=== PATIENT | female | born 1960 | race Caucasian/White ===

== ENCOUNTER 2022-10-12 11:45 | Outpatient (OUT) | payer MEDICARE, MEDICAID, SELFPAY ==
[2022-10-12 12:15] LABS: Basophils Absolute Auto 0.1 10^3/uL (0.0-0.1); Basophils Percent Auto 0.9 % (0.2-2.0); Eosinophils Absolute Auto 0.1 10^3/uL (0.0-0.7); Eosinophils Percent Auto 1.7 % (0.9-7.0); Hematocrit 40.9 % (36.0-48.0); Hemoglobin 13.6 g/dL (12.0-16.0); Immature Granulocytes Abs Auto 0.03 10^3/uL (0.00-0.03); Immature Granulocytes Pct Auto 0.4 % (0.0-0.5); Lymphocytes Absolute Auto 1.6 10^3/uL (1.2-3.8); Lymphocytes Percent Auto 20.6 % (20.5-60.0); Mean Corpuscular HGB Conc 33.3 g/dL (29.9-35.2); Mean Corpuscular Hemoglobin 30.4 pg (26.7-34.0); Mean Corpuscular Volume 91.3 fL (81.0-99.0); Mean Platelet Volume 8.7 fL (9.5-13.5); Monocytes Absolute Auto 0.6 10^3/uL (0.3-0.8); Monocytes Percent Auto 7.8 % (1.7-12.0); Neutrophils Absolute Auto 5.3 10^3/uL (1.4-6.5); Neutrophils Percent Auto 68.6 % (43.0-75.0); Platelet Count 338 10^3/uL (150-450); Red Blood Count 4.48 10^6/uL (4.20-5.40); Red Cell Distribution Width 13.6 % (11.0-15.0); White Blood Count 7.7 10^3/uL (4.0-11.0)
[2022-10-12 13:28] LABS: Alanine Aminotransferase 27 U/L (14-59); Albumin Globulin Ratio 1.1; Albumin Level 3.6 g/dL (3.4-5.0); Alkaline Phosphatase 91 U/L (46-116); Aspartate Amino Transferase 18 U/L (15-37); BUN Creatinine Ratio 10.8; Bilirubin Total 0.3 mg/dL (0.2-1.0); Calcium 9.1 mg/dL (8.5-10.1); Carbon Dioxide 28.9 mmol/L (21.0-32.0); Chloride 105 mmol/L (98-107); Estimated GFR (African America >60 (>=60); Estimated GFR (Non-African Ame >60 (>=60); Globulin 3.4 g/dL; Glucose 100 mg/dL (74-106); Potassium 3.9 mmol/L (3.5-5.1); Sodium 140 mmol/L (136-145)
[2022-10-15 12:08] LABS: IgG, Subclass 1 523 mg/dL (248-810); IgG, Subclass 2 134 mg/dL (130-555); IgG, Subclass 3 17 mg/dL (15-102); IgG, Subclass 4 14 mg/dL (2-96); Immunoglobulin G, Qn, Serum 737 mg/dL (586-1602)
== END 2022-10-12 11:46 | disposition home or self-care (01) ==
PROVIDERS: PCP Family Medicine
DX: G35 Multiple sclerosis (principal)
CPT/HCPCS: 36415; 80053; 82784; 82787; 85025

== ENCOUNTER 2022-10-31 10:38 | Outpatient (OUT) | payer MEDICARE, MEDICAID, SELFPAY ==
--- NOTE | 2022-10-31 10:45 | MR_ITS ---
The [address] [address] Patient Name: MEHRDAD LE MRN: [facility]:[id number] date: 1960 Sex: F Assigned Patient Location: MRI Current Patient Location: MRI Accession/Order Number: [id number] Exam Date: 10/31/2022 11:00 Report Date: 10/31/2022 13:19 At the request of: NON-STAFF PHYSICIAN Procedure: MR head/brain wo/w con EXAMINATION: MR head/brain wo/w con HISTORY: Multiple Sclerosis G35 COMPARISON: MRI brain 11/23/2021 TECHNIQUE: A variety of imaging planes and parameters were utilized for visualization of suspected pathology. Images were performed without and with Dotarem contrast. FINDINGS: CEREBRUM: Several areas within the periventricular and deep white matter which demonstrate increased T2 signal and are consistent with known demyelinating process and are unchanged. Stable size of a small focus posterior to the right lateral ventricle which demonstrates mild increased signal on the diffusion sequence and trace amount of enhancement suggesting focal area of active demyelination. CEREBELLUM: No edema, hemorrhage, mass, acute infarction, or inappropriate atrophy. BRAINSTEM: No edema, hemorrhage, mass, acute infarction, or inappropriate atrophy. CSF SPACES: Ventricles, cisterns, and sulci are appropriate for age. No hydrocephalus, subarachnoid hemorrhage, or mass. SKULL: No mass or other significant visible lesion. SINUSES: Limited views demonstrate no significant mucosal thickening or fluid. ORBITS: Limited views are unremarkable. OTHER: No abnormal meningeal or parenchymal enhancement. MR/MR head/brain wo/w con IMPRESSION: 1. Tiny focus of active demyelination suspected within the posteromedial right parietal lobe. Stable appearance of the remainder of the demyelinating lesions. Electronically authenticated by: DEUCE DIETRICH Date: 10/31/2022 13:19
== END 2022-10-31 10:39 | disposition home or self-care (01) ==
LOC: MRI 10:38
PROVIDERS: PCP Family Medicine
DX: G35 Multiple sclerosis (principal)
CPT/HCPCS: 70553; A9575

== ENCOUNTER 2022-12-06 11:05 | Outpatient (OUT) | payer MEDICARE, MEDICAID, SELFPAY ==
--- NOTE | 2022-12-06 | XR_ITS ---
The [address] [address] Patient Name: MEHRDAD LE MRN: [id number] date: 1960 Sex: F Assigned Patient Location: [facility] Current Patient Location: [facility] Accession/Order Number: [id number] Exam Date: 12/06/2022 10:00 Report Date: 12/06/2022 12:53 At the request of: PHILIPPE MARTINEZ Procedure: XR ankle LT min 3V PROCEDURE: XR ankle LT min 3V COMPARISON: None. HISTORY: LEFT ANKLE PAIN FINDINGS: BONES:Remote healed distal fibular fracture. No acute fracture or dislocation. SOFT TISSUES:Moderate lateral soft tissue swelling EFFUSION:None visible. OTHER: Negative. XR/XR ankle LT min 3V IMPRESSION: Lateral soft tissue swelling. No acute ankle fracture Electronically authenticated by: KARINA SOARES Date: 12/06/2022 12:53
== END 2022-12-06 11:06 | disposition home or self-care (01) ==
LOC: RAD 11:06
PROVIDERS: PCP Family Medicine; Visit Provider Podiatrist Foot & Ankle Surgery
DX: M25.372 Other instability, left ankle (principal)
CPT/HCPCS: 73610

== ENCOUNTER 2022-12-12 08:56 | Outpatient (RCR) | payer MEDICARE, MEDICAID, SELFPAY | END 2022-12-28 16:54 | disposition home or self-care (01) | LOC: PT 08:56 | PROVIDERS: PCP Family Medicine; Visit Provider Podiatrist Foot & Ankle Surgery | DX: M25.372 Other instability, left ankle (principal); R26.89 Other abnormalities of gait and mobility | CPT/HCPCS: 97110; 97161 ==

== ENCOUNTER 2023-02-09 14:56 | Emergency (ER) | payer MEDICARE, MEDICAID, SELFPAY ==
[2023-02-09 15:00] VITALS: BP 124/81; PULSE 99; RESP 18; TEMP 36.9; O2SAT 100; BMI 30.9
--- NOTE | 2023-02-09 15:12 | ED.GENADUL1 ---
HPI - General Adult General Chief complaint: Fever Stated complaint: FEVER Time Seen by Provider: 02/09/23 14:57 Source: patient Mode of arrival: walk-in Limitations: no limitations History of Present Illness HPI narrative: Patient is a 62-year-old female who presents to the emergency department with concern that she may be dehydrated. She states for the last 2 to 3 days she has had subjective fever, hot and cold chills. She has not been able to work her thermometer to tell if she has actually had a fever. She denies cough, congestion. She has had no vomiting. She states today she noticed a mild amount of diarrhea. She states she is able to eat and drink without difficulty and has been urinating normally. She states she had a similar episode in the past where she was diagnosed with a UTI and required IV fluids. She has a history of MS. She has no other focal medical complaints. Related Data Previous Rx's Medication Instructions Recorded ciprofloxacin HCl 500 mg tablet 500 mg PO BID #14 tabs 02/09/23 (Cipro) ondansetron 4 mg disintegrating 4 mg PO Q6H PRN nausea and 02/09/23 tablet vomiting #12 tabs Allergies Allergy/AdvReac Type Severity Reaction Status Date / Time cephalexin [From Keflex] Allergy Unknown Verified 02/09/23 15:00 Review of Systems ROS Constitutional Reports: chills Ears, nose, mouth, and throat Denies: throat pain or nasal congestion Cardiovascular Denies: chest pain Respiratory Denies: shortness of breath Gastrointestinal Reports: diarrhea; Denies: abdominal pain, nausea or vomiting Genitourinary Denies: painful urination Musculoskeletal Denies: back pain Integumentary/Breast Denies: rash Neurological Denies: headache Exam Narrative Exam Narrative: Gen.: Awake, alert, in no distress Head: Normocephalic, atraumatic ENT: Dry mucous membranes, bilateral TMs clear, no pharyngeal erythema Respiratory: No respiratory distress, lungs clear bilaterally Cardio: Regular rate and rhythm Gastrointestinal: Abdomen is soft, nondistended and nontender to palpation Extremities: Moves extremities equally Psych: Normal mood and affect Neuro: No focal neuro deficit Skin: Warm, dry, intact Constitutional Vital Signs, click to edit/add: Last Vital Signs Temp 98.5 F 02/09/23 15:00 Pulse 99 H 02/09/23 15:00 Resp 18 02/09/23 15:00 BP 124/81 02/09/23 15:00 Pulse Ox 100 02/09/23 15:00 O2 Del Method Room Air 02/09/23 15:00 Course Vital Signs Vital signs: Vital Signs Temperature 98.5 F 02/09/23 15:00 Pulse Rate 99 H 02/09/23 15:00 Respiratory Rate 18 02/09/23 15:00 Blood Pressure 124/81 02/09/23 15:00 Pulse Oximetry 100 02/09/23 15:00 Oxygen Delivery Method Room Air 02/09/23 15:00 Temperature 98.5 F 02/09/23 15:00 Pulse Rate 99 H 02/09/23 15:00 Respiratory Rate 18 02/09/23 15:00 Blood Pressure 124/81 02/09/23 15:00 Pulse Oximetry 100 02/09/23 15:00 Oxygen Delivery Method Room Air 02/09/23 15:00 Medical Decision Making MDM Narrative Medical decision making narrative: Patient with stable vital signs, no fevers or tachycardia in the ER. Labs were ordered and the patient was given IV fluids. She had no episodes of emesis in the ER. She has no other focal medical complaints, she was found to have a UTI, she is COVID-negative with normal labs. Follow-up with PCP. Cipro and Zofran given for home. Return to the ER if symptoms change or worsen. Medical Records Medical records reviewed: Yes I reviewed the patient's medical records Lab Data Lab results reviewed: Yes I reviewed the patient's lab results Labs: Lab Results 02/09/23 02/09/23 02/09/23 Range/Units 15:20 15:35 16:30 WBC 8.4 (4.0-11.0) 10^3/uL RBC 4.62 (4.20-5.40) 10^6/uL Hgb 13.9 (12.0-16.0) g/dL Hct 41.6 (36.0-48.0) % MCV 90.0 (81.0-99.0) fL MCH 30.1 (26.7-34.0) pg MCHC 33.4 (29.9-35.2) g/dL RDW 13.4 (11.0-15.0) % Plt Count 293 (150-450) 10^3/uL MPV 9.4 L (9.5-13.5) fL Seg Neuts % (Manual) 59.0 Lymphocytes % (Manual) 22.0 (20.5-60.0) % Atypical Lymphs % (Man) 11.0 % Monocytes % (Manual) 7.0 (1.7-12.0) % Eosinophils % (Manual) 1.0 (0.9-7.0) % Basophils % (Manual) 0.0 L (0.2-2.0) % Neutrophils # (Manual) 4.95 (1.4-6.5) 10^3/uL Lymphocytes # (Manual) 1.84 (1.20-3.80) 10^3/uL Abs Atypical Lymphs Man 0.9 Monocytes # (Manual) 0.58 (0.30-0.80) 10^3/uL Eosinophils # (Manual) 0.08 (0.00-0.70) 10^3/uL Basophils # (Manual) 0.00 (0.00-0.10) 10^3/uL Sodium 139 (136-145) mmol/L Potassium 3.6 (3.5-5.1) mmol/L Chloride 102 (98-107) mmol/L Carbon Dioxide 26.5 (21.0-32.0) mmol/L Anion Gap 14.1 BUN 12.0 (7.0-18.0) mg/dL Creatinine 0.98 (0.55-1.02) mg/dL Est GFR ( Amer) >60 (>=60) Est GFR (Non-Af Amer) 57 L (>=60) BUN/Creatinine Ratio 12.2 Glucose 108 H (74-106) mg/dL Calcium 8.6 (8.5-10.1) mg/dL Total Bilirubin 0.6 (0.2-1.0) mg/dL AST 39 H (15-37) U/L ALT 65 H (14-59) U/L Alkaline Phosphatase 93 (46-116) U/L Total Protein 7.0 (6.4-8.2) g/dL Albumin 3.4 (3.4-5.0) g/dL Globulin 3.6 g/dL Albumin/Globulin Ratio 0.9 Urine Color Lt. yellow (YELLOW) Urine Clarity Slightly cloudy A (CLEAR) Urine pH 6.0 (5.0-9.0) Ur Specific [place] 1.020 (1.005-1.025) Urine Protein Negative (NEG/TRACE) mg/dL Urine Glucose (UA) Negative (NEGATIVE) mg/dL Urine Ketones Negative (NEGATIVE) mg/dL Urine Occult Blood Small A (NEGATIVE) Urine Nitrite Positive A (NEGATIVE) Urine Bilirubin Negative (NEGATIVE) Urine Urobilinogen 0.2 (0.2-1.0) EU/dL Ur Leukocyte Esterase Moderate A (NEGATIVE) Urine RBC 0-2 (0-2) #/HPF Urine WBC 10-20 A (NONE SEEN) #/HPF Ur Squamous Epith Cells Rare (NONE/RARE) #/LPF Urine Crystals None seen (None Seen) #/HPF Urine Bacteria Small A (NONE SEEN) #/HPF Urine Casts None seen (NONE SEEN) #/LPF Urine Mucus None seen (NONE SEEN) Ur Culture Indicated? Yes SARS-CoV-2 (PCR) Negative (NEGATIVE) Discharge Plan Discharge Chief Complaint: Fever Clinical Impression: UTI (urinary tract infection) Patient Disposition: Home, Self-Care Time of Disposition Decision: 16:55 Condition: Good Prescriptions / Home Meds: New ciprofloxacin HCl [Cipro] 500 mg tablet 500 mg PO BID Qty: 14 0RF ondansetron 4 mg tablet,disintegrating 4 mg PO Q6H PRN (Reason: nausea and vomiting) Qty: 12 0RF Instructions: Urinary Tract Infection in Women (ED) Stand Alone Forms: Portal Instructions Referrals: NABEEL STANTON [Primary Care Provider] - 1 week
[2023-02-09] MEDS: 0.9 % SODIUM CHLORIDE 1,000 ML 999 ML IV (15:26)
[2023-02-09 15:53] LABS: Hematocrit 41.6 % (36.0-48.0); Hemoglobin 13.9 g/dL (12.0-16.0); Mean Corpuscular HGB Conc 33.4 g/dL (29.9-35.2); Mean Corpuscular Hemoglobin 30.1 pg (26.7-34.0); Mean Platelet Volume 9.4 fL (9.5-13.5); Platelet Count 293 10^3/uL (150-450); Red Blood Count 4.62 10^6/uL (4.20-5.40); Red Cell Distribution Width 13.4 % (11.0-15.0); White Blood Count 8.4 10^3/uL (4.0-11.0)
[2023-02-09 16:01] LABS: Alanine Aminotransferase 65 U/L (14-59); Albumin Globulin Ratio 0.9; Albumin Level 3.4 g/dL (3.4-5.0); Alkaline Phosphatase 93 U/L (46-116); Anion Gap 14.1; Aspartate Amino Transferase 39 U/L (15-37); BUN Creatinine Ratio 12.2; Bilirubin Total 0.6 mg/dL (0.2-1.0); Calcium 8.6 mg/dL (8.5-10.1); Carbon Dioxide 26.5 mmol/L (21.0-32.0); Chloride 102 mmol/L (98-107); Estimated GFR (African America >60 (>=60); Estimated GFR (Non-African Ame 57 (>=60); Globulin 3.6 g/dL; Glucose 108 mg/dL (74-106); Potassium 3.6 mmol/L (3.5-5.1); Sodium 139 mmol/L (136-145)
[2023-02-09 16:04] LABS: SARS-CoV-2 Ag NEGATIVE (NEGATIVE)
[2023-02-09 16:18] LABS: Atypical Lymphocytes Abs Man 0.9; Eosinophils Absolute Manual 0.08 10^3/uL (0.00-0.70); Lymphocytes Absolute Manual 1.84 10^3/uL (1.20-3.80); Monocytes Absolute Manual 0.58 10^3/uL (0.30-0.80); Segmented Neut Absolute Manual 4.95 10^3/uL (1.4-6.5)
[2023-02-09 16:40] LABS: Bilirubin Urine NEGATIVE (NEGATIVE); Blood Urine SMALL (NEGATIVE); Clarity Urine SLIGHTLY CLOUDY (CLEAR); Color Urine LT. YELLOW (YELLOW); Glucose Urine UA NEGATIVE (NEGATIVE); Ketones Urine NEGATIVE (NEGATIVE); Leukocyte Esterase Urine MODERATE (NEGATIVE); Nitrite Urine POSITIVE (NEGATIVE); Protein Urine NEGATIVE (NEG/TRACE); Urine Microscopic Indicated YES; Urobilinogen Urine 0.2 EU/dL (0.2-1.0)
[2023-02-09 16:46] LABS: Bacteria Urine SMALL #/HPF (NONE SEEN); Cast Seen? NONE SEEN #/LPF (NONE SEEN); Crystals Seen? None Seen #/HPF (None Seen); Mucus Urine NONE SEEN (NONE SEEN); RBC Urine 0-2 #/HPF (0-2); Squamous Epithelial Cell Urine RARE #/LPF (NONE/RARE); Urine Culture Indicated YES
[2023-02-09 17:29] VITALS: PULSE 78; RESP 14; TEMP 37.1; O2SAT 98
[2023-02-10 15:31] LABS: SARS-CoV-2 NAA NOT DETECTED (NOT DETECTE)
== END 2023-02-09 17:31 | disposition home or self-care (01) ==
PROVIDERS: Physician Assistant; Emergency Provider Emergency Medicine; PCP Family Medicine
DX: N39.0 Urinary tract infection, site not specified (principal); G35 Multiple sclerosis; R19.7 Diarrhea, unspecified; Z87.440 Personal history of urinary (tract) infections
CPT/HCPCS: 36415; 80053; 81001; 85027; 87086; 87150; 87186; 87635; 87811; 96360; 96361; 99284

== ENCOUNTER 2023-05-10 09:54 | Outpatient (OUT) | payer MEDICARE, MEDICAID, SELFPAY ==
[2023-05-10 10:25] LABS: Basophils Absolute Auto 0.1 10^3/uL (0.0-0.1); Basophils Percent Auto 0.7 % (0.2-2.0); Eosinophils Absolute Auto 0.2 10^3/uL (0.0-0.7); Eosinophils Percent Auto 2.1 % (0.9-7.0); Hematocrit 41.1 % (36.0-48.0); Hemoglobin 13.4 g/dL (12.0-16.0); Immature Granulocytes Abs Auto 0.01 10^3/uL (0.00-0.03); Immature Granulocytes Pct Auto 0.1 % (0.0-0.5); Lymphocytes Absolute Auto 3.5 10^3/uL (1.2-3.8); Lymphocytes Percent Auto 46.3 % (20.5-60.0); Mean Corpuscular HGB Conc 32.6 g/dL (29.9-35.2); Mean Corpuscular Hemoglobin 30.1 pg (26.7-34.0); Mean Corpuscular Volume 92.4 fL (81.0-99.0); Mean Platelet Volume 8.8 fL (9.5-13.5); Monocytes Absolute Auto 0.8 10^3/uL (0.3-0.8); Monocytes Percent Auto 10.7 % (1.7-12.0); Neutrophils Absolute Auto 3.1 10^3/uL (1.4-6.5); Neutrophils Percent Auto 40.1 % (43.0-75.0); Platelet Count 343 10^3/uL (150-450); Red Blood Count 4.45 10^6/uL (4.20-5.40); Red Cell Distribution Width 14.5 % (11.0-15.0); White Blood Count 7.6 10^3/uL (4.0-11.0)
[2023-05-10 11:23] LABS: Alanine Aminotransferase 42 U/L (14-59); Albumin Level 3.4 g/dL (3.4-5.0); Alkaline Phosphatase 118 U/L (46-116); Anion Gap 13.4; Aspartate Amino Transferase 29 U/L (15-37); BUN Creatinine Ratio 12.4; Bilirubin Direct 0.1 mg/dL (0.0-0.2); Bilirubin Total 0.5 mg/dL (0.2-1.0); Calcium 8.7 mg/dL (8.5-10.1); Chloride 105 mmol/L (98-107); Estimated GFR (African America >60 (>=60); Estimated GFR (Non-African Ame >60 (>=60); Globulin 3.4 g/dL; Glucose 94 mg/dL (74-106); Potassium 4.4 mmol/L (3.5-5.1); Sodium 143 mmol/L (136-145); Total Protein 6.8 g/dL (6.4-8.2)
[2023-05-11 05:11] LABS: Immunoglobulin G, Qn 723 mg/dL (586-1602)
== END 2023-05-10 09:55 | disposition home or self-care (01) ==
LOC: LAB 09:58
PROVIDERS: PCP Family Medicine; Visit Provider Psychiatry & Neurology Neurology
DX: G35 Multiple sclerosis (principal)
CPT/HCPCS: 36415; 80048; 80076; 82784; 85025

== ENCOUNTER 2023-10-03 08:32 | Outpatient (OUT) | payer MEDICARE, MEDICAID, SELFPAY ==
--- OUTSIDE RECORDS SUMMARY | 2023-10-03 08:38 | XMS_ITS | CCD ---
Author Organization [facility] CliniSyky Care Team Providers Care Nursery Laborer Name Role Phone Nabeel Stanton Unavailable Unavailable Primary Care Provider UnavailNabeel Mayfield DO Primary Care Provider DO Nabeel Stanton Primary Care Provider DO Nabeel Stanton Attending Provider LIONEL Patten Attending Provider LIONEL Patten Referring Provider NABEEL STANTON Primary Care Unavailable Karina Soares Unavailable SINDY, YISEL Admitting Unavailable SINDY, YISEL Attending Unavailable SINDY, YISEL Consulting Unavailable SINDY, YISEL Admitting Unavailable SINDY, YISEL Attending Unavailable SINDY, YISEL Consulting Unavailable [facility] NABEEL [facility] Unavailable MISC, DR BRADLEY Admitting Unavailable Karina Soares Consulting Unavailable MISMaximilian, DR BRADLEY Attending Unavailable NABEEL STANTON [facility] Unavailable [facility] DR BRADLEY Consulting Unavailable ATUL AKERS Consulting Unavailable BART HELMS Admitting Unavailable BART HELMS Attending Unavailable [facility] NABEEL [facility] Unavailable [facility], [place] BRADLEY Attending Unavailable MISC, DR BRADLEY Admitting Unavailable [facility] Care Unavailable NELA PALMA Attending Unavailable STANTON, NABEEL [facility] Care Unavailable KIKO PALMAID Consulting Unavailable BINA Oliveira, NELA Admitting Unavailable FREDA, CHRISTOPHER Admitting Unavailable BART HELMS Attending Unavailable [facility] Care Unavailable BART HELMS Attending Unavailable MERLIN HELMSOPHMARVIN Admitting Unavailable [facility] Care Unavailable BINA ., NELA Attending Unavailable BINA Oliveira, NELA Admitting Unavailable [facility] NABEEL [facility] Care Unavailable RESCUENABEEL HUMBOLDT Primary Care UnavailAC Pretty Attending Unavailable AC WARNER Referring Unavailable AC WARNER Referring Unavailable NABEEL STANTON Primary Care Unavailabl e Nabeel Stanton DO Primary Care Provider Nabeel Stanton MD Primary Care Provider [phone] DO Nabeel Stanton Primary Care Provider DO Nabeel Stanton Referring Provider [phone] Self, Referral Attending Provider Unavailable RAHUL STEWART Attending Unavailable RAHUL STEWART Attending Unavailable BART HELMS Attending Unavailable RAHUL STEWART Attending Unavailable ATUL AKERS Attending Unavailable Self, Referral Attending Unavailable Self, Referral Admitting Unavailable Nabeel Stanton Referring Unavailable Nabeel Stanton Primary Care Unavailable Nabeel Stanton Primary Care Unavailable Cece Patten Referring Unavailab Cece Bautista Attending Unavailab Cece Bautista Admitting Unavailab le Allergies Allergy Classification Reported Allergen(s) Allergy Type Date of Onset Reaction(s) Facility Cephalosporins (antibiotic) (2 sources) Cephalexin Drug Allergy 4 rash, Unknown Reaction [facility] (12 sources) Cephalexin; Translations: [Keflex] Drug Allergy rash [facility] (5 sources) Cephalexin; Translations: [CEPHALEXIN] Drug Allergy 6 Hives, Itching, Rash [facility] (2 sources) Cephalosporins (Antibiotic); Translations: [Cephalosporins] Allergy to substance 4 Unknown Reaction [facility] (1 source) Cephalexin Drug Allergy 4 [facility] Repository Medications Current Medications Medication Drug Class(es) Dates Sig (Normalized) Sig (Original) ascorbic acid 500 mg oral tablet (3 sources) Vitamin C Start: 11-23-2016 take 1 tablet by mouth once daily Ascorbic Acid (Vitamin C) (Vitamin C) 500 mg Tablet Active 500 MG PO Daily November 23, 2016 12:00am biotin 10 mg oral capsule (9 sources) Start: 02-03-2023 take 1 capsule by mouth once daily biotin 10 MG capsule TAKE 1 CAPSULE BY MOUTH EVERY DAY 30 DAYS 0 02/03/2023 Active Start: 11-20-2016 take 1 mg by mouth once daily Biotin Active 1 MG PO Daily November 20, 2016 12:00am Start: 12-15-2015 take 1 tablet by carolyn th once daily Biotin 10,000 mcg cap Take 1 tablet by mouth once daily. 0 12/15/2015 Active take 1 tablet by carolyn th once daily Biotin 41414 MCG 1 tablet Orally Once a day Active Comment on above: Take 1 tablet by carolyn th once daily. calcium carbonate 1250 mg / cholecalciferol 600 unt oral tablet (3 sources) Vitamin D Start: 11-21-19 17 take 1 tablet by mouth once daily Calcium Carbonate-Vitamin D3 (Os-Miquel 500 + D3) 500mg (1,250mg) -600 unit Tablet Active 1 TAB PO Daily November 20, 2016 12:00am Compr.Stocking,Knee,Long ,Large (1 source) Start: 09-04-19 24 Compr.Stocking,Kn ee,Long,Large Active 0 .Route 2 September 04, 2023 12:00am As directed - 20-30mmHg desonide 0.5 mg/ml topical cream (6 sources) Corticosteroid Start: 11-21-19 Desonide Active 1 APPLIC TOPICAL Twice daily November 20, 2016 12:00am Start: 04-25-2016 desonide (DESO EVERTON) 0.05 % lotion APPLY TO SKIN TWICE A DAY NEEDED 0 04/25/2016 Active Comment on above: APPLY TO SKIN TWICE A DAY NEEDED diclofenac sodium 50 mg delayed release oral tablet (1 source) Nonsteroidal Anti-inflammatory Drug Start: 3 take 1 tablet by mouth every twelve hours Diclofenac Sodium 50 MG 1 tablet as needed Orally Twice a day for 30 days Nov, Active docusate sodium 100 mg oral capsule (17 sources) Start: 7 take 1 capsule by mouth once daily Docusate Sodium (Colace) 100 mg Capsule Active 100 MG PO Daily November 20, 2016 12:00am docusate sodium (COLACE) 100 mg capsule Take by mouth q 24 HR. 0 Active Comment on above: Take by mouth q 24 H R. donepezil hydrochloride 10 mg oral tablet (19 sources) Start: 11-20-2016 take 1 tablet by mouth once daily at bedtime Donepezil (Aricept) 10 mg Tablet Active 10 MG PO Daily at bedtime November 20, 2016 12:00am Start: 12-16-2015 donepezil (CHATO CEPT) 10 mg tablet Take by mouth q 24 HR. 0 12/16/2015 Active Comment on above: Take by mouth q 24 H R. ergocalciferol 1.25 mg oral capsule (9 sources) Provitamin D2 Compound Start: 016 take 1 capsule by mouth every week Ergocalciferol (Vitamin D2) (Vitamin D2) 50,000 unit Capsule Active 19605 UNIT PO every week November 23, 2016 12:00am Comment on above: Take 1 capsule by [facility] one time a week. TAKE 1 CAPSULE BY [facility] ONCE PER WEEK fluticasone propionate 0.05 mg/actuat metered dose nasal spray (20 sources) Corticosteroid Start: 024 take 2 spray(s) nasal route once daily Fluticasone Propionate Active 0 .ROUTE .COMPLEX 48 August 06, 2023 3:07pm USE 2 SPRAYS IN EACH NOSTRIL DAILY FOR 30 DAYS Start: 05-07-2023 End: 08-06-2023 Fluticasone Propionate Discontinued 2 SPRAY INTRANASAL Daily 16 May 07, 2023 12:14pm August 06, 2023 3:07pm Start: 11-20-2016 End: 05-07-2023 take 100 ug by inhalation twice daily Fluticasone Propionate Discontinued 100 MCG INHALATION Twice daily November 20, 2016 12:00am May 07, 2023 12:14pm take 2 spray(s) nasa l route once daily fluticasone (Flonase) 50 MCG/ACT nasal spray SPRAY 2 SPRAYS INTO EACH NOSTRIL ONCE DAILY 0 Active take 2 spray(s) nasa l route once daily Fluticasone Propionate 50 MCG/ACT USE 2 SPRAYS IN EACH NOSTRIL ONCE DAILY for 90 Active gabapentin 400 mg oral capsule (19 sources) Anti-epileptic Agent Start: 11-20-2016 take 1 capsule by mouth twice daily Gabapentin (Neurontin) 400 mg Capsule Active 400 MG PO Twice daily November 20, 2016 12:00am Start: 12-11-2015 gabapentin (NE URONTIN) 400 mg capsule Take by mouth q 12 HR. 0 12/11/2015 Active take 2 capsules by m out twice daily in the evening Neurontin 400 MG 1 capsule am, ; 2 pm Orally BID Active Comment on above: Take by mouth q 12 H R. losartan potassium 25 mg oral tablet (19 sources) Angiotensin 2 Receptor Isabella Start: 04-17-19 19 take 25 mg by mouth once daily Losartan Active 25 MG PO Daily April 18, 2018 1:00am Comment on above: Take by mouth. 10 ml ocrelizumab 30 mg/ml injection (2 sources) Start: 05-11-19 24 Ocrelizumab (Ocrevus) 30 mg/mL solution Active MG IV May 11, 2023 1:00am Medication Name: Ocrevus; Note: Source Status: Not-Taking\PRN; Provider: MONTSE ondansetron 4 mg disintegrating oral tablet (2 sources) Serotonin-3 Receptor Antagonist Start: 02-10-20 ondansetron ODT (Zofran-ODT) 4 MG disintegrating tablet DISSOLVE 1 TABLET UNDER TONGUE EVERY 6 HOURS NEEDED FOR NAUSEA AND VOMITING 0 02/09/2023 Active 24 hr oxybutynin chloride 15 mg extended release oral tablet (19 sources) Cholinergic Muscarinic Antagonist Start: 03-12-19 24 take 1 tablet by mouth every twenty-four hours in the morning oxybutynin XL (Ditropan-XL) 15 MG 24 hr tablet Take 15 mg by mouth in the morning. 0 03/12/2023 Active Start: 08-01-2021 take 1 tablet by carolyn th once daily oxybutynin ER (DITROPAN XL) 15 mg 24 hr Extended Rel Tab Take 15 mg by mouth once daily. 0 08/01/2021 Active Start: 11-20-2016 take 1 tablet by carolyn th once daily Oxybutynin Chloride (Ditropan Xl) 10 mg Tablet Extended Release 24hr Active 10 MG PO Daily November 20, 2016 12:00am Comment on above: Take 15 mg by mouth once daily. Peg 055-Llkvdgvuvpkw-Ljupxgp n (2 sources) Start: 05-11-2023 Peg 986-Hvnrjlxonfyu-Oftgei in Active DROPS OPHTHALMIC As Directed May 11, 2023 1:00am FreeTextSig: as directed Ophthalmic; Note: Source Status: Not-Taking\PRN; Provider: Montana Smith ( ) triamcinolone acetonide 1 mg/ml topical cream (13 sources) Corticosteroid Start: 05-11-2023 Triamcinolone Acetonide Active APPLIC TOPICAL May 11, 2023 1:00am FreeTextSig: APPLY TO AFFECTED AREA TWICE A DAY NEEDED; Note: Source Status: Not-Taking\PRN; Refills: 1; Qty: 30 Gram; Provider: Montana Smith ( ) Start: 03-29-2020 Triamcinolone Acetonide 0.1 % 1 application Externally bid PRN Mar, Active Completed/Discontinued Medications Medication Drug Class(es) Dates Sig (Normalized) Sig (Original) acetaminophen 300 mg / HYDROcodone bitartrate 5 mg oral tablet (6 sources) Opioid Agonist Start: 11-23-2016 End: 11-28-2017 take 1 tablet by mouth every four to six hours Hydrocodone-Acetami nophen (Vicodin) 5-300 mg Tablet Discontinued 1 TAB PO EVERY 4-6 HOURS November 23, 2016 12:00am November 28, 2017 8:56am Start: 11-20-2016 End: 11-28-2017 take 2 tablets by mouth every four to six hours Hydrocodone-Acetaminophen Discontinued 2 TAB PO EVERY 4-6 HOURS November 20, 2016 12:00am November 28, 2017 8:56am ALPRAZolam 0.25 mg oral tablet (9 sources) Benzodiazepine Start: 11-20-2016 End: 11-28-2017 take 1 tablet by mouth twice daily Alprazolam (Xanax) 0.25 mg Tablet Discontinued 0.25 MG PO Twice daily November 20, 2016 12:00am November 28, 2017 8:56am Start: 12-15-2015 End: 11-28-2017 take 1 tablet by mouth once daily Alprazolam (Xanax) 0.25 mg Tablet Discontinued 0.25 MG PO Daily November 23, 2016 12:00am November 28, 2017 8:56am Comment on above: TAKE 1 TABLET BY CAROLYN TH ONCE A DAY NEEDED FOR ANXIETY glycerin 2 mg/ml / hypromellose 2 mg/ml / polyethylene glycol 400 10 mg/ml ophthalmic solution (11 sources) Non-Standardized Chemical Allergen Dry Eye Relief Drops 0.2-0.2-1 % as directed Ophthalmic Not-Taking latanoprost 0.05 mg/ml ophthalmic solution (3 sources) Prostaglandin Analog take 1 drop(s) into the eye(s) once daily at bedtime latanoprost (XALATAN) 0.005 % ophthalmic solution 1 Drop daily at bedtime. 0 Active Comment on above: 1 Drop daily at bedt jessica. lisinopril 20 mg oral tablet (7 sources) Angiotensin Converting Enzyme Inhibitor Start: 11-21-19 End: 04-18-19 19 take 20 mg by mouth once daily Lisinopril Discontinued 20 MG PO Daily November 20, 2016 12:00am April 18, 2018 1:05pm Comment on above: Take 20 mg by mouth once daily. montelukast 10 mg oral tablet (19 sources) Leukotriene Receptor Antagonist Start: 09-18-19 18 End: 05-11-19 24 take 1 tablet by mouth once daily in the evening Montelukast (Singulair) 10 mg Tablet Discontinued 10 MG PO Every evening September 17, 2017 12:00am May 11, 2023 12:59pm Start: 08-27-2017 montelukast (S INGULAIR) 10 mg tablet Take by mouth q 24 HR. 0 08/27/2017 Active Comment on above: Take by mouth q 24 H RTee Ocrmariannaus (11 sources) Ocrevus Not-Taki ng Ocrevus Active teriflunomide 14 mg oral tablet (3 sources) Pyrimidine Synthesis Inhibitor Start: 11-23-2016 End: 05-11-2023 take 1 tablet by mouth once daily Teriflunomide (Aubagio) 14 mg Tablet Discontinued 14 MG PO Daily November 23, 2016 12:00am May 11, 2023 1:00pm Vitamin B Complex (3 sources) Start: 11-23-2016 End: 05-11-2023 take 1 tablet by mouth once daily Vitamin B Complex Discontinued 1 TAB PO Daily November 23, 2016 12:00am May 11, 2023 1:00pm Start: 11-23-2016 take 1 tablet by carolyn once daily Vitamin B Complex Active 1 TAB PO Daily November 23, 2016 12:00am Vitamin D3 84608 UNIT (11 sources) take 1 capsule by mo ut every week Vitamin D3 39556 UNIT 1 capsules Orally once a week Not-Taking take 1 capsule by mouth every we ek Vitamin D3 59240 UNIT 1 capsules Orally once a week Active Walker - (11 sources) Start: 11-17-2019 Walker - as di rected Nov, Not-Taking Problems Active Problems Problem Classification Problem Date Documented Da te Episodic/Chronic Acquired foot deformities (1 source) Flat foot [pes planus] (acquired), left foot Episodic Cancer of ovary (2 sources) Malignant tumor of ovary; 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)] Chronic Disorders of lipid metabolism (13 sources) Mixed hyperlipidemia; Translations: [Mixed hyperlipidemia] 05-10-2023 Chronic Essential hypertension (18 sources) Benign essential hypertension; Translations: [Essential (primary) hypertension] Chronic Fracture of lower limb (11 sources) Closed fracture of distal fibula ; Translations: [Other fracture of upper and lower end of left fibula, subsequent encounter for closed fracture with routine healing] Episodic Multiple sclerosis (20 sources) Multiple sclerosis; Translations: [Multiple sclerosis] Onset: 01-10-2022 Chronic Mycoses (3 sources) Tinea unguium; Translations: [Onychomycosis] Episodic Other bone disease and musculoskeletal deformities (13 sources) Osteopenia; Translations: [Other specified disorders of bone density and structure, unspecified site] 05-10-2023 Episodic Other bone disease and musculoskeletal deformities (2 sources) Exostosis of left foot; Translations: [Other specified disorders of bone, ankle and foot] 04-05-2023 Episodic Other circulatory disease (1 source) H/O: hypertension; Translations: [Personal history of other diseases of the circulatory system] Episodic Other connective tissue disease (1 source) Other specified soft tissue disorders Episodic Other connective tissue disease (1 source) Pain in left leg Episodic Other connective tissue disease (2 sources) Pain of toes of bilateral feet; Translations: [Pain in right toe(s)] 04-05-2023 Episodic Other diseases of bladder and urethra (10 sources) Bladder muscle dysfunction - overactive; Translations: [Overactive bladder] Chronic Other diseases of bladder and urethra (1 source) Overactive bladder; Translations: [OAB (overactive bladder)] Chronic Other diseases of bladder and urethra (2 sources) Overactive bladder; Translations: [Overactive bladder] 05-10-2023 Chronic Other diseases of veins and lymphatics (1 source) Venous insufficiency of leg; Translations: [Venous insufficiency (chronic) (peripheral)] 09-04-2023 Episodic Other diseases of veins and lymphatics (1 source) Venous insufficiency (chronic) (peripheral); Translations: [Venous (peripheral) insufficiency, unspecified] 09-04-2023 Episodic Other inflammatory condition of skin (1 source) Seborrheic dermatitis, unspecified Episodic Other non-traumatic joint disorders (1 source) Other instability, left ankle Episodic Other screening for suspected conditions (not mental disorders or infectious disease) (1 source) Encounter for screening mammogram for malignant neoplasm of breast; Translations: [Encounter for screening mammogram for malignant neoplasm of breast] Onset: 08-08-2023 Episodic Spondylosis; intervertebral disc disorders; other back problems (4 sources) Radiculopathy, lumbar region; Translations: [RADICULOPATHY LUMBAR REGION] Onset: 03-05-2022 Episodic Unclassified (1 source) Malignant neoplasm of both ovaries (HCC); 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)] Onset: 10-17-2022 Past or Other Problems Problem Classification Problem Date Documented Da te Episodic/Chronic Malaise and fatigue (4 sources) Weakness; Translations: [WEAKNESS] Onset: 01-07-2022 Episodic Other aftercare (1 source) Other usp (current) drug therapy; Translations: [[facility] CURRENT DRUG THERAPY] Onset: 01-10-2022 Episodic Other connective tissue disease (1 source) Repeated falls; Translations: [REPEATED FALLS] Onset: 02-15-2022 Episodic Other connective tissue disease (1 source) Muscle weakness (generalized); Translations: [MUSCLE WEAKNESS GENERALIZED] Onset: 02-15-2022 Episodic Other connective tissue disease (1 source) Abnormal posture; Translations: [ABNORMAL POSTURE] Onset: 02-15-2022 Episodic Other gastrointestinal disorders (5 sources) Diarrhea, unspecified; Translations: [DIARRHEA UNSPECIFIED] Onset: 01-08-2022 Episodic Other injuries and conditions due to external causes (1 source) History of falling; Translations: [HISTORY OF FALLING] Onset: 02-15-2022 Episodic Other nervous system disorders (1 source) Other abnormalities of gait and mobility; Translations: [OTHER ABNORMALITIES GAIT AND MOBILITY] Onset: 02-15-2022 Episodic Other nervous system disorders (1 source) Unspecified abnormalities of gait and mobility; Translations: [UNS ABNORMALITIES GAIT AND MOBILITY] Onset: 02-15-2022 Episodic Other skin disorders (1 source) Disorder of the skin and subcutaneous tissue, unspecified Onset: 05-23-2021 Resolved: 05-23-2021 Episodic Results Test Name Value Interpretation Reference Range Facility MM screening mammo BI w/CADo n 08-08-2023 MM screening mammo BI w/CAD [facility] [place] [address] [place] [address] Mammography Report Signed Patient: Gabrielle Marcos MR#: [id number] : 1960 Acct:[id number] Age/Sex: 63 / F ADM Date: 08/08/23 Loc: [place] Room: Type: [facility] Attending Dr: Referral Self Copies to: SELF,REFERRAL Nabeel Stanton DO Ordering Provider: SELF,REFERRAL Date of Service: 08/08/23 MM/MM screening mammo BI w/CAD: SCREENING CLINICAL DATA: Screening for malignancy. BILATERAL SCREENING MAMMOGRAMS - FULL FIELD DIGITAL WITH TOMOSYNTHESIS AND CAD Tomosynthesis craniocaudal and mediolateral oblique views of both breasts were obtained using low- dose digital technique. Comparison is made to prior studies from December 26, 2018 through June 06, 2022. This examination was reviewed with the aid of CAD. The breast parenchyma has been largely replaced by fat. Benign-appearing calcifications are seen. There are no developing masses, typically malignant calcifications or architectural distortion. There has been no significant interval change. MM/MM screening mammo BI w/CAD IMPRESSION: NO MAMMOGRAPHIC EVIDENCE OF MALIGNANCY. ROUTINE FOLLOW-UP IS RECOMMENDED IN ONE YEAR. RESULT CODE: 2 Benign Findings(s) DENSITY CODE: 1 (<25% glandular) FOLLOW UP: 1YR The false-negative rate of mammography is approximately 10-percent. Management of a palpable abnormality must be based on clinical grounds. Patient was entered into a reminder system with a target due date for the next mammogram. Impression dictated by: Chary Gunderson M.D.08/08/2023 3:05 PM Dictation Location: [facility] Transcribed By: CHARISMA 08/08/23 1505 Dictated By: Chary Gunderson MD 08/08/23 1502 Signed By: 08/08/23 1505 Normal [facility] [place] 125 BLDon 10-18-2022 Cancer Ag 125 Qn 4 [arb'U]/mL <39 U/mL [facility] CBC W Auto Differential pane l (Bld)on 10-17-2022 Basophils (Bld) [#/Vol] 0.08 10*3/uL Normal <0.11 [facility] Comment on above: Order Comment: Speci men Type: BLOOD SPECIMEN Ordering Facility: [facility] Address: [address] [address] Performed By: #### 5 7021-8 #### [facility] CLIA [id number] [address] [place] [address] 17623 Basophils/100 WBC (Bld) 1.0 % Normal [facility] Comment on above: Order Comment: Speci men Type: BLOOD SPECIMEN Ordering Facility: [facility] Address: [address] [address] Performed By: #### 5 7021-8 #### [facility] CLIA [id number] [address] [place] [address] 48373 Differential cell count method Nom (Bld) Auto Normal [facility] Comment on above: Order Comment: Speci men Type: BLOOD SPECIMEN Ordering Facility: [facility] Address: [address] [address] Performed By: #### 5 7021-8 #### [facility] CLIA [id number] [address] [place] [address] 56078 Eosinophils (Bld) [#/Vol] 0.19 10*3/uL Normal <0.46 [facility] Comment on above: Order Comment: Speci men Type: BLOOD SPECIMEN Ordering Facility: [facility] Address: [address] [address] Performed By: #### 5 7021-8 #### [facility] CLIA [id number] [address] [place] [address] 40013 Eosinophils/100 WBC (Bld) 2.3 % Normal [facility] Comment on above: Order Comment: Speci men Type: BLOOD SPECIMEN Ordering Facility: [facility] Address: [address] [address] Performed By: #### 5 7021-8 #### [facility] CLIA [id number] [address] [place] [address] 52695 Erythrocyte distribution width (RBC) [Ratio] 13.7 % Normal 11.5-15.0 [facility] Comment on above: Order Comment: Speci men Type: BLOOD SPECIMEN Ordering Facility: [facility] Address: [address] [address] Performed By: #### 5 7021-8 #### [facility] CLIA [id number] [address] [place] [address] 40851 Hematocrit (Bld) [Volume fraction] 41.0 % Normal 36.0-46.0 [facility] Comment on above: Order Comment: Speci men Type: BLOOD SPECIMEN Ordering Facility: [facility] Address: [address] [place] [address] Performed By: #### 5 7021-8 #### [facility] CLIA [id number] [address] [place] [address] 58179 Hemoglobin (Bld) [Mass/Vol] 13.5 g/dL Normal 11.5-15.5 [facility] Comment on above: Order Comment: Speci men Type: BLOOD SPECIMEN Ordering Facility: [facility] Address: [address] [place] [address] Performed By: #### 5 7021-8 #### [facility] CLIA [id number] [address] [place] [address] 59197 Immature granulocytes (Bld) [#/Vol] 0.03 10*3/uL Normal <0.10 [facility] Comment on above: Order Comment: Speci men Type: BLOOD SPECIMEN Ordering Facility: [facility] Address: [address] [place] [address] Performed By: #### 5 7021-8 #### [facility] CLIA [id number] [address] [place] [address] 47744 Immature granulocytes/100 WBC (Bld) 0.4 % Normal [facility] Comment on above: Order Comment: Speci men Type: BLOOD SPECIMEN Ordering Facility: [facility] Address: [address] [address] Performed By: #### 5 7021-8 #### [facility] CLIA [id number] [address] [place] [address] 71059 Lymphocytes (Bld) [#/Vol] 1.83 10*3/uL Normal 1.00-4.00 [facility] Comment on above: Order Comment: Speci men Type: BLOOD SPECIMEN Ordering Facility: [facility] Address: [address] [address] Performed By: #### 5 7021-8 #### [facility] CLIA [id number] [address] [place] [address] 95169 Lymphocytes/100 WBC (Bld) 22.6 % Normal [facility] Comment on above: Order Comment: Speci men Type: BLOOD SPECIMEN Ordering Facility: [facility] Address: [address] [address] Performed By: #### 5 7021-8 #### [facility] CLIA [id number] [address] [place] [address] 45451 MCH (RBC) [Entitic mass] 30.5 pg Normal 26.0-34.0 [facility] Comment on above: Order Comment: Speci men Type: BLOOD SPECIMEN Ordering Facility: [facility] Address: [address] [address] Performed By: #### 5 7021-8 #### [facility] CLIA [id number] [address] [address] 67378 MCHC (RBC) [Mass/Vol] 32.9 g/dL Normal 30.5-36.0 [facility] Comment on above: Order Comment: Speci men Type: BLOOD SPECIMEN Ordering Facility: [facility] Address: [address] [address] Performed By: #### 5 7021-8 #### [facility] CLIA [id number] [address] [address] 92917 MCV (RBC) [Entitic vol] 92.8 fL Normal 80.0-100.0 [facility] Comment on above: Order Comment: Speci men Type: BLOOD SPECIMEN Ordering Facility: [facility] Address: [address] [address] Performed By: #### 5 7021-8 #### [facility] CLIA [id number] [address] [place] [address] 48040 Monocytes (Bld) [#/Vol] 0.64 10*3/uL Normal <0.87 [facility] Comment on above: Order Comment: Speci men Type: BLOOD SPECIMEN Ordering Facility: [facility] Address: [address] [address] Performed By: #### 5 7021-8 #### [facility] CLIA [id number] [address] [address] 86043 Monocytes/100 WBC (Bld) 7.9 % Normal [facility] Comment on above: Order Comment: Speci men Type: BLOOD SPECIMEN Ordering Facility: [facility] Address: [address] Performed By: #### 5 7021-8 #### [facility] CLIA [id number] [address] [place] [address] 28726 Neutrophils (Bld) [#/Vol] 5.34 10*3/uL Normal 1.45-7.50 [facility] Comment on above: Order Comment: Speci men Type: BLOOD SPECIMEN Ordering Facility: [facility] Address: [address] Performed By: #### 5 7021-8 #### [facility] CLIA [id number] [address] [place] [address] 69543 Neutrophils/100 WBC (Bld) 65.8 % Normal [facility] Comment on above: Order Comment: Speci men Type: BLOOD SPECIMEN Ordering Facility: [facility] Address: [address] [address] Performed By: #### 5 7021-8 #### [facility] CLIA [id number] [address] [place] [address] Nucleated RBC (Bld) [#/Vol] 10*3/uL Normal <0.01 [facility] Comment on above: Order Comment: Speci men Type: BLOOD SPECIMEN Ordering Facility: [facility] Address: [address] [place] [address] Performed By: #### 5 7021-8 #### [facility] CLIA [id number] [address] [place] [address] 12007 Nucleated RBC/100 WBC (Bld) [Ratio] 0.0 /100 WBC Normal [facility] Comment on above: Order Comment: Speci men Type: BLOOD SPECIMEN Ordering Facility: [facility] Address: [address] [place] [address] Performed By: #### 5 7021-8 #### [facility] CLIA [id number] [address] [place] [address] 50427 Platelet mean volume (Bld) [Entitic vol] 8.6 fL Low 9.0-12.7 [facility] Comment on above: Order Comment: Speci men Type: BLOOD SPECIMEN Ordering Facility: [facility] Address: [address] [place] [address] Performed By: #### 5 7021-8 #### [facility] CLIA [id number] [address] [place] [address] 90681 Platelets (Bld) [#/Vol] 361 10*3/uL Normal 150-400 [facility] Comment on above: Order Comment: Speci men Type: BLOOD SPECIMEN Ordering Facility: [facility] Address: [address] [place] [address] Performed By: #### 5 7021-8 #### [facility] CLIA [id number] [address] [place] [address] 0[address]23 RBC (Bld) [#/Vol] 4.42 10*6/uL Normal 3.90-5.20 [place] Comment on above: Order Comment: Speci men Type: BLOOD SPECIMEN Ordering Facility: [facility] Address: [address] [id number] Performed By: #### 5 7021-8 #### [facility] CLIA [id number] [address] [place] [address] 70116 WBC (Bld) [#/Vol] 8.11 10*3/uL Normal 3.70-11.00 [place] Comment on above: Order Comment: Speci men Type: BLOOD SPECIMEN Ordering Facility: [facility] Address: [address] [address] Performed By: #### 5 7021-8 #### [facility] CLIA [id number] [address] [place] [address] 56388 Basophils (Bld) [#/Vol] 0.08 10*3/uL <0.11 k/uL [facility] Basophils/100 WBC (Bld) 1.0 % [facility] Differential cell count method Nom (Bld) Auto [facility] Eosinophils (Bld) [#/Vol] 0.19 10*3/uL <0.46 k/uL [facility] Eosinophils/100 WBC (Bld) 2.3 % [facility] Erythrocyte distribution width (RBC) [Ratio] 13.7 % 11.5 - 15.0 % [facility] Hematocrit (Bld) [Volume fraction] 41.0 % 36.0 - 46.0 % [facility] Hemoglobin (Bld) [Mass/Vol] 13.5 g/dL 11.5 - 15.5 g/dL [facility] Immature granulocytes (Bld) [#/Vol] 0.03 10*3/uL <0.10 k/uL [facility] Immature granulocytes/100 WBC (Bld) 0.4 % [facility] Lymphocytes (Bld) [#/Vol] 1.83 10*3/uL 1.00 - 4.00 k/uL [facility] Lymphocytes/100 WBC (Bld) 22.6 % [facility] MCH (RBC) [Entitic mass] 30.5 pg 26.0 - 34.0 pg [facility] MCHC (RBC) [Mass/Vol] 32.9 g/dL 30.5 - 36.0 g/dL [facility] MCV (RBC) [Entitic vol] 92.8 fL 80.0 - 100.0 fL [facility] Monocytes (Bld) [#/Vol] 0.64 10*3/uL <0.87 k/uL [facility] Monocytes/100 WBC (Bld) 7.9 % [facility] Neutrophils (Bld) [#/Vol] 5.34 10*3/uL 1.45 - 7.50 k/uL [facility] Neutrophils/100 WBC (Bld) 65.8 % [facility] Nucleated RBC (Bld) [#/Vol] <0.01 k/uL [facility] Nucleated RBC/100 WBC (Bld) [Ratio] 0.0 /100 WBC [facility] Platelet mean volume (Bld) [Entitic vol] 8.6 fL Low 9.0 - 12.7 fL [facility] Platelets (Bld) [#/Vol] 361 10*3/uL 150 - 400 k/uL [facility] RBC (Bld) [#/Vol] 4.42 10*6/uL 3.90 - 5.2 0 m/uL [facility] WBC (Bld) [#/Vol] 8.11 10*3/uL 3.70 - 11.00 k/uL [facility] CNOVSPon 10-17-2022 CNOVSP Visit (SP) Office ([place]) ----- GABRIELLE MARCOS ([id number]) 1960 F Date Time Provider Department 10/17/22 3:00 PM AC WARNER During your visit today, we recorded the following information about you: Temperature Pulse Respiration Blood pressure 97.7 degrees 60/minute 18/minute 131/63 Weight Height 79.5 kg 1.6 m Ac Warner MD 10/18/2022 9:49 AM Signed PATIENT NAME: Gabrielle Marcos DATE: 10/17/2022 PRIMARY CARE PHYSICIAN: Dr. Blair Stanton OTHER PHYSICIANS: Dr. Marcelino Culver, Dr. Bart Helms Portions of this encounter note have been copied from my note from 09/12/2021 and has been updated where appropriate, and reflect my current medical decision making from today. CC This is a 62 year old female with a history of ovarian cancer, seen for scheduled follow-up. INTERIM HISTORY: Since the patient's initial visit here 1 year ago she has had no significant medical changes. Currently she feels well with no particular complaints. She denies any abdominal pain or other GI symptoms. MEDICATIONS: Current Outpatient Medications Medication Sig ALPRAZolam (XANAX) 0.25 mg tablet TAKE 1 TABLET BY MOUTH ONCE A DAY NEEDED FOR ANXIETY (Patient not taking: TAKE 1 TABLET BY MOUTH ONCE A DAY NEEDED FOR ANXIETY) Biotin 10,000 mcg cap Take 1 tablet by mouth once daily. (Patient not taking: Reported on 09/12/2021 ) desonide (DESOWEN) 0.05 % lotion APPLY TO SKIN TWICE A DAY NEEDED (Patient not taking: APPLY TO SKIN TWICE A DAY NEEDED) docusate sodium (COLACE) 100 mg capsule Take by mouth q 24 HR. (Patient not taking: Reported on 09/12/2021 ) donepezil (ARICEPT) 10 mg tablet Take by mouth q 24 HR. ergocalciferol 50,000 unit capsule (VITAMIN D2, DRISDOL) Take 1 capsule by mouth one time a week. ergocalciferol 50,000 unit capsule (VITAMIN D2, DRISDOL) TAKE 1 CAPSULE BY MOUTH ONCE PER WEEK gabapentin (NEURONTIN) 400 mg capsule Take by mouth q 12 HR. losartan (COZAAR) 25 mg tablet Take by mouth. montelukast (SINGULAIR) 10 mg tablet Take by mouth q 24 HR. oxybutynin ER (DITROPAN XL) 15 mg 24 hr Extended Rel Tab Take 15 mg by mouth once daily. latanoprost (XALATAN) 0.005 % ophthalmic solution 1 Drop daily at bedtime. lisinopril (ZESTRIL, PRINIVIL) 20 mg tablet Take 20 mg by mouth once daily. (Patient not taking: Reported on 09/12/2021 ) No current facility-administered medications for this visit. ALLERGIES: ALLERGIES Allergen Reactions Cephalexin Hives, Itching, Rash PAST MEDICAL HISTORY: PAST MEDICAL HISTORY Diagnosis Date Fracture closed, fibula, shaft History of multiple sclerosis (HCC) HTN (hypertension) Ovarian cancer (HCC) 2021 PAST SURGICAL HISTORY: PAST SURGICAL HISTORY Procedure Laterality Date APPENDECTOMY TONSILLECTOMY HX TOTAL ABDOM HYSTERECTOMY FAMILY HISTORY: No family history on file. SOCIAL HISTORY: Social History Tobacco Use Smoking status: Light Smoker Types: Cigars Smokeless tobacco: Never Substance Use Topics Alcohol use: Yes Comment: drinks beer Drug use: Never COMPLETE REVIEW OF SYSTEMS: CONSTITUTION: Negative for pain, fatigue, weight loss, or appetite loss. EENT: Negative for mouth soreness, antibiotics use, epistaxis, visual problems, neck or facial swelling, fever/chills, bleeding gums, or hearing loss. CV: Negative for edema, calf swelling, palpitations, or chest pain. RESPIRATORY: Negative for cough, SOB, hemoptysis, or wheezing. GI: Negative for nausea/vomiting, heartburn, vomiting blood, dysphasia, diarrhea, blood in stool, constipation, early satiety, PICA, vegetarian, poor nutrition, abdominal fullness, or abdominal pain. NEUROLOGICAL: Negative for numbness/tingling, dizziness, gait disturbance, headache, speech disturbance, tremor, hemiparesis/sensory loss, or change in mental status. MUSCULOSKELETAL: Negative for joint pain, joint swelling, or proximal muscle weakness. SKIN: Negative for hair loss, bruising, nail changes, rash, itching, pallor, or jaundice. ENDO/URO: Negative for hot flashes, cold or heat intolerance, urinary frequency, urinary hesitancy, menorrhagia, or hematuria. PSYCH: Negative for anxiety, depression, or other. PHYSICAL EXAM: BP 131/63 Pulse 60 Temp 36.5 ?C (97.7 ?F) (Temporal) Resp 18 Ht 160 cm (5' 2.99 ) Wt 79.5 kg (175 lb 3.2 oz) SpO2 95% BMI 31.04 kg/m? ECOG 0 GENERAL EXAM: Well developed/well nourished; in no acute distress. SKIN: Negative for lesions, rashes, or ulcers on the upper and lower extremities and face. Negative for palpations/nodules, purpura, and ecchymosis. EENT: Negative for conjunctiva, mucosal pallor, JVD, LAP, thyromegaly, and glossitis. Supple AND PERRL. EXTREMITIES: Negative for cyanosis, clubbing, and crepitus. LUNGS: Negative to auscultation, respiratory effort, and percussion. CARDIOVASCULAR: Regu (more content not included)... Normal [facility] Cancer Ag125 SerPl-aCncon Cancer Ag 125 Qn 4 [arb'U]/mL Normal <39 [facility] Comment on above: Order Comment: Speci men Type: BLOOD SPECIMEN Ordering Facility: [facility] Address: [address] [place] [address] Result Comment: CA 1 25 test methodology used is the Electrochemiluminescence Immunoassay by [employer]. Results obtained with different methods or kits cannot be used interchangeably. The reference interval is based on the 95th percentile of 240 apparently healthy premenopausal and postmenopausal women. At a cutoff value of 65 U/mL, the test sensitivity to distinguish ovarian carcinoma (FIGO stage I to IV) versus benign gynecological disease is 79%, with a specificity of 82%. Reference: Cancer Antigen 125 (CA 125 II) [package insert V 1.0 Welsh]. [employer] [facility], [place], [place] (December 2014) Performed By: #### 1 0334-1 #### [facility] CLIA [id number] [address] [place] [address] [place] Comprehensive metabolic 2000 panelon 10-17-2022 Albumin [Mass/Vol] 4.2 g/dL Normal 3.9-4.9 [facility] Comment on above: Order Comment: Speci apurva Type: BLOOD SPECIMEN Ordering Facility: [facility] Address: [address] Performed By: #### 2 4323-8 #### [facility] CLIA [id number] [address] [address]01 ALP [Catalytic activity/Vol] 120 U/L Normal 34-123 [facility] Comment on above: Order Comment: Speci men Type: BLOOD SPECIMEN Ordering Facility: [facility] Address: [address] [address] Performed By: #### 2 4323-8 #### [facility] CLIA [id number] [address] [address] 93107 ALT [Catalytic activity/Vol] 16 U/L Normal 7-38 [facility] Comment on above: Order Comment: Speci men Type: BLOOD SPECIMEN Ordering Facility: [facility] Address: [address] [address] Performed By: #### 2 4323-8 #### [facility] CLIA [id number] [address] [address] 16809 Anion gap [Moles/Vol] 7 mmol/L Low 9-18 [facility] Comment on above: Order Comment: Speci men Type: BLOOD SPECIMEN Ordering Facility: [facility] Address: [address] [address] Performed By: #### 2 4323-8 #### [facility] CLIA [id number] [address] [address] 73269 AST [Catalytic activity/Vol] 19 U/L Normal 13-35 [facility] Comment on above: Order Comment: Speci men Type: BLOOD SPECIMEN Ordering Facility: [facility] Address: [address] [address] Performed By: #### 2 4323-8 #### [facility] CLIA [id number] [address] [address] 78886 Bilirubin [Mass/Vol] 0.2 mg/dL Normal 0.2-1.3 [facility] Comment on above: Order Comment: Speci men Type: BLOOD SPECIMEN Ordering Facility: [facility] Address: [address] [address] Performed By: #### 2 4323-8 #### [facility] CLIA [id number] [address] [place] [address] 78520 Calcium [Mass/Vol] 9.3 mg/dL Normal 8.5-10.2 [facility] Comment on above: Order Comment: Speci men Type: BLOOD SPECIMEN Ordering Facility: [facility] Address: [address] [address] Performed By: #### 2 4323-8 #### [facility] CLIA [id number] [address] [place] [address] Chloride [Moles/Vol] 106 mmol/L High 97-105 [facility] Comment on above: Order Comment: Speci men Type: BLOOD SPECIMEN Ordering Facility: [facility] Address: [address] [place] [address] Performed By: #### 2 4323-8 #### [facility] CLIA [id number] [address] [address] 33549 CO2 [Moles/Vol] 30 mmol/L Normal 22-30 [facility] Comment on above: Order Comment: Speci men Type: BLOOD SPECIMEN Ordering Facility: [facility] Address: [address] [place] [address] Performed By: #### 2 4323-8 #### [facility] CLIA [id number] [address] [place] [address] 44653 Creatinine [Mass/Vol] 1.08 mg/dL High 0.58-0.96 [facility] Comment on above: Order Comment: Speci men Type: BLOOD SPECIMEN Ordering Facility: [facility] Address: [address] [place] [address] Performed By: #### 2 4323-8 #### [facility] CLIA [id number] [address] [address] 17268 ESTIMATED GLOMERULAR FILTRATION RATE 58 mL/min/1.73m??? Low >=60 [facility] Comment on above: Order Comment: Speci men Type: BLOOD SPECIMEN Ordering Facility: [facility] Address: [address] [place] [address] Result Comment: Kathleen mated Glomerular Filtration Rate (eGFR) is calculated using the 2020 CKD-EPI creatinine equation. This equation utilizes serum creatinine, sex, and age as parameters. The creatinine assay has traceable calibration to isotope dilution-mass spectrometry. Refer to KDIGO guidelines for clinical interpretation. In patients with unstable renal function, e.g. those with acute kidney injury, the eGFR may not accurately reflect actual GFR. Performed By: #### 2 4323-8 #### [facility] CLIA [id number] [address] [place] [address] 98804 Glucose [Mass/Vol] 107 mg/dL High 74-99 [facility] Comment on above: Order Comment: Speci apurva Type: BLOOD SPECIMEN Ordering Facility: [facility] Address: [address] [place] [address] Result Comment: The [place] [employer] Association (ADA) provides guidance for cutoff values for fasting glucose and random glucose. The ADA defines fasting as no caloric intake for at least 8 hours. Fasting plasma glucose results between 100 to 125 mg/dL indicate increased risk for diabetes (prediabetes). Fasting plasma glucose results greater than or equal to 126 mg/dL meet the criteria for diagnosis of diabetes. In the absence of unequivocal hyperglycemia, results should be confirmed by repeat testing. In a patient with classic symptoms of hyperglycemia or hyperglycemic crisis, random plasma glucose results greater than or equal to 200 mg/dL meet the criteria for diagnosis of diabetes. Reference: Standards of Medical Care in Diabetes 2016, [place] [employer] Association. Diabetes Care. 2016.39(Suppl 1). Performed By: #### 2 4323-8 #### [facility] CLIA [id number] [address] [address] 17647 Potassium [Moles/Vol] 4.4 mmol/L Normal 3.7-5.1 [facility] Comment on above: Order Comment: Sofiai apurva Type: BLOOD SPECIMEN Ordering Facility: [facility] Address: [address] [address] Performed By: #### 2 4323-8 #### [facility] CLIA [id number] [address] [place] [address] 89137 Protein [Mass/Vol] 6.5 g/dL Normal 6.3-8.0 [facility] Comment on above: Order Comment: Shannon mixon Type: BLOOD SPECIMEN Ordering Facility: [facility] Address: [address] [address] Performed By: #### 2 4323-8 #### [facility] CLIA [id number] [address] [place] [address] Sodium [Moles/Vol] 143 mmol/L Normal 136-144 [facility] Comment on above: Order Comment: Speci men Type: BLOOD SPECIMEN Ordering Facility: [facility] Address: [address] [id number] Performed By: #### 2 4323-8 #### [facility] CLIA [id number] [address] [place] [address] Urea nitrogen [Mass/Vol] 14 mg/dL Normal 7-21 [facility] Comment on above: Order Comment: Speci men Type: BLOOD SPECIMEN Ordering Facility: [facility] Address: [address] [address] Performed By: #### 2 4323-8 #### [facility] CLIA [id number] [address] [place], [place] [id number] Albumin [Mass/Vol] 4.2 g/dL 3.9 - 4.9 g/dL [facility] ALP [Catalytic activity/Vol] 120 U/L 34 - 123 U/L [facility] ALT [Catalytic activity/Vol] 16 U/L 7 - 38 U/L [facility] Anion gap [Moles/Vol] 7 mmol/L Low 9 - 18 mmol/L [facility] AST [Catalytic activity/Vol] 19 U/L 13 - 35 U/L [facility] Bilirubin [Mass/Vol] 0.2 mg/dL 0.2 - 1 .3 mg/dL [facility] Calcium [Mass/Vol] 9.3 mg/dL 8.5 - 10. 2 mg/dL [facility] Chloride [Moles/Vol] 106 mmol/L High 97 - 10 5 mmol/L [facility] CO2 [Moles/Vol] 30 mmol/L 22 - 30 mmol/L [facility] Creatinine [Mass/Vol] 1.08 mg/dL High 0.58 - 0.96 mg/dL [facility] Estimated Glomerular Filtration Rate 58 mL/min/1.73m Low >=60 mL/min/1.73 m [facility] Glucose [Mass/Vol] 107 mg/dL High 74 - 99 mg/dL [facility] Potassium [Moles/Vol] 4.4 mmol/L 3.7 - 5.1 mmol/L [facility] Protein [Mass/Vol] 6.5 g/dL 6.3 - 8.0 g/dL [facility] Sodium [Moles/Vol] 143 mmol/L 136 - 144 mmol/L [facility] Urea nitrogen [Mass/Vol] 14 mg/dL 7 - 21 mg/dL [facility] Alanine aminotransferase [En zymatic activity/volume] in Serum or PlasmaOrdered By: Nabeel Stanton on 05-23-2022 ALT [Catalytic activity/Vol] 20 U/L Normal 7-52 U/L [facility] Albumin [Mass/volume] in Ser um or Plasma by Bromocresol green (BCG) dye binding methoOrdered By: Nabeel Stanton on 05-23-2022 Albumin BCG dye [Mass/Vol] 4.6 g/dL 3.5-5.7 [facility] Alkaline phosphatase [Enzyma tic activity/volume] in Serum or PlasmaOrdered By: Nabeel Stanton on 05-23-2022 ALP [Catalytic activity/Vol] 95 U/L Normal 34-104 U/L [facility] Aspartate aminotransferase [ Enzymatic activity/volume] in Serum or PlasmaOrdered By: Nabeel Stanton on 05-23-2022 AST [Catalytic activity/Vol] 19 U/L Normal 13-39 U/L [facility] Bilirubin.total [Mass/volume ] in Serum or PlasmaOrdered By: Nabeel Stanton on 05-23-2022 Bilirubin [Mass/Vol] 0.4 mg/dL 0.3-1.0 [facility] Calcium [Mass/volume] in Ser um or PlasmaOrdered By: Nabeel Stanton on 05-23-2022 Calcium [Mass/Vol] 9.6 mg/dL 8.6-10.3 [facility] Carbon dioxide, total [Moles /volume] in Serum or PlasmaOrdered By: Nabeel Stanton on 05-23-2022 CO2 [Moles/Vol] 29.3 mmol/L 21.0-31.0 [facility] Chloride [Moles/volume] in S jenn or PlasmaOrdered By: Nabeel Stanton on 05-23-2022 Chloride [Moles/Vol] 108 mmol/L High 98-107 mmol/L [facility] Comprehensive Metabolic Pane faviola 05-23-2022 Albumin [Mass/Vol] 4.786764 g/dL Normal 3.5-5.7 g/dL [facility] Bilirubin [Mass/Vol] 0.1024418 mg/dL Normal 0.3- 1.0 mg/dL [facility] Calcium [Mass/Vol] 9.4303317 mg/dL Normal 8.6-10 .3 mg/dL [facility] CO2 [Moles/Vol] 29.94887036 mmol/L Normal 21.0-3 1.0 mmol/L [facility] Creatinine [Mass/Vol] 0.63225499 mg/dL Normal 0. 60-1.20 mg/dL [facility] Potassium [Moles/Vol] 4.47542578 mmol/L Normal 3 .5-5.1 mmol/L [facility] Protein [Mass/Vol] 7.913308 g/dL Normal 6.4-8.9 g/dL [facility] Comprehensive Metabolic Panel 2.4 g/dL [facility] Comprehensive Metabolic Pane lOrdered By: Nabeel Stanton on 05-23-2022 GFR/1.73 sq M.predicted MDRD (S/P/Bld) [Vol rate/Area] mL/min/{1.73_m2} [facility] Creatinine [Mass/volume] in Serum or PlasmaOrdered By: Nabeel Stanton on 05-23-2022 Creatinine [Mass/Vol] 0.82 mg/dL 0.60-1.20 [facility] Erythrocyte distribution wid th Auto (RBC) [Ratio]Ordered By: Nabeel Stanton on 05-23-2022 Erythrocyte distribution width (RBC) [Ratio] 14.1 % 11.9-15.3 [facility] Erythrocytes [#/volume] in B lood by Automated countOrdered By: Nabeel Stanton on 05-23-2022 RBC (Bld) [#/Vol] 4.85 10*6/uL Normal 3.60-5.00 [facility] Globulin Calc (S) [Mass/Vol] Ordered By: Nabeel Stanton on 05-23-2022 Globulin (S) [Mass/Vol] 2.4 g/dL [facility] Glucose [Mass/volume] in Ser um or PlasmaOrdered By: Nabeel Stanton on 05-23-2022 Glucose [Mass/Vol] 103 mg/dL Normal 74-109 mg/dL [facility] Comment on above: ADA recommended refe rence rangeRandom Glucose Reference Range is dependent on time and content of last meal. Glucose of more than 200 mg/dL in a nonstressed, ambulatory subject supports the diagnosis of Diabetes Mellitus. Hematocrit Auto (Bld) [Volum e fraction]Ordered By: Nabeel Stanton on 05-23-2022 Hematocrit (Bld) [Volume fraction] 43.6 % 34.0-46.4 [facility] Hemoglobin [Mass/volume] in BloodOrdered By: Nabeel Stanton on 05-23-2022 Hemoglobin (Bld) [Mass/Vol] 14.6 g/dL 11.8-15.4 [facility] Hemogram CBC Without Diffon 05-23-2022 Erythrocyte distribution width (RBC) [Ratio] 14.100 % Normal 11.9-15.3 % [employer] Other Hematocrit (Bld) [Volume fraction] 43.600 % Normal 34.0-46.4 % [employer] Other Hemoglobin (Bld) [Mass/Vol] 14.665942 g/dL Normal 11.8-15.4 g/dL [employer] Other MCH (RBC) [Entitic mass] 30.0000 pg Normal 24.7-34.3 pg [employer] Other MCV (RBC) [Entitic vol] 89.9000 fL Normal 80-100 fL [employer] Other Platelet mean volume (Bld) [Entitic vol] 7.4000 fL Normal 6.3-10.7 fL [employer] Other WBC (Bld) [#/Vol] 8.071950012 10*3/uL Normal 3.8 -11.6 10*3/uL [employer] Other Hemogram CBC Without Diff 33.4 g/dL Normal 32.0-35.0 g/dL [employer] Other Leukocytes [#/volume] correc luis for nucleated erythrocytes in Blood by Automated counOrdered By: Nabeel Stanton on 05-23-2022 WBC corrected for nucl RBC Auto (Bld) [#/Vol] 8.2 10*3/uL 3.8-11.6 [facility] MCH Auto (RBC) [Entitic mass ]Ordered By: Nabeel Stanton on 05-23-2022 MCH (RBC) [Entitic mass] 30.0 pg 24.7-34.3 [facility] MCHC Auto (RBC) [Mass/Vol]Or dered By: Nabeel Stanton on 05-23-2022 MCHC (RBC) [Mass/Vol] 33.4 g/dL 32.0-35.0 [facility] MCV Auto (RBC) [Entitic vol] Ordered By: Nabeel Stanton on 05-23-2022 MCV (RBC) [Entitic vol] 89.9 fL 80-100 [facility] No Panel InformationOrdered By: Nabeel Stanton on 05-23-2022 Pharmacy Creatinine Clearance (Chem N/A [facility] Platelet mean volume Auto (B ld) [Entitic vol]Ordered By: Nabeel Stanton on 05-23-2022 Platelet mean volume (Bld) [Entitic vol] 7.4 fL 6.3-10.7 [facility] Platelets [#/volume] in Bloo d by Automated countOrdered By: Nabeel Stanton on 05-23-2022 Platelets (Bld) [#/Vol] 383 10*3/uL Normal 150-450 10*3/uL [facility] Potassium [Moles/volume] in Serum or PlasmaOrdered By: Nabeel Stanton on 05-23-2022 Potassium [Moles/Vol] 4.4 mmol/L 3.5-5.1 [facility] Protein [Mass/volume] in Ser um or PlasmaOrdered By: Nabeel Stanton on 05-23-2022 Protein [Mass/Vol] 7.0 g/dL 6.4-8.9 [facility] Serum or plasma albumin/glob ulin mass ratioOrdered By: Nabeel Stanton on 05-23-2022 Albumin/Globulin [Mass ratio] 1.9 {ratio} [facility] Serum or plasma anion gap de terminationOrdered By: Nabeel Stanton on 05-23-2022 Anion gap [Moles/Vol] 9.1 mmol/L 6.0-15.0 [facility] Sodium [Moles/volume] in Ser um or PlasmaOrdered By: Nabeel Stanton on 05-23-2022 Sodium [Moles/Vol] 142 mmol/L Normal 136-145 mmol/L [facility] Urea nitrogen [Mass/volume] in Serum or PlasmaOrdered By: Nabeel Stanton on 05-23-2022 Urea nitrogen [Mass/Vol] 12 mg/dL Normal 7-25 mg/dL [facility] CBC AUTO DIFFon 04-06-2022 BASO # 0.1 103/ul Normal 0.0-0.1 [facility] Comment on above: Performed By: #### C BC #### [facility] [address] [place] [address] Dr. Tita Kumar Basophils/100 WBC (Bld) 1.5 % Normal 0.2-2.0 [facility] Comment on above: Performed By: #### C BC #### [facility] [address] [place] [address] Dr. Tita Kumar EO # 0.2 103/ul Normal 0.0-0.7 [facility] Comment on above: Performed By: #### C BC #### [facility] [address] [place] [address] Dr. Tita Kumar Eosinophils/100 WBC (Bld) 3.1 % Normal 0.9-7.0 [facility] Comment on above: Performed By: #### C BC #### [facility] [address] [place] [address] Dr. Tita Kumar Erythrocyte distribution width (RBC) [Ratio] 14.7 % Normal 11.0-15.0 [facility] Comment on above: Performed By: #### C BC #### [facility] [address] [place] [address] Dr. Tita Kumar Hematocrit (Bld) [Volume fraction] 43.9 % Normal 36.0-48.0 [facility] Comment on above: Performed By: #### C BC #### [facility] [address] [place] [address] Dr. Tita Kumar Hemoglobin (Bld) [Mass/Vol] 13.7 g/dL Normal 12.0-16.0 [facility] Comment on above: Performed By: #### C BC #### [facility] [address] [place] [address] Dr. Tita Kumar IG # 0.02 10e3/ul Normal 0.00-0.03 [facility] Comment on above: Performed By: #### C BC #### [facility] [address] [place] [address] Dr. Tita Kumar IG % 0.3 % Normal 0.0-0.5 [facility] Comment on above: Performed By: #### C BC #### [facility] [address] [place] [address] Dr. Tita Kumar LYMPH # 1.8 103/ul Normal 1.2-3.8 [facility] Comment on above: Performed By: #### C BC #### [facility] [address] [place] [address] Dr. Tita Kumar Lymphocytes/100 WBC (Bld) 28.5 % Normal 20.5-60.0 [facility] Comment on above: Performed By: #### C BC #### [facility] [address] [place] [address] Dr. Tita Kumar MANUAL DIFF REQ NO Normal [facility] Comment on above: Performed By: #### C BC #### [facility] [address] [place] [address] Dr. Tita Kumar MCH (RBC) [Entitic mass] 29.8 pg Normal 26.7-34.0 [facility] Comment on above: Performed By: #### C BC #### [facility] [address] [place] [address] Dr. Tita Kumar MCHC (RBC) [Mass/Vol] 31.2 g/dL Normal 29.9-35.2 [facility] Comment on above: Performed By: #### C BC #### [facility] [address] [place] [address] Dr. Tita Kumar MCV (RBC) [Entitic vol] 95.4 fL Normal 81.0-99.0 [facility] Comment on above: Performed By: #### C BC #### [facility] [address] [place] [address] Dr. Tita Kumar MONO # 0.7 103/ul Normal 0.3-0.8 [facility] Comment on above: Performed By: #### C BC #### [facility] [address] [place] [address] Dr. Tita Kumar Monocytes/100 WBC (Bld) 11.3 % Normal 1.7-12.0 [facility] Comment on above: Performed By: #### C BC #### [facility] [address] [place] [address] Dr. Tita Kumar NEUT # 3.4 103/ul Normal 1.4-6.5 [facility] Comment on above: Performed By: #### C BC #### [facility] [address] [place] [address] Dr. Tita Kumar Neutrophils/100 WBC (Bld) 55.3 % Normal 43.0-75.0 [facility] Comment on above: Performed By: #### C BC #### [facility] [address] [place] [address] Dr. Tita Kumar Platelet mean volume (Bld) [Entitic vol] 8.7 fL Critically low 9.5-13.5 [facility] Comment on above: Performed By: #### C BC #### [facility] [address] [place] [address] Dr. Tita Kumar PLT 346 103/ul Normal 150-450 [facility] Comment on above: Performed By: #### C BC #### [facility] [address] [place], [place] [address] Dr. Tita Kumar RBC 4.60 106/ul Normal 4.20-5.40 [facility] Comment on above: Performed By: #### C BC #### [facility] [address] [place], [place] [address] Dr. Tita Kumar WBC 6.2 103/ul Normal 4.0-11.0 [facility] Comment on above: Performed By: #### C BC #### [facility] [address] [place], [place] [address] Dr. Tita Kumar MRI TSPINE WO W CONon 2022 MRI TSPINE WO W CON EXAMINATION: MRI TSP INE WO W CON, MRI CSPINE WO W CON HISTORY: Multiple sclerosis COMPARISON: 12/23/2021, 08/04/2019 TECHNIQUE: Axial T1 and T2; Sagittal T1, T2, and STIR sequences. Images were performed without and with 15 ml Dotarem contrast. CERVICAL: CRANIOCERVICAL AREA: Normal foramen magnum with no Chiari malformation. PARASPINAL AREA: Normal with no visible mass. BONES: 2 mm anterolisthesis of C2 on C3. Partial loss of lordosis. Moderate diffuse degenerative spondylosis and facet osteoarthropathy CORD: No pulmonary C5-C6. Increased signal extending from the C3 to the C6 level most significant at C5-C6 best seen on sagittal image 6. No postcontrast enhancement CERVICAL DISC LEVELS: C2-C3: No significant disc/facet abnormality, spinal stenosis, or foraminal stenosis. C3-C4: Moderate degenerative disc disease is present without visible neural impingement. C4-C5: Moderate degenerative disc disease is present without visible neural impingement. C5-C6: Disc collapse with endplate sclerosis. Moderate diffuse disc/osteophyte complex and facet osteoarthropathy. No significant central canal stenosis. Mild to moderate foraminal stenosis C6-C7: Disc collapse with endplate sclerosis. Moderate diffuse disc/osteophyte complex and facet osteoarthropathy. No central canal stenosis. Moderate to severe bilateral foraminal stenosis C7-T1:. Moderate degenerative disc disease is present without visible neural impingement. THORACIC: FINDINGS: CORD: Normal caliber, contour, and signal intensity. No postcontrast enhancement BONES: Normal alignment with no acute fracture or spondylolisthesis. Mixed signal abnormality in the T2-T3 level DISCS: Disc collapse T2-T3 with posterior disc herniation of the protrusion type. No central canal stenosis. Mild bilateral foraminal stenosis PARASPINAL AREA: No visible mass. OTHER: Negative. No abnormal contrast enhancement. IMPRESSION: Signal abnormality in the cervical spinal cord with no postcontrast enhancement. Consider chronic demyelination. No postcontrast enhancement of the cervical or thoracic cord to suggest acute demyelination Extensive cervical degenerative changes as detailed above Signal abnormality T2 and T3 likely representing Modic 1 edema/inflammation Electronically authenticated by: KARINA SOARES Date: 2022-04-06 17:33 Normal [facility] PROF 14(COMP METB)on 023 Albumin [Mass/Vol] 3.7 g/dL Normal 3.4-5.0 [facility] Comment on above: Performed By: #### C MP ####[facility] [address] [place], [place] [address]Dr. Tita Kumar Albumin/Globulin [Mass ratio] 1.0 {ratio} Normal [facility] Comment on above: Performed By: #### C MP ####[facility] [address] [place] [address]Dr. Tita Kumar ALP [Catalytic activity/Vol] 106 U/L Normal 46-116 [facility] Comment on above: Performed By: #### C MP ####[facility] [address] [place] [address]Dr. Tita Kumar ALT [Catalytic activity/Vol] 31 U/L Normal 14-59 [facility] Comment on above: Performed By: #### C MP ####[facility] [address] [place] [address]Dr. Tita Kumar Anion gap [Moles/Vol] 10.7 mmol/L Normal [facility] Comment on above: Performed By: #### C MP ####[facility] [address] [place] [address]Dr. Tita Kumar AST [Catalytic activity/Vol] 20 U/L Normal 15-37 [facility] Comment on above: Performed By: #### C MP ####[facility] [address] [place] [address]Dr. Tita Kumar Bilirubin [Mass/Vol] 0.2 mg/dL Normal 0.2-1.0 [facility] Comment on above: Performed By: #### C MP ####[facility] [address] [place] [address]Dr. Tita Kumar Calcium [Mass/Vol] 9.4 mg/dL Normal 8.5-10.1 [facility] Comment on above: Performed By: #### C MP ####[facility] [address] [place], [place] [address]Dr. Tita Kumar Chloride [Moles/Vol] 106 mmol/L Normal 98-107 [facility] Comment on above: Performed By: #### C MP ####[facility] [address] [place], [place] [address]Dr. Tita Kumar CO2 [Moles/Vol] 29.5 mmol/L Normal 21.0-32.0 [facility] Comment on above: Performed By: #### C MP ####[facility] [address] [place], [place] [address]Dr. Tita Kumar Creatinine [Mass/Vol] 0.81 mg/dL Normal 0.55-1.02 [facility] Comment on above: Performed By: #### C MP ####[facility] [address] [place], [place] [address]Dr. Tita Kumar EGFR-AF JAMAICAN >60 Normal >=60 [facility] Comment on above: Performed By: #### C MP ####[facility] [address] [place], [place] [address]Dr. Tita Kumar EGFR-NON AF JAMAICAN >60 Normal >=60 [facility] Comment on above: Performed By: #### C MP ####[facility] [address] [place], [place] [address]Dr. Tita Kumar Globulin (S) [Mass/Vol] 3.6 g/dL Normal [facility] Comment on above: Performed By: #### C MP ####[facility] [address] [place] [id number]. Tita Kumar Glucose [Mass/Vol] 104 mg/dL Normal 74-106 [facility] Comment on above: Performed By: #### C MP ####[facility] [address] [place] [id number]. Tita Kumar Potassium [Moles/Vol] 4.2 mmol/L Normal 3.5-5.1 [facility] Comment on above: Performed By: #### C MP ####[facility] [address] [place] [address]Dr. Tita Kumar Protein [Mass/Vol] 7.3 g/dL Normal 6.4-8.2 [facility] Comment on above: Performed By: #### C MP ####[facility] [address] [place] [address]Dr. Tita Kumar Sodium [Moles/Vol] 142 mmol/L Normal 136-145 [facility] Comment on above: Performed By: #### C MP ####[facility] [address] [place] [address]Dr. Tita Kumar Urea nitrogen [Mass/Vol] 12.0 mg/dL Normal 7.0-18.0 [facility] Comment on above: Performed By: #### C MP ####[facility] [address] [place] [address]Dr. Tita Kumar Urea nitrogen/Creatinine [Mass ratio] 14.8 mg/mg Normal [facility] Comment on above: Performed By: #### C MP ####[facility] [address] [place] [address]Dr. Tita Kumar US venous duplex LE LTon US venous duplex LE [facility] [employer] Other US venous duplex LE LT [facility] [employer] Other US venous duplex LE LT [address] [place] [address] [employer] Other US venous duplex LE LT [address] [employer] Other US venous duplex LE LT Ultrasound Report [employer] Other US venous duplex LE LT Signed [employer] Other US venous duplex LE LT Patient: Gabrielle Marcos MR#: [id number] [employer] [id number] [employer] Other US venous duplex LE LT : 1960 Acct:[id number] [employer] Other US venous duplex LE LT Age/Sex: 61 / F ADM Date: 03/02/22 [employer] Other US venous duplex LE LT Loc: Room: Type: [facility] [employer] Other US venous duplex LE LT Attending Dr: Nabeel Stanton DO [employer] Other US venous duplex LE LT Ordering Provider: Nabeel Stanton DO [employer] Other US venous duplex LE LT Date of Service: 03/02/22 [employer] Other US venous duplex LE LT US/US venous duplex LE LT: Swelling of left lower extremity;Pain of left [employer] Other US venous duplex LE LT lower extremit [employer] Other US venous duplex LE LT Copies to: Nabeel Stanton, [employer] Other US venous duplex LE LT LEFT LOWER EXTREMITY VENOUS DUPLEX [employer] Other US venous duplex LE LT INDICATION: Painful swollen left leg [employer] Other US venous duplex LE LT Unilateral left lower extremity venous duplex Doppler study was obtained utilizing B-mode, color- [employer] Other US venous duplex LE LT flow and spectral Doppler. [employer] Other US venous duplex LE LT FINDINGS: The left common femoral, femoral, and popliteal veins showed adequate compressibility, [employer] Other US venous duplex LE LT color-flow and augmentation. The left posterior tibial and peroneal veins were compressible, as [employer] Other venous duplex LE LT well as proximal greater saphenous vein. The contralateral right common femoral vein was [employer] Other venous duplex LE LT compressible with color-flow and augmentation. [employer] Other venous duplex LE LT / venous duplex LE LT [employer] Other venous duplex LE LT IMPRESSION: [employer] Other venous duplex LE LT NO EVIDENCE OF DEEP VENOUS THROMBOSIS IN THE LEFT LOWER EXTREMITY. NO SUPERFICIAL THROMBOPHLEBITIS [employer] Other venous duplex LE LT WAS NOTED. [employer] Other venous duplex LE LT Impression dictated by: Gilson Stoner M.D.03/08/2022 9:20 AM [employer] Other venous duplex LE LT Dictation Location: [place] [address] [employer] Other venous duplex LE LT Tech: Kenia Newsome [facility] [employer] Other US venous duplex LE LT Transcribed By: PWS 03/08/22 09 [employer] Other US venous duplex LE LT Dictated By: Gilson Stoner MD 03/08/22 09 [employer] Other venous duplex LE LT Signed By: [employer] Other US venous duplex LE LT 03/08/22 09 [employer] Other CULTURE URINEon 01-09-2022 CULTURE URINE Isolate 1 Escherichia coli >100,000 cfu/mL of ORGANISM 1 Escherichia coli ANTIBIOTIC M.I.C RX STATUS Ampicillin >=32 R F Ampicillin/Sulbactam >=32 R F Piperacillin/Tazobactam <=4 S F Cefazolin <=4 S F Ceftazidime <=1 S F Ceftriaxone <=1 S F Ertapenem <=0.5 S F Imipenem <=0.25 S F Amikacin <=2 S F Gentamicin <=1 S F Tobramycin <=1 S F Ciprofloxacin <=0.25 S F Levofloxacin <=0.12 S F Nitrofurantoin <=16 S F Trimethoprim/Sulfamethoxa zole <=20 S F Normal [facility] Comment on above: Performed By: #### U RCX ####[facility] [address] [place], [place] [address]Dr. Tita Kumar GI PANEL (PCR)on 01-08-2022 Adenovirus F 40/41 Not detected Normal NOT DETECTED [facility] Comment on above: Performed By: #### G IPANEL #### [facility] [address] [place] [address] Dr. Tita Kumar Astrovirus Not detected Normal NOT DETECTED [facility] Comment on above: Performed By: #### G IPANEL #### [facility] [address] [place] [address] Dr. Tita Duran Diff toxin A/B Not detected Normal NOT DETECTED [facility] Comment on above: Performed By: #### G IPANEL #### [facility] [address] [place] [address] Dr. Tita Kumar Campylobacter Not detected Normal NOT DETECTED [facility] Comment on above: Performed By: #### G IPANEL #### [facility] [address] [place] [address] Dr. Tita Kumar Cryptosporidium Not detected Normal NOT DETECTED [facility] Comment on above: Performed By: #### G IPANEL #### [facility] [address] [place] [address] Dr. Tita Kumar Cyclos. Cayetanensis Not detected Normal NOT DETECTED [facility] Comment on above: Performed By: #### G IPANEL #### [facility] [address] [place] [address] Dr. Tita Kumar E. Coli O157 Not Applicable Normal Not Applicable [facility] Comment on above: Performed By: #### G IPANEL #### [facility] [address] [place] [address] Dr. Tita Kumar E. histolytica Not detected Normal NOT DETECTED [facility] Comment on above: Performed By: #### G IPANEL #### [facility] [address] [place] [address] [address] Tita Kumar EAEC Not detected Normal NOT DETECTED [facility] Comment on above: Performed By: #### G IPANEL #### [facility] [address] [place] [address] Dr. Tita Kumar EIEC Not detected Normal NOT DETECTED [facility] Comment on above: Performed By: #### G IPANEL #### [facility] [address] [place] [address] Dr. Tita Kumar EPEC Not detected Normal NOT DETECTED [facility] Comment on above: Performed By: #### G IPANEL #### [facility] [address] [place] [address] Dr. Tita Kumar ETEC Not detected Normal NOT DETECTED [facility] Comment on above: Performed By: #### G IPANEL #### [facility] [address] [place] [address] Dr. Tita Thompson Lamblia Not detected Normal NOT DETECTED [facility] Comment on above: Performed By: #### G IPANEL #### [facility] [address] [place] [address] Dr. Tita BORJASANEL CONTROLS PASSED Normal [facility] Comment on above: Performed By: #### G IPANEL #### [facility] [address] [place] [address] Dr. Tita BAHENA JORDAN HEADER GI PANEL BACTERIA Normal T [facility] Comment on above: Performed By: #### G IPANEL #### [facility] [address] [place] [address] Dr. Tita BAHENAHD ECOLI GI PANEL DIARRHEAGEN IC E.COLI / SHIGELLA Normal [facility] Comment on above: Performed By: #### G IPANEL #### [facility] [address] [place] [address] Dr. Tita GALLEGO INFO SEE BELOW Normal [facility] Comment on above: Result Comment: EAEC - Enteroaggregative E. Coli EPEC- Enteropathogenic E. Coli ETEC- Enterotoxigenic E. Coli lt/st STEC- Shigella-like toxin-producing E. Coli stx1/stx2 EIEC- Shigella/Enteroinvasive E. Coli Performed By: #### G IPANEL #### [facility] [address] [place] [address] Dr. Tita GALLEGO PARASITES GI PANEL PARASITES Normal [facility] Comment on above: Performed By: #### G IPANEL #### [facility] [address] [place] [address] Dr. Tita GALLEGO VIRUS GI PANEL VIRUSES Normal [facility] Comment on above: Performed By: #### G IPANEL #### [facility] [address] [place] [address] Dr. Tita Kumar Norovirus GI/GII Not detected Normal NOT DETECTED [facility] Comment on above: Performed By: #### G IPANEL #### [facility] [address] [place] [address] Dr. Tita Kumar P. Shigelloides Not detected Normal NOT DETECTED [facility] Comment on above: Performed By: #### G IPANEL #### [facility] [address] [place] [address] [address] Tita Kumar Rotavirus A Not detected Normal NOT DETECTED [facility] Comment on above: Performed By: #### G IPANEL #### [facility] [address] [place] [address] Dr. Tita Kumar Salmonella Not detected Normal NOT DETECTED [facility] Comment on above: Performed By: #### G IPANEL #### [facility] [address] [place] [address] Dr. Tita Kumar Sapovirus Not detected Normal NOT DETECTED [facility] Comment on above: Performed By: #### G IPANEL #### [facility] [address] [place] [address] Dr. Tita Kumar STEC Not detected Normal NOT DETECTED [facility] Comment on above: Performed By: #### G IPANEL #### [facility] [address] [place] [address] Dr. Tita Kumar Vibrio Not detected Normal NOT DETECTED [facility] Comment on above: Performed By: #### G IPANEL #### [facility] [address] [place] [address] Dr. Tita Kumar Vibrio Cholera Not detected Normal NOT DETECTED [facility] Comment on above: Performed By: #### G IPANEL #### [facility] [address] [place] [address] Dr. Tita Kumar Y. Enterocolitica Not detected Normal NOT DETECTED [facility] Comment on above: Performed By: #### G IPANEL #### [facility] [address] [place] [address] Dr. Tita Kumar CBC AUTO DIFFon 01-07-2022 BASO # 0.0 103/ul Normal 0.0-0.1 [facility] Comment on above: Performed By: #### C BC #### [facility] [address] [place] [address] Dr. Tita Kumar Basophils/100 WBC (Bld) 0.3 % Normal 0.2-2.0 [facility] Comment on above: Performed By: #### C BC #### [facility] [address] [place] [address] Dr. Tita Kumar EO # 0.0 103/ul Normal 0.0-0.7 [facility] Comment on above: Performed By: #### C BC #### [facility] [address] [place] [address] Dr. Tita Kumar Eosinophils/100 WBC (Bld) 0.3 % Critically low 0.9-7.0 [facility] Comment on above: Performed By: #### C BC #### [facility] [address] [place] [address] Dr. Tita Kumar Erythrocyte distribution width (RBC) [Ratio] 13.6 % Normal 11.0-15.0 [facility] Comment on above: Performed By: #### C BC #### [facility] [address] [place] [address] Dr. Tita Kumar Hematocrit (Bld) [Volume fraction] 43.0 % Normal 36.0-48.0 [facility] Comment on above: Performed By: #### C BC #### [facility] [address] [place] [address] Dr. Tita Kumar Hemoglobin (Bld) [Mass/Vol] 14.4 g/dL Normal 12.0-16.0 [facility] Comment on above: Performed By: #### C BC #### [facility] [address] [place] [address] Dr. Tita Kumar IG # 0.02 10e3/ul Normal 0.00-0.03 [facility] Comment on above: Performed By: #### C BC #### [facility] [address] [place] [address] Dr. Tita Kumar IG % 0.3 % Normal 0.0-0.5 [facility] Comment on above: Performed By: #### C BC #### [facility] [address] [place] [address] Dr. Tita Kumar LYMPH # 1.3 103/ul Normal 1.2-3.8 [facility] Comment on above: Performed By: #### C BC #### [facility] [address] [place] [address] Dr. Tita Kumar Lymphocytes/100 WBC (Bld) 18.8 % Critically low 20.5-60.0 [facility] Comment on above: Performed By: #### C BC #### [facility] [address] [place] [address] Dr. Tita Kumar MANUAL DIFF REQ NO Normal [facility] Comment on above: Performed By: #### C BC #### [facility] [address] [place] [address] Dr. Tita Kumar MCH (RBC) [Entitic mass] 29.9 pg Normal 26.7-34.0 [facility] Comment on above: Performed By: #### C BC #### [facility] [address] [address] [address] Tita Kumar MCHC (RBC) [Mass/Vol] 33.5 g/dL Normal 29.9-35.2 [facility] Comment on above: Performed By: #### C BC #### [facility] [address] [address] [address] Tita Kumar MCV (RBC) [Entitic vol] 89.4 fL Normal 81.0-99.0 [facility] Comment on above: Performed By: #### C BC #### [facility] [address] [place] [address] Dr. Tita Kumar MONO # 0.8 103/ul Normal 0.3-0.8 [facility] Comment on above: Performed By: #### C BC #### [facility] [address] [place] [address] Dr. Tita Kumar Monocytes/100 WBC (Bld) 11.5 % Normal 1.7-12.0 [facility] Comment on above: Performed By: #### C BC #### [facility] [address] [place] [address] Dr. Tita Kumar NEUT # 4.7 103/ul Normal 1.4-6.5 [facility] Comment on above: Performed By: #### C BC #### [facility] [address] [place] [address] Dr. Tita Kumar Neutrophils/100 WBC (Bld) 68.8 % Normal 43.0-75.0 [facility] Comment on above: Performed By: #### C BC #### [facility] [address] [place] [address] Dr. Tita Kumar Platelet mean volume (Bld) [Entitic vol] 9.5 fL Normal 9.5-13.5 [facility] Comment on above: Performed By: #### C BC #### [facility] [address] [place] [address] Dr. Tita Kumar PLT 289 103/ul Normal 150-450 [facility] Comment on above: Performed By: #### C BC #### [facility] [address] [place] [address] Dr. Tita Kumar RBC 4.81 106/ul Normal 4.20-5.40 [facility] Comment on above: Performed By: #### C BC #### [facility] [address] [place] [address] Dr. Tita Kumar WBC 6.9 103/ul Normal 4.0-11.0 [facility] Comment on above: Performed By: #### C BC #### [facility] [address] [place] [address] Dr. Tita Kumar ER URINE PROFILEon 2 Bilirubin Ql (U) Negative Normal NEGATIVE [facility] Comment on above: Performed By: #### U MICRO, ERUR #### [facility] [address] [place] [address] Dr. Tita Kumar Clarity (U) CLEAR Normal CLEAR [facility] Comment on above: Performed By: #### U MICRO, ERUR #### [facility] [address] [place] [address] Dr. Tita Kumar Color (U) LT. YELLOW Normal YELLOW [facility] Comment on above: Performed By: #### U MICRO, ERUR #### [facility] [address] [place] [address] Dr. Tita Kumar ERUAHD A micrscopic examina tion will be performed if indicated. Normal [facility] Comment on above: Performed By: #### U MICRO, ERUR #### [facility] [address] [place] [address] Dr. Tita Kumar Glucose Ql (U) Negative Normal NEGATIVE [facility] Comment on above: Performed By: #### U MICRO, ERUR #### [facility] [address] [place] [address] Dr. Tita Kumar Hemoglobin Ql (U) SMALL Abnormal NEGATIVE [facility] Comment on above: Performed By: #### U MICRO, ERUR #### [facility] [address] [place] [address] Dr. Tita Kumar Ketones Ql (U) Negative Normal NEGATIVE [facility] Comment on above: Performed By: #### U MICRO, ERUR #### [facility] [address] [address] [address] Tita Kumar LEUKOCYTES SMALL Abnormal NEGATIVE [facility] Comment on above: Performed By: #### U MICRO, ERUR #### [facility] [address] [address] [address] Tita Kumar Nitrite Ql (U) Negative Normal NEGATIVE [facility] Comment on above: Performed By: #### U MICRO, ERUR #### [facility] [address] [address] [address] Tita Kumar pH (U) 6.0 [pH] Normal 5-9 [facility] Comment on above: Performed By: #### U MICRO, ERUR #### [facility] [address] [place] [address] Dr. Tita Kumar Protein (U) [Mass/Vol] 30 mg/dL Abnormal NEGATIVE/ TRACE [facility] Comment on above: Performed By: #### U MICRO, ERUR #### [facility] [address] [address] [address] Tita Kumar SPEC GRAVITY 1.020 Normal 1.005-<=1.0 25 [facility] Comment on above: Performed By: #### U MICRO, ERUR #### [facility] [address] [place] [address] Dr. Tita Kumar UR MICRO IND INDICATED Normal [facility] Comment on above: Performed By: #### U MICRO, ERUR #### [facility] [address] [address] [address] Tita Kumar Urobilinogen Qn (U) 0.2 {Joy'U}/dL Normal 0.2 - 1. 0 [facility] Comment on above: Performed By: #### U MICRO, ERUR #### [facility] [address] [place] [address] Dr. Tita Kumar PROF 14(COMP METB)on 022 Albumin [Mass/Vol] 3.2 g/dL Critically low 3.4-5.0 [facility] Comment on above: Performed By: #### C MP #### [facility] [address] [address] [address] Tita Kumar Albumin/Globulin [Mass ratio] 0.7 {ratio} Normal [facility] Comment on above: Performed By: #### C MP #### [facility] [address] [address] [address] Tita Kumar ALP [Catalytic activity/Vol] 85 U/L Normal 46-116 [facility] Comment on above: Performed By: #### C MP #### [facility] [address] [address] [address] Tita Kumar ALT [Catalytic activity/Vol] 54 U/L Normal 14-59 [facility] Comment on above: Performed By: #### C MP #### [facility] [address] [place] [address] Dr. Tita Kumar Anion gap [Moles/Vol] 13.3 mmol/L Normal [facility] Comment on above: Performed By: #### C MP #### [facility] [address] [place] [address] Dr. Tita Kumar AST [Catalytic activity/Vol] 33 U/L Normal 15-37 [facility] Comment on above: Performed By: #### C MP #### [facility] [address] [place] [address] Dr. Tita Kumar Bilirubin [Mass/Vol] 0.3 mg/dL Normal 0.2-1.0 [facility] Comment on above: Performed By: #### C MP #### [facility] [address] [place] [address] Dr. Tita Kumar Calcium [Mass/Vol] 9.0 mg/dL Normal 8.5-10.1 [facility] Comment on above: Performed By: #### C MP #### [facility] [address] [place] [address] Dr. Tita Kumar Chloride [Moles/Vol] 103 mmol/L Normal 98-107 [facility] Comment on above: Performed By: #### C MP #### [facility] [address] [address] [address] Tita Kumar CO2 [Moles/Vol] 25.3 mmol/L Normal 21.0-32.0 [facility] Comment on above: Performed By: #### C MP #### [facility] [address] [address] [address] Tita Kumar Creatinine [Mass/Vol] 0.84 mg/dL Normal 0.55-1.02 [facility] Comment on above: Performed By: #### C MP #### [facility] [address] [address] [address] Tita Kumar EGFR-AF JAMAICAN >60 Normal >=60 [facility] Comment on above: Performed By: #### C MP #### [facility] [address] [place] [address] Dr. Tita Kumar EGFR-NON AF JAMA[place] >60 Normal >=60 [facility] Comment on above: Performed By: #### C MP #### [facility] [address] [place] [address] Dr. Tita Kumar Globulin (S) [Mass/Vol] 4.3 g/dL Normal [facility] Comment on above: Performed By: #### C MP #### [facility] [address] [place] [address] Dr. Tita Kumar Glucose [Mass/Vol] 116 mg/dL Critically high 74-106 [facility] Comment on above: Performed By: #### C MP #### [facility] [address] [address] [address] Tita Kumar Potassium [Moles/Vol] 3.6 mmol/L Normal 3.5-5.1 [facility] Comment on above: Performed By: #### C MP #### [facility] [address] [place] [address] Dr. Tita Kumar Protein [Mass/Vol] 7.5 g/dL Normal 6.4-8.2 [facility] Comment on above: Performed By: #### C MP #### [facility] [address] [place] [address] Dr. Tita Kumar Sodium [Moles/Vol] 138 mmol/L Normal 136-145 [facility] Comment on above: Performed By: #### C MP #### [facility] [address] [place] [address] Dr. Tita Kumar Urea nitrogen [Mass/Vol] 16.0 mg/dL Normal 7.0-18.0 [facility] Comment on above: Performed By: #### C MP #### [facility] [address] [address] [address] Tita Kumar Urea nitrogen/Creatinine [Mass ratio] 19.0 mg/mg Normal [facility] Comment on above: Performed By: #### C MP #### [facility] [address] [place] [address] Dr. Tita Kumar URINE MICROSCOPIC ONLYon BACTERIA NONE SEEN Normal NONE SEEN [facility] Comment on above: Performed By: #### U MICRO, ERUR #### [facility] [address] [place] [address] Dr. Tita Kumar Bacteria identified Cx Nom (U) INDICATED Normal [facility] Comment on above: Performed By: #### U MICRO, ERUR #### [facility] [address] [place] [address] Dr. Tita Kumar CAST NONE SEEN Normal NONE SEEN [facility] Comment on above: Performed By: #### U MICRO, ERUR #### [facility] [address] [place] [address] Dr. Tita Kumar Crystals LM Nom (Urine sed) NONE SEEN Normal NONE SEEN [facility] Comment on above: Performed By: #### U MICRO, ERUR #### [facility] [address] [place] [address] Dr. Tita Kumar Epithelial cells LM Ql (Urine sed) FEW Abnormal NONE SEEN /RARE [facility] Comment on above: Performed By: #### U MICRO, ERUR #### [facility] [address] [place] [address] Dr. Tita Kumar MUCOUS NONE SEEN Normal NONE SEEN [facility] Comment on above: Performed By: #### U MICRO, ERUR #### [facility] [address] [address] [address] Tita Kumar RBC 5-10 Abnormal 0-2 [facility] Comment on above: Performed By: #### U MICRO, ERUR #### [facility] [address] [address] [address] Tita Kumar WBC 5-10 Abnormal NONE SEEN [facility] Comment on above: Performed By: #### U MICRO, ERUR #### [facility] [address] [address] [address] Tita Kumar BUNon 11-23-2021 Urea nitrogen [Mass/Vol] 15.0 mg/dL Normal 7.0-18.0 [facility] Comment on above: Performed By: #### B UN, CREA ####[facility] [address] [address]DrTee Kumar CREATININEon 11-23-2021 Creatinine [Mass/Vol] 0.80 mg/dL Normal 0.55-1.02 [facility] Comment on above: Performed By: #### B UN, CREA ####[facility] [address] [id number]. Tita Kumar EGFR-AF JAMA[place] >60 Normal >=60 [facility] Comment on above: Performed By: #### B UN, CREA ####[facility] [address] [id number]. Tita Kumar EGFR-NON AF [place]AMA[place] >60 Normal >=60 [facility] Comment on above: Performed By: #### B UN, CREA ####[facility] [address] [address]Dr. Tita Kumar MRI BRAIN WO W CONon 022 MRI BRAIN WO W CON EXAMINATION: MRI BRA IN WO W CON HISTORY: Multiple sclerosis COMPARISON: No relevant comparison available. TECHNIQUE: A variety of imaging planes and parameters were utilized for visualization of suspected pathology. Images were performed with 20 ml Dotarem contrast. FINDINGS: CEREBRUM: No edema, hemorrhage, mass, acute infarction, or inappropriate atrophy. Moderate scattered hyperintense foci are present, with a periventricular distribution. 3 small foci of restricted diffusion measuring up to 4 mm diffusion axial image 41, right corpus callosum, right occipital white matter and left occipital white matter. No postcontrast enhancement. CEREBELLUM: No edema, hemorrhage, mass, acute infarction, or inappropriate atrophy. BRAINSTEM: No edema, hemorrhage, mass, acute infarction, or inappropriate atrophy. CSF SPACES: Ventricles, cisterns, and sulci are appropriate for age. No hydrocephalus, subarachnoid hemorrhage, or mass. SKULL: No mass or other significant visible lesion. SINUSES: Limited views demonstrate no significant mucosal thickening or fluid. ORBITS: Limited views are unremarkable. OTHER: No abnormal meningeal or parenchymal enhancement. IMPRESSION: 3 foci of white matter signal abnormality on restricted diffusion suggesting punctate areas of acute demyelination. No postcontrast enhancement Moderate signal abnormality with a periventricular predominance, consistent with known multiple sclerosis Electronically authenticated by: KARINA SOARES Date: 2021-11-23 20:52 Normal [facility] CBC AUTO DIFFon 09-19-2021 BASO # 0.1 103/ul Normal 0.0-0.1 [facility] Comment on above: Performed By: #### C BC ####[facility] [address] [address]Dr. Tita Kumar Basophils/100 WBC (Bld) 0.9 % Normal 0.2-2.0 [facility] Comment on above: Performed By: #### C BC ####[facility] [address] [address]Dr. Tita Kumar EO # 0.2 103/ul Normal 0.0-0.7 [facility] Comment on above: Performed By: #### C BC ####[facility] [address] [address]Dr. Tita Kumar Eosinophils/100 WBC (Bld) 2.2 % Normal 0.9-7.0 [facility] Comment on above: Performed By: #### C BC ####[facility] [address] [address]Dr. Tita Kumar Erythrocyte distribution width (RBC) [Ratio] 13.7 % Normal 11.0-15.0 [facility] Comment on above: Performed By: #### C BC ####[facility] [address] [address]Dr. Tita Kumar Hematocrit (Bld) [Volume fraction] 44.1 % Normal 36.0-48.0 [facility] Comment on above: Performed By: #### C BC ####[facility] [address] [address]Dr. Tita Kumar Hemoglobin (Bld) [Mass/Vol] 14.3 g/dL Normal 12.0-16.0 [facility] Comment on above: Performed By: #### C BC ####[facility] [address] [address]Dr. Tita Kumar IG # 0.03 10e3/ul Normal 0.00-0.03 [facility] Comment on above: Performed By: #### C BC ####[facility] [address] [place], [place] [address]Dr. Tita Kumar IG % 0.3 % Normal 0.0-0.5 [facility] Comment on above: Performed By: #### C BC ####[facility] [address] [address]Dr. Anneanel Kumar LYMPH # 1.4 103/ul Normal 1.2-3.8 [facility] Comment on above: Performed By: #### C BC ####[facility] [address] [address]Dr. Anneanel Kumar Lymphocytes/100 WBC (Bld) 15.2 % Critically low 20.5-60.0 [facility] Comment on above: Performed By: #### C BC ####[facility] [address] [address]Dr. Anneanel Kumar MANUAL DIFF REQ NO Normal [facility] Comment on above: Performed By: #### C BC ####[facility] [address] [address]Dr. Anneanel Kumar MCH (RBC) [Entitic mass] 30.0 pg Normal 26.7-34.0 [facility] Comment on above: Performed By: #### C BC ####[facility] [address] [place], [place] [address]Dr. Tita Kumar MCHC (RBC) [Mass/Vol] 32.4 g/dL Normal 29.9-35.2 [facility] Comment on above: Performed By: #### C BC ####[facility] [address] [id number]. Tita Kumar MCV (RBC) [Entitic vol] 92.5 fL Normal 81.0-99.0 [facility] Comment on above: Performed By: #### C BC ####[facility] [address] [id number]. Tita Kumar MONO # 0.7 103/ul Normal 0.3-0.8 [facility] Comment on above: Performed By: #### C BC ####[facility] [address] [address]Dr. Tita José Monocytes/100 WBC (Bld) 7.7 % Normal 1.7-12.0 [facility] Comment on above: Performed By: #### C BC ####[facility] [address] [id number]. Tita Kumar NEUT # 6.8 103/ul Critically high 1.4-6.5 [facility] Comment on above: Performed By: #### C BC ####[facility] [address] [address]Dr. Tita Kumar Neutrophils/100 WBC (Bld) 73.7 % Normal 43.0-75.0 [facility] Comment on above: Performed By: #### C BC ####[facility] [address] [id number]. Tita Kumar Platelet mean volume (Bld) [Entitic vol] 8.7 fL Critically low 9.5-13.5 [facility] Comment on above: Performed By: #### C BC ####[facility] [address] [id number]. Tita José PLT 370 103/ul Normal 150-450 [facility] Comment on above: Performed By: #### C BC ####[facility] [address] [address]DrTee Kumar RBC 4.77 106/ul Normal 4.20-5.40 [facility] Comment on above: Performed By: #### C BC ####[facility] [address] [id number]. Tita Kumar WBC 9.3 103/ul Normal 4.0-11.0 [facility] Comment on above: Performed By: #### C BC ####[facility] [address] [address]Dr. Tita Kumar PROF 14(COMP METB)on 022 Albumin [Mass/Vol] 3.7 g/dL Normal 3.4-5.0 [facility] Comment on above: Performed By: #### T JACOB, CMP #### [facility] [address] [place] [address] Dr. Tita Kumar Albumin/Globulin [Mass ratio] 1.0 {ratio} Normal [facility] Comment on above: Performed By: #### T JACOB, CMP #### [facility] [address] [place] [address] Dr. Tita Kumar ALP [Catalytic activity/Vol] 105 U/L Normal 46-116 [facility] Comment on above: Performed By: #### T JACOB, CMP #### [facility] [address] [place] [address] Dr. Tita Kumar ALT [Catalytic activity/Vol] 35 U/L Normal 14-59 [facility] Comment on above: Performed By: #### T JACOB, CMP #### [facility] [address] [place] [address] Dr. Tita Kumar Anion gap [Moles/Vol] 10.8 mmol/L Normal [facility] Comment on above: Performed By: #### T SH, CMP #### [facility] [address] [place] [address] Dr. Tita Kumar AST [Catalytic activity/Vol] 20 U/L Normal 15-37 [facility] Comment on above: Performed By: #### T JACOB, CMP #### [facility] [address] [place], [place] [id number] Dr. Tita Kumar Bilirubin [Mass/Vol] 0.3 mg/dL Normal 0.2-1.0 [facility] Comment on above: Performed By: #### T SH, CMP #### [facility] [address] [place] [address] Dr. Tita Kumar Calcium [Mass/Vol] 9.3 mg/dL Normal 8.5-10.1 [facility] Comment on above: Performed By: #### T SH, CMP #### [facility] [address] [place] [address] Dr. Tita Kumar Chloride [Moles/Vol] 106 mmol/L Normal 98-107 [facility] Comment on above: Performed By: #### T SH, CMP #### [facility] [address] [place] [address] Dr. Tita Kumar CO2 [Moles/Vol] 29.9 mmol/L Normal 21.0-32.0 [facility] Comment on above: Performed By: #### T SH, CMP #### [facility] [address] [place] [address] Dr. Tita Kumar Creatinine [Mass/Vol] 0.80 mg/dL Normal 0.55-1.02 [facility] Comment on above: Performed By: #### T SH, CMP #### [facility] [address] [place] [address] Dr. Tita Kumar EGFR-AF JAMA[place] >60 Normal >=60 [facility] Comment on above: Performed By: #### T SH, CMP #### [facility] [address] [place] [address] Dr. Tita Kumar EGFR-NON AF JAMAICAN >60 Normal >=60 [facility] Comment on above: Performed By: #### T SH, CMP #### [facility] [address] [place] [address] Dr. Tita Kumar Globulin (S) [Mass/Vol] 3.6 g/dL Normal [facility] Comment on above: Performed By: #### T SH, CMP #### [facility] [address] [place] [address] Dr. Tita Kumar Glucose [Mass/Vol] 105 mg/dL Normal 74-106 [facility] [place] Comment on above: Performed By: #### T SH, CMP #### [facility] [address] [place] [address] Dr. Tita Kumar Potassium [Moles/Vol] 4.7 mmol/L Normal 3.5-5.1 [facility] Comment on above: Performed By: #### T SH, CMP #### [facility] [address] [place] [address] Dr. Tita Kumar Protein [Mass/Vol] 7.3 g/dL Normal 6.4-8.2 [facility] [place] Comment on above: Performed By: #### T SH, CMP #### [facility] [address] [place] [address] Dr. Tita Kumar Sodium [Moles/Vol] 142 mmol/L Normal 136-145 [facility] Comment on above: Performed By: #### T SH, CMP #### [facility] [address] [place] [address] Dr. Tita Kumar Urea nitrogen [Mass/Vol] 11.0 mg/dL Normal 7.0-18.0 [facility] Comment on above: Performed By: #### T SH, CMP #### [facility] [address] [place] [address] Dr. Tita Kumar Urea nitrogen/Creatinine [Mass ratio] 13.8 mg/mg Normal [facility] Comment on above: Performed By: #### T SH, CMP #### [facility] [address] [place] [address] Dr. Tita Kumar TSHon 09-19-2021 TSH 2.059 uIU/mL Normal 0.358-3.740 [facility] Comment on above: Performed By: #### T SH, CMP #### [facility] [address] [place] [address] Dr. Tita Kumar VITAMIN D 25 OHon 09-19-2021 VIT D 25-OH 43.8 ng/mL Normal [facility] Comment on above: Performed By: #### V ITAD ####[facility] [address] [place], [place] [address]Jj. Tita Kumar VIT D RANGES SEE BELOW Normal [facility] Comment on above: Result Comment: <20 ng/mL Vit D deficient 20 - <30 ng/mL Vit D insufficient 30 - 100 ng/mL Vit D sufficient >100 ng/mL Potential Toxicity Performed By: #### V ITAD ####[facility] [id number] [place] [id number]. Tita Kumar CBC W Auto Differential pane l (Bld)on 09-12-2021 Abs Immature Gran 0.03 k/uL <0.10 k/uL [place] Basophils (Bld) [#/Vol] 0.06 10*3/uL <0.11 k/uL [facility] Basophils/100 WBC (Bld) 0.7 % [facility] Differential cell count method Nom (Bld) Auto [facility] Eosinophils (Bld) [#/Vol] 0.19 10*3/uL <0.46 k/uL [facility] Eosinophils/100 WBC (Bld) 2.3 % [facility] Erythrocyte distribution width (RBC) [Ratio] 13.4 % 11.5 - 15.0 % [facility] Hematocrit (Bld) [Volume fraction] 44.5 % 36.0 - 46.0 % [facility] Hemoglobin (Bld) [Mass/Vol] 14.8 g/dL 11.5 - 15.5 g/dL [facility] Immature Gran % 0.4 % [facility] Lymphocytes (Bld) [#/Vol] 1.80 10*3/uL 1.00 - 4.00 k/uL [facility] Lymphocytes/100 WBC (Bld) 22.0 % [facility] MCH (RBC) [Entitic mass] 30.1 pg 26.0 - 34.0 pg [facility] MCHC (RBC) [Mass/Vol] 33.3 g/dL 30.5 - 36.0 g/dL [facility] MCV (RBC) [Entitic vol] 90.6 fL 80.0 - 100.0 fL [facility] Monocytes (Bld) [#/Vol] 0.70 10*3/uL <0.87 k/uL [facility] Monocytes/100 WBC (Bld) 8.5 % [facility] Neutrophils (Bld) [#/Vol] 5.41 10*3/uL 1.45 - 7.50 k/uL [facility] Neutrophils/100 WBC (Bld) 66.1 % [facility] Nucleated RBC (Bld) [#/Vol] 10*3/uL <0.01 k/uL [facility] Nucleated RBC/100 WBC (Bld) [Ratio] 0.0 /100 WBC [facility] Platelet mean volume (Bld) [Entitic vol] 8.7 fL Low 9.0 - 12.7 fL [facility] Platelets (Bld) [#/Vol] 366 10*3/uL 150 - 400 k/uL [facility] RBC (Bld) [#/Vol] 4.91 10*6/uL 3.90 - 5.2 0 m/uL [facility] WBC (Bld) [#/Vol] 8.19 10*3/uL 3.70 - 11.00 k/uL [facility] Comprehensive metabolic 2000 panelon 09-12-2021 Albumin [Mass/Vol] 4.4 g/dL 3.9 - 4.9 g/dL [facility] ALP [Catalytic activity/Vol] 100 U/L 34 - 123 U/L [facility] ALT [Catalytic activity/Vol] 19 U/L 7 - 38 U/L [facility] Anion gap [Moles/Vol] 11 mmol/L 9 - 18 mmol/L [facility] AST [Catalytic activity/Vol] 19 U/L 13 - 35 U/L [facility] Bilirubin [Mass/Vol] 0.3 mg/dL 0.2 - 1 .3 mg/dL [facility] Calcium [Mass/Vol] 9.4 mg/dL 8.5 - 10. 2 mg/dL [facility] Chloride [Moles/Vol] 103 mmol/L 97 - 10 5 mmol/L [facility] CO2 [Moles/Vol] 24 mmol/L 22 - 30 mmol/L [facility] Creatinine [Mass/Vol] 0.71 mg/dL 0.58 - 0.96 mg/dL [facility] Estimated Glomerular Filtration Rate 96 mL/min/1.73m >=60 mL/min/1.73 m [facility] Glucose [Mass/Vol] 113 mg/dL High 74 - 99 mg/dL [facility] Potassium [Moles/Vol] 4.1 mmol/L 3.7 - 5.1 mmol/L [facility] Protein [Mass/Vol] 7.0 g/dL 6.3 - 8.0 g/dL [facility] Sodium [Moles/Vol] 138 mmol/L 136 - 144 mmol/L [facility] Urea nitrogen [Mass/Vol] 14 mg/dL 7 - 21 mg/dL [facility] Albumin [Mass/volume] in Ser um or Plasmaon 08-23-2020 Albumin [Mass/Vol] 3.9 g/dL 3.2-5.5 [facility] Alkaline phosphatase [Enzyma tic activity/volume] in Serum or Plasmaon 08-23-2020 ALP [Catalytic activity/Vol] 85 U/L 32-92 [facility] Aspartate aminotransferase [ Enzymatic activity/volume] in Serum or Plasmaon 08-23-2020 AST [Catalytic activity/Vol] 22 U/L 10-42 [facility] Automated erythrocytes count in urine sediment (number/area)on 08-23-2020 RBC Auto (Urine sed) [#/Area] 1-2 [HPF] 0-4 [facility] Automated leukocytes count i n urine sediment (number/area)on 08-23-2020 WBC Auto (Urine sed) [#/Area] 10-19 [HPF] 0-4 [facility] Basophils Auto (Bld) [#/Vol] on 08-23-2020 Basophils (Bld) [#/Vol] 0.1 10*3/uL 0.0-0.2 [facility] Basophils/100 WBC Auto (Bld) on 08-23-2020 Basophils/100 WBC (Bld) 0.9 % . [facility] Bilirubin Test strip Ql (U)o n 08-23-2020 Bilirubin Ql (U) Negative Negative [facility] Bilirubin.total [Mass/volume ] in Serum or Plasmaon 08-23-2020 Bilirubin [Mass/Vol] 0.6 mg/dL 0.3-1.2 [facility] Calcium [Mass/volume] in Ser um or Plasmaon 08-23-2020 Calcium [Mass/Vol] 9.3 mg/dL 8.2-10.2 [facility] Carbon dioxide, total [Moles /volume] in Serum or Plasmaon 08-23-2020 CO2 [Moles/Vol] 26.0 mmol/L 22.0-30.0 [facility] Chloride [Moles/volume] in S jenn or Plasmaon 08-23-2020 Chloride [Moles/Vol] 106 mmol/L 95-114 [facility] Color Auto (U)on 08-23-2020 Color (U) Yellow Yellow [facility] Creatinine and Glomerular fi ltration rate.predicted panel (S/P/Bld)on 08-23-2020 Creatinine [Mass/Vol] 0.75 mg/dL 0.44-1.03 [facility] Eosinophils Auto (Bld) [#/Vo l]on 08-23-2020 Eosinophils (Bld) [#/Vol] 0.1 10*3/uL 0.0-0.45 [facility] Eosinophils/100 WBC Auto (Bl d)on 08-23-2020 Eosinophils/100 WBC (Bld) 2.4 % . [facility] Erythrocyte distribution wid th Auto (RBC) [Ratio]on 08-23-2020 Erythrocyte distribution width (RBC) [Ratio] 14.2 % 11.9-15.3 [facility] Erythrocyte sedimentation ra te by Photometric methodon 08-23-2020 ESR Photometric method (Bld) [Velocity] 37 mm/hr 0-29 [facility] Estimated glomerular filtrat ion rate (GFR) non- Americanon 08-23-2020 GFR/1.73 sq M.predicted among non-blacks MDRD (S/P/Bld) [Vol rate/Area] > 60 mL/Min [facility] Globulin Calc (S) [Mass/Vol] on 08-23-2020 Globulin (S) [Mass/Vol] 3.9 g/dL [facility] Glucose [Mass/volume] in Ser um or Plasmaon 08-23-2020 Glucose [Mass/Vol] 104 mg/dL 70-100 [facility] Comment on above: ADA recommended refe rence rangeRandom Glucose Reference Range is dependent on time and content of last meal. Glucose of more than 200 mg/dL in a nonstressed, ambulatory subject supports the diagnosis of Diabetes Mellitus. Hematocrit Auto (Bld) [Volum e fraction]on 08-23-2020 Hematocrit (Bld) [Volume fraction] 47.0 % 34.0-46.4 [facility] Hemoglobin [Mass/volume] in Bloodon 08-23-2020 Hemoglobin (Bld) [Mass/Vol] 15.9 g/dL 11.8-15.4 [facility] Ketones Auto test strip (U) [Mass/Vol]on 08-23-2020 Ketones (U) [Mass/Vol] Negative Negative [facility] - Hematology and Cell countson 08-23-2020 Nucleated RBC/100 WBC (Bld) [Ratio] 0.1 % 0-0.5 [facility] - Urinalysison Hyaline casts LM Ql (Urine sed) 0-8 [LPF] 0-8 [facility] Leukocytes [#/volume] in Blo od by Automated counton 08-23-2020 WBC (Bld) [#/Vol] 5.9 10*3/uL 4.5-11.0 [facility] Lymphocytes Auto (Bld) [#/Vo l]on 08-23-2020 Lymphocytes (Bld) [#/Vol] 1.0 10*3/uL 1.00-4.8 [facility] Lymphocytes/100 WBC Auto (Bl d)on 08-23-2020 Lymphocytes/100 WBC (Bld) 16.9 % . [facility] MCH Auto (RBC) [Entitic mass ]on 08-23-2020 MCH (RBC) [Entitic mass] 31.0 pg 24.7-34.3 [facility] MCHC Auto (RBC) [Mass/Vol]on 08-23-2020 MCHC (RBC) [Mass/Vol] 33.9 g/dL 32.0-35.0 [facility] MCV Auto (RBC) [Entitic vol] on 08-23-2020 MCV (RBC) [Entitic vol] 91.5 fL 80-100 [facility] Monocytes Auto (Bld) [#/Vol] on 08-23-2020 Monocytes (Bld) [#/Vol] 0.5 10*3/uL 0.0-0.8 [facility] Monocytes/100 WBC Auto (Bld) on 08-23-2020 Monocytes/100 WBC (Bld) 8.5 % . [facility] Neutrophils Auto (Bld) [#/Vo l]on 08-23-2020 Neutrophils (Bld) [#/Vol] 4.2 10*3/uL 1.8-7.7 [facility] Neutrophils/100 WBC Auto (Bl d)on 08-23-2020 Neutrophils/100 WBC (Bld) 71.3 % . [facility] Nitrite Test strip Ql (U)on 08-23-2020 Nitrite Ql (U) Negative Negative [facility] No Panel Informationon 08-23 Estimated GFR () > 60 mL/Min [facility] Comment on above: GFR estimated refere nce range: According to KDOQI guidelines, <60 ml/min/1.73m2 is sufficient to diagnose a patient with chronic kidney disease. Pharmacy Creatinine Clearance (Chem 77.68 [facility] Platelet mean volume Auto (B ld) [Entitic vol]on 08-23-2020 Platelet mean volume (Bld) [Entitic vol] 7.3 fL 6.3-10.7 [facility] Platelets Auto (Bld) [#/Vol] on 08-23-2020 Platelets (Bld) [#/Vol] 376 10*3/uL 150-450 [facility] Potassium [Moles/volume] in Serum or Plasmaon 08-23-2020 Potassium [Moles/Vol] 3.8 mmol/L 3.5-5.1 [facility] Protein Auto test strip (U) [Mass/Vol]on 08-23-2020 Protein (U) [Mass/Vol] Negative Negative [facility] Protein [Mass/volume] in Ser um or Plasmaon 08-23-2020 Protein [Mass/Vol] 7.8 g/dL 6.1-7.9 [facility] RBC Auto (Bld) [#/Vol]on RBC (Bld) [#/Vol] 5.14 10*6/uL 3.60-5.00 [facility] Serum or plasma alanine landaevrde otransferase measurement without P-5'-P (enzymatic activion 08-23-2020 ALT No additional P-5'-P [Catalytic activity/Vol] 20 U/L 10-60 [facility] Serum or plasma albumin/glob ulin mass ratioon 08-23-2020 Albumin/Globulin [Mass ratio] 1.0 {ratio} [facility] Sodium [Moles/volume] in Ser um or Plasmaon 08-23-2020 Sodium [Moles/Vol] 140 mmol/L 136-146 [facility] Specific gravity Auto test s trip (U) [Rel density]on 08-23-2020 Specific gravity (U) [Rel density] 1.011 1.001-1.030 [facility] Squamous epithelial cells de tection in urine sediment by light microscopyon 08-23-2020 Epithelial cells.squamous LM Ql (Urine sed) 1-2 [HPF] 0-2 [facility] Urea nitrogen [Mass/volume] in Serum or Plasmaon 08-23-2020 Urea nitrogen [Mass/Vol] 10 mg/dL 9-23 [facility] Urine bacteria detection by automated methodon 08-23-2020 Bacteria Auto Ql (U) 1+ None Seen [facility] Urine clarity by refractomet ry automatedon 08-23-2020 Clarity Refractometry automated (U) Clear Clear [facility] Urine culture routineon 08-04 Bacteria identified Cx Nom (U) Escherichia coli [facility] Urine glucose measurement by automated test strip (mass/volume)on 08-23-2020 Glucose Auto test strip (U) [Mass/Vol] Normal mg/dL Normal [facility] Urine hemoglobin detection b y automated test stripon 08-23-2020 Hemoglobin Auto test strip Ql (U) Negative Negative [facility] Urine leukocyte esterase det ection by automated test stripon 08-23-2020 Leukocyte esterase Auto test strip Ql (U) 2+ Negative [facility] Urobilinogen Auto test strip (U) [Mass/Vol]on 08-23-2020 Urobilinogen (U) [Mass/Vol] Normal mg/dL Normal [facility] pH Auto test strip (U)on pH (U) 6.0 [pH] 5.0-9.0 [facility] Cholesterol [Mass/volume] in Serum or Plasmaon 05-13-2020 Cholesterol [Mass/Vol] 221 mg/dL 140-200 [facility] Comment on above: Chol less than 200 m g/dl low riskChol 201-239 mg/dl borderline riskChol 240 mg/dl and greater high risk Cholesterol in LDL Calc [Mas s/Vol]on 05-13-2020 Cholesterol in LDL [Mass/Vol] 149 mg/dL 0-100 [facility] Comment on above: LDL ATP III CLASSIFI CATIONLDL less than 100 mg/dL OptimalLDL 100-129 mg/dL Near or above optimalLDL 130-159 mg/dL Borderline highLDL 160-189 mg/dL HighLDL greater than 189 mg/dL Very high Cholesterol in VLDL Calc [Ma ss/Vol]on 05-13-2020 Cholesterol in VLDL [Mass/Vol] 25 mg/dL [facility] Serum or plasma high density lipoprotein (HDL) cholesterol measurementon 05-13-2020 Cholesterol in HDL [Mass/Vol] 47 mg/dL 35-85 [facility] Comment on above: HDL CHOL ATP-III CLA SSIFICATION Cardiovascular RiskHDL > or equal to 60 mg/dL LOWHDL < 40 mg/dL HIGH Serum or plasma total choles terol/high density lipoprotein (HDL) cholesterol mass shante 05-13-2020 Cholesterol.total/Cho lesterol in HDL [Mass ratio] 4.7 {ratio} <5.0 [facility] Triglyceride [Mass/volume] i n Serum or Plasmaon 05-13-2020 Triglyceride [Mass/Vol] 127 mg/dL 35-149 [facility] Comment on above: TRIG ATP III CLASSIF ICATIONTRIG less than 150 mg/dL NormalTRIG 150-199 mg/dL Borderline highTRIG 200-500 mg/dL High TRIG greater than 500 mg/dL Very highStandard traceable to the Center for Disease Conrtrol and Prevention (CDC) test method. Laboratory - Hematology and Cell countson 03-01-2020 WBC (Bld) [#/Vol] 5.5 10*3/uL 4.5-11.0 [facility] C reactive protein [Mass/vol ume] in Serum or Plasmaon 01-19-2020 CRP [Mass/Vol] 1.0 mg/dL 0.0-1.0 [facility] Hepatitis B virus surface Ag [Presence] in Serum or Plasma by Immunoassayon 01-19-2020 HBV surface Ag IA Ql Negative Negative [facility] Comment on above: Performed at: [facility] [address] [id number] Director: Luis Teresa PhD, Phone: [phone] No Panel Informationon 01-18 Hepatitis B Core Total Antibody Negative Negative [facility] Comment on above: Performed at: [facility] [address] [id number] Director: Luis Teresa PhD, Phone: [phone] Serum or plasma free cefurox jessica measurement (mass/volume)on 01-19-2020 Cefuroxime free [Mass/Vol] Negative Negative [facility] Comment on above: Performed at: [facility] [address] [id number] Director: Luis Teresa PhD, Phone: [phone] Bilirubin.direct [Mass/volum e] in Serum or Plasmaon 07-29-2019 Bilirubin.direct [Mass/Vol] mg/dL 0.0-0.4 [facility] Serum or plasma non-glucuron idated bilirubin measurement (mass/volume)on 07-29-2019 Bilirubin.indirect [Mass/Vol] TNP [facility] Comment on above: Test not performed Serum or plasma calcidiol me asurement (mass/volume)on 11-26-2017 25-hydroxyvitamin D3 [Mass/Vol] 59.0 ng/mL 30-100 [facility] Comment on above: VITAMIN D STATUS 25( [place])VITAMIN D RANGE (ng/mL) Deficient <20 Insufficient 20 to <30Sufficient 30 to 100Reference: Ivet MF,Mikaela NC, Paula VELASQUEZ, et al. Evaluation,treatment, and prevention of vitamin D deficiency; an Endocrine Society clinical practice guideline. JCEM. 2010; 96(7):1911-30. Vital Signs Date Time Vital Sign Value Performing Clinician Facility 09-04-2023 10:33-0400 Body height 157.48 cm DO [employer] Work Phone: [facility] 09-04-2023 10:33-0400 Body mass index (BMI) [Ratio] 34 kg/m2 DO Nabeel Stanton Work Phone: [facility] 09-04-2023 10:33-0400 Body weight 84.36 kg DO Nabeel Stanton Work Phone: [facility] 05-11-2023 11:56-0500 Body height 157.48 cm DO Nabeel Stanton Work Phone: [facility] 05-11-2023 11:56-0500 Body mass index (BMI) [Ratio] 31.8 kg/m2 DO Nabeel Stanton Work Phone: [facility] 05-11-2023 11:56-0500 Body weight 78.92 kg DO Nabeel Stanton Work Phone: [facility] 05-11-2023 11:56-0500 Diastolic blood pressure 78 mm[Hg] DO Nabeel Stanton Work Phone: [facility] 05-11-2023 11:56-0500 Heart rate 62 /min DO Nabeel Stanton Work Phone: [facility] 05-11-2023 11:56-0500 Respiratory rate 18 /min DO Nabeel Stanton Work Phone: [facility] 05-11-2023 11:56-0500 SaO2% (BldA) [Mass fraction] 97 % DO Nabeel Stanton Work Phone: [facility] 05-11-2023 11:56-0500 Systolic blood pressure 140 mm[Hg] DO Nabeel Stanton Work Phone: [facility] 04-05-2023 13:24-0500 Body height 157.5 cm Rahul Stewart DP Work Phone: [facility] 04-05-2023 13:24-0500 Body mass index (BMI) [Ratio] 31.64 kg/m2 Rahul Stewart DPM Work Phone: [facility] [employer] 04-05-2023 13:24-0500 Body weight 78.47 kg Rahul Stewart DPM Work Phone: [facility] 04-05-2023 13:24-0500 Diastolic blood pressure 80 mm[Hg] Rahul Stewart DPM Work Phone: [facility] 04-05-2023 13:24-0500 Heart rate 82 /min Rahul Stewart DPM Work Phone: [facility] 04-05-2023 13:24-0500 Systolic blood pressure 130 mm[Hg] Rahul Stewart DPM Work Phone: [facility] [employer] 11-10-2022 12:00-0400 Body height 157.48 cm Nabeel Stanton Other [employer] Other 11-10-2022 12:00-0400 Body mass index (BMI) [Ratio] 31.36 kg/m2 Nabeel Stanton Other [employer] Other 11-10-2022 12:00-0400 Body weight 77.79 kg Nabeel Stanton Other [employer] Other 11-10-2022 12:00-0400 Diastolic blood pressure 88 mm[Hg] Nabeel Stanton Other [employer] Other 11-10-2022 12:00-0400 Respiratory rate 18 /min Nabeel Stanton Other [employer] Other 11-10-2022 12:00-0400 SaO2% (BldA) [Mass fraction] 98 % Nabeel Stanton Other [employer] Other 11-10-2022 12:00-0400 Systolic blood pressure 138 mm[Hg] Nabeel Stanton Other [employer] Other 10-17-2022 15:03-0400 Body height 160 cm Ac Warner MD Work Phone: [facility] 10-17-2022 15:03-0400 Body temperature 97.7 [degF] Ac Warner MD Work Phone: [facility] 10-17-2022 15:03-0400 Body weight 79.47 kg Ac Warner MD Work Phone: [facility] 10-17-2022 15:03-0400 Diastolic blood pressure 63 mm[Hg] Ac Warner MD Work Phone: [facility] 10-17-2022 15:03-0400 Heart rate 60 /min Ac Warner MD Work Phone: [facility] 10-17-2022 15:03-0400 Respiratory rate 18 /min Ac Warner MD Work Phone: [facility] 10-17-2022 15:03-0400 SaO2% (BldA) [Mass fraction] 95 % Ac Warner MD Work Phone: [facility] 10-17-2022 15:03-0400 Systolic blood pressure 131 mm[Hg] Ac Warner MD Work Phone: [facility] 05-23-2022 11:30-0400 Body height 157.48 cm Nabeel Stanton Other [employer] Other 05-23-2022 11:30-0400 Body mass index (BMI) [Ratio] 33.83 kg/m2 Nabeel Stanton Other [employer] Other 05-23-2022 11:30-0400 Body weight 83.92 kg Nabeel Stanton Other [employer] Other 05-23-2022 11:30-0400 Diastolic blood pressure 76 mm[Hg] Nabeel Stanton Other [employer] Other 05-23-2022 11:30-0400 Respiratory rate 18 /min Nabeel Stanton Other [employer] Other 05-23-2022 11:30-0400 SaO2% (BldA) [Mass fraction] 98 % Nabeel Stanton Other [employer] Other 05-23-2022 11:30-0400 Systolic blood pressure 130 mm[Hg] Nabeel Stanton Other [employer] Other 04-24-2022 13:21-0500 Diastolic blood pressure 84 mm[Hg] DO Nabeel Stanton Work Phone: [facility] 04-24-2022 13:21-0500 Heart rate 69 /min DO Nabeel Stanton Work Phone: [facility] 04-24-2022 13:21-0500 Respiratory rate 18 /min DO Nabeel Stanton Work Phone: [facility] 04-24-2022 13:21-0500 Systolic blood pressure 143 mm[Hg] DO Nabeel Stanton Work Phone: [facility] 04-24-2022 09:02-0500 Body height 154.94 cm DO Nabeel Stanton Work Phone: [facility] 04-24-2022 09:02-0500 Body temperature 97.5 [degF] DO Nbaeel Stanton Work Phone: [facility] 04-24-2022 09:02-0500 Body weight 78.3 kg DO Nabeel Stanton Work Phone: [facility] 04-24-2022 09:02-0500 SaO2% (BldA) [Mass fraction] 96 % DO Nabeel Stanton Work Phone: [facility] 03-02-2022 15:00-0500 Body height 157.48 cm Nabeel Stanton Other [employer] Other 03-02-2022 15:00-0500 Diastolic blood pressure 72 mm[Hg] Nabeel Stanton Other [employer] Other 03-02-2022 15:00-0500 Respiratory rate 18 /min Nabeel Stanton Other [employer] Other 03-02-2022 15:00-0500 SaO2% (BldA) [Mass fraction] 98 % Nabeel Stanton Other [employer] Other 03-02-2022 15:00-0500 Systolic blood pressure 128 mm[Hg] Nabeel Stanton Other [employer] Other 11-24-2021 10:30-0400 Body height 157.48 cm Nabeel Stanton Other [employer] Other 11-24-2021 10:30-0400 Body mass index (BMI) [Ratio] 34.38 kg/m2 Nabeel Stanton Other [employer] Other 11-24-2021 10:30-0400 Body weight 85.28 kg Nabeel Stanton Other [employer] Other 11-24-2021 10:30-0400 Diastolic blood pressure 72 mm[Hg] Nabeel Stanton Other [employer] Other 11-24-2021 10:30-0400 Respiratory rate 18 /min Nabeel Stanton Other [employer] Other 11-24-2021 10:30-0400 SaO2% (BldA) [Mass fraction] 96 % Nabeel Stanton Other [facility] [employer] Other 11-24-2021 10:30-0400 Systolic blood pressure 128 mm[Hg] Nabeel Stanton Other [facility] [employer] Other 09-12-2021 10:49-0400 Body height 160 cm Ac Warner MD Work Phone: [facility] 09-12-2021 10:49-0400 Body temperature 97.59 [degF] Ac Warner MD Work Phone: [facility] 09-12-2021 10:49-0400 Body weight 79.38 kg Ac Warner MD Work Phone: [facility] 09-12-2021 10:49-0400 Diastolic blood pressure 85 mm[Hg] Ac Warner MD Work Phone: [facility] 09-12-2021 10:49-0400 Heart rate 56 /min Ac Warner MD Work Phone: [facility] 09-12-2021 10:49-0400 Respiratory rate 18 /min Ac Warner MD Work Phone: [facility] 09-12-2021 10:49-0400 SaO2% (BldA) [Mass fraction] 96 % Ac Warner MD Work Phone: [facility] 09-12-2021 10:49-0400 Systolic blood pressure 165 mm[Hg] Ac Warner MD Work Phone: [facility] 05-23-2021 11:15-0400 Body height 157.48 cm Nabeel Stanton Other [employer] Other 05-23-2021 11:15-0400 Body mass index (BMI) [Ratio] 32.92 kg/m2 Nabeel Stanton Other [employer] Other 05-23-2021 11:15-0400 Body weight 81.65 kg Nabeel Stanton Other [employer] Other 05-23-2021 11:15-0400 Diastolic blood pressure 82 mm[Hg] Nabeel Stanton Other [employer] Other 05-23-2021 11:15-0400 Respiratory rate 16 /min Nabeel Stanton Other [employer] Other 05-23-2021 11:15-0400 SaO2% (BldA) [Mass fraction] 98 % Nabeel Stanton Other [employer] Other 05-23-2021 11:15-0400 Systolic blood pressure 130 mm[Hg] Nabeel Stanton Other [employer] Other 10-25-2020 08:49-0400 Body mass index (BMI) [Ratio] 30.6 kg/m2 DO Nabeel Stanton Work Phone: [facility] Encounters Encounter Date Encounter Type Care Provider Facility Start: 09-25-2023 End: 09-25-2023 ambulatory ATUL AKERS Not Available Start: 09-04-2023 End: 09-04-2023 ambulatory DO Nabeel Stanton Work Phone: [facility] Work Phone: Start: 09-04-2023 End: 09-04-2023 Patient encounter procedure DO Nabeel Stanton Work Phone: [facility] [place] Work Phone: Start: 08-23-2023 End: 08-23-2023 ambulatory RAHUL STEWART Not Available Start: 08-08-2023 End: 08-08-2023 Patient encounter procedure DO Nabeel Stanton Work Phone: [facility] Work Phone: Start: 08-08-2023 End: 08-08-2023 ambulatory DO Nabeel Stanton Work Phone: [facility] Work Phone: Start: 07-03-2023 End: 07-03-2023 ambulatory BART HELMS Not Available Start: 06-14-2023 End: 06-14-2023 ambulatory RAHUL STEWART Not Available Start: 05-11-2023 End: 05-11-2023 Patient encounter procedure DO Nabeel Stanton Work Phone: [facility] Work Phone: Start: 04-23-2023 ambulatory Nabeel Stanton Facilit y:[facility] Start: 04-05-2023 End: 04-05-2023 ambulatory RAHUL STEWART Not Available Start: 04-05-2023 End: 04-05-2023 Office outpatient new 30 minutes Rahul Stewart DPM Work Phone: [facility] Comment on above: Exostosis of left fo ot (Primary Dx); Onychomycosis; Toe pain, bilateral Start: 11-10-2022 End: 11-10-2022 ambulatory Nabeel Stanton Other [employer] Other Start: 11-10-2022 Office outpatient vi sit 15 minutes Nabeel Stanton [facility] Start: 10-17-2022 End: 10-17-2022 ambulatory NABEEL STANTON Facility:[facility] Comment on above: Malignant neoplasm o f both ovaries (HCC) (Primary Dx) Start: 10-17-2022 End: 10-17-2022 Patient encounter procedure Ac Warner MD Work Phone: [facility] Start: 09-14-2022 End: 09-14-2022 ambulatory Nabeel Stanton Other [employer] Other Start: 09-14-2022 Telephone encounter Nabeel [facility] [place] Start: 05-23-2022 Office outpatient vi sit 15 minutes Nabeel GUTIERREZ [facility] [place] Start: 05-23-2022 Telephone encounter Nabeel [facility] [place] Start: 05-23-2022 End: 05-23-2022 ambulatory DO Nabeel Stanton Work Phone: [facility] Work Phone: Start: 05-23-2022 End: 05-23-2022 Patient encounter procedure DO Nabeel Stanton Work Phone: [facility]-Lab [facility] Start: 04-24-2022 Registered Recurring DO Nabeel Stanton Work Phone: [facility]-Infusion Therapy - O/P Work Phone: Start: 04-06-2022 End: 04-07-[address] DOCTOR NOWAK Facility:[facility] Start: 03-08-2022 End: 03-08-2022 ambulatory Nabeel Stanton Other [employer] Other Start: 03-08-2022 Telephone encounter Nabeel [facility] [place] Start: 03-05-2022 End: 04-15-2022 ambulatory BART HELMS Facility:[facility] Start: 03-02-2022 End: 03-02-2022 Patient encounter procedure DO Nabeel Stanton Work Phone: [facility]-Ultrasound [facility] [place] Work Phone: Start: 03-02-2022 End: 03-02-2022 ambulatory Nabeel Stanton Other [employer] Other Start: 03-02-2022 Office outpatient vi sit 15 minutes Nabeel GUTIERREZ [facility] [place] Start: 03-02-2022 Telephone encounter Nabeel [facility] [place] Start: 02-22-2022 End: 03-04-2022 ambulatory CHRISTCRYSTAL HELMS Facility:[facility] Start: 02-13-2022 End: 03-04-[address] DOCTOR NOWAK Facility:[facility] Start: 01-08-2022 End: 01-08-2022 ambulatory NELA CURRAN . Facility:[facility] Start: 01-07-2022 End: 01-07-2022 ambulatory NELA CURRAN . Facility:[facility] Start: 11-24-2021 End: 11-24-2021 ambulatory Nabeel Stanton Other [employer] Other Start: 11-24-2021 Office outpatient vi sit 15 minutes Nabeel Stanton [facility] [place] Start: 11-23-2021 End: 11-24-2021 ambulatory NABEEL STANTON Facility:[facility] Start: 09-19-2021 End: 09-20-2021 ambulatory YISEL CALLAHAN Facility:[facility] Start: 09-13-2021 Telephone encounter Leonela Person RN Hematology/Oncology Comment on above: Results Start: 09-12-2021 End: 09-12-2021 ambulatory Ac Warner MD Work Phone: Hematology/Oncology Comment on above: Malignant neoplasm o f both ovaries (HCC) (Primary Dx); History of multiple sclerosis (HCC); History of hypertension Start: 09-12-2021 End: 09-12-2021 Patient encounter procedure cA Warner MD Work Phone: [facility] Start: 09-07-2021 Chart abstracting Ac eason MD Work Phone: Hematology/Oncology Start: 08-23-2021 End: 08-23-2021 ambulatory Nabeel Stanton Other [employer] Other Start: 08-23-2021 Telephone encounter Nabeel MYERS [facility] [place] Start: 05-23-2021 End: 05-23-2021 ambulatory Nabeel Stanton Other [employer] Other Start: 05-23-2021 Patient encounter procedure Nabeel Stanton [facility] [place] Procedures Date Procedure Procedure Detail Performing Clinician Start: 08-08-2023 Screening mammograph y of bilateral breasts DO Nabeel Stanton Work Phone: Start: 03-02-2022 Duplex scan of lower limb veins DO Nabeel Stanton Work Phone: Start: 08-23-2020 Urine culture DO Nabeel Vegaley Work Phone: Plan of Treatment Date Care Activity Detail Author Start: 10-17-2025 DIABETES SCREEN DIABETES SCREEN [facility] Start: 09-12-2024 DIABETES SCREEN DIABETES SCREEN [facility] Start: 06-14-2023 End: 06-14-2023 Patient encounter procedure 06/14/2023 1:20 PM EDT Procedure Visit [facility] [address] [facility] [address] [place] [id number] Rahul Stewart, DPM [address] [address] [facility] Start: 04-12-2023 End: 04-12-2023 Patient encounter procedure 04/12/2023 9:00 AM EST Office Visit [facility] [address] [facility] [address] [place] [address] Rahul Stewart, DPM [address] [address] [facility] Start: 11-03-2022 Influenza vaccination INFLUENZA (#1) [facility] Start: 03-05-2022 DEPRESSION ASSESSMENT DEPRESSION ASS ESSMENT [facility] Start: 11-03-2021 Influenza vaccination INFLUENZA (#1) [facility] Start: 09-12-2021 End: 11-12-2021 Cancer Ag 125 [Units/volume] in Serum or Plasma [facility] Work Phone: Comment on above: Expected: 09/12/2021 , Expires: 11/12/2021 Start: 09-12-2021 End: 11-12-2021 Human epididymis protein 4 [Moles/volume] in Serum or Plasma [facility] Work Phone: Comment on above: Expected: 09/12/2021 , Expires: 11/12/2021 Start: 2009 SHINGRIX VACCINE (1 of 2) SHINGRIX VACCINE (1 of 2) [facility] Start: 2004 COLOGUARD (FIT-DNA) COLOGUARD (FIT-D NA) [facility] Start: 2004 Colonoscopy COLONOSCOPY [facility] Start: 2004 COLORECTAL CANCER SCREENING COLORECTAL CANCER SCREENING [facility] Start: [address] COLONOGRAPHY [facility] Start: 2004 DIABETES SCREEN DIABETES SCREEN [facility] Start: 2004 FECAL OCCULT BLOOD FECAL OCCULT BLOO D [facility] Start: 2004 LIPID SCREEN LIPID SCREEN [facility] Start: 2004 SIGMOIDOSCOPY SIGMOIDOSCOPY [facility] Start: 1999 Mammography MAMMOGRAM [facility] Start: 1989 HPV TESTING HPV TESTING [facility] Start: 1980 PAP TESTING PAP TESTING [facility] Start: 1978 Urine microalbumin profile DTAP,TDAP,TD (1 - Tdap) [facility] Start: 1977 HEPATITIS C SCREENING HEPATITIS C SC REENING [facility] Start: 1977 HIV SCREENING HIV SCREENING [facility] Start: 1971 Adult depression screening assessment DEPRESSION SCREENING [facility] Start: 1965 PNEUMOCOCCAL (1 - PCV) PNEUMOCOCCAL (1 - PCV) [facility] Start: 1959 COVID-19 VACCINE (#1) COVID-19 VACCI NE (#1) [facility] Immunizations Immunization Date Immunization Notes Care Provider Fa cility 11-23-2021 Influenza, injectabl e, [place] Canine Kidney, preservative free, quadrivalent Ac Warner MD Work Phone: [facility] 11-07-2019 influenza, injectabl e, quadrivalent, preservative free Nabeel Stanton Other [facility] 12-20-2018 influenza, seasonal, injectable Nabeel Stanton Other [facility] 12-20-2018 influenza, injectabl e, quadrivalent, preservative free Ac Warner MD Work Phone: [facility] 11-21-2017 influenza, injectabl e, quadrivalent, preservative free Ac Warner MD Work Phone: [facility] 11-21-2017 influenza, seasonal, injectable Nabeel Stanton Other [facility] 12-08-2014 influenza, injectabl e, quadrivalent, preservative free Ac Warner MD Work Phone: [facility] 12-08-2014 influenza, injectabl e, quadrivalent, contains preservative Nabeel Montana Other [employer] Other Payers Date Payer Category Payer Medicare [id number] 2023 Medicaid [id number] 2023 Self-pay [id number] 2021 Medicaid MEDICAID [facility] MEDICAID [id number] 2021-Present [phone] [address] [place] [address] Medicaid [id number] 2021 Medicaid [id number] 2021 Unknown ANTHEM BLUE CROS S AND BLUE SHIELD ANTHEM MEDIBLUE HMO [id number] 2021-Present [phone] [address] [place] [address] O [id number] 2021 Unknown ANTHEM BLUE CROS S AND BLUE SHIELD ANTHEM MEDIBLUE HMO [id number] 2021-Present [phone] [address] [place] [address] O [id number] 1959 Unknown [id number] [id number] 1959 Unknown [id number] [id number] 1959 Unknown [id number] [id number] 1959 Unknown [id number] 2.16.840.1.364386.3.579.2.593 1959 Unknown [id number] 2.16.840.1.450302.3.579.2.593 1959 Unknown [id number] 2.16.840.1.510308.3.579.2.593 1959 Unknown [id number] 2.16.840.1.938512.3.579.2.593 1959 Unknown [id number] 2.16.840.1.320924.3.579.2.593 1959 Unknown [id number] 2.16.840.1.179821.3.579.2.593 1959 Unknown [id number] 2.16.840.1.198447.3.579.2.1259 1959 Unknown [id number] 2.16.840.1.203233.3.579.2.1259 1959 Unknown [id number] 2.16.840.1.261731.3.579.2.1259 1959 Unknown [id number] 2.16.840.1.540496.3.579.2.1259 1959 Unknown [id number] [id number] 1960 Medicaid [id number] [id number] 1960 Medicare [id number] Medicare Medicare [id number] Unknown [id number] Unknown [id number] Social History Date Type Detail Facility Start: 10-17-2022 [facility]igned At [facility] Start: 09-07-[address] [facility] Light tobacco smoker [facility] History of tobacco use Cigar Smoker [facility] Start: 09-07-2021 Tobacco use and exposure Smokeless tobacco non-user [facility] Start: 09-07-2021 End: 10-17-2022 Alcohol intake Current drinker of alcohol (finding) [facility] Start: 1960 Sex Assigned At Not on file [facility] Start: 09-12-2021 History SDOH Alcohol Comment drinks beer [facility] Start: 09-02-2021 End: 09-12-2021 Exposure to SARS-CoV-2 (event) Not sure [facility] Start: 1960 Sex Assigned At Female F [facility] Start: 10-17-2022 History of Social function [facility] Adult Depression Screening Assessment 0 [facility] Start: 04-05-2023 [facility] consumption [facility] Start: 04-05-2023 Alcohol intake Defer [facility] Start: 04-17-[address] [facility] Never smoked tobacco (finding) [facility] Clinical Notes 05-23-2021 to 04-05-2023 Rahul Stewart, RACHEL - 04/05/2023 1:10 PM EST Note Date & Type Note Facility 04-05-2023 History of Presen t illness Narrative Patient: Gabrielle Nguyentrong : 1960 PCP: Nabeel Stanton MD SUBJECTIVE This is a 63 y.o. female that presents today with a CC of elongated, thick nails. Pt states nails have been elongated and thick for many years and cause pain with ambulation in shoegear. Pt has tried previous treatment with minimal relief. Pt presents today for nail care and treatment. Patient has secondary complaints of painful lesion to the left foot states it has a bony prominence at sometimes rubs on shoes and causes irritation numbness and burning and tingling would like to discuss possible treatment option has tried different shoes with some improvement Allergies: No Known Allergies Past Medical History: Past Medical History: Diagnosis Date MS (multiple sclerosis) ([facility]) Medications: Current Outpatient Medications: biotin 10 MG capsule, TAKE 1 CAPSULE BY MOUTH EVERY DAY 30 DAYS, Disp: , Rfl: donepezil (Aricept) 10 MG tablet, 1 (one) time each day at the same time, Disp: , Rfl: fluticasone (Flonase) 50 MCG/ACT nasal spray, SPRAY 2 SPRAYS INTO EACH NOSTRIL ONCE DAILY, Disp: , Rfl: gabapentin (Neurontin) 400 MG capsule, TAKE 1 CAPSULE BY MOUTH IN THE MORNING AND 2 AT BEDTIME, Disp: , Rfl: losartan (Cozaar) 25 MG tablet, TAKE 1 TABLET BY MOUTH EVERY DAY FOR 90 DAYS, Disp: , Rfl: montelukast (Singulair) 10 MG tablet, Take 10 mg by mouth in the morning., Disp: , Rfl: ondansetron ODT (Zofran-ODT) 4 MG disintegrating tablet, DISSOLVE 1 TABLET UNDER TONGUE EVERY 6 HOURS NEEDED FOR NAUSEA AND VOMITING, Disp: , Rfl: oxybutynin XL (Ditropan-XL) 15 MG 24 hr tablet, Take 15 mg by mouth in the morning., Disp: , Rfl: Social History: Social History Socioeconomic History Marital status: Spouse name: Not on file Number of children: Not on file Years of education: Not on file Highest education level: Not on file Occupational History Not on file Tobacco Use Smoking status: Unknown Smokeless tobacco: Not on file Vaping Use Vaping Use: Unknown Substance and Sexual Activity Alcohol use: Defer Drug use: Defer Sexual activity: Defer Other Topics Concern Not on file Social History Narrative Not on file Social Determinants of Health Financial Resource Strain: Not on file Food Insecurity: Not on file Transportation Needs: Not on file Physical Activity: Not on file Stress: Not on file Social Connections: Not on file Intimate Partner Violence: Not on file Housing Stability: Not on file ROS: General: denies fever, chills, fatigue, malaise Gastrointestinal: denies abdominal pain, ulcers, or changes in appetite or bowel habits Musculoskeletal: denies loss of strength, pain to hip, knees, back. Positive MS and positive history arthritis Cardiovascular: denies CP, palpitations, irregular rhythms OBJECTIVE LE EXAM: DERM: Elongated thick yellow crumbly nails digits 1 through 10. Positive hair growth b/l feet. Large bony prominence of the 1st metatarsal cuneiform joint of the left foot VASC: Positive palpable pedal pulses bilaterally NEURO: Gross sensation intact to bilateral feet ORTHO: Positive pain on palpation to nails 1 through 10 Positive palpation left foot bony prominence ASSESSMENT 1. Exostosis of left foot 2. Onychomycosis 3. Toe pain, bilateral PLAN Discussed proper foot care with patient today. Debride nails in length and thickness digits 1 through 10 Discussed conservative and surgical treatment options for patient today including postoperative time frame and surgical procedure in detail. Patient may continue with conservative treatments including [id number] anti-inflammatories and other treatments suggested today. Patient may want to be scheduled for surgical intervention in the near future. 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 I advised her that imaging will be done at the podiatry office. In the meantime, she can take diclofenac for pain, always take with food and plenty of fluids. I made her very aware that she cannot take [id number] er NSAIDs. I also advised her to wear supportive footwear at all times, at least leading up to her podiatry appointment Nov, Pes planus of left foot (ICD-10 - M21.42) [employer] Other 08-15-2023 NoteHNO ID: [id number] Author: Ac Warner MD Service: ? Author Type: Physician Type: Progress Notes Filed: 10/18/2022 9:49 AM Note Text: PATIENT NAME: Gabrielle Marcos DATE: 10/17/2022 PRIMARY CARE PHYSICIAN: Dr. Blair Stanton OTHER PHYSICIANS: Dr. Marcelino Culver, Dr. Bart Helms Portions of this encounter note have been copied from my note from 09/12/2021 and has been updated where appropriate, and reflect my current medical decision making from today. CC This is a 62 year old female with a history of ovarian cancer, seen for scheduled follow-up. INTERIM HISTORY: Since the patient's initial visit here 1 year ago she has had no significant medical changes. Currently she feels well with no particular complaints. She denies any abdominal pain or other GI symptoms. MEDICATIONS: Current Outpatient Medications Medication Sig ALPRAZolam (XANAX) 0.25 mg tablet TAKE 1 TABLET BY MOUTH ONCE A DAY NEEDED FOR ANXIETY (Patient not taking: TAKE 1 TABLET BY MOUTH ONCE A DAY NEEDED FOR ANXIETY) Biotin 10,000 mcg cap Take 1 tablet by mouth once daily. (Patient not taking: Reported on 09/12/2021 ) desonide (DESOWEN) 0.05 % lotion APPLY TO SKIN TWICE A DAY NEEDED (Patient not taking: APPLY TO SKIN TWICE A DAY NEEDED) docusate sodium (COLACE) 100 mg capsule Take by mouth q 24 HR. (Patient not taking: Reported on 09/12/2021 ) donepezil (ARICEPT) 10 mg tablet Take by mouth q 24 HR. ergocalciferol 50,000 unit capsule (VITAMIN D2, DRISDOL) Take 1 capsule by mouth one time a week. ergocalciferol 50,000 unit capsule (VITAMIN D2, DRISDOL) TAKE 1 CAPSULE BY MOUTH ONCE PER WEEK gabapentin (NEURONTIN) 400 mg capsule Take by mouth q 12 HR. losartan (COZAAR) 25 mg tablet Take by mouth. montelukast (SINGULAIR) 10 mg tablet Take by mouth q 24 HR. oxybutynin ER (DITROPAN XL) 15 mg 24 hr Extended Rel Tab Take 15 mg by mouth once daily. latanoprost (XALATAN) 0.005 % ophthalmic solution 1 Drop daily at bedtime. lisinopril (ZESTRIL, PRINIVIL) 20 mg tablet Take 20 mg by mouth once daily. (Patient not taking: Reported on 09/12/2021 ) No current facility-administered medications for this visit. ALLERGIES: ALLERGIES Allergen Reactions Cephalexin Hives, Itching, Rash PAST MEDICAL HISTORY: PAST MEDICAL HISTORY Diagnosis Date Fracture closed, fibula, shaft History of multiple sclerosis (HCC) HTN (hypertension) Ovarian cancer (HCC) 2021 PAST SURGICAL HISTORY: PAST SURGICAL HISTORY Procedure Laterality Date APPENDECTOMY TONSILLECTOMY HX TOTAL ABDOM HYSTERECTOMY FAMILY HISTORY: No family history on file. SOCIAL HISTORY: Social History Tobacco Use Smoking status: Light Smoker Types: Cigars Smokeless tobacco: Never Substance Use Topics Alcohol use: Yes Comment: drinks beer Drug use: Never COMPLETE REVIEW OF SYSTEMS: CONSTITUTION: Negative for pain, fatigue, weight loss, or appetite loss. EENT: Negative for mouth soreness, antibiotics use, epistaxis, visual problems, neck or facial swelling, fever/chills, bleeding gums, or hearing loss. CV: Negative for edema, calf swelling, palpitations, or chest pain. RESPIRATORY: Negative for cough, SOB, hemoptysis, or wheezing. GI: Negative for nausea/vomiting, heartburn, vomiting blood, dysphasia, diarrhea, blood in stool, constipation, early satiety, PICA, vegetarian, poor nutrition, abdominal fullness, or abdominal pain. NEUROLOGICAL: Negative for numbness/tingling, dizziness, gait disturbance, headache, speech disturbance, tremor, hemiparesis/sensory loss, or change in mental status. MUSCULOSKELETAL: Negative for joint pain, joint swelling, or proximal muscle weakness. SKIN: Negative for hair loss, bruising, nail changes, rash, itching, pallor, or jaundice. ENDO/URO: Negative for hot flashes, cold or heat intolerance, urinary frequency, urinary hesitancy, menorrhagia, or hematuria. PSYCH: Negative for anxiety, depression, or other. PHYSICAL EXAM: BP 131/63 Pulse 60 Temp 36.5 ?C (97.7 ?F) (Temporal) Resp 18 Ht 160 cm (5' 2.99 ) Wt 79.5 kg (175 lb 3.2 oz) SpO2 95% BMI 31.04 kg/m? ECOG 0 GENERAL EXAM: Well developed/well nourished; in no acute distress. SKIN: Negative for lesions, rashes, or ulcers on the upper and lower extremities and face. Negative for palpations/nodules, purpura, and ecchymosis. EENT: Negative for conjunctiva, mucosal pallor, JVD, LAP, thyromegaly, and glossitis. Supple AND PERRL. EXTREMITIES: Negative for cyanosis, clubbing, and crepitus. LUNGS: Negative to auscultation, respiratory effort, and percussion. CARDIOVASCULAR: Regular rate. Negative for murmurs/S3S4/abnormal sounds, edema, and carotid bruits. ABDOMEN: Negative for masses, hernia, and spleen/liver abnormalities. RECTAL: Not done PSYCHIATRIC: Negative for mood/affect changes, recent AND remote memory changes, and judgement and insight. NEUROLOGICAL: Alert, oriente (more content not included)...[facility]08-15-2023 History of Present illness Narrative* Ac Warner MD - 10/17/2022 8:12 AM EDT PATIENT NAME: Gabrielle Marcos DATE: 10/17/2022 PRIMARY CARE PHYSICIAN: Dr. Blair Stanton OTHER PHYSICIANS: Dr. Marcelino Culver, Dr. Bart Helms Portions of this encounter note have been copied from my note from 09/12/2021 and has been updated where appropriate, and reflect my current medical decision making from today. CC This is a 62 year old female with a history of ovarian cancer, seen for scheduled follow-up. INTERIM HISTORY: Since the patient's initial visit here 1 year ago she has had no significant medical changes. Currently she feels well with no particular complaints. She denies any abdominal pain orother GI symptoms. MEDICATIONS: Current Outpatient Medications Medication Sig ALPRAZolam (XANAX) 0.25 mg tablet TAKE 1 TABLET BY MOUTH ONCE A DAY NEEDED FOR ANXIETY (Patient not taking: TAKE 1 TABLET BY MOUTH ONCE A DAY NEEDED FOR ANXIETY) Biotin 10,000 mcg cap Take 1 tablet by mouth once daily. (Patient not taking: Reported on 09/12/2021 ) desonide (DESOWEN) 0.05 % lotion APPLY TO SKIN TWICE A DAY NEEDED (Patient not taking: APPLY TO SKIN TWICE A DAY NEEDED) docusate sodium (COLACE) 100 mg capsule Take by mouth q 24 HR. (Patient not taking: Reported on 09/12/2021 ) donepezil (ARICEPT) 10 mg tablet Take by mouth q 24 HR. ergocalciferol 50,000 unit capsule (VITAMIN D2, DRISDOL) Take 1 capsule by mouth one time a week. ergocalciferol 50,000 unit capsule (VITAMIN D2, DRISDOL) TAKE 1 CAPSULE BY MOUTH ONCE PER WEEK gabapentin (NEURONTIN) 400 mg capsule Take by mouth q 12 HR. losartan (COZAAR) 25 mg tablet Take by mouth. montelukast (SINGULAIR) 10 mg tablet Take by mouth q 24 HR. oxybutynin ER (DITROPAN XL) 15 mg 24 hr Extended Rel Tab Take 15 mg by mouth once daily. latanoprost (XALATAN) 0.005 % ophthalmic solution 1 Drop daily at bedtime. lisinopril (ZESTRIL, PRINIVIL) 20 mg tablet Take 20 mg by mouth once daily. (Patient not taking: Reported on 09/12/2021 ) No current facility-administered medications for this visit. ALLERGIES: ALLERGIES Allergen Reactions Cephalexin Hives, Itching, Rash PAST MEDICAL HISTORY: PAST MEDICAL HISTORY Diagnosis Date Fracture closed, fibula, shaft History of multiple sclerosis (HCC) HTN (hypertension) Ovarian cancer (HCC) 2021 PAST SURGICAL HISTORY: PAST SURGICAL HISTORY Procedure Laterality Date APPENDECTOMY TONSILLECTOMY HX TOTAL ABDOM HYSTERECTOMY FAMILY HISTORY: No family history on file. SOCIAL HISTORY: Social History Tobacco Use Smoking status: Light Smoker Types: Cigars Smokeless tobacco: Never Substance Use Topics Alcohol use: Yes Comment: drinks beer Drug use: Never COMPLETE REVIEW OF SYSTEMS: CONSTITUTION: Negative for pain, fatigue, weight loss, or appetite loss. EENT: Negative for mouth soreness, antibiotics use, epistaxis, visual problems, neck or facial swelling, fever/chills, bleeding gums, or hearing loss. CV: Negative for edema, calf swelling, palpitations, or chest pain. RESPIRATORY: Negative for cough, SOB, hemoptysis, or wheezing. GI: Negative for nausea/vomiting, heartburn, vomiting blood, dysphasia, diarrhea, blood in stool, constipation, early satiety, PICA, vegetarian, poor nutrition, abdominal fullness, or abdominal pain. NEUROLOGICAL: Negative for numbness/tingling, dizziness, gait disturbance, headache, speech disturbance, tremor, hemiparesis/sensory loss, or change in mental status. MUSCULOSKELETAL: Negative for joint pain, joint swelling, or proximal muscle weakness. SKIN: Negative for hair loss, bruising, nail changes, rash, itching, pallor, or jaundice. ENDO/URO: Negative for hot flashes, cold or heat intolerance, urinary frequency, urinary hesitancy,menorrhagia, or hematuria. PSYCH: Negative for anxiety, depression, or other. PHYSICAL EXAM: BP 131/63 Pulse 60 Temp 36.5 C (97.7 F) (Temporal) Resp 18 Ht 160 cm (5' 2.99 ) Wt 79.5 kg (175 lb 3.2 oz) SpO2 95% BMI 31.04 kg/m ECOG 0 GENERAL EXAM: Well developed/well nourished; in no acute distress. SKIN: Negative for lesions, rashes, or ulcers on the upper and lower extremities and face. Negativefor palpations/nodules, purpura, and ecchymosis. EENT: Negative for conjunctiva, mucosal pallor, JVD, LAP, thyromegaly, and glossitis. Supple & PERRL. EXTREMITIES: Negative for cyanosis, clubbing, and crepitus. LUNGS: Negative to auscultation, respiratory effort, and percussion. CARDIOVASCULAR: Regular rate. Negative for murmurs/S3S4/abnormal sounds, edema, and carotid bruits. ABDOMEN: Negative for masses, hernia, and spleen/liver abnormalities. RECTAL: Not done PSYCHIATRIC: Negative for mood/affect changes, recent & remote memory changes, and judgement and insight. NEUROLOGICAL: Alert, oriented x person, place, time. Cranial nerves 2-12 intact. Sensory for pain, light touch, vibration intact on all 4 extremities. Reflexes symmetric for biceps/brachioradial/patella/achilles. MUSCULOSKELETAL: Negative examination of joints, bones, muscles/tendons of all four extremities forinspection, percussion, and palpation. Negative for misallignment, asymmetry, crepitation, tenderness, mass, effusions. Range of motion normal. Negative for joint instability, laxity, dislocation. Gait steady. Negative for swelling, erythema, tenderness, soft tissue swelling, and atrophy. PATHOLOGY: 07/07/2014 Radical hysterectomy, BSO, tumor debulking ([facility]) Right ovarian resection: Serous borderline tumor, 21 cm. Neoplasm is confined to the ovary, the capsule is intact. Left ovarian resection: Serous borderline tumor, 11 cm. Neoplasm is confined to the ovary, the capsule is intact. LABS: Hemoglobin (g/dL) Date Value 10/17/2022 13.5 Hematocrit (%) Date Value 10/17/2022 41.0 WBC (k/uL) Date Value 10/17/2022 8.11 Platelet Count (k/uL) Date Value 10/17/2022 361 ASSESSMENT/PLAN: 1. 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 Status post LISETTE/BSO and tumor debulking 07/07/2014. The patient was found to have a 21 cm tumor involving the right ovary, and an 11 cm tumor involving the left ovary. No other evidence of disease. The patient did not receive adjuvant chemotherapy, and postop observation was recommended. She has had no evidence of recurrence and currently is stable and asymptomatic. At this time I would recommend continued observation. Per patient request I will see her back in 1 year for follow-up and labs. We will stage as indicated if suspicious signs or symptoms develop. 2. History of multiple sclerosis Diagnosed 2000. The patient has received extensive previous therapy. Continue management per neurology (Dr. Helms). 3. History of hypertension Stable on current medications, continue per PCP. Ac Warner MD CC: Dr. Bart Helms, BEVERLEY [facility]* Encounter Date Diagnosis Assessment Notes Treatment Notes Treatment Clinical Notes Sep, Essential (primary) hypertension (ICD-10 - I10) [facility] Other 03-21-2023 Evaluation note* Encounter Date Diagnosis Assessment Notes Treatment Notes Treatment Clinical Notes May, Essential (primary) hypertension (ICD-10 - I10) Continue current medication. She is not fasting today but does not want to return here when she is fasting. She prefers to complete nonfasting lab work today, we can call with the results May, Onychomycosis (ICD-10 - B35.1) Discussed treatment and she prefers to not start Lamisil at this time. She does have an appointment with podiatry tomorrow [facility] Other 12-29-2022 Evaluation note* Encounter Date Diagnosis Assessment Notes Treatment Notes Treatment Clinical Notes Feb, Swelling of left lower extremity (ICD-10 - M79.89) At this point we must rule out DVT, order sent stat to the hospital, we will call with results Feb, Pain of left lower extremity (ICD-10 - M79.605) [facility] Other 09-22-2022 Evaluation note* Encounter Date Diagnosis Assessment Notes Treatment Notes Treatment Clinical Notes Nov, Essential (primary) hypertension (ICD-10 - I10) No changes, she will complete the lipid panel in 6 months or so along with blood work from her neurologist Nov, Seborrheic dermatitis of scalp (ICD-10 - L21.9) I advised her to use head and shoulders shampoo 2 or 3 times per week. She is to apply the shampoo and leave it on for 1 to 2 minutes before rinsing off. Call if not seeing benefit after 2 or 3 weeks [facility] Other 07-12-2022 Miscellaneous Notes* Telephone Encounter - Leonela Person RN - 09/13/2021 4:33 PM EDT Informed pt of Dr Warner's message. Pt verbalized understanding and denies further needs at this time. Leonela Person RN * Telephone Encounter - Leonela Person RN - 09/13/2021 4:31 PM EDT ----- Message from Ac Warner MD sent at 09/13/2021 11:01 AM EDT ----- Please inform the patient that her labs are normal, including CA125. We will continue as planned. Thanks, HEVER documented [facility] History of Present illness Narrative* Ac Warner MD - 09/12/2021 6:45 AM EDT PATIENT NAME: Gabrielle Marcos DATE: 09/12/2021 PRIMARY CARE PHYSICIAN: Dr. Blair Stanton OTHER PHYSICIANS: Dr. Marcelino Culver, Dr. Bart Helms HPI: This is a 61 year old female with a history of ovarian cancer, self- referred for further management. In July 2014 the patient was diagnosed with early-stage ovarian cancer. She presented with an abdominal mass, and was found to have ovarian cancer involving both ovaries. On 07/07/2014 she underwent LISETTE/BSO, omentectomy, and lymphadenectomy. She was found to have a fairly large tumor involving the right ovary, a smaller tumor involving the left ovary, and no other disease. Pathology revealed a serous borderline carcinoma. Adjuvant chemotherapy was not recommended, and since surgery the patient hasfollowed closely with Dr. Culver. She has had no evidence of recurrence. She was last seen by Dr. Culver 1 year ago. He has since retired, the patient is now self-referred for further follow-up. At this time the patient feels well. She has a long history of multiple sclerosis which is requiredextensive treatment, and the majority of her symptoms are related to that. She has had no abdominalpain or other GI symptoms. No change in bowel habits. Her review of systems is essentially negative. She does not smoke, but does drink beer occasionally. The patient's family history is unremarkable. MEDICATIONS: Current Outpatient Medications Medication Sig lisinopril (ZESTRIL, PRINIVIL) 20 mg tablet Take 20 mg by mouth once daily. No current facility-administered medications for this visit. ALLERGIES: ALLERGIES Not on File PAST MEDICAL HISTORY: PAST MEDICAL HISTORY Diagnosis Date Fracture closed, fibula, shaft History of multiple sclerosis (HCC) HTN (hypertension) Ovarian cancer (HCC) 2021 PAST SURGICAL HISTORY: PAST SURGICAL HISTORY Procedure Laterality Date APPENDECTOMY TONSILLECTOMY HX TOTAL ABDOM HYSTERECTOMY FAMILY HISTORY: No family history on file. SOCIAL HISTORY: Social History Tobacco Use Smoking status: Light Tobacco Smoker Types: Cigars Smokeless tobacco: Never Used Substance Use Topics Alcohol use: Yes Drug use: Never COMPLETE REVIEW OF SYSTEMS: CONSTITUTION: Negative for pain, fatigue, weight loss, or appetite loss. EENT: Negative for mouth soreness, antibiotics use, epistaxis, visual problems, neck or facial swelling, fever/chills, bleeding gums, or hearing loss. CV: Negative for edema, calf swelling, palpitations, or chest pain. RESPIRATORY: Negative for cough, SOB, hemoptysis, or wheezing. GI: Negative for nausea/vomiting, heartburn, vomiting blood, dysphasia, diarrhea, blood in stool, constipation, early satiety, PICA, vegetarian, poor nutrition, abdominal fullness, or abdominal pain. NEUROLOGICAL: Negative for numbness/tingling, dizziness, gait disturbance, headache, speech disturbance, tremor, hemiparesis/sensory loss, or change in mental status. MUSCULOSKELETAL: Negative for joint pain, joint swelling, or proximal muscle weakness. SKIN: Negative for hair loss, bruising, nail changes, rash, itching, pallor, or jaundice. ENDO/URO: Negative for hot flashes, cold or heat intolerance, urinary frequency, urinary hesitancy,menorrhagia, or hematuria. PSYCH: Negative for anxiety, depression, or other. PHYSICAL EXAM: BP 165/85 Pulse (!) 56 Temp 36.4 C (97.6 F) (Temporal) Resp 18 Ht 160 cm (5'3 ) Wt 79.4 kg (175 lb) SpO2 96% BMI 31.00 kg/m ECOG 0 GENERAL EXAM: Well developed/well nourished; in no acute distress. SKIN: Negative for lesions, rashes, or ulcers on the upper and lower extremities and face. Negativefor palpations/nodules, purpura, and ecchymosis. EENT: Negative for conjunctiva, mucosal pallor, JVD, LAP, thyromegaly, and glossitis. Supple & PERRL. EXTREMITIES: Negative for cyanosis, clubbing, and crepitus. LUNGS: Negative to auscultation, respiratory effort, and percussion. CARDIOVASCULAR: Regular rate. Negative for murmurs/S3S4/abnormal sounds, edema, and carotid bruits. ABDOMEN: Negative for masses, hernia, and spleen/liver abnormalities. RECTAL: Not done PSYCHIATRIC: Negative for mood/affect changes, recent & remote memory changes, and judgement and insight. NEUROLOGICAL: Alert, oriented x person, place, time. Cranial nerves 2-12 intact. Sensory for pain, light touch, vibration intact on all 4 extremities. Reflexes symmetric for biceps/brachioradial/patella/achilles. MUSCULOSKELETAL: Negative examination of joints, bones, muscles/tendons of all four extremities forinspection, percussion, and palpation. Negative for misallignment, asymmetry, crepitation, tenderness, mass, effusions. Range of motion normal. Negative for joint instability, laxity, dislocation. Gait steady. Negative for swelling, erythema, tenderness, soft tissue swelling, and atrophy. PATHOLOGY: 07/07/2014 Radical hysterectomy, BSO, tumor debulking ([facility]) Right ovarian resection: Serous borderline tumor, 21 cm. Neoplasm is confined to the ovary, the capsule is intact. Left ovarian resection: Serous borderline tumor, 11 cm. Neoplasm is confined to the ovary, the capsule is intact. LABS: Hemoglobin (g/dL) Date Value 09/12/2021 14.8 Hematocrit (%) Date Value 09/12/2021 44.5 WBC (k/uL) Date Value 09/12/2021 8.19 Platelet Count (k/uL) Date Value 09/12/2021 366 ASSESSMENT/PLAN: 1. 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 Status post LISETTE/BSO and tumor debulking 07/07/2014. The patient was found to have a 21 cm tumor involving the right ovary, and an 11 cm tumor involving the left ovary. No other evidence of disease. The patient did not receive adjuvant chemotherapy, and postop observation was recommended. She has had no evidence of recurrence and currently is stable and asymptomatic. Options for further events were discussed at length with the patient. At this time I recommended continued routine follow-up on a yearly basis to include labs. I would recommend restaging scans if suspicious signs or symptoms develop. 2. History of multiple sclerosis Diagnosed 2000. The patient has received extensive previous therapy. Continue management per neurology (Dr. Helms). 3. History of hypertension Stable on current medications, continue per PCP. Ac Warner MD CC: BEVERLEY Herrera documented [facility] Evaluation note* Encounter Date Diagnosis Assessment Notes Treatment Notes Treatment Clinical Notes May, Medicare annual wellness visit, initial (ICD-10 - Z00.00) Personalized health advice was given to the beneficiary including a written plan for screenings discussed and provided. Advanced care planning reviewed and/or information given as requested. Additional counseling was provided here today in regards to,Advanced Directives, Colonoscopy and Alcohol Consumption. The above visit was performed by Marzena Taylor LPN IV-CC under direct supervision of Dr. Rip Stanton. Document reviewed and amended by provider signed below. May, Facial skin lesion (ICD-10 - L98.9) She wants this removed, referral sent [place] [facility] Other Evaluation noteNo InformationNortFox [facility] Center [employer] Other Evaluation note* Diagnosis Malignant neoplasm of both ovaries (HCC)- Primary Malignant neoplasm of ovary History of multiple sclerosis (HCC) Personal history of other disorders of nervous system and sense organs History of hypertension Personal history of other diseases of circulatory system documented [facility] this encounter [facility] noteNo assessment information availableDayton Children[facility] Work Phone: Evaluation note* Diagnosis Malignant neoplasm of both ovaries (HCC)- Primary Malignant neoplasm of ovary documented in this encounter [facility] note* Diagnosis Exostosis of left foot- Primary Onychomycosis Dermatophytosis of nail Toe pain, bilateral [facility] Diagnosis Onset Date Resolution Status Essential (primary) hypertension [facility] Work Phone: Evaluation note* Diagnosis Onset Date Resolution Status Venous insufficiency of left lower extremity [facility] Work Phone: History general Narrative - Reported* Type Description Date Medical History Multiple Sclerosis - Dr. Helms Medical History hay fever Medical History Hypertension Medical History osteopenia - spine Surgical History laparoscopy Surgical History Tonsillectomy Surgical History appendectomy Surgical History epidural injections Surgical History fx'd right ankle - D clarence Chowdary - 6 screws/metal plate 06/23/2014 Surgical History Ovarian cancer - Dr. Culver - per surgeon no further treatment needed 07/07/2014 Surgical History Infusions - Immuno Glogulin Hospitalization History for MS Hospitalization History see surgical hx [facility] Other Reason for Referral Reason left ankle instabili ty, pes planus, has MS Diagnosis 1 Left ankle instabili ty (M25.372) Referral Organization [facility] Family Medicin jean Grullon Referring Provider First Name Nabeel Referring Provider Last Name [place] Referring Provider Specialty Family Prac tj Referred Provider Librado Rosen Referred Provider Specialty Podiatry - S urgical Chiropody Referral Priority Routine Reason * FU 05/30 facial skin lesion Diagnosis 1 Facial skin lesion ( L98.9) Referral Organization [facility] Family Medicin jean Grullon Referring Provider First Name Nabeel Referring Provider Last Name [place] Referring Provider Specialty Family Prac tj Referred Organization [facility] Referred Provider Ernestina Hwang Referred Address ,[place], [place],[address] Referred Provider Specialty Dermatology Referral Priority Routine General Notes Concepción Hunter 12:33:18 PM > referral received and faxed Chief Complaint and Reason for Visit Chief Complaint M79.89 M79.605 MS.. I10 Chief Complaint 6 MONTHFOLLOW UP Screening Reason for Visit Essential (primary) hypertension Chief Complaint Screening lower l leg swelling Reason for Visit Venous insufficiency of left lower extremity Advance Directives No Advanced Directives Records Found Advance Directive Response Recorded Date/ Time Advance Directives No October 29, 2016 8:45am Summary Purpose Family History No Family History Records Found Relationship Condition Age at Onset Recorded Date/T jessica Not Specified Heart disease Unknown Unknown Relationship Condition Age at Onset Recorded Date/T jessica mother Heart disease Unknown Unknown Additional Source Comments REASON FOR VISIT (unrecogniz ed section and content) Reason Comments Ovarian Cancer new patient consulta tion Reason Comments Results Reason Comments Ovarian Cancer Follow up Reason Comments Toenail Care Non DM nails Source Comments (unrecognize d section and content) In the event this informatio n is protected by the Federal Confidentiality of Alcohol and Drug Abuse Patient Records regulations: The Federal rules restrict any use of the information to criminally investigate or prosecute any alcohol or drug abuse patient.[facility] the event this information is protected by the Federal Confidentiality of Alcohol and Drug Abuse Patient Records regulations: The Federal rules restrict any use of the information to criminally investigate or prosecute any alcohol or drug abuse patient.[facility]In the event this information is protected by the Federal Confidentiality of Alcohol and Drug Abuse Patient Records regulations: The Federal rules restrict any use of the information to criminally investigate or prosecute any alcohol or drug abuse patient.[facility]In the event this information is protected by the Federal Confidentiality of Alcohol and Drug Abuse Patient Records regulations: The Federal rules restrict any use of the information to criminally investigate or prosecute any alcohol or drug abuse patient.[facility] Care Teams (unrecognized sec tion and content) Nursery Laborer Relationship Specialty Start Date End Date Nabeel Stanton, DO [address] [address] PCP - General Family Practice 09/12/21 Nursery Laborer Relationship Specialty Start Date End Date Nabeel Stanton DO [address] [place] [address] PCP - General Family Practice 09/12/21 Team Status: Active Member Role Status Dates Nabeel Stanton DO Primary Care Provider Active Team Status: Inactive Member Role Status Dates Nabeel Stanton DO Primary Care Provider, Attending Provider Active Team Status: Active Member Role Status Dates Nabeel Stanton DO Primary Care Provider Active Cece Patten APRN [employer] Attending Provider, Referring Provider Active Nursery Laborer Relationship Specialty Start Date End Date Nabeel Stanton DO [address] [place] [place] [address] PCP - General Family Medicine 09/12/21 Nursery Laborer Relationship Specialty Start Date End Date Nabeel Stanton MD [address] [facility] [place] [address] PCP - General Family Medicine 04/05/23 Team Status: Inactive Member Role Status Dates Nabeel Stanton DO Primary Care Provid er, Attending Provider Active Start: May 11, 2023 End: May 11, 2023 Team Status: Inactive Member Role Status Dates Nabeel Stanton DO Primary Care Provid er, Referring Provider Active Start: August 08, 2023 End: August 08, 2023 Referral Self Attending Provider Active Start: 2023 End: August 08, 2023 Team Status: Inactive Member Role Status Dates Nabeel Stanton DO Primary Care Provid er, Attending Provider Active Start: September 04, 2023 End: September 04, 2023 Goals (unrecognized section and content) Goals may be documented in a n alternate section INFORMATION SOURCE (unrecogn ized section and content) DATE CREATED AUTHOR 05/24/2022 [facility] [facility] DATE CREATED AUTHOR AUTHOR'S ORGANIZ ATION 10/18/2022 [facility] DATE CREATED AUTHOR AUTHOR'S ORGANIZ ATION 09/27/2023 [facility] dical [facility] DATE CREATED AUTHOR AUTHOR'S ORGANIZ ATION 10/02/2023 [facility] y[facility] FOR RECORDS PERTAINING TO PATIENTS WHO ARE OR HAVE BEEN ENROLLED IN A CHEMICAL DEPENDENCY/SUBSTANCEABUSE PROGRAM, SOME INFORMATION MAY BE OMITTED. This clinical summary was aggregated from multiple sources. Caution should be exercised in using it in the provision of clinical care. This summary normalizes information from multiple sources, and as a consequence, information in this document may materially change the coding, format and clinical context of patient data. In addition, data may be omitted in some cases. CLINICAL DECISIONS SHOULD BE BASED ON THE PRIMARY CLINICAL RECORDS. [employer] provides no warranty or guarantee of the accuracy or completeness of information in this document.
--- NOTE | 2023-10-03 08:52 | MR_ITS ---
The [address] [address] Patient Name: MEHRDAD LE MRN: [id number] date: 1960 Sex: F Assigned Patient Location: LAB Current Patient Location: LAB Accession/Order Number: [id number] Exam Date: 10/03/2023 09:05 Report Date: 10/03/2023 12:26 At the request of: ATUL AKERS Procedure: MR head/brain wo/w con MR head/brain wo/w con, 10/03/2023 9:05 AM EDT INDICATION: Multiple Sclerosis G35 COMPARISON: Prior MRI dated 10/31/2022 TECHNIQUE: Multiplanar, multisequential MRI images of brain were obtained without contrast. FINDINGS: The sensitivity of the study has been decreased due to motion artifact. The cerebral sulci as well as ventricular system are appropriate for age. There is no restricted diffusion. FLAIR and T2 hyperintensities infratentorial and supratentorially in the ashley radiata and callososeptal interface most likely consistent with known MS plaques. Given the technical differences, these lesions are stable in size and number. No new lesion is noted. There is no intracranial mass, mass effect, midline shift, intra or extra-axial fluid collection. No abnormal enhancing lesion is noted. Normal flow-void in the intracranial vessels is noted. The visualized portions of orbits, mastoid air cells as well as paranasal sinuses are unremarkable. MR/MR head/brain wo/w con IMPRESSION: Stable MS plaques. No new or active lesion is noted. Electronically authenticated by: WARREN BARONE Date: 10/03/2023 12:26
[2023-10-03 08:59] LABS: Estimated GFR (African America >60 (>=60); Estimated GFR (Non-African Ame >60 (>=60)
== END 2023-10-03 08:33 | disposition home or self-care (01) ==
LOC: LAB 08:33
PROVIDERS: PCP Family Medicine; Visit Provider Nurse Practitioner Family
DX: G35 Multiple sclerosis (principal); Z51.81 Encounter for therapeutic drug level monitoring
CPT/HCPCS: 36415; 70553; 82565; A9575

== ENCOUNTER 2024-02-04 11:52 | Outpatient (OUT) | payer MEDICARE, MEDICAID, SELFPAY ==
--- OUTSIDE RECORDS SUMMARY | 2024-02-04 12:02 | XMS_ITS | CCD ---
Author Organization [facility] Care Team Providers Care Pan Pusher Name Role Phone Nabeel Stanton Unavailable Unavailable Primary Care Provider UnavailNabeel Mayfield DO Primary Care Provider DO Nabeel Stanton Primary Care Provider DO Nabele Stanton Attending Provider [phone] LIONEL Patten Attending Provider LIONEL Patten Referring Provider NABEEL STANTON Primary Care Unavailable Karina Soares Unavailable SINDY, YISEL Admitting Unavailable SINDY, YISEL Attending Unavailable SINDY, YISEL Consulting Unavailable SINDY, YISEL Admitting Unavailable SINDY, YISEL Attending Unavailable SINDY, YISEL Consulting Unavailable NABEEL STANTON Primary Care Unavailable ELIU, DR BRADLEY Admitting Unavailable Karina Soares Unavailable ELIU, DR BRADLEY Attending Unavailable NABEEL STANTON Primary Care Unavailable MISC, DR BRADLEY Consulting Unavailable ATUL AKERS Consulting Unavailable BART HELMS Admitting Unavailable BART HELMS Attending Unavailable NABEEL STANTON Primary Care Unavailable MISC, DR BRADLEY Attending Unavailable MISC, DR BRADLEY Admitting Unavailable NABEEL STANTON Primary Care Unavailable NELA PALMA Attending Unavailable NABEEL STANTON Primary Care Unavailable KIKO PALMAID Consulting Unavailable BINA Oliveira, NELA Admitting Unavailable MERLIN HEMLSOPHER Admitting Unavailable BART HELMS Attending Unavailable NABEEL STANTON [facility] Care Unavailable BART HELMS Attending Unavailable MERLIN HELMSOPHMARVIN Admitting Unavailable NABEEL STANTON Primary Care Unavailable BINA Oliveira, NELA Attending Unavailable KIKO PALMAID Admitting Unavailable NABEEL STANTON [facility] Care Unavailable NABEEL STANTON Primary Care UnavailAC Pretty Attending Unavailable AC WARNER Referring Unavailable AC WARNER Referring Unavailable NABEEL STANTON Primary Care UnavailNabeel Mayfield DO Primary Care Provider Nabeel Stanton MD Primary Care Provider DO Nabeel Stanton Primary Care Provider DO Nabeel Stanton Referring Provider [phone] Self, Referral Attending Provider Unavailable Self, Referral Admitting Unavailable Self, Referral Attending Unavailable Nabeel Stanton Primary Care Unavailable Nabeel Stanton Referring Unavailable Cece Patten Referring Unavailab Nabeel Stapleton Primary Care Unavailable Cece Patten Admitting Unavailab Cece Bautista Attending Unavailab DO Nabeel Stapleton Primary Care Provider LIONEL Patten Attending Provider LIONEL Patten Referring Provider RAHUL STEWART Attending Unavailable RAHUL STEWART Attending Unavailable BART HELMS Attending Unavailable RAHUL STEWART Attending Unavailable ATUL AKERS Attending Unavailable BART HELMS Attending Unavailable BART HELMS Referring Unavailable RAHUL STEWART Attending Unavailable RAHUL STEWART Attending Unavailable Allergies Allergy Classification Reported Allergen(s) Allergy Type Date of Onset Reaction(s) Facility Cephalosporins (antibiotic) (2 sources) Cephalexin Drug Allergy 05-11-19 24 rash, Unknown Reaction [facility] (12 sources) Cephalexin; Translations: [Keflex] Drug Allergy rash [facility] (9 sources) Cephalexin; Translations: [CEPHALEXIN] Drug Allergy 01-12-20 16 Hives, Itching, Rash [facility] (3 sources) Cephalosporins (Antibiotic); Translations: [Cephalosporins] Allergy to substance 09-04-19 24 Unknown Reaction [facility] (1 source) Cephalexin Drug Allergy 09-04-19 [facility] (3 sources) Pollen Propensity to adverse reactions 12-31-19 [facility] (3 sources) Octacosanol Propensity to adverse reactions 10-28-20 19 [facility] Medications Current Medications Medication Drug Class(es) Dates Sig (Normalized) Sig (Original) ascorbic acid 500 mg oral tablet (4 sources) Vitamin C Start: 11-23-2016 take 1 tablet by mouth once daily Ascorbic Acid (Vitamin C) (Vitamin C) 500 mg Tablet Active 500 MG PO Daily November 23, 2016 12:00am biotin 10 mg oral capsule (13 sources) Start: 02-03-2023 take 1 capsule by mouth once daily biotin 10 MG capsule TAKE 1 CAPSULE BY MOUTH EVERY DAY 30 DAYS 02/03/2023 Active Start: 11-20-2016 take 1 mg by mouth once daily Biotin Active 1 MG PO Daily November 20, 2016 12:00am Start: 12-15-2015 take 1 tablet by carolyn th once daily Biotin 10,000 mcg cap Take 1 tablet by mouth once daily. 0 12/15/2015 Active take 1 tablet by carolyn th once daily Biotin 50642 MCG 1 tablet Orally Once a day Active Comment on above: Take 1 tablet by carolyn th once daily. calcium carbonate 1250 mg / cholecalciferol 600 unt oral tablet (4 sources) Vitamin D Start: 11-21-19 17 take 1 tablet by mouth once daily Calcium Carbonate-Vitamin D3 (Os-Miquel 500 + D3) 500mg (1,250mg) -600 unit Tablet Active 1 TAB PO Daily November 20, 2016 12:00am Compr.Stocking,Knee,Long ,Large (2 sources) Start: 09-04-19 24 Compr.Stocking,Kn ee,Long,Large Active 0 .Route 2 September 04, 2023 12:00am As directed - 20-30mmHg desonide 0.5 mg/ml topical cream (7 sources) Corticosteroid Start: 11-21-19 17 Desonide Active 1 APPLIC TOPICAL Twice daily [...] Active docusate sodium 100 mg oral capsule (18 sources) Start: 7 take 1 capsule by mouth once daily Docusate Sodium (Colace) 100 mg Capsule Active 100 MG PO Daily November 20, 2016 12:00am docusate sodium (COLACE) 100 mg capsule Take by mouth q 24 HR. 0 Active Comment on above: Take by mouth q 24 H R. donepezil hydrochloride 10 mg oral tablet (20 sources) Start: 11-20-2016 take 1 tablet by mouth once daily at bedtime Donepezil (Aricept) 10 mg Tablet Active 10 MG PO Daily at bedtime November 20, 2016 12:00am Start: 12-16-2015 donepezil (CHATO CEPT) 10 mg tablet Take by mouth q 24 HR. 0 12/16/2015 Active Comment on above: Take by mouth q 24 H R. ergocalciferol 1.25 mg oral capsule (13 sources) Provitamin D2 Compound Start: 016 take 1 capsule by mouth every week ergocalciferol (Vitamin D2) 1.25 MG (43526 UT) capsule Indications: Vitamin D deficiency TAKE 1 CAPSULE BY MOUTH ONCE PER WEEK 12 capsule 10/09/2023 Active Comment on above: Take 1 capsule by ks ut one time a week. TAKE 1 CAPSULE BY MO UT ONCE PER WEEK fluticasone propionate 0.05 mg/actuat metered dose nasal spray (20 sources) Corticosteroid Start: 024 take 2 spray(s) nasal route once daily Fluticasone Propionate Active 0 .ROUTE .COMPLEX 48 August 06, 2023 3:07pm USE 2 SPRAYS IN EACH NOSTRIL DAILY FOR 30 DAYS Start: 05-07-2023 End: 08-06-2023 Fluticasone Propionate Discontinued 2 SPRAY INTRANASAL Daily May 07, 2023 12:14pm August 06, 2023 3:07pm Start: 11-20-2016 End: 05-07-2023 take 100 ug by inhalation twice daily Fluticasone Propionate Discontinued 100 MCG INHALATION Twice daily November 20, 2016 12:00am May 07, 2023 12:14pm take 2 spray(s) nasa l route once daily fluticasone (Flonase) 50 MCG/ACT nasal spray SPRAY 2 SPRAYS INTO EACH NOSTRIL ONCE DAILY Active take 2 spray(s) nasa l route once daily Fluticasone Propionate 50 MCG/ACT USE 2 SPRAYS IN EACH NOSTRIL ONCE DAILY for 90 Active gabapentin 400 mg oral capsule (20 sources) Anti-epileptic Agent Start: 12-11-2023 take 1 capsule by mouth in the morning, then take 2 capsules by mouth at bedtime gabapentin (Neurontin) 400 MG capsule Indications: Lumbar radiculopathy TAKE 1 CAPSULE BY MOUTH IN THE MORNING AND 2 CAPSULES AT BEDTIME 90 capsule 1 12/11/2023 Active Start: 11-20-2016 take 1 capsule by mo uth twice daily Gabapentin (Neurontin) 400 mg Capsule Active 400 MG PO Twice daily November 20, 2016 12:00am Start: 12-11-2015 gabapentin (NE URONTIN) 400 mg capsule Take by mouth q 12 HR. 0 12/11/2015 Active take 2 capsules by m outh twice daily in the evening Neurontin 400 MG 1 capsule am, ; 2 pm Orally BID Active Comment on above: Take by mouth q 12 H R. Losartan (20 sources) Angiotensin 2 Receptor Isabella Start: 10-11-2023 take 1 tablet by mouth once daily Losartan Active 0 .ROUTE .COMPLEX 90 October 11, 2023 3:29pm TAKE 1 TABLET BY MOUTH EVERY DAY FOR 90 DAYS Start: 04-17-2018 End: 10-11-2023 take 25 mg by mouth once daily Losartan Discontinued 2 5 MG PO Daily April 18, 2018 1:00am October 11, 2023 3:29pm Comment on above: Take by mouth. 10 ml ocrelizumab 30 mg/ml injection (6 sources) Start: 05-11-2023 ocrelizumab (Ocrevus) 300 MG/10ML solution 05/11/2023 Active Start: 05-11-2023 Ocrelizumab (O crevus) 30 mg/mL solution Active MG IV May 11, 2023 1:00am Medication Name: Ocrevus; Note: Source Status: Not-Taking\PRN; Provider: MONTSE ondansetron 4 mg disintegrating oral tablet (5 sources) Serotonin-3 Receptor Antagonist Start: 02-09-2023 ondansetron ODT (Zofran-ODT) 4 MG disintegrating tablet DISSOLVE 1 TABLET UNDER TONGUE EVERY 6 HOURS NEEDED FOR NAUSEA AND VOMITING 02/09/2023 Active oxybutynin (20 sources) Cholinergic Muscarinic Antagonist Start: 09-04-2023 take 1 tablet by mouth once daily Oxybutynin Chloride Active 0 .ROUTE .COMPLEX 90 September 04, 2023 12:58pm TAKE 1 TABLET BY MOUTH EVERY DAY Start: 09-04-2023 End: 09-04-2023 take 15 mg by mouth once daily Oxybutynin Chloride Dis continued 15 MG PO Daily September 04, 2023 12:00am September 04, 2023 12:59pm Start: 03-12-2023 take 1 tablet by carolyn th every twenty-four hours in the morning oxybutynin XL (Ditropan-XL) 15 MG 24 hr tablet Take 15 mg by mouth in the morning. 03/12/2023 Active Start: 08-01-2021 take 1 tablet by carolyn th once daily oxybutynin ER (DITROPAN XL) 15 mg 24 hr Extended Rel Tab Take 15 mg by mouth once daily. 0 08/01/2021 Active Start: 11-20-2016 End: 11-09-2023 take 1 tablet by mouth once daily Oxybutynin Chloride (Ditropan Xl) 10 mg tablet extended release 24hr Discontinued 10 MG PO Daily September 04, 2023 12:57pm November 09, 2023 12:25pm Comment on above: Take 15 mg by mouth once daily. Peg 083-Tjugxrcyzvjz-Wcbk nola (3 sources) Start: 05-11-19 Peg 073-Qifuhtsplgry-Aga cerin Active DROPS OPHTHALMIC As Directed May 11, 2023 1:00am FreeTextSig: as directed Ophthalmic; Note: Source Status: Not-Taking\PRN; Provider: Montana Smith ( ) 12 hr timolol 5 mg/ml ophthalmic solution (3 sources) beta-Adrenergic Isabella Start: 08-06-19 take 1 drop(s) into the eye(s) once daily in the morning timolol (Timoptic) 0.5 % ophthalmic solution INSTILL 1 DROP INTO EACH EYE EVERY MORNING 08/06/2023 Active triamcinolone acetonide 1 mg/ml topical cream (15 sources) Corticosteroid Start: 05-11-19 End: 10-26-19 Triamcinolone Acetonide Active 1 APPLIC TOPICAL Twice daily 80 October 26, 2023 12:34pm Start: 03-29-2020 Triamcinolone Acetonide 0.1 % 1 application Externally bid PRN Mar, Active Completed/Discontinued Medications Medication Drug Class(es) Dates Sig (Normalized) Sig (Original) acetaminophen 300 mg / HYDROcodone bitartrate 5 mg oral tablet (8 sources) Opioid Agonist Start: 11-23-2016 End: 11-28-2017 [...] 2017 8:56am ALPRAZolam 0.25 mg oral tablet (11 sources) Benzodiazepine Start: 11-20-2016 End: 11-28-2017 take [...] bedt jessica. lisinopril 20 mg oral tablet (8 sources) Angiotensin Converting Enzyme Inhibitor Start: 11-21-19 17 End: 04-18-19 19 take 20 mg by mouth once daily Lisinopril Discontinued 20 MG PO Daily November 20, 2016 12:00am April 18, 2018 1:05pm Comment on above: Take 20 mg by mouth once daily. montelukast 10 mg oral tablet (20 sources) Leukotriene Receptor Antagonist Start: 09-18-19 End: 05-11-19 take 1 tablet by mouth once daily in the evening Montelukast (Singulair) 10 mg Tablet Discontinued 10 MG PO Every evening September 17, 2017 12:00am May 11, 2023 12:59pm Start: 08-27-2017 montelukast (S INGULAIR) 10 mg tablet Take by mouth q 24 HR. 0 08/27/2017 Active Comment on above: Take by mouth q 24 H R. Ocrevus (11 sources) Ocrevus Not-Taki ng Ocrevus Active teriflunomide 14 mg oral tablet (4 sources) Pyrimidine Synthesis Inhibitor Start: 11-23-2016 End: 05-11-2023 take 1 tablet by mouth once daily Teriflunomide (Aubagio) 14 mg Tablet Discontinued 14 MG PO Daily November 23, 2016 12:00am May 11, 2023 1:00pm Vitamin B Complex (4 sources) Start: 11-23-2016 End: 05-11-2023 take 1 tablet by mouth once daily Vitamin B Complex Discontinued 1 TAB PO Daily November 23, 2016 12:00am May 11, 2023 1:00pm Start: 11-23-2016 take 1 tablet by carolyn th once daily Vitamin B Complex Active 1 TAB PO Daily November 23, 2016 12:00am Vitamin D3 52291 UNIT (11 sources) [facility] Vitamin D3 46625 UNIT 1 capsules Orally once a week Not-Taking take 1 capsule by mouth every we ek Vitamin D3 07732 UNIT 1 capsules Orally once a week Active Walker - (11 sources) Start: 11-17-2019 Walker - as di rected Nov, Not-Taking Problems Active Problems Problem Classification Problem Date Documented Da te Episodic/Chronic Cancer of ovary (2 sources) Malignant tumor of ovary; 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)] Chronic Disorders of lipid metabolism (14 sources) Mixed hyperlipidemia; Translations: [Mixed hyperlipidemia] 05-10-2023 Chronic Essential hypertension (20 sources) Benign essential hypertension; Translations: [Essential (primary) hypertension] Chronic Fracture of lower limb (11 sources) Closed fracture of distal fibula ; Translations: [Other fracture of upper and lower end of left fibula, subsequent encounter for closed fracture with routine healing] Episodic Multiple sclerosis (20 sources) Multiple sclerosis; Translations: [Multiple sclerosis] Onset: 01-10-2022 Chronic Mycoses (4 sources) Tinea unguium; Translations: [Onychomycosis] Episodic Other bone disease and musculoskeletal deformities (14 sources) Osteopenia; Translations: [Other specified disorders of bone density and structure, unspecified site] 05-10-2023 Episodic Other bone disease and musculoskeletal deformities (3 sources) Exostosis of left foot; Translations: [Other [...] Chronic Other diseases of bladder and urethra (3 sources) Overactive bladder; Translations: [Overactive bladder] 05-10-2023 Chronic Other diseases of veins and lymphatics (2 sources) Venous insufficiency of leg; Translations: [Venous insufficiency (chronic) (peripheral)] 09-04-2023 Episodic Other diseases of veins and lymphatics (2 sources) Venous insufficiency (chronic) (peripheral); Translations: [Venous (peripheral) insufficiency, unspecified] 09-04-2023 Episodic Other diseases of veins and lymphatics (1 source) Vascular insufficiency; Translations: [Venous insufficiency (chronic) (peripheral)] 01-22-2024 Episodic Other inflammatory condition of skin (1 [...] Spondylosis; intervertebral disc disorders; other back problems (6 sources) Degeneration of lumbar intervertebral disc; Translations: [Degenerative lumbar disc] Onset: 07-02-2023 07-02-2023 Chronic Substance-related disorders (3 sources) Cannabis abuse; Translations: [Cannabis abuse, uncomplicated] Onset: 07-02-2023 07-02-2023 Chronic Unclassified (1 source) Malignant neoplasm of both ovaries (HCC); 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)] Onset: 10-17-2022 Past or Other Problems Problem Classification Problem Date Documented Da te Episodic/Chronic Acquired foot deformities (4 sources) Flat foot [pes planus] (acquired), left foot; Translations: [Left foot drop] Onset: 07-02-2023 Episodic Malaise and fatigue (7 sources) Weakness; Translations: [Asthenia] Onset: 01-07-2022 Episodic Other aftercare (1 source) Other residential (current) drug therapy; Translations: [OTH DETENTION CURRENT DRUG THERAPY] Onset: 01-10-2022 Episodic Other aftercare (3 sources) Patient encounter status; Translations: [Encounter for therapeutic drug level monitoring] Onset: 07-02-2023 07-02-2023 Episodic Other connective tissue disease (1 source) Repeated falls; Translations: [REPEATED FALLS] Onset: 02-15-2022 Episodic Other connective tissue disease (1 source) Muscle weakness (generalized); Translations: [MUSCLE WEAKNESS GENERALIZED] Onset: 02-15-2022 Episodic Other connective tissue disease (1 source) Abnormal posture; Translations: [ABNORMAL POSTURE] Onset: 02-15-2022 Episodic Other connective tissue disease (6 sources) Other symptoms and signs involving the musculoskeletal system; Translations: [Other musculoskeletal symptoms referable to limbs] Onset: 07-02-2023 07-02-2023 Episodic Other gastrointestinal disorders (5 sources) Diarrhea, [...] Onset: 02-15-2022 Episodic Other nervous system disorders (3 sources) Paresthesia of foot ; Translations: [Anesthesia of skin] Onset: 07-02-2023 07-02-2023 Episodic Other nervous system disorders (3 sources) Sensory disorder of smell and/or taste; Translations: [Unspecified disturbances of smell and taste] Onset: 07-02-2023 07-02-2023 Episodic Other nervous system disorders (3 sources) Impairment of balance; Translations: [Other abnormalities of gait and mobility] Onset: 07-02-2023 07-02-2023 Episodic Other skin disorders (1 source) Disorder of the skin and subcutaneous tissue, unspecified Onset: 05-23-2021 Resolved: 05-23-2021 Episodic Spondylosis; intervertebral disc disorders; other back problems (16 sources) Radiculopathy, lumbar region; Translations: [Backache] Onset: 03-05-2022 Episodic Results Test Name Value Interpretation Reference Range Facility MM screening mammo BI w/CADo n 08-08-2023 MM screening mammo BI w/CAD [facility] [place] [address] Mammography Report Signed Patient: Gabrielle Marcos MR#: [id number] : 1960 Acct:[id number] Age/Sex: 63 / F ADM Date: 08/08/23 Loc: [place] Room: Type: [facility] Attending Dr: Referral Self Copies to: SELF,REFERRAL [...] Chary Gunderson M.D.08/08/2023 3:05 PM Dictation Location: [facility] Transcribed By: [facility] 08/08/23 1505 Dictated By: Chary Gunderson MD 08/08/23 1502 Signed By: 08/08/23 1505 Normal [facility] [place] 125 BLDon 10-18-2022 Cancer Ag 125 Qn 4 [arb'U]/mL <39 U/mL [facility] CBC W Auto Differential pane l (Bld)on 10-17-2022 Basophils (Bld) [#/Vol] 0.08 10*3/uL Normal <0.11 [facility] Comment on above: Order Comment: Speci men Type: BLOOD SPECIMEN Ordering Facility: [facility] Address: [address] [address] Performed By: #### 5 7021-8 #### [facility] CLIA [id number] [address] [place] [address] 18111 Basophils/100 WBC (Bld) 1.0 % Normal [facility] Comment on above: Order Comment: Speci men Type: BLOOD SPECIMEN Ordering Facility: [facility] Address: [address] [address] Performed By: #### 5 7021-8 #### [facility] CLIA [id number] [address] [place] [address] 56316 Differential cell count method Nom (Bld) Auto Normal [facility] Comment on above: Order Comment: Speci men Type: BLOOD SPECIMEN Ordering Facility: [facility] Address: [address] [address] Performed By: #### 5 7021-8 #### [facility] CLIA [id number] [address] [place] [address] 10810 Eosinophils (Bld) [#/Vol] 0.19 10*3/uL Normal <0.46 [facility] Comment on above: Order Comment: Speci men Type: BLOOD SPECIMEN Ordering Facility: [facility] Address: [address] [address] Performed By: #### 5 7021-8 #### [facility] CLIA [id number] [address] [place] [address] 11064 Eosinophils/100 WBC (Bld) 2.3 % Normal [facility] Comment on above: Order Comment: Speci men Type: BLOOD SPECIMEN Ordering Facility: [facility] Address: [address] [address] Performed By: #### 5 7021-8 #### [facility] CLIA [id number] [address] [place] [address] 02770 Erythrocyte distribution width (RBC) [Ratio] 13.7 % Normal 11.5-15.0 [facility] Comment on above: Order Comment: Speci men Type: BLOOD SPECIMEN Ordering Facility: [facility] Address: [address] [address] Performed By: #### 5 7021-8 #### [facility] CLIA [id number] [address] [place] [address] 53475 Hematocrit (Bld) [Volume fraction] 41.0 % Normal 36.0-46.0 [facility] Comment on above: Order Comment: Speci men Type: BLOOD SPECIMEN Ordering Facility: [facility] Address: [address] [address] Performed By: #### 5 7021-8 #### [facility] CLIA [id number] [address] [place] [address] 91713 Hemoglobin (Bld) [Mass/Vol] 13.5 g/dL Normal 11.5-15.5 [facility] Comment on above: Order Comment: Speci men Type: BLOOD SPECIMEN Ordering Facility: [facility] Address: [address] [address] Performed By: #### 5 7021-8 #### [facility] CLIA [id number] [address] [place] [address] 85536 Immature granulocytes (Bld) [#/Vol] 0.03 10*3/uL Normal <0.10 [facility] Comment on above: Order Comment: Speci men Type: BLOOD SPECIMEN Ordering Facility: [facility] Address: [address] [address] Performed By: #### 5 7021-8 #### [facility] CLIA [id number] [address] [place] [address] 70155 Immature granulocytes/100 WBC (Bld) 0.4 % Normal [facility] Comment on above: Order Comment: Speci men Type: BLOOD SPECIMEN Ordering Facility: [facility] Address: [address] [address] Performed By: #### 5 7021-8 #### [facility] CLIA [id number] [address] [place] [address] 50274 Lymphocytes (Bld) [#/Vol] 1.83 10*3/uL Normal 1.00-4.00 [facility] Comment on above: Order Comment: Speci men Type: BLOOD SPECIMEN Ordering Facility: [facility] Address: [address] [address] Performed By: #### 5 7021-8 #### [facility] CLIA [id number] [address] [place] [address] 48624 Lymphocytes/100 WBC (Bld) 22.6 % Normal [facility] Comment on above: Order Comment: Speci men Type: BLOOD SPECIMEN Ordering Facility: [facility] Address: [address] [address] Performed By: #### 5 7021-8 #### [facility] CLIA [id number] [address] [place] [address] 81190 MCH (RBC) [Entitic mass] 30.5 pg Normal 26.0-34.0 [facility] Comment on above: Order Comment: Speci men Type: BLOOD SPECIMEN Ordering Facility: [facility] Address: [address] [place] [address] Performed By: #### 5 7021-8 #### [facility] CLIA [id number] [address] [place] [address] 50509 MCHC (RBC) [Mass/Vol] 32.9 g/dL Normal 30.5-36.0 [facility] Comment on above: Order Comment: Speci men Type: BLOOD SPECIMEN Ordering Facility: [facility] Address: [address] [place] [address] Performed By: #### 5 7021-8 #### [facility] CLIA [id number] [address] [place] [address] 69894 MCV (RBC) [Entitic vol] 92.8 fL Normal 80.0-100.0 [facility] Comment on above: Order Comment: Speci men Type: BLOOD SPECIMEN Ordering Facility: [facility] Address: [address] [place] [address] Performed By: #### 5 7021-8 #### [facility] CLIA [id number] [address] [place] [address] 88476 Monocytes (Bld) [#/Vol] 0.64 10*3/uL Normal <0.87 [facility] Comment on above: Order Comment: Speci men Type: BLOOD SPECIMEN Ordering Facility: [facility] Address: [address] [place] [address] Performed By: #### 5 7021-8 #### [facility] CLIA [id number] [address] [place] [address] 95061 Monocytes/100 WBC (Bld) 7.9 % Normal [facility] Comment on above: Order Comment: Speci men Type: BLOOD SPECIMEN Ordering Facility: [facility] Address: [address] [address] Performed By: #### 5 7021-8 #### [facility] CLIA [id number] [address] [place] [address] 19132 Neutrophils (Bld) [#/Vol] 5.34 10*3/uL Normal 1.45-7.50 [place] [facility] Comment on above: Order Comment: Speci men Type: BLOOD SPECIMEN Ordering Facility: [facility] Address: [address] [address] Performed By: #### 5 7021-8 #### [facility] CLIA [id number] [address] [place] [address] 66016 Neutrophils/100 WBC (Bld) 65.8 % Normal [facility] Comment on above: Order Comment: Speci men Type: BLOOD SPECIMEN Ordering Facility: [facility] Address: [address] [address] Performed By: #### 5 7021-8 #### [facility] CLIA [id number] [address] [place] [address] 42975 Nucleated RBC (Bld) [#/Vol] 10*3/uL Normal <0.01 [facility] Comment on above: Order Comment: Speci men Type: BLOOD SPECIMEN Ordering Facility: [facility] Address: [address] [address] Performed By: #### 5 7021-8 #### [facility] CLIA [id number] [address] [place] [address] 68052 Nucleated RBC/100 WBC (Bld) [Ratio] 0.0 /100 WBC Normal [facility] Comment on above: Order Comment: Speci men Type: BLOOD SPECIMEN Ordering Facility: [facility] Address: [address] [place] [address] Performed By: #### 5 7021-8 #### [facility] CLIA [id number] [address] [place] [address] 17993 Platelet mean volume (Bld) [Entitic vol] 8.6 fL Low 9.0-12.7 [facility] Comment on above: Order Comment: Speci men Type: BLOOD SPECIMEN Ordering Facility: [facility] Address: [address] [place] [address] Performed By: #### 5 7021-8 #### [facility] CLIA [id number] [address] [place] [address] 01638 Platelets (Bld) [#/Vol] 361 10*3/uL Normal 150-400 [facility] Comment on above: Order Comment: Speci men Type: BLOOD SPECIMEN Ordering Facility: [facility] Address: [address] [place] [address] Performed By: #### 5 7021-8 #### [facility] CLIA [id number] [address] [place] [address] 23459 RBC (Bld) [#/Vol] 4.42 10*6/uL Normal 3.90-5.20 [facility] Comment on above: Order Comment: Speci men Type: BLOOD SPECIMEN Ordering Facility: [facility] Address: [address] [place] [address] Performed By: #### 5 7021-8 #### [facility] CLIA [id number] [address] [place] [address] 26407 WBC (Bld) [#/Vol] 8.11 10*3/uL Normal 3.70-11.00 [facility] Comment on above: Order Comment: Speci men Type: BLOOD SPECIMEN Ordering Facility: [facility] Address: [address] [place] [address] Performed By: #### 5 7021-8 #### [facility] CLIA [id number] [address] [place] [address] 68155 Basophils (Bld) [#/Vol] 0.08 10*3/uL <0.11 k/uL [facility] Basophils/100 WBC (Bld) 1.0 % [facility] Differential cell count method Nom (Bld) Auto [facility] Eosinophils (Bld) [#/Vol] 0.19 10*3/uL <0.46 k/uL [facility] Eosinophils/100 WBC (Bld) 2.3 % [facility] Erythrocyte distribution width (RBC) [Ratio] 13.7 % 11.5 - 15.0 % [facility] Hematocrit (Bld) [Volume fraction] 41.0 % 36.0 - 46.0 % [facility] Hemoglobin (Bld) [Mass/Vol] 13.5 g/dL 11.5 - 15.5 g/dL [facility] Immature granulocytes (Bld) [#/Vol] 0.03 10*3/uL <0.10 k/uL [facility] Immature granulocytes/100 WBC (Bld) 0.4 % [facility] Lymphocytes (Bld) [#/Vol] 1.83 10*3/uL 1.00 - 4.00 k/uL [facility] Lymphocytes/100 WBC (Bld) 22.6 % [facility] MCH (RBC) [Entitic mass] 30.5 pg 26.0 - 34.0 pg [facility] MCHC (RBC) [Mass/Vol] 32.9 g/dL 30.5 - 36.0 g/dL [facility] MCV (RBC) [Entitic vol] 92.8 fL 80.0 - 100.0 fL [facility] Monocytes (Bld) [#/Vol] 0.64 10*3/uL <0.87 k/uL [facility] Monocytes/100 WBC (Bld) 7.9 % [facility] Neutrophils (Bld) [#/Vol] 5.34 10*3/uL 1.45 - 7.50 k/uL [facility] Neutrophils/100 WBC (Bld) 65.8 % [facility] Nucleated RBC (Bld) [#/Vol] <0.01 k/uL [facility] Nucleated RBC/100 WBC (Bld) [Ratio] 0.0 /100 WBC [facility] Platelet mean volume (Bld) [Entitic vol] 8.6 fL Low 9.0 - 12.7 fL [facility] Platelets (Bld) [#/Vol] 361 10*3/uL 150 - 400 k/uL [facility] RBC (Bld) [#/Vol] 4.42 10*6/uL 3.90 - 5.2 0 m/uL [facility] WBC (Bld) [#/Vol] 8.11 10*3/uL 3.70 - 11.00 k/uL [facility] CNOVSPon 10-17-2022 CNOVSP Visit (SP) Office ([place]) ----- GABRIELLE MARCOS ([id number]) 1960 F Date Time Provider Department 10/17/22 [...] CARDIOVASCULAR: Regu (more content not included)... Normal [facility] Cancer Ag125 SerPl-aCncon Cancer Ag 125 Qn 4 [arb'U]/mL Normal <39 [facility] Comment on above: Order Comment: Speci men Type: BLOOD SPECIMEN Ordering Facility: [facility] Address: [address] [place] [address] Result Comment: CA 1 25 test methodology [...] (CA 125 II) [package insert V 1.0 Bulgarian]. [facility], [place], [place] (December 2014) Performed By: #### 1 0334-1 #### [facility] CLIA [id number] [address] [facility] [place] [address] [place] Comprehensive metabolic 2000 panelon 10-17-2022 Albumin [Mass/Vol] 4.2 g/dL Normal 3.9-4.9 [facility] Comment on above: Order Comment: Speci men Type: BLOOD SPECIMEN Ordering Facility: [facility] Address: [address] [address] Performed By: #### 2 4323-8 #### [facility] CLIA [id number] [address] [place] [address] 36331 ALP [Catalytic activity/Vol] 120 U/L Normal 34-123 [facility] Comment on above: Order Comment: Speci men Type: BLOOD SPECIMEN Ordering Facility: [facility] Address: [address] [address] Performed By: #### 2 4323-8 #### [facility] CLIA [id number] [address] [place] [address] 35325 ALT [Catalytic activity/Vol] 16 U/L Normal 7-38 [facility] Comment on above: Order Comment: Speci men Type: BLOOD SPECIMEN Ordering Facility: [facility] Address: [address] [address] Performed By: #### 2 4323-8 #### [facility] CLIA [id number] [address] [place] [address] 51557 Anion gap [Moles/Vol] 7 mmol/L Low 9-18 [facility] Comment on above: Order Comment: Speci men Type: BLOOD SPECIMEN Ordering Facility: [facility] Address: [address] [address] Performed By: #### 2 4323-8 #### [facility] CLIA [id number] [address] [place] [address] 81541 AST [Catalytic activity/Vol] 19 U/L Normal 13-35 [facility] Comment on above: Order Comment: Speci men Type: BLOOD SPECIMEN Ordering Facility: [facility] Address: [address] [address] Performed By: #### 2 4323-8 #### [facility] CLIA [id number] [address] [place] [address] 55793 Bilirubin [Mass/Vol] 0.2 mg/dL Normal 0.2-1.3 [facility] Comment on above: Order Comment: Speci men Type: BLOOD SPECIMEN Ordering Facility: [facility] Address: [address] [address] Performed By: #### 2 4323-8 #### [facility] CLIA [id number] [address] [place] [address] 77994 Calcium [Mass/Vol] 9.3 mg/dL Normal 8.5-10.2 [facility] Comment on above: Order Comment: Speci men Type: BLOOD SPECIMEN Ordering Facility: [facility] Address: [address] [address] Performed By: #### 2 4323-8 #### [facility] CLIA [id number] [address] [place] [address] 65243 Chloride [Moles/Vol] 106 mmol/L High 97-105 [facility] Comment on above: Order Comment: Speci men Type: BLOOD SPECIMEN Ordering Facility: [facility] Address: [address] [address] Performed By: #### 2 4323-8 #### [facility] CLIA [id number] [address] [place] [address] 83261 CO2 [Moles/Vol] 30 mmol/L Normal 22-30 [facility] Comment on above: Order Comment: Speci men Type: BLOOD SPECIMEN Ordering Facility: [facility] Address: [address] [address] Performed By: #### 2 4323-8 #### [facility] CLIA [id number] [address] [place] [address] Creatinine [Mass/Vol] 1.08 mg/dL High 0.58-0.96 [facility] Comment on above: Order Comment: Shannon mixon Type: BLOOD SPECIMEN Ordering Facility: [facility] Address: [address] [id number] Performed By: #### 2 4323-8 #### [facility] CLIA [id number] [address] [place] [address] 06141 ESTIMATED GLOMERULAR FILTRATION RATE 58 mL/min/1.73m??? Low >=60 [facility] Comment on above: Order Comment: Shannon mixon Type: BLOOD SPECIMEN Ordering Facility: [facility] Address: [address] [place], [place] [id number] Result Comment: Kathleen mated Glomerular Filtration Rate [...] GFR. Performed By: #### 2 4323-8 #### [facility] CLIA [id number] [address] [place] [address] 75787 Glucose [Mass/Vol] 107 mg/dL High 74-99 [facility] Comment on above: Order Comment: Shannon mixon Type: BLOOD SPECIMEN Ordering Facility: [facility] Address: [address] [place], [place] [id number] Result Comment: The [place] [employer] (ADA) provides guidance for cutoff [...] Standards of Medical Care in Diabetes 2016, [place] [employer]. Diabetes Care. 2016.39(Suppl 1). Performed By: #### 2 4323-8 #### [facility] CLIA [id number] [address] [place] [address] Potassium [Moles/Vol] 4.4 mmol/L Normal 3.7-5.1 [facility] Comment on above: Order Comment: Speci men Type: BLOOD SPECIMEN Ordering Facility: [facility] Address: [address] [address] Performed By: #### 2 4323-8 #### [facility] CLIA [id number] [address] [place] [address] 86720 Protein [Mass/Vol] 6.5 g/dL Normal 6.3-8.0 [facility] Comment on above: Order Comment: Speci men Type: BLOOD SPECIMEN Ordering Facility: [facility] Address: [address] [address] Performed By: #### 2 432-8 #### [facility] CLIA [id number] [address] [place] [address] 54584 Sodium [Moles/Vol] 143 mmol/L Normal 136-144 [facility] Comment on above: Order Comment: Speci men Type: BLOOD SPECIMEN Ordering Facility: [facility] Address: [address] [address] Performed By: #### 2 4323-8 #### [facility] CLIA [id number] [address] [place] [address] 78687 Urea nitrogen [Mass/Vol] 14 mg/dL Normal 7-21 [facility] Comment on above: Order Comment: Speci men Type: BLOOD SPECIMEN Ordering Facility: [facility] Address: [address] [address] Performed By: #### 2 4323-8 #### [facility] CLIA [id number] [address] [place] [address] 97338 Albumin [Mass/Vol] 4.2 g/dL 3.9 - 4.9 g/dL [facility] ALP [Catalytic activity/Vol] 120 U/L 34 - 123 U/L [facility] ALT [Catalytic activity/Vol] 16 U/L 7 - 38 U/L [facility] Anion gap [Moles/Vol] 7 mmol/L Low 9 - 18 mmol/L [facility] AST [Catalytic activity/Vol] 19 U/L 13 - 35 U/L [facility] Bilirubin [Mass/Vol] 0.2 mg/dL 0.2 - 1 .3 mg/dL [facility] Calcium [Mass/Vol] 9.3 mg/dL 8.5 - 10. 2 mg/dL [facility] Chloride [Moles/Vol] 106 mmol/L High 97 - 10 5 mmol/L [facility] CO2 [Moles/Vol] 30 mmol/L 22 - 30 mmol/L [facility] Creatinine [Mass/Vol] 1.08 mg/dL High 0.58 - 0.96 mg/dL [facility] Estimated Glomerular Filtration Rate 58 mL/min/1.73m Low >=60 mL/min/1.73 m [facility] Glucose [Mass/Vol] 107 mg/dL High 74 - 99 mg/dL [facility] Potassium [Moles/Vol] 4.4 mmol/L 3.7 - 5.1 mmol/L [facility] Protein [Mass/Vol] 6.5 g/dL 6.3 - 8.0 g/dL [facility] Sodium [Moles/Vol] 143 mmol/L 136 - 144 mmol/L [facility] Urea nitrogen [Mass/Vol] 14 mg/dL 7 - 21 mg/dL [facility] Alanine aminotransferase [En zymatic activity/volume] in Serum or PlasmaOrdered By: Nabeel Stanton on 05-23-2022 ALT [Catalytic activity/Vol] 20 U/L Normal 7-52 U/L [facility] Albumin [Mass/volume] in Ser um or Plasma by Bromocresol green (BCG) dye binding methoOrdered By: Nabeel Stanton on 05-23-2022 Albumin BCG dye [Mass/Vol] 4.6 g/dL 3.5-5.7 [facility] Alkaline phosphatase [Enzyma tic activity/volume] in Serum or PlasmaOrdered By: Nabeel Stanton on 05-23-2022 ALP [Catalytic activity/Vol] 95 U/L Normal 34-104 U/L [facility] Aspartate aminotransferase [ Enzymatic activity/volume] in Serum or PlasmaOrdered By: Nabeel Stanton on 05-23-2022 AST [Catalytic activity/Vol] 19 U/L Normal 13-39 U/L [facility] Bilirubin.total [Mass/volume ] in Serum or PlasmaOrdered By: Nabeel Stanton on 05-23-2022 Bilirubin [Mass/Vol] 0.4 mg/dL 0.3-1.0 [facility] Calcium [Mass/volume] in Ser um or PlasmaOrdered By: Nabeel Stanton on 05-23-2022 Calcium [Mass/Vol] 9.6 mg/dL 8.6-10.3 [facility] Carbon dioxide, total [Moles /volume] in Serum or PlasmaOrdered By: Nabeel Stanton on 05-23-2022 CO2 [Moles/Vol] 29.3 mmol/L 21.0-31.0 [facility] Chloride [Moles/volume] in S jenn or PlasmaOrdered By: Nabeel Stanton on 05-23-2022 Chloride [Moles/Vol] 108 mmol/L High 98-107 mmol/L [facility] Comprehensive Metabolic Pane faviola 05-23-2022 Albumin [Mass/Vol] 4.279883 g/dL Normal 3.5-5.7 g/dL [facility] Other Bilirubin [Mass/Vol] 0.9005872 mg/dL Normal 0.3- 1.0 mg/dL [facility] Other Calcium [Mass/Vol] 9.2591324 mg/dL Normal 8.6-10 .3 mg/dL [facility] Other CO2 [Moles/Vol] 29.51198821 mmol/L Normal 21.0-3 1.0 mmol/L [facility] Other Creatinine [Mass/Vol] 0.80210594 mg/dL Normal 0. 60-1.20 mg/dL [facility] Other Potassium [Moles/Vol] 4.69423370 mmol/L Normal 3 .5-5.1 mmol/L [facility] [employer] Other Protein [Mass/Vol] 7.042694 g/dL Normal 6.4-8.9 g/dL [facility] Other Comprehensive Metabolic Panel 2.4 g/dL [facility] Other Comprehensive Metabolic Pane lOrdered By: Nabeel Stanton on 05-23-2022 GFR/1.73 sq M.predicted MDRD (S/P/Bld) [Vol rate/Area] mL/min/{1.73_m2} [facility] Creatinine [Mass/volume] in Serum or PlasmaOrdered By: Nabeel Stanton on 05-23-2022 Creatinine [Mass/Vol] 0.82 mg/dL 0.60-1.20 [facility] Erythrocyte distribution wid th Auto (RBC) [Ratio]Ordered By: Nabeel Stanton on 05-23-2022 Erythrocyte distribution width (RBC) [Ratio] 14.1 % 11.9-15.3 [facility] Erythrocytes [#/volume] in B lood by Automated countOrdered By: Nabeel Stanton on 05-23-2022 RBC (Bld) [#/Vol] 4.85 10*6/uL Normal 3.60-5.00 [facility] Globulin Calc (S) [Mass/Vol] Ordered By: Nabeel Stanton on 05-23-2022 Globulin (S) [Mass/Vol] 2.4 g/dL [facility] Glucose [Mass/volume] in Ser um or PlasmaOrdered By: Nabeel Stanton on 05-23-2022 Glucose [Mass/Vol] 103 mg/dL Normal 74-109 mg/dL [facility] Comment on above: ADA recommended refe rence rangeRandom Glucose Reference Range is dependent on time and content of last meal. Glucose of more than 200 mg/dL in a nonstressed, ambulatory subject supports the diagnosis of Diabetes Mellitus. Hematocrit Auto (Bld) [Volum e fraction]Ordered By: Nabeel Stanton on 05-23-2022 Hematocrit (Bld) [Volume fraction] 43.6 % 34.0-46.4 [facility] Hemoglobin [Mass/volume] in BloodOrdered By: Nabeel Stanton on 05-23-2022 Hemoglobin (Bld) [Mass/Vol] 14.6 g/dL 11.8-15.4 [facility] Hemogram CBC Without Diffon 05-23-2022 Erythrocyte distribution width (RBC) [Ratio] 14.100 % Normal 11.9-15.3 % [facility] Other Hematocrit (Bld) [Volume fraction] 43.600 % Normal 34.0-46.4 % [facility] Other Hemoglobin (Bld) [Mass/Vol] 14.940716 g/dL Normal 11.8-15.4 g/dL [facility] Other MCH (RBC) [Entitic mass] 30.0000 pg Normal 24.7-34.3 pg [facility] Other MCV (RBC) [Entitic vol] 89.9000 fL Normal 80-100 fL [facility] Other Platelet mean volume (Bld) [Entitic vol] 7.4000 fL Normal 6.3-10.7 fL [facility] Other WBC (Bld) [#/Vol] 8.554536254 10*3/uL Normal 3.8 -11.6 10*3/uL [facility] Other Hemogram CBC Without Diff 33.4 g/dL Normal 32.0-35.0 g/dL [facility] Other Leukocytes [#/volume] correc luis for nucleated erythrocytes in Blood by Automated counOrdered By: Nabeel Stanton on 05-23-2022 WBC corrected for nucl RBC Auto (Bld) [#/Vol] 8.2 10*3/uL 3.8-11.6 [facility] MCH Auto (RBC) [Entitic mass ]Ordered By: Nabeel Stanton on 05-23-2022 MCH (RBC) [Entitic mass] 30.0 pg 24.7-34.3 [facility] MCHC Auto (RBC) [Mass/Vol]Or dered By: Nabeel Stanton on 05-23-2022 MCHC (RBC) [Mass/Vol] 33.4 g/dL 32.0-35.0 [facility] MCV Auto (RBC) [Entitic vol] Ordered By: Nabeel Stanton on 05-23-2022 MCV (RBC) [Entitic vol] 89.9 fL 80-100 [facility] No Panel InformationOrdered By: Nabeel Stanton on 05-23-2022 Pharmacy Creatinine Clearance (Chem N/A [facility] Platelet mean volume Auto (B ld) [Entitic vol]Ordered By: Nabeel Stanton on 05-23-2022 Platelet mean volume (Bld) [Entitic vol] 7.4 fL 6.3-10.7 [facility] Platelets [#/volume] in Bloo d by Automated countOrdered By: Nabeel Stanton on 05-23-2022 Platelets (Bld) [#/Vol] 383 10*3/uL Normal 150-450 10*3/uL [facility] Potassium [Moles/volume] in Serum or PlasmaOrdered By: Nabeel Stanton on 05-23-2022 Potassium [Moles/Vol] 4.4 mmol/L 3.5-5.1 [facility] Protein [Mass/volume] in Ser um or PlasmaOrdered By: Nabeel Stanton on 05-23-2022 Protein [Mass/Vol] 7.0 g/dL 6.4-8.9 [facility] Serum or plasma albumin/glob ulin mass ratioOrdered By: Nabeel Stanton on 05-23-2022 Albumin/Globulin [Mass ratio] 1.9 {ratio} [facility] Serum or plasma anion gap de terminationOrdered By: Nabeel Stanton on 05-23-2022 Anion gap [Moles/Vol] 9.1 mmol/L 6.0-15.0 [facility] Sodium [Moles/volume] in Ser um or PlasmaOrdered By: Nabeel Stanton on 05-23-2022 Sodium [Moles/Vol] 142 mmol/L Normal 136-145 mmol/L [facility] Urea nitrogen [Mass/volume] in Serum or PlasmaOrdered By: Nabeel Stanton on 05-23-2022 Urea nitrogen [Mass/Vol] 12 mg/dL Normal 7-25 mg/dL [facility] CBC AUTO DIFFon 04-06-2022 BASO # 0.1 103/ul Normal 0.0-0.1 [facility] Comment on above: Performed By: #### C BC #### [facility] [address] [place] [address] Dr. Tita Kumar Basophils/100 WBC (Bld) 1.5 % Normal 0.2-2.0 [facility] Comment on above: Performed By: #### C BC #### [facility] [address] [place] [address] Dr. Tita Kumar EO # 0.2 103/ul Normal 0.0-0.7 [facility] Comment on above: Performed By: #### C BC #### [facility] [address] [place] [address] Dr. Tita Kumar Eosinophils/100 WBC (Bld) 3.1 % Normal 0.9-7.0 [facility] Comment on above: Performed By: #### C BC #### [facility] [address] [place] [address] Dr. Tita Kumar Erythrocyte distribution width (RBC) [Ratio] 14.7 % Normal 11.0-15.0 [facility] Comment on above: Performed By: #### C BC #### [facility] [address] [place] [address] Dr. Tita Kumar Hematocrit (Bld) [Volume fraction] 43.9 % Normal 36.0-48.0 [facility] Comment on above: Performed By: #### C BC #### [facility] [address] [place] [address] Dr. Tita Kuamr Hemoglobin (Bld) [Mass/Vol] 13.7 g/dL Normal 12.0-16.0 [facility] Comment on above: Performed By: #### C BC #### [facility] [address] [place] [address] Dr. Tita Kumar IG # 0.02 10e3/ul Normal 0.00-0.03 [facility] Comment on above: Performed By: #### C BC #### [facility] [address] [place] [address] Dr. Tita Kumar IG % 0.3 % Normal 0.0-0.5 [facility] Comment on above: Performed By: #### C BC #### [facility] [address] [place] [address] Dr. Tita Kumar LYMPH # 1.8 103/ul Normal 1.2-3.8 [facility] Comment on above: Performed By: #### C BC #### [facility] [address] [place] [address] Dr. Tita Kumar Lymphocytes/100 WBC (Bld) 28.5 % Normal 20.5-60.0 [facility] Comment on above: Performed By: #### C BC #### [facility] [address] [place] [address] Dr. Tita Kumar MANUAL DIFF REQ NO Normal [facility] Comment on above: Performed By: #### C BC #### [facility] [address] [place] [address] Dr. Tita Kumar MCH (RBC) [Entitic mass] 29.8 pg Normal 26.7-34.0 [facility] Comment on above: Performed By: #### C BC #### [facility] [address] [place] [address] Dr. Tita Kumar MCHC (RBC) [Mass/Vol] 31.2 g/dL Normal 29.9-35.2 [facility] Comment on above: Performed By: #### C BC #### [facility] [address] [place] [address] Dr. Tita Kumar MCV (RBC) [Entitic vol] 95.4 fL Normal 81.0-99.0 [facility] Comment on above: Performed By: #### C BC #### [facility] [address] [place] [address] Dr. Tita Kumar MONO # 0.7 103/ul Normal 0.3-0.8 [facility] Comment on above: Performed By: #### C BC #### [facility] [address] [place] [address] Dr. Tita Kumar Monocytes/100 WBC (Bld) 11.3 % Normal 1.7-12.0 [facility] Comment on above: Performed By: #### C BC #### [facility] [address] [place] [address] Dr. Tita Kumar NEUT # 3.4 103/ul Normal 1.4-6.5 [facility] Comment on above: Performed By: #### C BC #### [facility] [address] [place] [address] Dr. Tita Kumar Neutrophils/100 WBC (Bld) 55.3 % Normal 43.0-75.0 [facility] Comment on above: Performed By: #### C BC #### [facility] [address] [place] [address] Dr. Tita Kumar Platelet mean volume (Bld) [Entitic vol] 8.7 fL Critically low 9.5-13.5 [facility] Comment on above: Performed By: #### C BC #### [facility] [address] [place] [address] Dr. Tita Kumar PLT 346 103/ul Normal 150-450 [facility] Comment on above: Performed By: #### C BC #### [facility] [address] [place] [address] Dr. Tita Kumar RBC 4.60 106/ul Normal 4.20-5.40 [facility] Comment on above: Performed By: #### C BC #### [facility] [address] [place] [address] Dr. Tita Kumar WBC 6.2 103/ul Normal 4.0-11.0 [facility] Comment on above: Performed By: #### C BC #### [facility] [address] [place] [address] Dr. Tita Kumar MRI TSPINE WO W [...] KARINA SOARES Date: 2022-04-06 17:33 Normal [facility] PROF 14(COMP METB)on 023 Albumin [Mass/Vol] 3.7 g/dL Normal 3.4-5.0 The [facility] Comment on above: Performed By: #### C MP ####[facility] [address] [place], [place] [address]Dr. Tita Kumar Albumin/Globulin [Mass ratio] 1.0 {ratio} Normal [facility] Comment on above: Performed By: #### C MP ####[facility] [address] [place] [address]Dr. Tita Kumar ALP [Catalytic activity/Vol] 106 U/L Normal 46-116 [facility] Comment on above: Performed By: #### C MP ####[facility] [address] [place] [address]Dr. Tita José ALT [Catalytic activity/Vol] 31 U/L Normal 14-59 [facility] Comment on above: Performed By: #### C MP ####[facility] [address] [place], [place] [address]Dr. Anneanel José Anion gap [Moles/Vol] 10.7 mmol/L Normal [facility] Comment on above: Performed By: #### C MP ####[facility] [address] [place], [place] [address]Dr. Tita José AST [Catalytic activity/Vol] 20 U/L Normal 15-37 [facility] Comment on above: Performed By: #### C MP ####[facility] [address] [place], [place] [address]Dr. Tita José Bilirubin [Mass/Vol] 0.2 mg/dL Normal 0.2-1.0 [facility] Comment on above: Performed By: #### C MP ####[facility] [address] [place], [place] [address]Dr. Tita José Calcium [Mass/Vol] 9.4 mg/dL Normal 8.5-10.1 [facility] Comment on above: Performed By: #### C MP ####[facility] [address] [place], [place] [address]Dr. Tita Kumar Chloride [Moles/Vol] 106 mmol/L Normal 98-107 [facility] Comment on above: Performed By: #### C MP ####[facility] [address] [place] [address]Dr. Tita Kumar CO2 [Moles/Vol] 29.5 mmol/L Normal 21.0-32.0 [facility] Comment on above: Performed By: #### C MP ####[facility] [address] [place] [address]Dr. Tita Kumar Creatinine [Mass/Vol] 0.81 mg/dL Normal 0.55-1.02 [facility] Comment on above: Performed By: #### C MP ####[facility] [address] [place] [address]Dr. Tita Kumar EGFR-AF BHUTANESE >60 Normal >=60 [facility] Comment on above: Performed By: #### C MP ####[facility] [address] [place] [address]Dr. Tita Kumar EGFR-NON AF BHUTANESE >60 Normal >=60 [facility] Comment on above: Performed By: #### C MP ####[facility] [address] [place], [place] [address]Dr. Tita Kumar Globulin (S) [Mass/Vol] 3.6 g/dL Normal [facility] Comment on above: Performed By: #### C MP ####[facility] [address] [place], [place] [address]Dr. Tita Kumar Glucose [Mass/Vol] 104 mg/dL Normal 74-106 [facility] Comment on above: Performed By: #### C MP ####[facility] [address] [place], [place] [address]Dr. Tita Kumar Potassium [Moles/Vol] 4.2 mmol/L Normal 3.5-5.1 [facility] Comment on above: Performed By: #### C MP ####[facility] [address] [place], [place] [address]Dr. Tita Kumar Protein [Mass/Vol] 7.3 g/dL Normal 6.4-8.2 The [facility] Comment on above: Performed By: #### C MP ####[facility] [address] [place], [place] [address]Dr. Tita Kumar Sodium [Moles/Vol] 142 mmol/L Normal 136-145 [facility] Comment on above: Performed By: #### C MP ####[facility] [address] [place], [place] [address]Ab. Tita Kumar Urea nitrogen [Mass/Vol] 12.0 mg/dL Normal 7.0-18.0 [facility] Comment on above: Performed By: #### C MP ####[facility] [address] [place], [place] [address]Ez. Tita Kumar Urea nitrogen/Creatinine [Mass ratio] 14.8 mg/mg Normal [facility] Comment on above: Performed By: #### C MP ####[facility] [address] [place], [place] [address]Sp. Tita Kumar US venous duplex LE LTon US venous duplex LE LT [facility] [employer] Other US venous duplex LE LT [facility] [employer] Other US venous duplex LE LT [facility] [employer] [place] [address] [employer] Other US venous duplex LE LT Ultrasound Report [employer] Other US venous duplex LE LT Signed [employer] Other US venous duplex LE LT Patient: Gabrielle Marcos MR#: [id number] [employer] [address] [employer] Other US venous duplex LE LT : 1960 Acct:[id number] [employer] Other US venous duplex LE LT Age/Sex: 61 / F ADM Date: 03/02/22 [employer] Other US venous duplex LE LT Loc: Room: Type: [facility] [employer] Other US venous duplex LE LT Attending Dr: Nabeel Stanton DO [employer] Other US venous duplex LE LT Ordering Provider: Nabeel Stanton DO [employer] Other venous duplex LE LT Date of Service: 03/02/22 [employer] Other venous duplex LE LT / venous duplex LE LT: Swelling of left lower extremity;Pain of left [employer] Other US venous duplex LE LT lower extremit [employer] Other venous duplex LE LT Copies to: Nabeel Stanton DO [employer] Other venous duplex LE LT LEFT LOWER EXTREMITY VENOUS DUPLEX [employer] Other venous duplex LE LT INDICATION: Painful swollen left leg [employer] Other venous duplex LE LT Unilateral left lower extremity venous duplex Doppler study was obtained utilizing B-mode, color- [employer] Other venous duplex LE LT flow and spectral Doppler. [employer] Other venous duplex LE LT FINDINGS: The left common femoral, femoral, and popliteal veins showed adequate compressibility, [employer] Other venous duplex LE LT color-flow and augmentation. The left posterior tibial and peroneal veins were compressible, as [employer] Other venous duplex LE LT well as proximal greater saphenous vein. The contralateral right common femoral vein was [employer] Other venous duplex LE LT compressible with color-flow and augmentation. [employer] Other venous duplex LE LT / venous duplex LE LT [employer] Other venous duplex LE LT IMPRESSION: [employer] Other venous duplex LE LT NO EVIDENCE OF DEEP VENOUS THROMBOSIS IN THE LEFT LOWER EXTREMITY. NO SUPERFICIAL THROMBOPHLEBITIS [employer] Other venous duplex LE LT WAS NOTED. [employer] Other US venous duplex LE LT Impression dictated by: Gilson Stoner M.D.03/08/2022 9:20 AM [employer] Other venous duplex LE LT Dictation Location: [place] [address] [employer] Other venous duplex LE LT Tech: Keniadina News[facility] [employer] Other venous duplex LE LT Transcribed By: PWS 03/08/22 09 [employer] Other venous duplex LE LT Dictated By: Gilson Stoner MD 03/08/22 [facility] [employer] Other venous duplex LE LT Signed By: [employer] Other US venous duplex LE LT 03/08/22 [facility] [employer] Other CULTURE URINEon 01-09-2022 CULTURE URINE Isolate [...] Trimethoprim/Sulfamethoxa zole <=20 S F Normal [facility] Comment on above: Performed By: #### U RCX ####[facility] [address] [place], [place] [address]IqTee Tita José GUTIERREZ PANEL (PCR)on 01-08-2022 Adenovirus F 40/41 Not detected Normal NOT DETECTED [facility] Comment on above: Performed By: #### G IPANEL #### [facility] [address] [place] [address] Dr. Tita Kumar Astrovirus Not detected Normal NOT DETECTED [facility] Comment on above: Performed By: #### G IPANEL #### [facility] [address] [place] [address] Dr. Tita Kumar C. Diff toxin A/B Not detected Normal NOT DETECTED [facility] Comment on above: Performed By: #### G IPANEL #### [facility] [address] [place] [address] Dr. Tita Kumar Campylobacter Not detected Normal NOT DETECTED [facility] Comment on above: Performed By: #### G IPANEL #### [facility] [address] [place] [address] Dr. Tita uKmar Cryptosporidium Not detected Normal NOT DETECTED [facility] Comment on above: Performed By: #### G IPANEL #### [facility] [address] [place] [address] Dr. Tita Kumar Cyclos. Cayetanensis Not detected Normal NOT DETECTED [facility] Comment on above: Performed By: #### G IPANEL #### [facility] [address] [place] [address] Dr. Tita Kumar E. Coli O157 Not Applicable Normal Not Applicable [facility] Comment on above: Performed By: #### G IPANEL #### [facility] [address] [place] [address] Dr. Tita Kumar E. histolytica Not detected Normal NOT DETECTED [facility] Comment on above: Performed By: #### G IPANEL #### [facility] [address] [place] [address] Dr. Tita Kumar EAEC Not detected Normal NOT DETECTED [facility] Comment on above: Performed By: #### G IPANEL #### [facility] [address] [place] [address] Dr. Tita Kumar EIEC Not detected Normal NOT DETECTED [facility] Comment on above: Performed By: #### G IPANEL #### [facility] [address] [place] [address] Dr. Tita Kumar EPEC Not detected Normal NOT DETECTED [facility] Comment on above: Performed By: #### G IPANEL #### [facility] [address] [place] [address] [address] Tita Kumar ETEC Not detected Normal NOT DETECTED [facility] Comment on above: Performed By: #### G IPANEL #### [facility] [address] [place] [address] [address] Tita Thompson Lamblia Not detected Normal NOT DETECTED [facility] Comment on above: Performed By: #### G IPANEL #### [facility] [address] [place] [address] [address] Tita SIMS CONTROLS PASSED Normal [facility] Comment on above: Performed By: #### G IPANEL #### [facility] [address] [place] [address] Dr. Tita ORTEGA HEADER GI PANEL BACTERIA Normal [facility] Comment on above: Performed By: #### G IPANEL #### [facility] [address] [place] [address] Dr. Tita GALLEGO ECOLI GI PANEL DIARRHEAGEN IC E.COLI / SHIGELLA Normal [facility] Comment on above: Performed By: #### G IPANEL #### [facility] [address] [place] [address] Dr. Tita GALLEGO INFO SEE BELOW Normal [facility] Comment on above: Result Comment: EAEC - Enteroaggregative E. Coli EPEC- Enteropathogenic E. Coli ETEC- Enterotoxigenic E. Coli lt/st STEC- Shigella-like toxin-producing E. Coli stx1/stx2 EIEC- Shigella/Enteroinvasive E. Coli Performed By: #### G IPANEL #### [facility] [address] [place] [address] Dr. Tita GALLEGO PARASITES GI PANEL PARASITES Normal [facility] Comment on above: Performed By: #### G IPANEL #### [facility] [address] [place] [address] [address] Tita GALLEGO VIRUS GI PANEL VIRUSES Normal [facility] Comment on above: Performed By: #### G IPANEL #### [facility] [address] [place] [address] Dr. Tita Kumar Norovirus GI/GII Not detected Normal NOT DETECTED [facility] Comment on above: Performed By: #### G IPANEL #### [facility] [address] [place] [address] [address] Tita Kumar P. Shigelloides Not detected Normal NOT DETECTED [facility] Comment on above: Performed By: #### G IPANEL #### [facility] [address] [place] [address] Dr. Tita Kumar Rotavirus A Not detected Normal NOT DETECTED [facility] Comment on above: Performed By: #### G IPANEL #### [facility] [address] [place] [address] Dr. Tita Kumar Salmonella Not detected Normal NOT DETECTED [facility] Comment on above: Performed By: #### G IPANEL #### [facility] [address] [place] [address] Dr. Tita Kumar Sapovirus Not detected Normal NOT DETECTED [facility] Comment on above: Performed By: #### G IPANEL #### [facility] [address] [place] [address] Dr. Tita Kumar STEC Not detected Normal NOT DETECTED [facility] Comment on above: Performed By: #### G IPANEL #### [facility] [address] [place] [address] Dr. Tita Kumar Vibrio Not detected Normal NOT DETECTED [facility] Comment on above: Performed By: #### G IPANEL #### [facility] [address] [place] [address] Dr. Tita Kumar Vibrio Cholera Not detected Normal NOT DETECTED [facility] Comment on above: Performed By: #### G IPANEL #### [facility] [address] [place] [address] Dr. Tita Kumar Y. Enterocolitica Not detected Normal NOT DETECTED [facility] Comment on above: Performed By: #### G IPANEL #### [facility] [address] [place] [address] Dr. Tita Kumar CBC AUTO DIFFon 01-07-2022 BASO # 0.0 103/ul Normal 0.0-0.1 [facility] Comment on above: Performed By: #### C BC #### [facility] [address] [place] [address] Dr. Tita Kumar Basophils/100 WBC (Bld) 0.3 % Normal 0.2-2.0 [facility] Comment on above: Performed By: #### C BC #### [facility] [address] [place] [address] Dr. Tita Kumar EO # 0.0 103/ul Normal 0.0-0.7 [facility] Comment on above: Performed By: #### C BC #### [facility] [address] [place] [address] Dr. Tita Kumar Eosinophils/100 WBC (Bld) 0.3 % Critically low 0.9-7.0 [facility] Comment on above: Performed By: #### C BC #### [facility] [address] [place] [address] Dr. Tita Kumar Erythrocyte distribution width (RBC) [Ratio] 13.6 % Normal 11.0-15.0 [facility] Comment on above: Performed By: #### C BC #### [facility] [address] [place] [address] Dr. Tita Kumar Hematocrit (Bld) [Volume fraction] 43.0 % Normal 36.0-48.0 [facility] Comment on above: Performed By: #### C BC #### [facility] [address] [place] [address] Dr. Tita Kumar Hemoglobin (Bld) [Mass/Vol] 14.4 g/dL Normal 12.0-16.0 [facility] Comment on above: Performed By: #### C BC #### [facility] [address] [place] [address] Dr. Tita Kumar IG # 0.02 10e3/ul Normal 0.00-0.03 [facility] Comment on above: Performed By: #### C BC #### [facility] [address] [place] [address] Dr. Tita Kumar IG % 0.3 % Normal 0.0-0.5 [facility] Comment on above: Performed By: #### C BC #### [facility] [address] [place] [address] Dr. Tita Kumar LYMPH # 1.3 103/ul Normal 1.2-3.8 [facility] Comment on above: Performed By: #### C BC #### [facility] [address] [place] [address] Dr. Tita Kumar Lymphocytes/100 WBC (Bld) 18.8 % Critically low 20.5-60.0 [facility] Comment on above: Performed By: #### C BC #### [facility] [address] [place] [address] Dr. Tita Kumar MANUAL DIFF REQ NO Normal [facility] Comment on above: Performed By: #### C BC #### [facility] [address] [place] [address] Dr. Tita Kumar MCH (RBC) [Entitic mass] 29.9 pg Normal 26.7-34.0 [facility] Comment on above: Performed By: #### C BC #### [facility] [address] [place] [address] Dr. Tita Kumar MCHC (RBC) [Mass/Vol] 33.5 g/dL Normal 29.9-35.2 [facility] Comment on above: Performed By: #### C BC #### [facility] [address] [place] [address] Dr. Tita Kumar MCV (RBC) [Entitic vol] 89.4 fL Normal 81.0-99.0 [facility] Comment on above: Performed By: #### C BC #### [facility] [address] [place] [address] Dr. Tita Kumar MONO # 0.8 103/ul Normal 0.3-0.8 [facility] Comment on above: Performed By: #### C BC #### [facility] [address] [place] [address] Dr. Tita Kumar Monocytes/100 WBC (Bld) 11.5 % Normal 1.7-12.0 [facility] Comment on above: Performed By: #### C BC #### [facility] [address] [place] [address] Dr. Tita Kumar NEUT # 4.7 103/ul Normal 1.4-6.5 [facility] Comment on above: Performed By: #### C BC #### [facility] [address] [place] [address] Dr. Tita Kumar Neutrophils/100 WBC (Bld) 68.8 % Normal 43.0-75.0 [facility] Comment on above: Performed By: #### C BC #### [facility] [address] [place] [address] Dr. Tita Kumar Platelet mean volume (Bld) [Entitic vol] 9.5 fL Normal 9.5-13.5 [facility] Comment on above: Performed By: #### C BC #### [facility] [address] [place] [address] Dr. Tita Kumar PLT 289 103/ul Normal 150-450 [facility] Comment on above: Performed By: #### C BC #### [facility] [address] [place] [address] Dr. Tita Kumar RBC 4.81 106/ul Normal 4.20-5.40 [facility] Comment on above: Performed By: #### C BC #### [facility] [address] [place] [address] Dr. Tita Kumar WBC 6.9 103/ul Normal 4.0-11.0 [facility] Comment on above: Performed By: #### C BC #### [facility] [address] [place] [address] Dr. Tita Kumar ER URINE PROFILEon 2 Bilirubin Ql (U) Negative Normal NEGATIVE [facility] Comment on above: Performed By: #### U MICRO, ERUR #### [facility] [address] [place] [address] Dr. Tita Kumar Clarity (U) CLEAR Normal CLEAR [facility] Comment on above: Performed By: #### U MICRO, ERUR #### [facility] [address] [place] [address] [address] Tita Kumar Color (U) LT. YELLOW Normal YELLOW [facility] Comment on above: Performed By: #### U MICRO, ERUR #### [facility] [address] [place] [address] [address] Tita Kumar ERUAHD A micrscopic examina tion will be performed if indicated. Normal [facility] Comment on above: Performed By: #### U MICRO, ERUR #### [facility] [address] [place] [address] [address] Tita Kumar Glucose Ql (U) Negative Normal NEGATIVE [facility] Comment on above: Performed By: #### U MICRO, ERUR #### [facility] [address] [place] [address] [address] Tita Kumar Hemoglobin Ql (U) SMALL Abnormal NEGATIVE [facility] Comment on above: Performed By: #### U MICRO, ERUR #### [facility] [address] [place] [address] [address] Tita Kumra Ketones Ql (U) Negative Normal NEGATIVE [facility] Comment on above: Performed By: #### U MICRO, ERUR #### [facility] [address] [place] [address] [address] Tita Kumar LEUKOCYTES SMALL Abnormal NEGATIVE [facility] Comment on above: Performed By: #### U MICRO, ERUR #### [facility] [address] [place] [address] [address] Tita Kumar Nitrite Ql (U) Negative Normal NEGATIVE [facility] Comment on above: Performed By: #### U MICRO, ERUR #### [facility] [address] [place] [address] [address] Tita Kumar pH (U) 6.0 [pH] Normal 5-9 [facility] Comment on above: Performed By: #### U MICRO, ERUR #### [facility] [address] [place] [address] [address] Tita Kumar Protein (U) [Mass/Vol] 30 mg/dL Abnormal NEGATIVE/ TRACE [facility] Comment on above: Performed By: #### U MICRO, ERUR #### [facility] [address] [place] [address] Dr. Tita Kumar SPEC GRAVITY 1.020 Normal 1.005-<=1.0 25 [facility] Comment on above: Performed By: #### U MICRO, ERUR #### [facility] [address] [place] [address] Dr. Tita Kumar UR MICRO IND INDICATED Normal [facility] Comment on above: Performed By: #### U MICRO, ERUR #### [facility] [address] [place] [address] Dr. Tita Kumar Urobilinogen Qn (U) 0.2 {Joy'U}/dL Normal 0.2 - 1. 0 [facility] Comment on above: Performed By: #### U MICRO, ERUR #### [facility] [address] [place] [address] Dr. Tita Kumar PROF 14(COMP METB)on 022 Albumin [Mass/Vol] 3.2 g/dL Critically low 3.4-5.0 [facility] Comment on above: Performed By: #### C MP #### [facility] [address] [place] [address] Dr. Tita Kumar Albumin/Globulin [Mass ratio] 0.7 {ratio} Normal [facility] Comment on above: Performed By: #### C MP #### [facility] [address] [place] [address] Dr. Tita Kumar ALP [Catalytic activity/Vol] 85 U/L Normal 46-116 [facility] Comment on above: Performed By: #### C MP #### [facility] [address] [place] [address] Dr. Tita Kumar ALT [Catalytic activity/Vol] 54 U/L Normal 14-59 [facility] Comment on above: Performed By: #### C MP #### [facility] [address] [place] [address] Dr. Tita Kumar Anion gap [Moles/Vol] 13.3 mmol/L Normal [facility] Comment on above: Performed By: #### C MP #### [facility] [address] [place] [address] [address] Tita Kumar AST [Catalytic activity/Vol] 33 U/L Normal 15-37 [facility] Comment on above: Performed By: #### C MP #### [facility] [address] [place] [address] [address] Tita Kumar Bilirubin [Mass/Vol] 0.3 mg/dL Normal 0.2-1.0 [facility] Comment on above: Performed By: #### C MP #### [facility] [address] [place] [address] [address] Tita Kumar Calcium [Mass/Vol] 9.0 mg/dL Normal 8.5-10.1 [facility] Comment on above: Performed By: #### C MP #### [facility] [address] [place] [address] [address] Tita Kumar Chloride [Moles/Vol] 103 mmol/L Normal 98-107 [facility] Comment on above: Performed By: #### C MP #### [facility] [address] [address] [address] Tita Kumar CO2 [Moles/Vol] 25.3 mmol/L Normal 21.0-32.0 [facility] Comment on above: Performed By: #### C MP #### [facility] [address] [address] [address] Tita Kumar Creatinine [Mass/Vol] 0.84 mg/dL Normal 0.55-1.02 [facility] Comment on above: Performed By: #### C MP #### [facility] [address] [address] [address] Tita Kumar EGFR-AF BHUTANESE >60 Normal >=60 [facility] Comment on above: Performed By: #### C MP #### [facility] [address] [address] [address] Tita Kumar EGFR-NON AF BHUTANESE >60 Normal >=60 [facility] Comment on above: Performed By: #### C MP #### [facility] [address] [address] [address] Tita Kumar Globulin (S) [Mass/Vol] 4.3 g/dL Normal [facility] Comment on above: Performed By: #### C MP #### [facility] [address] [place] [address] Dr. Tita Kumar Glucose [Mass/Vol] 116 mg/dL Critically high 74-106 [facility] Comment on above: Performed By: #### C MP #### [facility] [address] [place] [address] Dr. Tita Kumar Potassium [Moles/Vol] 3.6 mmol/L Normal 3.5-5.1 [facility] Comment on above: Performed By: #### C MP #### [facility] [address] [place] [address] Dr. Tita Kumar Protein [Mass/Vol] 7.5 g/dL Normal 6.4-8.2 [facility] Comment on above: Performed By: #### C MP #### [facility] [address] [place] [address] Dr. Tita Kumar Sodium [Moles/Vol] 138 mmol/L Normal 136-145 [facility] Comment on above: Performed By: #### C MP #### [facility] [address] [place] [address] Dr. Tita Kumar Urea nitrogen [Mass/Vol] 16.0 mg/dL Normal 7.0-18.0 [facility] Comment on above: Performed By: #### C MP #### [facility] [address] [place] [address] Dr. Tita Kumar Urea nitrogen/Creatinine [Mass ratio] 19.0 mg/mg Normal [facility] Comment on above: Performed By: #### C MP #### [facility] [address] [place] [address] Dr. Tita Kumar URINE MICROSCOPIC ONLYon BACTERIA NONE SEEN Normal NONE SEEN [facility] Comment on above: Performed By: #### U MICRO, ERUR #### [facility] [address] [place] [address] Dr. Tita Kumar Bacteria identified Cx Nom (U) INDICATED Normal [facility] Comment on above: Performed By: #### U MICRO, ERUR #### [facility] [address] [address] [address] Tita Kumar CAST NONE SEEN Normal NONE SEEN [facility] Comment on above: Performed By: #### U MICRO, ERUR #### [facility] [address] [address] [address] Tita Kumar Crystals LM Nom (Urine sed) NONE SEEN Normal NONE SEEN [facility] Comment on above: Performed By: #### U MICRO, ERUR #### [facility] [address] [address] [address] Tita Kumar Epithelial cells LM Ql (Urine sed) FEW Abnormal NONE SEEN /RARE [facility] Comment on above: Performed By: #### U MICRO, ERUR #### [facility] [address] [address] [address] Tita Kumar MUCOUS NONE SEEN Normal NONE SEEN [facility] Comment on above: Performed By: #### U MICRO, ERUR #### [facility] [address] [address] [address] Tita Kumar RBC 5-10 Abnormal 0-2 [facility] Comment on above: Performed By: #### U MICRO, ERUR #### [facility] [address] [address] [address] Tita Kumar WBC 5-10 Abnormal NONE SEEN [facility] Comment on above: Performed By: #### U MICRO, ERUR #### [facility] [address] [address] [address] Tita Kumar BUNon 11-23-2021 Urea nitrogen [Mass/Vol] 15.0 mg/dL Normal 7.0-18.0 [facility] Comment on above: Performed By: #### B UN, CREA ####[facility] [address] [address]Dr. Tita Kumar CREATININEon 11-23-2021 Creatinine [Mass/Vol] 0.80 mg/dL Normal 0.55-1.02 [facility] Comment on above: Performed By: #### B ELKE, CREA ####[facility] [address] [place], [place] [address]Do. Tita Kumar EGFR-AF BHUTANESE >60 Normal >=60 [facility] Comment on above: Performed By: #### B ELKE, CREA ####[facility] [address] [place], [place] [address]Yb. Tita Kumar EGFR-NON AF BHUTANESE >60 Normal >=60 [facility] Comment on above: Performed By: #### B ELKE, CREA ####[facility] [address] [place], [place] [address]Yn. Tita Kumar MRI BRAIN WO W CONon [...] KARINA SOARES Date: 2021-11-23 20:52 Normal [facility] [place] [facility] CBC AUTO DIFFon 09-19-2021 BASO # 0.1 103/ul Normal 0.0-0.1 [facility] Comment on above: Performed By: #### C BC ####[facility] [address] [id number]. Tita Kumar Basophils/100 WBC (Bld) 0.9 % Normal 0.2-2.0 [facility] Comment on above: Performed By: #### C BC ####[facility] [address] [place], [place] [address]Dr. Tita Kumar EO # 0.2 103/ul Normal 0.0-0.7 [facility] [place] [facility] Comment on above: Performed By: #### C BC ####[facility] [address] [place], [place] [address]Dr. Tita Kumar Eosinophils/100 WBC (Bld) 2.2 % Normal 0.9-7.0 [facility] [place] [facility] Comment on above: Performed By: #### C BC ####[facility] [address] [place], [place] [address]Dr. Tita Kumar Erythrocyte distribution width (RBC) [Ratio] 13.7 % Normal 11.0-15.0 [facility] Comment on above: Performed By: #### C BC ####[facility] [address] [place], [place] [address]Dr. Tita Kumar Hematocrit (Bld) [Volume fraction] 44.1 % Normal 36.0-48.0 [facility] Comment on above: Performed By: #### C BC ####[facility] [address] [place], [place] [address]Dr. Tita Kumar Hemoglobin (Bld) [Mass/Vol] 14.3 g/dL Normal 12.0-16.0 [facility] Comment on above: Performed By: #### C BC ####[facility] [address] [place], [place] [address]Dr. Tita Kumar IG # 0.03 10e3/ul Normal 0.00-0.03 [facility] Comment on above: Performed By: #### C BC ####[facility] [address] [place], [place] [address]Dr. Tita Kumar IG % 0.3 % Normal 0.0-0.5 [facility] [place] [facility] Comment on above: Performed By: #### C BC ####[facility] [address] [id number]. Tita Kumar LYMPH # 1.4 103/ul Normal 1.2-3.8 [facility] Comment on above: Performed By: #### C BC ####[facility] [address] [id number]. Tita Kumar Lymphocytes/100 WBC (Bld) 15.2 % Critically low 20.5-60.0 [facility] Comment on above: Performed By: #### C BC ####[facility] [address] [id number]. Tita Kumar MANUAL DIFF REQ NO Normal [facility] Comment on above: Performed By: #### C BC ####[facility] [address] [id number]. Tita Kumar MCH (RBC) [Entitic mass] 30.0 pg Normal 26.7-34.0 [facility] [place] [facility] Comment on above: Performed By: #### C BC ####[facility] [address] [id number]. Tita Kumar MCHC (RBC) [Mass/Vol] 32.4 g/dL Normal 29.9-35.2 [facility] Comment on above: Performed By: #### C BC ####[facility] [address] [id number]. Tita José MCV (RBC) [Entitic vol] 92.5 fL Normal 81.0-99.0 [facility] [place] [facility] Comment on above: Performed By: #### C BC ####[facility] [address] [id number]. Tita Kumar MONO # 0.7 103/ul Normal 0.3-0.8 [facility] Comment on above: Performed By: #### C BC ####[facility] [address] [id number]. Tita Kumar Monocytes/100 WBC (Bld) 7.7 % Normal 1.7-12.0 [facility] [place] [facility] Comment on above: Performed By: #### C BC ####[facility] [address] [place], [place] [address]Cd. Anneanel Kumar NEUT # 6.8 103/ul Critically high 1.4-6.5 [facility] Comment on above: Performed By: #### C BC ####[facility] [address] [id number]. Tita Kumar Neutrophils/100 WBC (Bld) 73.7 % Normal 43.0-75.0 [facility] Comment on above: Performed By: #### C BC ####[facility] [address] [id number]. Tita Kumar Platelet mean volume (Bld) [Entitic vol] 8.7 fL Critically low 9.5-13.5 [facility] Comment on above: Performed By: #### C BC ####[facility] [address] [id number]. Tita Kumar PLT 370 103/ul Normal 150-450 [facility] [place] [facility] Comment on above: Performed By: #### C BC ####[facility] [address] [phone]. Tita Kumar RBC 4.77 106/ul Normal 4.20-5.40 [facility] Comment on above: Performed By: #### C BC ####[facility] [address] [id number]. Tita Kumar WBC 9.3 103/ul Normal 4.0-11.0 [facility] Comment on above: Performed By: #### C BC ####[facility] [address] [phone]. Tita Kumar PROF 14(COMP METB)on 022 Albumin [Mass/Vol] 3.7 g/dL Normal 3.4-5.0 [facility] Comment on above: Performed By: #### T SH, CMP #### [facility] [address] [place], [place] [address] Dr. Tita Kumar Albumin/Globulin [Mass ratio] 1.0 {ratio} Normal [facility] Comment on above: Performed By: #### T SH, CMP #### [facility] [address] [place] [address] Dr. Tita Kumar ALP [Catalytic activity/Vol] 105 U/L Normal 46-116 [facility] Comment on above: Performed By: #### T SH, CMP #### [facility] [address] [address] [address] Tita Kumar ALT [Catalytic activity/Vol] 35 U/L Normal 14-59 [facility] Comment on above: Performed By: #### T SH, CMP #### [facility] [address] [address] [address] Tita Kumar Anion gap [Moles/Vol] 10.8 mmol/L Normal [facility] Comment on above: Performed By: #### T SH, CMP #### [facility] [address] [place] [address] Dr. Tita Kumar AST [Catalytic activity/Vol] 20 U/L Normal 15-37 [facility] Comment on above: Performed By: #### T SH, CMP #### [facility] [address] [place] [address] Dr. Tita Kumar Bilirubin [Mass/Vol] 0.3 mg/dL Normal 0.2-1.0 [facility] Comment on above: Performed By: #### T SH, CMP #### [facility] [address] [place] [address] Dr. Tita Kumar Calcium [Mass/Vol] 9.3 mg/dL Normal 8.5-10.1 [facility] Comment on above: Performed By: #### T SH, CMP #### [facility] [address] [place] [address] Dr. Tita Kumar Chloride [Moles/Vol] 106 mmol/L Normal 98-107 [facility] Comment on above: Performed By: #### T SH, CMP #### [facility] [address] [address] [address] Tita Kumar CO2 [Moles/Vol] 29.9 mmol/L Normal 21.0-32.0 [facility] Comment on above: Performed By: #### T SH, CMP #### [facility] [address] [address] [address] Tita Kumar Creatinine [Mass/Vol] 0.80 mg/dL Normal 0.55-1.02 [facility] Comment on above: Performed By: #### T SH, CMP #### [facility] [address] [address] [address] Tita Kumar EGFR-AF BHUTANESE >60 Normal >=60 [facility] Comment on above: Performed By: #### T SH, CMP #### [facility] [address] [address] [address] Tita Kumar EGFR-NON AF BHUTANESE >60 Normal >=60 [facility] Comment on above: Performed By: #### T SH, CMP #### [facility] [address] [address] [address] Tita Kmuar Globulin (S) [Mass/Vol] 3.6 g/dL Normal [facility] Comment on above: Performed By: #### T SH, CMP #### [facility] [address] [address] [address] Tita Kumar Glucose [Mass/Vol] 105 mg/dL Normal 74-106 [facility] Comment on above: Performed By: #### T SH, CMP #### [facility] [address] [place] [address] Dr. Tita Kumar Potassium [Moles/Vol] 4.7 mmol/L Normal 3.5-5.1 [facility] Comment on above: Performed By: #### T SH, CMP #### [facility] [address] [address] [address] Tita Kumar Protein [Mass/Vol] 7.3 g/dL Normal 6.4-8.2 [facility] Comment on above: Performed By: #### T SH, CMP #### [facility] [address] [place] [address] Dr. Tita Kumar Sodium [Moles/Vol] 142 mmol/L Normal 136-145 [facility] Comment on above: Performed By: #### T SH, CMP #### [facility] [address] [address] [address] Tita Kumar Urea nitrogen [Mass/Vol] 11.0 mg/dL Normal 7.0-18.0 [facility] Comment on above: Performed By: #### T SH, CMP #### [facility] [address] [address] [address] Tita Kumar Urea nitrogen/Creatinine [Mass ratio] 13.8 mg/mg Normal [facility] Comment on above: Performed By: #### T SH, CMP #### [facility] [address] [address] [address] Tita Kumar TSHon 09-19-2021 TSH 2.059 uIU/mL Normal 0.358-3.740 [facility] Comment on above: Performed By: #### T JACOB, CMP #### [facility] [address] [address] [address] Tita Kumar VITAMIN D 25 OHon 09-19-2021 VIT D 25-OH 43.8 ng/mL Normal [facility] Comment on above: Performed By: #### V ITAD ####[facility] [address] [id number]. Tita Kumar VIT D RANGES SEE BELOW Normal [facility] Comment on above: Result Comment: <20 ng/mL Vit D deficient 20 - <30 ng/mL Vit D insufficient 30 - 100 ng/mL Vit D sufficient >100 ng/mL Potential Toxicity Performed By: #### V ITAD ####[facility] [address] [id number]. Tita Kumar CBC W Auto Differential pane l (Bld)on 09-12-2021 Abs Immature Gran 0.03 k/uL <0.10 k/uL [facility] Basophils (Bld) [#/Vol] 0.06 10*3/uL <0.11 k/uL [facility] Basophils/100 WBC (Bld) 0.7 % [facility] Differential cell count method Nom (Bld) Auto [facility] Eosinophils (Bld) [#/Vol] 0.19 10*3/uL <0.46 k/uL [facility] Eosinophils/100 WBC (Bld) 2.3 % [facility] Erythrocyte distribution width (RBC) [Ratio] 13.4 % 11.5 - 15.0 % [facility] Hematocrit (Bld) [Volume fraction] 44.5 % 36.0 - 46.0 % [facility] Hemoglobin (Bld) [Mass/Vol] 14.8 g/dL 11.5 - 15.5 g/dL [facility] Immature Gran % 0.4 % [facility] Lymphocytes (Bld) [#/Vol] 1.80 10*3/uL 1.00 - 4.00 k/uL [facility] Lymphocytes/100 WBC (Bld) 22.0 % [facility] MCH (RBC) [Entitic mass] 30.1 pg 26.0 - 34.0 pg [facility] MCHC (RBC) [Mass/Vol] 33.3 g/dL 30.5 - 36.0 g/dL [facility] MCV (RBC) [Entitic vol] 90.6 fL 80.0 - 100.0 fL [facility] Monocytes (Bld) [#/Vol] 0.70 10*3/uL <0.87 k/uL [facility] Monocytes/100 WBC (Bld) 8.5 % [facility] Neutrophils (Bld) [#/Vol] 5.41 10*3/uL 1.45 - 7.50 k/uL [facility] Neutrophils/100 WBC (Bld) 66.1 % [facility] Nucleated RBC (Bld) [#/Vol] 10*3/uL <0.01 k/uL [facility] Nucleated RBC/100 WBC (Bld) [Ratio] 0.0 /100 WBC [facility] Platelet mean volume (Bld) [Entitic vol] 8.7 fL Low 9.0 - 12.7 fL [facility] Platelets (Bld) [#/Vol] 366 10*3/uL 150 - 400 k/uL [facility] RBC (Bld) [#/Vol] 4.91 10*6/uL 3.90 - 5.2 0 m/uL [facility] WBC (Bld) [#/Vol] 8.19 10*3/uL 3.70 - 11.00 k/uL [facility] Comprehensive metabolic 2000 panelon 09-12-2021 Albumin [Mass/Vol] 4.4 g/dL 3.9 - 4.9 g/dL [facility] ALP [Catalytic activity/Vol] 100 U/L 34 - 123 U/L [facility] ALT [Catalytic activity/Vol] 19 U/L 7 - 38 U/L [facility] Anion gap [Moles/Vol] 11 mmol/L 9 - 18 mmol/L [facility] AST [Catalytic activity/Vol] 19 U/L 13 - 35 U/L [facility] Bilirubin [Mass/Vol] 0.3 mg/dL 0.2 - 1 .3 mg/dL [facility] Calcium [Mass/Vol] 9.4 mg/dL 8.5 - 10. 2 mg/dL [facility] Chloride [Moles/Vol] 103 mmol/L 97 - 10 5 mmol/L [facility] CO2 [Moles/Vol] 24 mmol/L 22 - 30 mmol/L [facility] Creatinine [Mass/Vol] 0.71 mg/dL 0.58 - 0.96 mg/dL [facility] Estimated Glomerular Filtration Rate 96 mL/min/1.73m >=60 mL/min/1.73 m [facility] Glucose [Mass/Vol] 113 mg/dL High 74 - 99 mg/dL [facility] Potassium [Moles/Vol] 4.1 mmol/L 3.7 - 5.1 mmol/L [facility] Protein [Mass/Vol] 7.0 g/dL 6.3 - 8.0 g/dL [facility] Sodium [Moles/Vol] 138 mmol/L 136 - 144 mmol/L [facility] Urea nitrogen [Mass/Vol] 14 mg/dL 7 - 21 mg/dL [facility] Albumin [Mass/volume] in Ser um or Plasmaon 08-23-2020 Albumin [Mass/Vol] 3.9 g/dL 3.2-5.5 [facility] Alkaline phosphatase [Enzyma tic activity/volume] in Serum or Plasmaon 08-23-2020 ALP [Catalytic activity/Vol] 85 U/L 32-92 [facility] Aspartate aminotransferase [ Enzymatic activity/volume] in Serum or Plasmaon 08-23-2020 AST [Catalytic activity/Vol] 22 U/L 10-42 [facility] Automated erythrocytes count in urine sediment (number/area)on 08-23-2020 RBC Auto (Urine sed) [#/Area] 1-2 [HPF] 0-4 [facility] Automated leukocytes count i n urine sediment (number/area)on 08-23-2020 WBC Auto (Urine sed) [#/Area] 10-19 [HPF] High 0-4 [facility] Basophils Auto (Bld) [#/Vol] on 08-23-2020 Basophils (Bld) [#/Vol] 0.1 10*3/uL 0.0-0.2 [facility] Basophils/100 WBC Auto (Bld) on 08-23-2020 Basophils/100 WBC (Bld) 0.9 % . [facility] Bilirubin Test strip Ql (U)o n 08-23-2020 Bilirubin Ql (U) Negative Negative [facility] Bilirubin.total [Mass/volume ] in Serum or Plasmaon 08-23-2020 Bilirubin [Mass/Vol] 0.6 mg/dL 0.3-1.2 [facility] Calcium [Mass/volume] in Ser um or Plasmaon 08-23-2020 Calcium [Mass/Vol] 9.3 mg/dL 8.2-10.2 [facility] Carbon dioxide, total [Moles /volume] in Serum or Plasmaon 08-23-2020 CO2 [Moles/Vol] 26.0 mmol/L 22.0-30.0 [facility] Chloride [Moles/volume] in S jenn or Plasmaon 08-23-2020 Chloride [Moles/Vol] 106 mmol/L 95-114 [facility] Color Auto (U)on 08-23-2020 Color (U) Yellow Yellow [facility] Creatinine and Glomerular fi ltration rate.predicted panel (S/P/Bld)on 08-23-2020 Creatinine [Mass/Vol] 0.75 mg/dL 0.44-1.03 [facility] Eosinophils Auto (Bld) [#/Vo l]on 08-23-2020 Eosinophils (Bld) [#/Vol] 0.1 10*3/uL 0.0-0.45 [facility] Eosinophils/100 WBC Auto (Bl d)on 08-23-2020 Eosinophils/100 WBC (Bld) 2.4 % . [facility] Erythrocyte distribution wid th Auto (RBC) [Ratio]on 08-23-2020 Erythrocyte distribution width (RBC) [Ratio] 14.2 % 11.9-15.3 [facility] Erythrocyte sedimentation ra te by Photometric methodon 08-23-2020 ESR Photometric method (Bld) [Velocity] 37 mm/hr High 0-29 [facility] Estimated glomerular filtrat ion rate (GFR) non- Americanon 08-23-2020 GFR/1.73 sq M.predicted among non-blacks MDRD (S/P/Bld) [Vol rate/Area] > 60 mL/Min [facility] Globulin Calc (S) [Mass/Vol] on 08-23-2020 Globulin (S) [Mass/Vol] 3.9 g/dL [facility] Glucose [Mass/volume] in Ser um or Plasmaon 08-23-2020 Glucose [Mass/Vol] 104 mg/dL High 70-100 [facility] Comment on above: ADA recommended refe rence rangeRandom Glucose Reference Range is dependent on time and content of last meal. Glucose of more than 200 mg/dL in a nonstressed, ambulatory subject supports the diagnosis of Diabetes Mellitus. Hematocrit Auto (Bld) [Volum e fraction]on 08-23-2020 Hematocrit (Bld) [Volume fraction] 47.0 % High 34.0-46.4 [facility] Hemoglobin [Mass/volume] in Bloodon 08-23-2020 Hemoglobin (Bld) [Mass/Vol] 15.9 g/dL High 11.8-15.4 [facility] Ketones Auto test strip (U) [Mass/Vol]on 08-23-2020 Ketones (U) [Mass/Vol] Negative Negative [facility] Laboratory - Hematology and Cell countson 08-23-2020 Nucleated RBC/100 WBC (Bld) [Ratio] 0.1 % 0-0.5 [facility] - Urinalysison Hyaline casts LM Ql (Urine sed) 0-8 [LPF] 0-8 [facility] Leukocytes [#/volume] in Blo od by Automated counton 08-23-2020 WBC (Bld) [#/Vol] 5.9 10*3/uL 4.5-11.0 [facility] Lymphocytes Auto (Bld) [#/Vo l]on 08-23-2020 Lymphocytes (Bld) [#/Vol] 1.0 10*3/uL 1.00-4.8 [facility] Lymphocytes/100 WBC Auto (Bl d)on 08-23-2020 Lymphocytes/100 WBC (Bld) 16.9 % . [facility] MCH Auto (RBC) [Entitic mass ]on 08-23-2020 MCH (RBC) [Entitic mass] 31.0 pg 24.7-34.3 [facility] MCHC Auto (RBC) [Mass/Vol]on 08-23-2020 MCHC (RBC) [Mass/Vol] 33.9 g/dL 32.0-35.0 [facility] MCV Auto (RBC) [Entitic vol] on 08-23-2020 MCV (RBC) [Entitic vol] 91.5 fL 80-100 [facility] Monocytes Auto (Bld) [#/Vol] on 08-23-2020 Monocytes (Bld) [#/Vol] 0.5 10*3/uL 0.0-0.8 [facility] Monocytes/100 WBC Auto (Bld) on 08-23-2020 Monocytes/100 WBC (Bld) 8.5 % . [facility] Neutrophils Auto (Bld) [#/Vo l]on 08-23-2020 Neutrophils (Bld) [#/Vol] 4.2 10*3/uL 1.8-7.7 [facility] Neutrophils/100 WBC Auto (Bl d)on 08-23-2020 Neutrophils/100 WBC (Bld) 71.3 % . [facility] Nitrite Test strip Ql (U)on 08-23-2020 Nitrite Ql (U) Negative Negative [facility] No Panel Informationon 08-23 Estimated GFR () > 60 mL/Min [facility] Comment on above: GFR estimated refere nce range: According to KDOQI guidelines, <60 ml/min/1.73m2 is sufficient to diagnose a patient with chronic kidney disease. Pharmacy Creatinine Clearance (Chem 77.68 [facility] Platelet mean volume Auto (B ld) [Entitic vol]on 08-23-2020 Platelet mean volume (Bld) [Entitic vol] 7.3 fL 6.3-10.7 [facility] Platelets Auto (Bld) [#/Vol] on 08-23-2020 Platelets (Bld) [#/Vol] 376 10*3/uL 150-450 [facility] Potassium [Moles/volume] in Serum or Plasmaon 08-23-2020 Potassium [Moles/Vol] 3.8 mmol/L 3.5-5.1 [facility] Protein Auto test strip (U) [Mass/Vol]on 08-23-2020 Protein (U) [Mass/Vol] Negative Negative [facility] Protein [Mass/volume] in Ser um or Plasmaon 08-23-2020 Protein [Mass/Vol] 7.8 g/dL 6.1-7.9 [facility] RBC Auto (Bld) [#/Vol]on RBC (Bld) [#/Vol] 5.14 10*6/uL High 3.60-5.00 [facility] Serum or plasma alanine landaverde otransferase measurement without P-5'-P (enzymatic activion 08-23-2020 ALT No additional P-5'-P [Catalytic activity/Vol] 20 U/L 10-60 [facility] Serum or plasma albumin/glob ulin mass ratioon 08-23-2020 Albumin/Globulin [Mass ratio] 1.0 {ratio} [facility] Sodium [Moles/volume] in Ser um or Plasmaon 08-23-2020 Sodium [Moles/Vol] 140 mmol/L 136-146 [facility] Specific gravity Auto test s trip (U) [Rel density]on 08-23-2020 Specific gravity (U) [Rel density] 1.011 1.001-1.030 [facility] Squamous epithelial cells de tection in urine sediment by light microscopyon 08-23-2020 Epithelial cells.squamous LM Ql (Urine sed) 1-2 [HPF] 0-2 [facility] Urea nitrogen [Mass/volume] in Serum or Plasmaon 08-23-2020 Urea nitrogen [Mass/Vol] 10 mg/dL 11-25 [facility] Urine bacteria detection by automated methodon 08-23-2020 Bacteria Auto Ql (U) 1+ High None Seen [facility] Urine clarity by refractomet ry automatedon 08-23-2020 Clarity Refractometry automated (U) Clear Clear [facility] Urine culture routineon 08-04 Bacteria identified Cx Nom (U) Escherichia coli Abnormal [facility] Urine glucose measurement by automated test strip (mass/volume)on 08-23-2020 Glucose Auto test strip (U) [Mass/Vol] Normal mg/dL Normal [facility] Urine hemoglobin detection b y automated test stripon 08-23-2020 Hemoglobin Auto test strip Ql (U) Negative Negative [facility] Urine leukocyte esterase det ection by automated test stripon 08-23-2020 Leukocyte esterase Auto test strip Ql (U) 2+ High Negative [facility] Urobilinogen Auto test strip (U) [Mass/Vol]on 08-23-2020 Urobilinogen (U) [Mass/Vol] Normal mg/dL Normal [facility] pH Auto test strip (U)on pH (U) 6.0 [pH] 5.0-9.0 [facility] Cholesterol [Mass/volume] in Serum or Plasmaon 05-13-2020 Cholesterol [Mass/Vol] 221 mg/dL High 140-200 [facility] Comment on above: Chol less than 200 m g/dl low riskChol 201-239 mg/dl borderline riskChol 240 mg/dl and greater high risk Cholesterol in LDL Calc [Mas s/Vol]on 05-13-2020 Cholesterol in LDL [Mass/Vol] 149 mg/dL High 0-100 [facility] Comment on above: LDL ATP III CLASSIFI CATIONLDL less than 100 mg/dL OptimalLDL 100-129 mg/dL Near or above optimalLDL 130-159 mg/dL Borderline highLDL 160-189 mg/dL HighLDL greater than 189 mg/dL Very high Cholesterol in VLDL Calc [Ma ss/Vol]on 05-13-2020 Cholesterol in VLDL [Mass/Vol] 25 mg/dL [facility] Serum or plasma high density lipoprotein (HDL) cholesterol measurementon 05-13-2020 Cholesterol in HDL [Mass/Vol] 47 mg/dL 35-85 [facility] Comment on above: HDL CHOL ATP-III CLA SSIFICATION Cardiovascular RiskHDL > or equal to 60 mg/dL LOWHDL < 40 mg/dL HIGH Serum or plasma total choles terol/high density lipoprotein (HDL) cholesterol mass shante 05-13-2020 Cholesterol.total/Cho lesterol in HDL [Mass ratio] 4.7 {ratio} <5.0 [facility] Triglyceride [Mass/volume] i n Serum or Plasmaon 05-13-2020 Triglyceride [Mass/Vol] 127 mg/dL 35-149 [facility] Comment on above: TRIG ATP III CLASSIF ICATIONTRIG less than 150 mg/dL NormalTRIG 150-199 mg/dL Borderline highTRIG 200-500 mg/dL High TRIG greater than 500 mg/dL Very highStandard traceable to the Center for Disease Conrtrol and Prevention (CDC) test method. Laboratory - Hematology and Cell countson 03-01-2020 WBC (Bld) [#/Vol] 5.5 10*3/uL 4.5-11.0 [facility] C reactive protein [Mass/vol ume] in Serum or Plasmaon 01-19-2020 CRP [Mass/Vol] 1.0 mg/dL 0.0-1.0 [facility] Hepatitis B virus surface Ag [Presence] in Serum or Plasma by Immunoassayon 01-19-2020 HBV surface Ag IA Ql Negative Negative [facility] Comment on above: Performed at: [employer] [place], [place] [id number] Director: Luis Teresa PhD, Phone: [phone] No Panel Informationon 01-18 Hepatitis B Core Total Antibody Negative Negative [facility] Comment on above: Performed at: [employer] [place], [place] [id number] Director: Luis Teresa PhD, Phone: [phone] Serum or plasma free cefurox jessica measurement (mass/volume)on 01-19-2020 Cefuroxime free [Mass/Vol] Negative Negative [facility] Comment on above: Performed at: [employer] [place], [place] [id number] Director: Luis Teresa PhD, Phone: [phone] Bilirubin.direct [Mass/volum e] in Serum or Plasmaon 07-29-2019 Bilirubin.direct [Mass/Vol] mg/dL 0.0-0.4 [facility] Serum or plasma non-glucuron idated bilirubin measurement (mass/volume)on 07-29-2019 Bilirubin.indirect [Mass/Vol] TNP [facility] Comment on above: Test not performed Serum or plasma calcidiol me asurement (mass/volume)on 11-26-2017 25-hydroxyvitamin D3 [Mass/Vol] 59.0 ng/mL 30-100 [facility] Comment on above: VITAMIN D STATUS 25( [place])VITAMIN D RANGE (ng/mL) Deficient <20 Insufficient 20 to <30Sufficient 30 to 100Reference: Ivet MF,Mikaela STERN, Paula VELASQUEZ, et al. Evaluation,treatment, and prevention of vitamin D deficiency; an Endocrine Society clinical practice guideline. JCEM. 2010; 96(7):1911-30. Vital Signs Date Time Vital Sign Value Performing Clinician Facility 01-25-2024 10:14-0500 Body height 154.9 cm Rahul Stewart DPM Work Phone: [facility] 01-25-2024 10:14-0500 Body mass index (BMI) [Ratio] 34.96 kg/m2 Rahul Stewart DPM Work Phone: [facility] 01-25-2024 10:14-0500 Body weight 83.92 kg Rahul Stewart DPM Work Phone: [facility] 01-25-2024 10:14-0500 Respiratory rate 18 /min Rahul Stewart DPM Work Phone: [facility] 11-09-2023 12:07-0400 Body height 157.48 cm DO Nabeel Stanton Work Phone: [facility] 11-09-2023 12:07-0400 Body mass index (BMI) [Ratio] 31.8 kg/m2 DO Nabeel Stanton Work Phone: [facility] 11-09-2023 12:07-0400 Body weight 78.92 kg DO Nabeel Stanton Work Phone: [facility] 11-09-2023 12:07-0400 Diastolic blood pressure 74 mm[Hg] DO Nabeel Stanton Work Phone: [facility] 11-09-2023 12:07-0400 Heart rate 66 /min DO Nabeel Stanton Work Phone: [facility] 11-09-2023 12:07-0400 Respiratory rate 18 /min DO Nabeel Vegaley Work Phone: [facility] 11-09-2023 12:07-0400 SaO2% (BldA) [Mass fraction] 96 % DO Nabeel Vegaley Work Phone: [facility] 11-09-2023 12:07-0400 Systolic blood pressure 124 mm[Hg] DO Nabeel Vegaley Work Phone: [facility] 10-22-2023 09:00-0400 Diastolic blood pressure 93 mm[Hg] DO Nabeel Vegaley Work Phone: [facility] 10-22-2023 09:00-0400 Heart rate 57 /min DO Nabeel Veagley Work Phone: [facility] 10-22-2023 09:00-0400 Systolic blood pressure 158 mm[Hg] DO Nabeel Stanton Work Phone: [facility] 09-04-2023 10:33-0400 Body height 157.48 cm DO Nabeel Stanton Work Phone: [facility] 09-04-2023 10:33-0400 Body mass index (BMI) [Ratio] 34 kg/m2 DO Nabeel Stanton Work Phone: [facility] 09-04-2023 10:33-0400 Body weight 84.36 kg DO Nabeel Stanton Work Phone: [facility] 09-04-2023 10:33-0400 Heart rate 66 /min DO Nabeel Stanton Work Phone: [facility] 09-04-2023 10:33-0400 Respiratory rate 18 /min DO Nabeel Stanton Work Phone: [facility] 05-11-2023 11:56-0500 Body height 157.48 cm DO Nabeel Vegaley Work Phone: [facility] 05-11-2023 11:56-0500 Body mass index (BMI) [Ratio] 31.8 kg/m2 DO Nabeel Vegaley Work Phone: [facility] 05-11-2023 11:56-0500 Body weight 78.92 kg DO Nabeel Stanton Work Phone: [facility] 05-11-2023 11:56-0500 Diastolic blood pressure 78 mm[Hg] DO Nabeel Vegaley Work Phone: [facility] 05-11-2023 11:56-0500 Heart rate 62 /min DO Nabeel Stanton Work Phone: [facility] 05-11-2023 11:56-0500 Respiratory rate 18 /min DO Nabeel Stanton Work Phone: [facility] 05-11-2023 11:56-0500 SaO2% (BldA) [Mass fraction] 97 % DO Nabeel Stanton Work Phone: [facility] 05-11-2023 11:56-0500 Systolic blood pressure 140 mm[Hg] DO Nabeel Vegaley Work Phone: [facility] 04-05-2023 13:24-0500 Body height 157.5 cm Rahul Stewart DPM Work Phone: [facility] 04-05-2023 13:24-0500 Body mass index (BMI) [Ratio] 31.64 kg/m2 Rahul Stewart DPM Work Phone: [facility] 04-05-2023 13:24-0500 Body weight 78.47 kg Rahul Stewart DPM Work Phone: [facility] 04-05-2023 13:24-0500 Diastolic blood pressure 80 mm[Hg] Rahul Stewart DPM Work Phone: [facility] 04-05-2023 13:24-0500 Heart rate 82 /min Rahul Stewart DPM Work Phone: [facility] 04-05-2023 13:24-0500 Systolic blood pressure 130 mm[Hg] Rahul Stewart DPM Work Phone: [facility] 11-10-2022 12:00-0400 Body height 157.48 cm Nabeel Stanton Other [employer] Other 11-10-2022 12:00-0400 Body mass index (BMI) [Ratio] 31.36 kg/m2 Nabeel Stanton Other [employer] Other 11-10-2022 12:00-0400 Body weight 77.79 kg Nabeel Stanton Other [employer] Other 11-10-2022 12:00-0400 Diastolic blood pressure 88 mm[Hg] Nabeel Stanton Other [employer] Other 11-10-2022 12:00-0400 Respiratory rate 18 /min Nabeel Stanton Other [employer] Other 11-10-2022 12:00-0400 SaO2% (BldA) [Mass fraction] 98 % Nabeel Stanton Other [employer] Other 11-10-2022 12:00-0400 Systolic blood pressure 138 mm[Hg] Nabeel Stanton Other [employer] Other 10-23-2022 10:23-0400 Body height 154.94 cm DO Nabeel Stanton Work Phone: [facility] 10-23-2022 10:23-0400 Body weight 77.27 kg DO Nabeel Stanton Work Phone: [facility] 10-17-2022 15:03-0400 Body height 160 cm Ac Warner MD Work Phone: [facility] 10-17-2022 15:03-0400 Body temperature 97.7 [degF] Ac Warner MD Work Phone: [facility] 10-17-2022 15:03-0400 Body weight 79.47 kg Ac Warner MD Work Phone: [facility] 10-17-2022 15:03-0400 Diastolic blood pressure 63 mm[Hg] Ac Warner MD Work Phone: [facility] 10-17-2022 15:03-0400 Heart rate 60 /min Ac Warner MD Work Phone: [facility] 10-17-2022 15:03-0400 Respiratory rate 18 /min Ac Warner MD Work Phone: [facility] 10-17-2022 15:03-0400 SaO2% (BldA) [Mass fraction] 95 % Ac Warner MD Work Phone: [facility] 10-17-2022 15:03-0400 Systolic blood pressure 131 mm[Hg] Ac Warner MD Work Phone: [facility] 05-23-2022 11:30-0400 Body height 157.48 cm Nabeel Stanton Other [employer] Other 05-23-2022 11:30-0400 Body mass index (BMI) [Ratio] 33.83 kg/m2 Nabeel Stanton Other [employer] Other 05-23-2022 11:30-0400 Body weight 83.92 kg Nabeel Stanton Other [employer] Other 05-23-2022 11:30-0400 Diastolic blood pressure 76 mm[Hg] Nabeel Stanton Other [employer] Other 05-23-2022 11:30-0400 Respiratory rate 18 /min Nabeel Stanton Other [employer] Other 05-23-2022 11:30-0400 SaO2% (BldA) [Mass fraction] 98 % Nabeel Stanton Other [employer] Other 05-23-2022 11:30-0400 Systolic blood pressure 130 mm[Hg] Nabeel Stanton Other [employer] Other 04-24-2022 13:21-0500 Diastolic blood pressure 84 mm[Hg] DO Nabeel Stanton Work Phone: [facility] 04-24-2022 13:21-0500 Heart rate 69 /min DO Nabeel Stanton Work Phone: [facility] 04-24-2022 13:21-0500 Respiratory rate 18 /min DO Nabeel Stanton Work Phone: [facility] 04-24-2022 13:21-0500 Systolic blood pressure 143 mm[Hg] DO aNbeel Stanton Work Phone: [facility] 04-24-2022 09:02-0500 Body height 154.94 cm DO Nabeel Vegaley Work Phone: [facility] 04-24-2022 09:02-0500 Body temperature 97.5 [degF] DO Nabeel Stanton Work Phone: [facility] 04-24-2022 09:02-0500 Body weight 78.3 kg DO Nabeel Stanton Work Phone: [facility] 04-24-2022 09:02-0500 SaO2% (BldA) [Mass fraction] 96 % DO Nabeel Stanton Work Phone: [facility] 03-02-2022 15:00-0500 Body height 157.48 cm Nabeel Stanton Other [employer] Other 03-02-2022 15:00-0500 Diastolic blood pressure 72 mm[Hg] Nabeel Stanton Other [employer] Other 03-02-2022 15:00-0500 Respiratory rate 18 /min Nabeel Stanton Other [employer] Other 03-02-2022 15:00-0500 SaO2% (BldA) [Mass fraction] 98 % Nabeel Stanton Other [employer] Other 03-02-2022 15:00-0500 Systolic blood pressure 128 mm[Hg] Nabeel Stanton Other [employer] Other 11-24-2021 10:30-0400 Body height 157.48 cm Nabeel Stanton Other [employer] Other 11-24-2021 10:30-0400 Body mass index (BMI) [Ratio] 34.38 kg/m2 Nabeel Stanton Other [employer] Other 11-24-2021 10:30-0400 Body weight 85.28 kg Nabeel Stanton Other [employer] Other 11-24-2021 10:30-0400 Diastolic blood pressure 72 mm[Hg] Nabeel Stanton Other [employer] Other 11-24-2021 10:30-0400 Respiratory rate 18 /min Nabeel Vegaley Other [employer] Other 11-24-2021 10:30-0400 SaO2% (BldA) [Mass fraction] 96 % Nabeel Stanton Other [employer] Other 11-24-2021 10:30-0400 Systolic blood pressure 128 mm[Hg] Nabeel Stanton Other [employer] Other 09-12-2021 10:49-0400 Body height 160 cm Ac Warner MD Work Phone: [facility] 09-12-2021 10:49-0400 Body temperature 97.59 [degF] Ac Warner MD Work Phone: [facility] 09-12-2021 10:49-0400 Body weight 79.38 kg Ac Warner MD Work Phone: [facility] 09-12-2021 10:49-0400 Diastolic blood pressure 85 mm[Hg] Ac Warner MD Work Phone: [facility] 09-12-2021 10:49-0400 Heart rate 56 /min Ac Warner MD Work Phone: [facility] 09-12-2021 10:49-0400 Respiratory rate 18 /min Ac Warner MD Work Phone: [facility] 09-12-2021 10:49-0400 SaO2% (BldA) [Mass fraction] 96 % Ac Warner MD Work Phone: [facility] 09-12-2021 10:49-0400 Systolic blood pressure 165 mm[Hg] Ac Warner MD Work Phone: [facility] 05-23-2021 11:15-0400 Body height 157.48 cm Nabeel Stanton Other [employer] Other 05-23-2021 11:15-0400 Body mass index (BMI) [Ratio] 32.92 kg/m2 Nabeel Stanton Other [employer] Other 05-23-2021 11:15-0400 Body weight 81.65 kg Nabeel Stanton Other [employer] Other 05-23-2021 11:15-0400 Diastolic blood pressure 82 mm[Hg] Nabeel Stanton Other [employer] Other 05-23-2021 11:15-0400 Respiratory rate 16 /min Nabeel Stanton Other [employer] Other 05-23-2021 11:15-0400 SaO2% (BldA) [Mass fraction] 98 % Nabeel Stanton Other [employer] Other 05-23-2021 11:15-0400 Systolic blood pressure 130 mm[Hg] Nabeel Stanton Other [employer] Other 10-25-2020 08:49-0400 Body mass index (BMI) [Ratio] 30.6 kg/m2 DO Nabeel Stanton Work Phone: [facility] Encounters Encounter Date Encounter Type Care Provider Facility Start: 02-04-2024 End: 02-04-2024 Vladislavboo sakshi Akers [employer] [facility] [address] [facility] Start: 02-04-2024 End: 02-04-2024 Mann Akers [employer] Work Phone: [facility] [address] Start: 01-25-2024 End: 01-28-2024 Sanjeev Helms DO Work Phone: [facility] [address] [facility] Start: 01-25-2024 End: 01-25-2024 Patient encounter procedure Rahul Stewart DPM Work Phone: [facility] Comment on above: Multiple sclerosis ( CMS/HCC) (Primary Dx); Pain due to onychomycosis of toenails of both feet; Venous insufficiency; Exostosis of left foot Start: 01-25-2024 End: 01-25-2024 ambulatory RAHUL STEWART Not Available Start: 11-09-2023 End: 11-09-2023 ambulatory DO Nabeel Stanton Work Phone: [facility] Work Phone: Start: 11-09-2023 End: 11-09-2023 Patient encounter procedure DO Nabeel Stanton Work Phone: [facility] Work Phone: Start: 11-01-2023 End: 11-01-2023 ambulatory RAHUL STEWART Not Available Start: 10-23-2023 End: 10-23-2023 ambulatory BART HELMS Not Available Start: 10-22-2023 ambulatory Cece Smith acility:[facility] Start: 10-22-2023 Registered Recurring DO Nabeel Stanton Work Phone: [facility] Work Phone: Start: 09-25-2023 End: 09-25-2023 ambulatory ATUL AKERS Not Available Start: 09-04-2023 Non-patient / Non-visit DO Mahad Stanton Work Phone: [facility] Work Phone: Start: 09-04-2023 End: 09-04-2023 ambulatory DO Nabeel Stanton Work Phone: [facility] Work Phone: Start: 09-04-2023 End: 09-04-2023 Patient encounter procedure DO Nabeel Stanton Work Phone: [facility] Work Phone: Start: 08-23-2023 End: 08-23-2023 ambulatory RAHUL STEWART Not Available Start: 08-08-2023 End: 08-08-2023 Patient encounter procedure DO Nabeel Stanton Work Phone: [facility] Work Phone: Start: 08-08-2023 End: 08-08-2023 ambulatory DO Nabeel Stanton Work Phone: [facility] Work Phone: Start: 07-03-2023 End: 07-03-2023 ambulatory BART HELMS Not Available Start: 06-14-2023 End: 06-14-2023 ambulatory RAHUL STEWART Not Available Start: 05-11-2023 End: 05-11-2023 Patient encounter procedure DO Nabeel Stanton Work Phone: [facility] Work Phone: Start: 04-05-2023 End: 04-05-2023 ambulatory RAHUL STEWART Not Available Start: 04-05-2023 End: 04-05-2023 Office outpatient new 30 minutes Rahul Stewart DPM Work Phone: [facility] Comment on above: Exostosis of left fo ot (Primary Dx); Onychomycosis; Toe pain, bilateral Start: 11-10-2022 End: 11-10-2022 ambulatory Nabeel Stanton Other [employer] Other Start: 11-10-2022 Office outpatient vi sit 15 minutes Nabeel Stanton [facility] [place] Start: 10-17-2022 End: 10-17-2022 ambulatory NABEEL STANTON Facility: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 Dx) Start: 10-17-2022 End: 10-17-2022 Patient encounter procedure Ac Warner MD Work Phone: [facility] Start: 09-14-2022 End: 09-14-2022 ambulatory Nabeel Stanton Other [employer] Other Start: 09-14-2022 Telephone encounter Nabeel Carlisle [facility] Start: 05-23-2022 Office outpatient vi sit 15 minutes Nabeel GUTIERREZ [facility] Start: 05-23-2022 Telephone encounter Nabeel MYERS G [facility] Start: 05-23-2022 End: 05-23-2022 ambulatory DO Nabeel Stanton Work Phone: [facility] Work Phone: Start: 05-23-2022 End: 05-23-2022 Patient encounter procedure DO Nabeel Stanton Work Phone: [facility] Start: 04-24-2022 Registered Recurring DO Nabeel Stanton Work Phone: [facility] Work Phone: Start: 04-06-2022 End: 04-07-[address] DOCTOR NOWAK Facility:[facility] Start: 03-08-2022 End: 03-08-2022 ambulatory Nabeel Stanton Other [employer] Other Start: 03-08-2022 Telephone encounter Nabeel Carlisle [facility] Start: 03-05-2022 End: 04-15-2022 ambulatory BART HELMS Facility:[facility] Start: 03-02-2022 End: 03-02-2022 Patient encounter procedure DO Nabeel Stanton Work Phone: [facility] [place] Work Phone: Start: 03-02-2022 End: 03-02-2022 ambulatory Nabeel Stanton Other [employer] Other Start: 03-02-2022 Office outpatient vi sit 15 minutes Nabeel Stanton [facility] Start: 03-02-2022 Telephone encounter Nabeel MYERS [facility] [place] Start: 02-22-2022 End: 03-04-2022 ambulatory BART HELMS Facility:[facility] Start: 02-13-2022 End: 03-04-[address] DOCTOR NOWAK Facility:[facility] Start: 01-08-2022 End: 01-08-2022 ambulatory NELA CURRAN . Facility:[facility] Start: 01-07-2022 End: 01-07-2022 ambulatory NELA CURRAN . Facility:[facility] Start: 11-24-2021 End: 11-24-2021 ambulatory Nabeel Stanton Other [employer] Other Start: 11-24-2021 Office outpatient vi sit 15 minutes Nabeel Stanton [facility] [place] Start: 11-23-2021 End: 11-24-2021 ambulatory NABEEL STANTON [...] Start: 09-12-2021 End: 09-12-2021 Patient encounter procedure Ac Warner MD Work Phone: [facility] Start: 09-07-2021 Chart abstracting Ac eason MD Work Phone: Hematology/Oncology Start: 08-23-2021 End: 08-23-2021 ambulatory Nabeel Stanton Other [employer] Other Start: 08-23-2021 Telephone encounter Nabeel MYERS [facility] [place] Start: 05-23-2021 End: 05-23-2021 ambulatory Nabeel Stanton Other [facility] [employer] Other Start: 05-23-2021 Patient encounter procedure Nabeel Stanton [facility] [place] Procedures Date Procedure Procedure Detail Performing Clinician Start: 08-08-2023 Screening mammograph y of bilateral breasts DO Nabeel Stanton Work Phone: Start: 03-02-2022 Duplex scan of lower limb veins DO Nabeel Stanton Work Phone: Start: 08-23-2020 Urine culture DO Nabeel Stanton Work Phone: Plan of Treatment Date Care Activity Detail Author Start: 10-17-2025 DI[address]ES [address]EN [address] SCREEN [facility] Start: 09-12-2024 DIABETES SCREEN DIABETES SCREEN [facility] Start: 04-10-2024 End: 04-10-2024 Patient encounter procedure 04/10/2024 10:40 AM EST Procedure Visit [facility] [address] [place] [id number] Rahul Stewart DPM [address] [address] [facility] Start: 02-13-2024 End: 02-13-2024 Patient encounter procedure 02/13/2024 9:30 AM EST Office Visit [facility] [address] [place] [id number] Bart Helms, DO [address] [place] [address] [facility] Start: 02-04-2024 End: 02-04-2024 Patient encounter procedure [facility] [address] [facility] Comment on above: Arrived Start: 06-14-2023 End: 06-14-2023 Patient encounter procedure 06/14/2023 1:20 PM EDT Procedure Visit [facility] [address] [place] [id number] Rahul Stewart DPM [address] [facility] [address] [place] [address] [facility] Start: 04-12-2023 End: 04-12-2023 Patient encounter procedure 04/12/2023 9:00 AM EST Office Visit [facility] [address] [facility] [address] [place] [id number] Rahul Stewart DPM [address] [facility] [address] [place] [address] [facility] Start: 11-03-2022 Influenza vaccination INFLUENZA (#1) [facility] Start: 03-05-2022 DEPRESSION ASSESSMENT DEPRESSION ASS ESSMENT [facility] Start: 11-03-2021 Influenza vaccination INFLUENZA (#1) [facility] Start: 09-12-2021 End: 11-12-2021 Cancer Ag 125 [Units/volume] in Serum or Plasma [facility] Work Phone: Comment on above: Expected: 09/12/2021 , Expires: 11/12/2021 Start: 09-12-2021 End: 11-12-2021 Human epididymis protein 4 [Moles/volume] in Serum or Plasma [facility] Work Phone: Comment on above: Expected: 09/12/2021 , Expires: 11/12/2021 Start: 2009 SHINGRIX VACCINE (1 of 2) SHINGRIX VACCINE (1 of 2) [facility] Start: 2004 COLOGUARD (FIT-DNA) COLOGUARD (FIT-D NA) [facility] Start: 2004 Colonoscopy COLONOSCOPY [facility] Start: 2004 COLORECTAL CANCER SCREENING COLORECTAL CANCER SCREENING [facility] Start: [address] COLONOGRAPHY [facility] Start: 2004 DIABETES SCREEN DIABETES SCREEN [facility] Start: 2004 FECAL OCCULT BLOOD FECAL OCCULT BLOO D [facility] Start: 2004 LIPID SCREEN LIPID SCREEN [facility] Start: 2004 SIGMOIDOSCOPY SIGMOIDOSCOPY [facility] Start: 1999 Mammography MAMMOGRAM [facility] Start: 1989 HPV TESTING HPV TESTING [facility] Start: 1980 PAP TESTING PAP TESTING [facility] Start: 1978 Urine microalbumin profile DTAP,TDAP,TD (1 - Tdap) [facility] Start: 1977 HEPATITIS C SCREENING HEPATITIS C SC REENING [facility] Start: 1977 HIV SCREENING HIV SCREENING [facility] Start: 1971 Adult depression screening assessment DEPRESSION SCREENING [facility] Start: 1965 PNEUMOCOCCAL (1 - PCV) PNEUMOCOCCAL (1 - PCV) [facility] Start: 1959 COVID-19 VACCINE (#1) COVID-19 VACCI NE (#1) [facility] [place] [facility] Immunizations Immunization Date Immunization Notes Care Provider Fa tierra 11-23-2021 Influenza, injectabl e, Madin Cira Canine Kidney, preservative free, quadrivalent Ac Warner MD Work Phone: [facility] 11-07-2019 influenza, injectabl e, quadrivalent, preservative free Nabeel Stanton Other [facility] 12-20-2018 influenza, seasonal, injectable Nabeel Stanton Other [facility] 12-20-2018 influenza, injectabl e, quadrivalent, preservative free Ac Warner MD Work Phone: [facility] 11-21-2017 influenza, injectabl e, quadrivalent, preservative free Ac Warner MD Work Phone: [facility] 11-21-2017 influenza, seasonal, injectable Nabeel Stanton Other [facility] 12-08-2014 influenza, injectabl e, quadrivalent, preservative free Ac Warner MD Work Phone: [facility] 12-08-2014 influenza, injectabl e, quadrivalent, contains preservative Nabeel Stanton Other [employer] Other Payers Date Payer Category Payer Medicare [id number] 2023 Medicaid [id number] 2023 Self-pay [id number] 2023 Medicare (Managed Care) [place] [id number] 2021 Medicaid MEDICAID [facility] MEDICAID [id number] 2021-Present [phone] [address] [place] [address] Medicaid [id number] 2021 Medicaid [id number]. [id number] 2021 Unknown ANTHEM BLUE CROS S AND BLUE SHIELD ANTHEM MEDIBLUE O [id number] 2021-Present [phone] [address] [place] [address] O [id number] [id number]. [id number] 2021 Unknown ANTHEM BLUE CROS S AND BLUE SHIELD ANTHEM MEDIBLUE HMO [id number] 2021-Present [phone] [address] [place] [address] HMO [id number]. [id number] 1959 Unknown [id number] 2.16.840.1.934118.3.579.2. 593 1959 Unknown [id number] 2.16.840.1.100964.3.579.2. 593 1959 Unknown [id number] 2.16.840.1.175460.3.579.2. 593 1959 Unknown [id number] 2.16.840.1.953537.3.579.2. 593 1959 Unknown [id number] 2.16.840.1.365934.3.579.2. 593 1959 Unknown [id number] 2.16.840.1.096134.3.579.2. 593 1959 Unknown [id number] 2.16.840.1.969642.3.579.2. 593 1959 Unknown [id number] 2.16.840.1.056886.3.579.2. 593 1959 Unknown [id number] 2.16.840.1.368657.3.579.2. 593 1959 Unknown [id number] 2.16.840.1.786219.3.579.2. 1259 1959 Unknown [id number] 2.16.840.1.383471.3.579.2. 1259 1959 Unknown [id number] 2.16.840.1.793037.3.579.2. 1259 1959 Unknown [id number] 2.16.840.1.739166.3.579.2. 1259 1959 Unknown [id number] 2.16.840.1.902610.3.579.2. 1259 1959 Unknown [id number] 2.16.840.1.304510.3.579.2. 1259 1959 Unknown [id number] 2.16.840.1.843028.3.579.2. 1259 1959 Unknown [id number] 2.16.840.1.530022.3.579.2. 1259 1959 Medicaid [id number] 2.16.840.1.082294.19 1959 Medicare [id number] 2..840.1.201231. Medicare Medicare [id number] Unknown [id number] 2.16.840.1.202384.3.579.2. 531 Unknown [id number] 2..840.1.452561.3.579.2. 531 Social History Date Type Detail Facility Start: 10-17-2022 End: 01-25-2024 Sex Assigned At [facility] Start: 09-07-2021 Tobacco smoking stat [facility] Light tobacco smoker [facility] History of tobacco use Cigar Smoker [facility] Start: 09-07-2021 Tobacco use and exposure Smokeless tobacco non-user [facility] Start: 09-07-2021 End: 01-25-2024 Alcohol intake Current drinker of alcohol (finding) [facility] Start: 1960 Sex Assigned At Not on file C [facility] Start: 09-12-2021 History SDOH Alcohol Comment drinks beer [facility] Start: 09-02-2021 End: 09-12-2021 Exposure to SARS-CoV-2 (event) Not sure [facility] Start: 1960 Sex Assigned At Female F [facility] Start: 10-17-2022 End: 01-25-2024 History of Social function [facility] Adult Depression Screening Assessment 0 [facility] Start: 04-05-2023 [facility] Tobacco smoking consumption unknown [facility] Start: 04-05-2023 Alcohol intake [facility]er [facility] Start: 04-17-2018 [facility] Never smoked tobacco (finding) [facility] Start: 04-29-2024 [facility] Sm[facility] tobacco daily [facility] History of tobacco use Cigarette Smoker [facility] How often to you hav e a drink containing alcohol? 2-4 times a month [facility] How many standard drinks containing alcohol do you have on a typical day? 1 or 2 [facility] How often do you hav e 6 or more drinks on 1 occasion? Never [facility] Clinical Notes 05-23-2021 to 01-28-2024 Telephone Encounter - Rahul Harrell MA - 01/28/2024 3:55 PM ESTTelephone Encounter - Rahul Harrell MA - 01/28/2024 3:55 PM ESTTelephone Encounter - Atul Akers NP - 01/28/2024 1:46 PM EST Note Date & Type Note Facility 01-28-2024 Telephone encount er Note It seems we have been sending this medication since as far back as 02/12/2017. I'm not sure how or why but I did tell the pt this will need to be managed by her PCP. [facility] 01-28-2024 Miscellaneous Notes Formattin g of this note might be different from the original. It seems we have been sending this medication since as far back as 02/12/2017. I'm not sure how or why but I did tell the pt this will need to be managed by her PCP. We do not prescribe singulair. This is a medication used to treat respiratory conditions. Please have the patient reach out to PCP. Requesting refill of montelukast sent to [facility]. Nothing in notes about this medication. Okay to send? documented in this encounter [facility] 01-28-2024 Telephone encount er Note We do not prescribe singulair. This is a medication used to treat respiratory conditions. Please have the patient reach out to PCP. [facility] 01-28-2024 Telephone encount er Note Requesting refill of montelukast sent to [facility]. Nothing in notes about this medication. Okay to send? [facility] 01-25-2024 History of Presen t illness Narrative Patient: Gabrielle Marcos : 1960 PCP: Nabeel Stanton MD SUBJECTIVE This is a 63 y.o. female that presents today with a CC of elongated, thick nails. Pt states nails have been elongated and thick for many years and cause pain with ambulation in shoegear. Pt has tried previous treatment with minimal relief. Pt presents today for nail care and treatment. Pt also has history of venous stasis to b/l lower extremities. 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 Back pain Balance disorder Classical migraine (CMS/HCC) Decreased taste and smell Degenerative disc disease, lumbar Degenerative lumbar disc completed PT Diplopia Disturbance of skin sensation Dizziness Dysuria Gait abnormality Headache Impaired fasting glucose Iron deficiency anemia Lack of coordination Lumbar radiculopathy Malaise and fatigue Marijuana abuse MS (multiple sclerosis) (CMS/HCC) Multiple sclerosis (CMS/HCC) Numbness Numbness and tingling of both feet Other constipation Pain in limb Radiculopathy, lumbosacral region Vitamin D deficiency Weakness of left leg Medications: Current Outpatient Medications: biotin 10 MG capsule, TAKE 1 CAPSULE BY MOUTH EVERY DAY 30 DAYS, Disp: , Rfl: donepezil (Aricept) 10 MG tablet, 1 (one) time each day at the same time, Disp: , Rfl: ergocalciferol (Vitamin D2) 1.25 MG (16409 UT) capsule, TAKE 1 CAPSULE BY MOUTH ONCE PER WEEK, Disp: 12 capsule, Rfl: 0 fluticasone (Flonase) 50 MCG/ACT nasal spray, SPRAY 2 SPRAYS INTO EACH NOSTRIL ONCE DAILY, Disp: , Rfl: gabapentin (Neurontin) 400 MG capsule, TAKE 1 CAPSULE BY MOUTH IN THE MORNING AND 2 CAPSULES AT BEDTIME, Disp: 90 capsule, Rfl: 1 losartan (Cozaar) 25 MG tablet, TAKE 1 TABLET BY MOUTH EVERY DAY FOR 90 DAYS, Disp: , Rfl: montelukast (Singulair) 10 MG tablet, Take 10 mg by mouth in the morning., Disp: , Rfl: ocrelizumab (Ocrevus) 300 MG/10ML solution, , Disp: , Rfl: ondansetron ODT (Zofran-ODT) 4 MG disintegrating tablet, DISSOLVE 1 TABLET UNDER TONGUE EVERY 6 HOURS NEEDED FOR NAUSEA AND VOMITING, Disp: , Rfl: oxybutynin XL (Ditropan-XL) 15 MG 24 hr tablet, Take 15 mg by mouth in the morning., Disp: , Rfl: timolol (Timoptic) 0.5 % ophthalmic solution, INSTILL 1 DROP INTO EACH EYE EVERY MORNING, Disp: , Rfl: Social History: Social History Socioeconomic History Marital status: Spouse name: Not on file Number of children: Not on file Years of education: Not on file Highest education level: Not on file Occupational History Not on file Tobacco Use Smoking status: Every Day Types: Cigarettes, Cigars Smokeless tobacco: Not on file Vaping Use Vaping status: Unknown Substance and Sexual Activity Alcohol use: Yes Drug use: Yes Types: Marijuana Sexual activity: Defer Other Topics Concern Not on file Social History Narrative Not on file Social Drivers of Health Financial Resource Strain: Not on [...] metatarsal cuneiform joint of the left foot Plus one pitting edema to bilateral ankles VASC: Positive palpable pedal pulses bilaterally NEURO: Gross sensation intact to bilateral feet ORTHO: Positive pain on palpation to nails 1 through 10 Positive palpation left foot bony prominence Negative pain on palpation to bilateral calf regions ASSESSMENT 1. Multiple sclerosis (CMS/HCC) 2. Pain due to onychomycosis of toenails of both feet 3. Venous insufficiency 4. Exostosis of left foot PLAN Discussed proper foot care with patient today. Debride nails in length and thickness digits 1 through 10 Rahul Stewart DPM documented in this encounter [facility] 04-05-2023 History of Presen t illness Narrative Patient: Gabrielle Marcos : 1960 PCP: Nabeel Stanton MD SUBJECTIVE [...] Medical History: Diagnosis Date MS (multiple sclerosis) (CMS/HCC) Medications: Current Outpatient Medications: biotin 10 MG [...] Patient may continue with conservative treatments including [id number] anti-inflammatories and other treatments suggested today. Patient may want to be scheduled for surgical intervention in the near future. Patient may decide on possible surgery in the near future and return to clinic in 1 week to further discuss and possible surgical intervention of the removal bone Rahul Stewart DPM documented in this encounter [facility] 11-10-2022 Evaluation note Encounter Date Diagnosis [...] her very aware that she cannot take xusu-knv-xpnbr er NSAIDs. I also advised her to wear supportive footwear at all times, at least leading up to her podiatry appointment Nov, Pes planus of left foot (ICD-10 - M21.42) [employer] Other 08-15-2023 NoteHNO ID: [id number] Author: Ac Warner MD Service: ? Author [...] insight. NEUROLOGICAL: Alert, oriente (more content not included)...[facility]08-15-2023 History of Present illness Narrative* Ac Warner MD - 10/17/2022 8:12 AM EDT PATIENT NAME: Gabrielle Rich Marcos DATE: 10/17/2022 PRIMARY CARE PHYSICIAN: Dr. [...] PATHOLOGY: 07/07/2014 Radical hysterectomy, BSO, tumor debulking ([facility]) Right ovarian resection: Serous borderline tumor, 21 [...] Dr. Bart Helms, BEVERLEY [facility]* Encounter Date Diagnosis Assessment Notes Treatment Notes Treatment Clinical Notes Sep, Essential (primary) hypertension (ICD-10 - I10) [facility] Other 03-21-2023 Evaluation note* Encounter Date Diagnosis [...] does have an appointment with podiatry tomorrow [facility] Other 12-29-2022 Evaluation note* Encounter Date Diagnosis Assessment Notes Treatment Notes Treatment Clinical Notes Feb, Swelling of left lower extremity (ICD-10 - M79.89) At this point we must rule out DVT, order sent stat to the hospital, we will call with results Feb, Pain of left lower extremity (ICD-10 - M79.605) [facility] Other 09-22-2022 Evaluation note* Encounter Date Diagnosis [...] seeing benefit after 2 or 3 weeks [facility] Other 07-12-2022 Miscellaneous Notes* Telephone Encounter - [...] CA125. We will continue as planned. Thanks, BRRosa Isela documented in [facility] History of Present illness Narrative* Ac Warner [...] PATHOLOGY: 07/07/2014 Radical hysterectomy, BSO, tumor debulking ([facility]) Right ovarian resection: Serous borderline tumor, 21 [...] MD CC: BEVERLEY Herrera documented in [facility] Evaluation note* Encounter Date Diagnosis Assessment Notes [...] L98.9) She wants this removed, referral sent [facility] Other Evaluation noteNo InformationNort [employer] Other Evaluation note* Diagnosis Malignant neoplasm of both ovaries (HCC)- Primary Malignant neoplasm of ovary History of multiple sclerosis (HCC) Personal history of other disorders of nervous system and sense organs History of hypertension Personal history of other diseases of circulatory system documented in this encounter [facility]Evaluation noteNo assessment information availableDayton [facility] Work Phone: Evaluation note* Diagnosis Malignant neoplasm of both ovaries (HCC)- Primary Malignant neoplasm of ovary [facility] this encounter [facility]* Diagnosis Exostosis of left foot- Primary Onychomycosis Dermatophytosis of nail Toe pain, bilateral documented in this encounter [facility] HealthcareEvaluation note* Diagnosis Onset Date Resolution Status Essential (primary) hypertension [facility] Work Phone: Evaluation note* Diagnosis Onset Date Resolution Status Venous insufficiency of left lower extremity [facility] Work Phone: Evaluation note* Diagnosis Onset Date Resolution Status Venous insufficiency of left lower extremity acute Essential (primary) hypertension [facility] Work Phone: Evaluation note* Diagnosis Multiple sclerosis (CMS/HCC)- Primary Multiple sclerosis Pain due to onychomycosis of toenails of both feet Venous insufficiency Unspecified venous (peripheral) insufficiency Exostosis of left foot documented in this encounter [facility] HealthcareHistory general Narrative - Reported* Type Description Date Medical History Multiple Sclerosis - Dr. Helms Medical History hay fever Medical History Hypertension Medical History osteopenia - spine Surgical History laparoscopy Surgical History Tonsillectomy Surgical History appendectomy Surgical History epidural injections Surgical History fx'd right ankle - Praveena Chowdary - 6 screws/metal plate 06/23/2014 Surgical History Ovarian cancer - Dr. Culver - per surgeon no further treatment needed 07/07/2014 Surgical History Infusions - Immuno Glogulin Hospitalization History for MS Hospitalization History see surgical hx [employer] Other Reason for Referral Reason left ankle instabili ty, pes planus, has MS Diagnosis 1 Left ankle instabili ty (M25.372) Referral Organization [facility] Referring Provider First Name Nabeel Referring Provider Last Name [place] Referring Provider Specialty Family Prac tj Referred Provider Librado Rosen Referred Provider Specialty Podiatry - S urgical Chiropody Referral Priority Routine Reason * FU 05/30 facial skin lesion Diagnosis 1 Facial skin lesion ( L98.9) Referral Organization [facility] Family Amandajairo jean Grullon Referring Provider First Name Nabeel Referring Provider Last Name Stanton Referring Provider Specialty Family Prac tj Referred Organization [facility] Referred Provider Ernestina Hwang Referred Address ,[place], [place],[address] Referred Provider Specialty Dermatology Referral Priority Routine General Notes Concepción Hunter 12:33:18 PM > referral received and faxed Chief Complaint and Reason for Visit Chief Complaint M79.89 M79.605 MS.. I10 Chief Complaint 6 MONTHFOLLOW UP Screening Reason for Visit Essential (primary) hypertension Chief Complaint Screening lower l leg swelling Reason for Visit Venous insufficiency of left lower extremity Chief Complaint lower l leg swelling Amb Documentation MS.. 6 month follow up Reason for Visit Venous insufficiency of left lower extremity Essential (primary) hypertension Advance Directives Advance Directive Response Recorded Date/ Time Advance Directives No October 29, 2016 8:45am Summary Purpose Family History Relationship Condition Age at Onset Recorded Date/T jessica Not Specified Heart disease Unknown Unknown Relationship Condition Age at Onset Recorded Date/T jessica mother Heart disease Unknown Unknown Additional Source Comments REASON FOR VISIT (unrecogniz ed section and content) Reason Comments Ovarian Cancer new patient consulta tion Reason Comments Results Reason Comments Ovarian Cancer Follow up Reason Comments Toenail Care Non DM nails Reason Comments Toenail Care Non dm nail care Reason Comments Med Refill Source Comments (unrecognize d section and content) In the event this informatio n is protected by the Federal Confidentiality of Alcohol and Drug Abuse Patient Records regulations: The Federal rules restrict any use of the information to criminally investigate or prosecute any alcohol or drug abuse patient.[facility] the event this information is protected by the Federal Confidentiality of Alcohol and Drug Abuse Patient Records regulations: The Federal rules restrict any use of the information to criminally investigate or prosecute any alcohol or drug abuse patient.[facility] the event this information is protected by the [facility] Confidentiality of Alcohol and Drug Abuse Patient Records regulations: The Federal rules restrict any use of the information to criminally investigate or prosecute any alcohol or drug abuse patient.[facility] the event this information is protected by the Federal Confidentiality of Alcohol and Drug Abuse Patient Records regulations: The Federal rules restrict any use of the information to criminally investigate or prosecute any alcohol or drug abuse patient.[facility] Care Teams (unrecognized sec tion and content) Pan Pusher Relationship Specialty Start Date End Date Nabeel Stanton, DO [address] [facility] [place] [address] PCP - General Family Practice 09/12/21 Pan Pusher Relationship Specialty Start Date End Date Nabeel Stanton, [address] [facility] [place] [address] PCP - General Family Practice 09/12/21 Team Status: Active Member Role Status Dates Nabeel Stanton DO Primary Care Provider Active Team Status: Inactive Member Role Status Dates Nabeel Stanton DO Primary Care Provider, Attending Provider Active Team Status: Active Member Role Status Dates Nabeel Stanton DO Primary Care Provider Active Cece Patten APRN RAILCAR FOREMAN-C Attending Provider, Referring Provider Active Pan Pusher Relationship Specialty Start Date End Date Nabeel Stanton DO [address] [facility] [place] [address] PCP - General Family Medicine 09/12/21 Pan Pusher Relationship Specialty Start Date End Date Nabeel Stanton MD [address] [facility] [place] [address] PCP - General Family Medicine 04/05/23 Team [...] September 04, 2023 End: September 04, 2023 Team Status: Active Member Role Status Dates Nabeel Stanton DO Primary Care Provider Active Start: September 04, 2023 Madelaine Bates , JIG BORING MACHINE OPERATOR FOR METAL Attending Provider Active S tart: September 04, 2023 Team Status: Active Member Role Status Dates Nabeel Stanton DO Primary Care Provider Active Start: October 22, 2023 Cece Patten APRN [employer] FOREMAN-C Attending Provider, Referring Provider Active Start: October 22, 2023 Team Status: Inactive Member Role Status Dates Nabeel Stanton DO Primary Care Provid er, Attending Provider Active Start: November 09, 2023 End: November 09, 2023 Pan Pusher Relationship Specialty Start Date End Date Nabeel Stanton MD [address] [facility] [place] [id number] PCP - General Family Medicine 04/05/23 Pan Pusher Relationship Specialty Start Date End Date Nabeel Stanton MD [address] [place] [address] PCP - General Family Medicine 04/05/23 Pan Pusher Relationship Specialty Start Date End Date Nabeel Stanton MD [address] [place] [address] PCP - General Family Medicine 04/05/23 Goals (unrecognized section and content) Goals may be documented in a n alternate section INFORMATION SOURCE (unrecogn ized section and content) DATE CREATED AUTHOR 05/24/2022 [facility] DATE CREATED AUTHOR AUTHOR'S ORGANIZ ATION 10/18/2022 [facility] DATE CREATED AUTHOR AUTHOR'S ORGANIZ ATION 10/22/2023 [facility] DATE CREATED AUTHOR AUTHOR'S ORGANIZ ATION 01/28/2024 [facility] dical Specialists [facility] FOR RECORDS PERTAINING TO PATIENTS WHO ARE [...] BE BASED ON THE PRIMARY CLINICAL RECORDS. [facility] [employer] provides no warranty or guarantee of the accuracy or completeness of information in this document.
[2024-02-04 12:45] LABS: Hematocrit 43.7 % (36.0-48.0); Hemoglobin 14.8 g/dL (12.0-16.0); Mean Corpuscular HGB Conc 33.9 g/dL (29.9-35.2); Mean Corpuscular Hemoglobin 30.9 pg (26.7-34.0); Mean Corpuscular Volume 91.2 fL (81.0-99.0); Mean Platelet Volume 8.9 fL (9.5-13.5); Platelet Count 357 10^3/uL (150-450); Red Blood Count 4.79 10^6/uL (4.20-5.40); Red Cell Distribution Width 13.1 % (11.0-15.0); White Blood Count 10.6 10^3/uL (4.0-11.0)
[2024-02-04 13:08] LABS: Eosinophils Absolute Manual 0.21 10^3/uL (0.00-0.70); Monocytes Absolute Manual 0.53 10^3/uL (0.30-0.80); Segmented Neut Absolute Manual 4.55 10^3/uL (1.4-6.5)
[2024-02-04 13:19] LABS: Alanine Aminotransferase 32 U/L (14-59); Albumin Globulin Ratio 1.1; Albumin Level 3.5 g/dL (3.4-5.0); Alkaline Phosphatase 133 U/L (46-116); Aspartate Amino Transferase 24 U/L (15-37); BUN Creatinine Ratio 12.5; Bilirubin Direct 0.1 mg/dL (0.0-0.2); Bilirubin Total 0.4 mg/dL (0.2-1.0); Calcium 8.9 mg/dL (8.5-10.1); Carbon Dioxide 29.3 mmol/L (21.0-32.0); Chloride 108 mmol/L (98-107); Estimated GFR (African America >60 (>=60 mL/min/1.73m^2); Estimated GFR (Non-African Ame >60 (>=60 mL/min/1.73m^2); Globulin 3.2 g/dL; Glucose 96 mg/dL (74-106); Potassium 4.3 mmol/L (3.5-5.1); Sodium 145 mmol/L (136-145); Total Protein 6.7 g/dL (6.4-8.2)
[2024-02-05 08:23] LABS: Immunoglobulin G, Qn 733 mg/dL (586-1602)
== END 2024-02-04 11:53 | disposition home or self-care (01) ==
LOC: LAB 11:55
PROVIDERS: PCP Family Medicine; Visit Provider Nurse Practitioner Family
DX: Z51.81 Encounter for therapeutic drug level monitoring (principal)
CPT/HCPCS: 36415; 80048; 80076; 82784; 85007; 85027

== ENCOUNTER 2024-09-29 11:21 | Outpatient (OUT) | payer MEDICARE, MEDICAID, SELFPAY ==
[2024-09-29 12:03] LABS: Hematocrit 41.4 % (36.0-48.0); Hemoglobin 13.8 g/dL (12.0-16.0); Immature Granulocytes Abs Auto 0.03 10^3/uL (0.00-0.03); Immature Granulocytes Pct Auto 0.3 % (0.0-0.5); Lymphocytes Absolute Auto 4.7 10^3/uL (1.2-3.8); Mean Corpuscular HGB Conc 33.3 g/dL (29.9-35.2); Mean Corpuscular Hemoglobin 29.9 pg (26.7-34.0); Mean Corpuscular Volume 89.8 fL (81.0-99.0); Platelet Count 351 10^3/uL (150-450); Red Blood Count 4.61 10^6/uL (4.20-5.40); White Blood Count 9.8 10^3/uL (4.0-11.0)
[2024-09-29 12:25] LABS: Alanine Aminotransferase 33 U/L (14-59); Albumin Globulin Ratio 1.1; Albumin Level 3.7 g/dL (3.4-5.0); Alkaline Phosphatase 110 U/L (46-116); Anion Gap 12.5; Aspartate Amino Transferase 21 U/L (15-37); Blood Urea Nitrogen 14.0 mg/dL (7.0-18.0); Calcium 9.0 mg/dL (8.5-10.1); Carbon Dioxide 28.7 mmol/L (21.0-32.0); Chloride 105 mmol/L (98-107); Estimated GFR (African America >60 (>=60 mL/min/1.73m^2); Estimated GFR (Non-African Ame >60 (>=60 mL/min/1.73m^2); Globulin 3.5 g/dL; Glucose 105 mg/dL (74-106); Potassium 4.2 mmol/L (3.5-5.1); Sodium 142 mmol/L (136-145); Total Protein 7.2 g/dL (6.4-8.2)
[2024-09-30 04:11] LABS: Immunoglobulin G, Qn 731 mg/dL (586-1602)
== END 2024-09-29 11:22 | disposition home or self-care (01) ==
LOC: LAB 11:25
PROVIDERS: PCP Family Medicine; Visit Provider Nurse Practitioner Family
DX: Z51.81 Encounter for therapeutic drug level monitoring (principal)
CPT/HCPCS: 36415; 80053; 82784; 85025

== ENCOUNTER 2025-02-05 11:33 | Outpatient (OUT) | payer MEDICARE, MEDICAID, SELFPAY ==
--- OUTSIDE RECORDS SUMMARY | 2025-02-04 07:16 | XMS_ITS | Continuity of Care Document ---
Author Organization [facility] Address [address] [place] [address] Phone Care Team Providers Care Program Clerk Name Role Phone Luis Boyle DO Primary Care Provider Luis Boyle DO Attending Provider Georgina Escobar APRN-MANUFACTURING SR ENGINEER-C Attending Provider + Care Teams Patient Care Team Team Status: Active Member Role/Relationship Status Dates Luis Boyle DO Primary Care Provider Active Visit Care Team Team Status: Inactive Member Role/Relationship Status Dates Luis Boyle DO Primary Care Provider Active Start: November 06, 2024 End: November 06, 2024Thbert Boyle DOAttbre ProviderActiveStart: November 06, 2024 End: November 06, 2024 Visit Care Team Team Status: Inactive Member Role/Relationship Status Dates Luis Boyle DO Primary Care Provider Active Start: November 24, 2024 End: November 24, 2024ThEver Wilson ProviderActiveStart: November 24, 2024 End: November 24, 2024 Visit Care Team Team Status: Inactive Member Role/Relationship Status Dates Luis Boyle DO Primary Care Provider Active Start: December 16, 2024 End: December 16, 2024ThEver Wilson ProviderActiveStart: December 16, 2024 End: December 16, 2024 Visit Care Team Team Status: Inactive Member Role/Relationship Status Dates Luis Boyle DO Primary Care Provider Active Start: January 12, 2025 End: January 12, 2025Georgina Escobar APRN-FNP-CAttending ProviderActive Start: January 12, 2025 End: January 12, 2025 Patient Care Team Team Status: Inactive Member Role/Relationship Status Dates Luis Boyle DO Primary Care Provider Active Start: February 04, 2025 End: February 04, 2025YANNI Chavez-CAttending ProviderActive Start: February 04, 2025 End: February 04, 2025 Chief Complaint and Reason for Visit Chief Complaint Admit Date 6 month follow up November 06, 2024 1:22pm Z12.31 November 24, 2024 11:41am cough/sinus congestion December 16 10:43am Follow up post epi February 04, 2025 1 1:15am Reason for Visit Admit Date Essential (primary) hypertension Septemb er 2024 1:22pm Screening mammogram for breast cancer Se ptember 2024 1:22pm Acute URI December 16, 2024 1 0:43am Encounter for medication monitoring [facility] 2024 10:57am Lumbar radiculopathy January 12, 2025 10:57am Multiple sclerosis January 12, 2025 10:57am Weakness of left lower extremity [facility] 2024 10:57am Encounter for medication monitoring [facility] 2024 11:15am Lumbar radiculopathy February 04, 2025 11:15am Multiple sclerosis February 04, 2025 1 1:15am Weakness of left lower extremity [facility] 2024 11:15am Reason for Referral Type Reason(s) Provider Provider Contact Information [facility] Address Start Date Weakness of left lower extremity Lumbar radiculopathy Multiple wnjjxrxitF92.898 - Other symptoms and signs involving the musculoskeletal system,M54.16 - Radiculopathy, lumbar region,G35 - [facility], 2025 Allergies, Adverse Reactions, Alerts Allergen Type Severity Reaction Last Updated Verified Status cephalexin Allergy Unknown rash February 04, 2025 11:32am Yes Active Cephalosporins Allergy Unknown Unknown Reaction [facility] 2024 11:32am Yes Active Social History Smoking Status Status Start Date End Date Date of Observa tion Current some day smoker May 08, 2024 1:27pm Observation Status Observation Response Date of Response Legal Sex Female (finding) [facility] 1960 Family History Relationship Condition Age at Onset Recorded Date/T jessica mother Heart disease Unknown DeceasedUnknownfatherHigh blood cholesterolUnknown Problems Active Problems Problem Diagnosis/Recorded Date Onset Date Stat us Unspecified dementia, unspec ified severity, without behavioral disturbance, psychotic disturbance, mood disturbance, and anxiety May 08, 2024 1:25pm Unknown Active Lumbar radiculopathy September 29, 2024 7:01am Unknown Active Lumbosacral radiculopathy October 21, 2024 3:40pm Unk nown Active OAB (overactive bladder) May 10, 2023 4:39pm Unknow n Active Encounter for medication monitoring September 29, 2024 9: 23am Unknown Active Mixed hyperlipidemia May 10, 2023 4:39pm Unknown Active Weakness of left lower extremity September 29, 2024 7:02a m Unknown Active Venous insufficiency of left lower extremity September 04, 2023 9:47am Unknown Active Osteopenia May 10, 2023 4:39pm Unknown Activ e Essential (primary) hypertension May 10, 2023 4:39p m Unknown Active Hx of ovarian cancer May 10, 2023 4:39pm Unknown Active Multiple sclerosis May 10, 2023 4:39pm Unknown Active Medications Medication Status Dose Units Route Directions Qty Days Refills S tart Date Stop Date End Date Reason(s) Instructions Adherence Fluticasone Propionate 50 mcg/actuation spray,suspension Discontinued 2 SPRAY INTRANASAL Daily 16 01 06May 07, 2023 11:14am August 06, 2023 2:07pmFluticasone Propionate 50 mcg/actuation spray,suspension Discontinued0.ROUTE.HLFCOVT853Nzgt 2023 2:07pmDecember 2023 8:05amUSE 2 SPRAYS IN EACH NOSTRIL DAILY FOR 30 DAYSOxybutynin Chloride 15 mg tablet extended release 77toCkhrjtdzldpe0.ROUTE.GZGFYEA477Gwjv 2023 11:58am January 28, 2024 7:13pmTAKE 1 TABLET BY MOUTH EVERY DAYLosartan 25 mg tablet Discontinued0.ROUTE.ENLDBAL878Mtyhdt 2023 2:29pmJuly 2024 8:58amTAKE 1 TABLET BY MOUTH EVERY DAY FOR 90 DAYSTriamcinolone Acetonide 0.1 % cream Svefezsjnyid2OTRNMSJRQDRPPLunis daily as needed for udjo493Yehjhq 2023 11:34amJanuary 2024 8:02amOxybutynin Chloride 15 mg tablet extended release 24ppJybccyazutqi0.ROUTE.CTQIASN910YlffqlooJanuary 28, 2024 7:13pmMa2024 11:08amTAKE 1 TABLET BY MOUTH EVERY DAYMontelukast 10 mg ftttwtWijhfa53LYWW Qgmvt731Alhqqmjo 2023 12:00amComplies with drug therapyFluticasone Propionate 50 mcg/actuation spray,suspensionActive0.ROUTE.RTEFOTP011Gyunmgme 2023 8:05amUSE 2 SPRAYS IN EACH NOSTRIL DAILY FOR 30 DAYSComplies with drug therapyTriamcinolone Acetonide 0.1 % creamActive0.ROUTE.GMHDBDK874Qpscquq2024 8:02amAPPLY TO AFFECTED AREA TWICE A DAY NEEDED FOR RASHComplies with drug therapyDonepezil (Aricept) 10 mg aacoveZgaxuxblucyd33JNEJUfycl at trhfyxp85 anuary 2024 11:22amJuly 2024 7:30amOxybutynin Chloride 15 mg tablet extended release 66gyExxkgvasukgs2.ROUTE.GOOIATH110RxzJuly 22, 2024 11:08am October 01, 2024 9:10amTAKE 1 TABLET BY MOUTH EVERY DAYDonepezil 10 mg tablet Discontinued0.ROUTE.AWNMECT629Srhx2024 7:29amJuly 2024 8:58amTAKE 1 TABLET BY MOUTH AT BEDTIMEGabapentin (Neurontin) 400 mg ktdtvrzUzuyvhvrqclq186FK POThree times mhvqn84271Ftyx 2024 10:57amNovember 2024 4:19pm Losartan 25 mg tabletDiscontinued0.ROUTE.TVKNBYR547Huvwkg 2024 5:34pm November 06, 2024 12:40pmTAKE 1 TABLET BY MOUTH EVERY DAY FOR 90 DAYS Oxybutynin Chloride 15 mg tablet extended release 40hpKtctox99AKEFOjasi638 December 29, 2024 8:27amComplies with drug therapyGabapentin (Neurontin) 400 mg xuyxcvoIrzcnj031DQMLJmvxf times uikqs27496Hegyaqvy 10th, 2025 4:19pmComplies with drug therapyDesonide 0.05 % CebrtIcehzjidstuc2MASRNIIIUJJPOJlzyt daily November 19, 2016 11:00pmMarch 2024 1:14pmFluticasone Propionate 50 mcg/actuation Blister With YgsfdvVoraznmvhqps463WSGKJGZSQXHOMCdiiz daily November 19, 2016 11:00pmMarch 2023 11:14amOxybutynin Chloride (Ditropan Xl) 10 mg Tablet Extended Release 71nnLgrtnydkiiix21SMHTOilkvRtljbeilx 2016 11:00pmJuly 2023 11:57amHydrocodone-Acetaminophen 5-325 mg Tablet Ptqkzegfndkt0XGCZGJIMWZ 4-6 HOURS as needed for PainSeptember 2016 11:00pm November 28, 2017 7:56amDonepezil (Aricept) 10 mg ZvjzjhPcuupsiwousx10UOEO Daily at bedtimeSept2016 11:00pmJanuary 2024 11:22amLisinopril 20 mg MjzbpyZgoonesyctgl10JBSQMmokbFmzmmyasj 2016 11:00pmFebruary 2018 12:05pmGabapentin (Neurontin) 400 mg KqfdkhuRaysnfxvhzhu670LKMIUhefu daily November 19, 2016 11:00pmMarch 2024 1:14pmAlprazolam (Xanax) 0.25 mg TabletDiscontinued0.25MGPOTwice daily as needed for AnxietySept2016 11:00pmSeptember 2017 7:56amDocusate Sodium (Colace) 100 mg CapsuleActive 100MGPODailySept2016 11:00pmComplies with drug therapyCalcium Carbonate-Vitamin D3 (Os-Miquel 500 + D3) 500mg (1,250mg) -600 unit TabletActive1 TABPODailySept2016 11:00pmComplies with drug therapyBiotin 1 mg DjdwqvvNycadn6DGFBPwlxkIkmgjpcbh 2016 11:00pmComplies with drug therapy Ergocalciferol (Vitamin D2) (Vitamin D2) 50,000 unit PnrhpjzRxitmvixhocp01881 UNITPOevery weekS2016 11:00pmSeptember 2023 11:41am Teriflunomide (Aubagio) 14 mg GmhmjuIxlieiakzazz58JLJDTxkqqFjvpzgbua 20th, 2017 11:00pmMar 2023 12:00pmHydrocodone-Acetaminophen (Vicodin) 5-300 mg MsqnhlTambkqtlgbof2SCEGMYLVFX 4-6 HOURS as needed for PainSept2016 11:00pmSeptember 2017 7:56amAlprazolam (Xanax) 0.25 mg TabletDiscontinued 0.25MGPODailySept2016 11:00pmSeptember 2017 7:56amAscorbic Acid (Vitamin C) (Vitamin C) 500 mg VmvtwqYwcozj229JMONCtloqCeoebbbwu 20th, 2017 11:00pmComplies with drug therapyVitamin B Complex OjromcQmkgyzjxrvfw5VSMWOPydgu November 22, 2016 11:00pm[facility] 20[facility] 12:00pmMontelukast (Singulair) 10 mg NjawsxZdyqliujrpfs91FMITFebpx eveningJuly 2017 11:00pm[facility] 2023 11:59amLosartan 25 mg XckygxYtzgwtmuslrb75TVMQQarxeNbojmlmr 2018 12:00am October 11, 2023 2:29pmOxybutynin Chloride (Ditropan Xl) 10 mg tablet extended release 26cvLbkfbspebucz94BVUPYtvdiEres 2023 11:57amSepttucson medical center 2023 11:25amDesonide 0.05 % gklmpTsdipb1OGXCFLOKCCNOWLedpz daily as neededGlenbeigh Hospital 2024 1:11pmComplies with drug therapyGabapentin (Neurontin) 400 mg capsule Sqijahzluxly258GSQCIikbl times dailyGlenbeigh Hospital 2024 1:12pmJuly 2024 10:57amOcrelizumab (Ocrevus) 30 mg/mL solutionActiveMGIVMar 2023 12:00am Medication Name: Ocrevus; Note: Source Status: Not-Taking\PRN; Provider: MONTSE Complies with drug therapyTriamcinolone Acetonide 0.1 % creamDiscontinuedAPPLIC TOPICALMarch 2023 12:00amAugust 2023 11:34amFreeTextSig: APPLY TO AFFECTED AREA TWICE A DAY NEEDED; Note: Source Status: Not-Taking\PRN; Refi lls: 1; Qty: 30 Gram; Provider: Montana Smith ( )Peg 885-Naxlrvtjlbaj-Qolrcznv 1-0.2-0.2 % dropsDiscontinuedDROPSOPHTHALMICAs DirectedMarch 2023 12:00amSeptember 2024 12:33pmFreeTextSig: as directed Ophthalmic; Note: Source Status: Not-Taking\PRN; Provider: Montana Smith ( )Oxybutynin Chloride 15 mg tablet extended release 24hr Vaocdxelpuap29VNJLWtvloKygb 2023 11:00pmJuly 2023 11:59amLatanoprost 0.005 % atcovFmznxg3BAFLJHEO-DXBGHrbmjIkcwb 2024 12:00amComplies with drug therapyLosartan 25 mg ofvrdiGptdes86ZSUPFahkeMeucqzceb 2024 12:40pmComplies with drug therapyBrimonidine-Timolol 0.2-0.5 % dropsActiveDROPSOPHTHALMICJuly 2024 11:00pmComplies with drug therapyLosartan 25 mg ujoeajVxzpixhucseq74 MGPODailyJuly 2024 8:58amAugust 2024 5:34pmDonepezil 10 mg tablet Uutvyf70YTSJTloim at bedtimeJuly 2024 8:58amComplies with drug therapy Ketoconazole 2 % oousdsxOxlpmn7NUDBHUQWTHGQPOzhdt a Xrgw4074Udaq 2024 11:00pmSeborrheic dermatitis of scalp Seborrheic dermatitis, unspecifiedComplies with drug therapyOxybutynin Chloride 15 mg tablet extended release 31apRrvgfscfxqoa35RHWIQphaeWrpd 2024 9:10am December 29, 2024 8:27amCompr.Stocking,Knee,Long,Large miscActive0.Npvci30Zfzs 2023 11:00pmVenous insufficiency of left lower extremity Venous insufficiency (chronic) (peripheral)As directed - 20-30mmHgErgocalciferol (Vitamin D2) 1,250 mcg (50,000 unit) tkrawedOcgbwh3292ADANVujbys yeki965Xrrnog 2024 11:00pmComplies with drug therapy Immunizations Immunization Event Date Not Given Reason Dose Number Newspaper Correspondent Lot Number Reason(s) Given Vaccine Information Statement (VIS) Detail Administration Location Quadrivalent Influenza December 08, 2014 Quadrivalent InfluenzaSeptember 2019Trivalent Influenza VaccineSeptember 2017Trivalent Influenza VaccineOctober 2018 Procedures Procedure Date Performed Status MM screening mammo BI w/CAD November 24, 2024 10:45am completed Relevant Diagnostic Tests and/or Laboratory Data Diagnostic Imaging Reports Author Howard Ken [facility] OhioAuthoredSeptember 2024 4:22pmReport Dictated Date/TimeDictated ByStatusRadiology ReportSeptember 2024 4:22pm Howard Ken II [facility] [address] [place] [address] Mammography Report Signed Patient: Gabrielle Marcos MR#: [id number] : 1960 Acct:[id number] Age/Sex: 64 / F Adm Date: 5 Loc: [place] Room: Type: [facility] Attending Dr: Luis Boyle DO Ordering Provider: Luis Boyle DO Date of Service: 11/24/24 Procedure(s): MM screening mammo BI w/CAD Accession Number(s): ([id number]) MM/MM screening mammo BI w/CAD: Z12.31 - Encounter for screening mammogram for malignant ... Copies to: Luis Boyle DO~ CLINICAL DATA: Screening for malignancy. BILATERAL SCREENING MAMMOGRAMS - FULL FIELD DIGITAL WITH TOMOSYNTHESIS AND CAD Tomosynthesis craniocaudal and mediolateral oblique views of both breasts were obtained using low-dose digital technique. Comparison is made to prior studies from 08/08/2023, 06/06/2022, 05/25/2021, 01/06/2020. This examination was reviewed with the aid of CAD. The breast parenchyma has been largely replaced by fat. Benign-appearing lymph nodes are noted along the chest wall. There are no dominant masses, typically malignant calcifications or architectural distortion. There has been no significant interval change. MM/MM screening mammo BI w/CAD IMPRESSION: NO MAMMOGRAPHIC EVIDENCE OF MALIGNANCY. ROUTINE FOLLOW-UP IS RECOMMENDED IN ONE YEAR. RESULT CODE: 2 Benign Findings(s) DENSITY CODE: 1 (<25% glandular) The breasts are almost entirely fatty. FOLLOW UP: 1YR The false-negative rate of mammography is approximately 10-percent. Management of a palpable abnormality must be based on clinical grounds. Patient was entered into a reminder system with a target due date for the next mammogram. Impression dictated by: Howard Ken M.D. 11/24/2024 4:24 PM Dictation Location: [facility] Dictated By: Howard Ken II, MD 11/24/24 1622 Signed By: <Electronically signed by Howard Ken II, MD in [place]> 11/24/24 1624 Vital Signs Vital Reading Result Reference Range Collection Date/Time Height 62 [in_i] November 06, 2024 12:75syZqjjiy94.00 kgSeptember 2024 12:27pmHeart Rate67 /gub63-348Nfohkccbh 4th, 2025 12:27pmOxygen saturation by Pulse zlgvxugc00 % 95-100Sept2024 12:27pmBP Nillzyxp829 mm[Hg]100-140September 2024 12:27pmBP Blmopubum76 mm[Hg]60-100Sept2024 12:27pmBMI (Body Mass Index)33.5 kg/k0Ogxmerreo 2024 12:63qjLnpyrz04 [in_i]December 16, 2024 9:64prXavazu68.72 kgOctober 2024 9:47amBody Hyazkzytntj15.7 [degF] 97.6-99.0October 2024 9:47amHeart Rate68 /wzv23-921Cedyyou 2024 9:47amOxygen saturation by Pulse %95-100October 2024 9:47amBP Jasvzofk097 mm[Hg]100-140October 2024 9:47amBP Rhkgehvrj95 mm[Hg]60-100 December 16, 2024 9:47amBMI (Body Mass Index)34.5 kg/d3Sedjovy 2024 9:32jcBoatcd09.48 kgNovember 2024 11:02amHeart Rate65 /gzl01-559Sfgpmmyb 2024 11:02amOxygen saturation by Pulse %95-100November 2024 11:02amBP Bxyrqxjn677 mm[Hg]100-140Nov2024 11:02amBP Diastolic 86 mm[Hg]60-100November 2024 11:59huAzafil79 [in_i]February 04, 2025 11:53ejBprcyh45.27 kgDeb[facility] 2024 11:30amHeart Rate62 /qys01-143Slukseyi 2024 11:30amOxygen saturation by Pulse jbopzjfj09 %95-100[facility] 2024 11:30amBP Vyobjeom102 mm[Hg]100-140[facility] 2024 11:30amBP Zyirfpgtr68 mm[Hg]60-100[facility] 2024 11:30amBMI (Body Mass Index)34.4 kg/x0Sqssraqb 2024 11:30am Advance Directives Advance Directive Response Recorded Date/ Time Advance Directives No October 29, 2016 7:45am Insurance Providers Guarantor Gabrielle Marcos Address [address] [address]Eicvjge Info.Home Phone: Coverage Status Update:2024 Payer Group Member ID Coverage Type Subscriber Relationship to Subscriber Effective Date Expiration Date Medicaid [id number] J Armstrong Id: [id number] [address] [place] [address] [address] [place] [phone] Home Phone: Email: noneSelfMedicare [id number] J Armstrong Id: [id number] [address] [place] [address] [address] [place] [id number] Home Phone: Email: alanaSeIvan SusieIlyadoug Dual Adv Disabled Id: [id number] J Armstrong Id: [id number] [address] [facility] [address] [place] [phone] Home Phone: Email: noneSelf Encounters Encounter Location(s) Arrival/Admit Date Discharge/Departure Date Discharge/Departure Disposition Provider(s) Departed Physician/ Provider Office Visit -[facility] November 06, 2024 1:22pm November 06, 2024 2:02pm Discharged to home care or self care (routine discharge) Luis Boyle DO [facility] November 24, 2024 11:41am November 24, 2024 11:42am Discharged to home care or self care (routine discharge) Luis Boyle DO Departed Physician/ Provider Office Visit -[facility] December 16, 2024 10:43am December 16, 2024 11:51am Discharged to home care or self care (routine discharge) Luis Boyle DO Departed Physician/ Provider Office Visit -[facility] January 12, 2025 10:57am January 12, 2025 11:56am Discharged to home care or self care (routine discharge) MEMO Chavez Departed Physician/ Provider Office Visit -[facility] February 04, 2025 11:15am February 04, 2025 12:14pm Discharged to home care or self care (routine discharge) MEMO Chavez Recent Diagnosis Onset Date Admit Date Essential (primary) hypertension Unknown November 06, 2024 1:22pm Screening mammogram for breast cancer Unknown November 06, 2024 1:22pm Acute URI Unknown December 16 10:43am Encounter for medication monitoring Unknown January 12, 2025 10:57am Lumbar radiculopathy Unknown January 122024 10:57am Multiple sclerosis Unknown January 10:57am Weakness of left lower extremity Unknown January 12, 2025 10:57am Encounter for medication monitoring Unknown February 04, 2025 11:15am Lumbar radiculopathy Unknown February 11:15am Multiple sclerosis Unknown February 04, 2025 11:15am Weakness of left lower extremity Unknown February 04, 2025 11:15am Assessments Diagnosis Onset Date Resolution Status Admit Date Essential (primary) hypertension acuteSept2024 1:22pmScreening mammogram for breast cancernoneactive November 06, 2024 1:22pmAcute URInoneactiveOctober 2024 10:43amEncounter for medication monitoringacuteNovember 2024 10:57amLumbar radiculopathy chronicNovember 2024 10:57amMultiple sclerosischronicNovember 2024 10:57amWeakness of left lower extremitychronicNovtucson medical center 2024 10:57am Encounter for medication monitoringacuteDecember 2024 11:15amLumbar radiculopathychronicDecember 2024 11:15amMultiple sclerosischronicDecember 2024 11:15amWeakness of left lower extremitychronicDeceer 2024 11:15am Plan of Treatment Author Luis Boyle [facility] 2024 1:01pmI added a lipid panel to her neurology lab work, she will remain on her current medications. Order was also sent for mammogram Author Georgina Escobar [facility] 2024 5:54pmThe patient has a history of lumbar radiculopathy. She reports chronic low back pain with intermittent radiation to the L4/L5 dermatomal distribution. Also, with chronic lower extremity weakness, left more severe than right. BLE EMG on 08/20/2019 revealed a left L5 radiculopathy. MRI of the lumbar on 08/04/2019 revealed degenerative changes at L3-4 and L4-5 resulting in central and foraminal stenosis. The patient underwent bilateral L5 epidural injections on 10/21/2024 with significant improvement in symptoms (greater than 75% reduction in pain with effects lasting almost 3 months). Epidural injections continue to improve the patient's functional ability and quality of life. She remains active at home and wishes to proceed with further injections, as her back pain has started to gradually increase. Biotin supplementation and gabapentin have also provided benefit for her neuropathic pain. PLAN: - Plan for repeat bilateral L5 epidural injections on 02/10/2025. Risks including but not limited to epidural hematoma, contrast reaction, infection, cumulative steroid dose risk, reduced bone mineral density, increased risk of fractures, allergic reaction, and weakness have been reviewed with the patient. She verbalizes understanding wishes to proceed - Referral to physical therapy for evaluation and treatment. Reordered today (the patient was referred to physical therapy at the prior neurology appointment but states she was never contacted to schedule this) - Continue gabapentin - take 400 mg by mouth daily in the morning, and take 800 mg by mouth daily in the evening. OARRS reviewed Ms. Marcos is a 64-year-old female with a history of multiple sclerosis (MS). She states this was initially diagnosed at 40 years of age at which time she presented with numbness in the bilateral fingers. She has tried and failed Aubagio in the past. She is currently on Ocrevus. The patient does report chronic symptoms of fatigue, cognitive dysfunction (minimal), bladder dysfunction, numbness, weakness, and balance/coordination difficulty but believes these have been subjectively stable recently. She ambulates with a cane and denies any signs or symptoms to suggest MS exacerbation since the prior neurology appointment. MRI of the brain in Nov 2020 revealed stability of MS lesions without any progression. MRI of the brain on 11/23/2021 revealed 3 foci of white matter signal abnormality on restricted diffusion, suggestive of punctate areas of acute demyelination without postcontrast enhancement. MRI of the brain on 10/31/2022 then revealed a tiny focus of active demyelination suspected within the posterior medial right parietal lobe. MRI of the brain on 10/03/2023 was then stable. The patient has a history of demyelinating lesions in the cervical spine but not the thoracic spine. Most recent MRI of the brain on 10/24/2024 identified moderate burden of demyelination appearing overall unchanged, accounting for differences in technique. MRI of the cervical spine on 10/24/2024 identified multifocal areas of demyelination throughout the cervical cord without evidence of active demyelination. This was not directly compared to prior MRI cervical spine, and I believe some of the demyelinating cord lesions may have been better evaluated on the most recent MRI, as this was completed via a 3 Roxie scanner. PLAN: - Continue high efficacy disease modifying therapy with Ocrevus to help reduce the risk of future MS progression/exacerbation and increased disability - Continue Ocrevus 600 mg IV every 6 months - Referral to physical therapy for updated evaluation and treatment. Reordered today - Of note, the patient was previously on IVIG infusions q5 weeks while being treated by BB. These have since been stopped due to concerns for unnecessary and extra immunosuppression Likely due to both lumbar radiculopathy and MS. This has been stable since her last office visit. Ocrevus use. Labs on 09/29/2024 were generally unremarkable but did identify an elevated ALC. PLAN: - Recheck labs (CBC, CMP, and IgG) in approximately 2 months for medication monitoring. Will trend ALC Diagnoses and treatment plan discussed. The patient verbalizes understanding and is agreeable to the plan. All questions answered. Author Luis Boyle [facility] OhioAuthoredOctober 2024 10:57amWe discussed that given her symptoms and her exam this does appear to be a viral upper respiratory infection. She has been improving daily but I did advise her to call right away with any worsening symptoms, especially considering her immunocompromise status. Continue with the Robitussin, Flonase, nasal saline and push fluids Author Neva Sanchez [facility] OhioAuthoredDecember 2024 12:47pmMs. Hemant is a 64-year-old female with a history of multiple sclerosis (MS). She states this was initially diagnosed at 40 years of age at which time she presented with numbness in the bilateral fingers. She has tried and failed Aubagio in the past. She is currently on Ocrevus. The patient does report chronic symptoms of fatigue, cognitive dysfunction (minimal), bladder dysfunction, numbness, weakness, and balance/coordination difficulty but believes these have been subjectively stable recently. She ambulates with a cane and denies any signs or symptoms to suggest MS exacerbation since the prior neurology appointment. MRI of the brain in Nov 2020 revealed stability of MS lesions without any progression. MRI of the brain on 11/23/2021 revealed 3 foci of white matter signal abnormality on restricted diffusion, suggestive of punctate areas of acute demyelination without postcontrast enhancement. MRI of the brain on 10/31/2022 then revealed a tiny focus of active demyelination suspected within the posterior medial right parietal lobe. MRI of the brain on 10/03/2023 was then stable. The patient has a history of demyelinating lesions in the cervical spine but not the thoracic spine. Most recent MRI of the brain on 10/24/2024 identified moderate burden of demyelination appearing overall unchanged, accounting for differences in technique. MRI of the cervical spine on 10/24/2024 identified multifocal areas of demyelination throughout the cervical cord without evidence of active demyelination. This was not directly compared to prior MRI cervical spine, and I believe some of the demyelinating cord lesions may have been better evaluated on the most recent MRI, as this was completed via a 3 Roxie scanner. PLAN: - Continue high efficacy disease modifying therapy with Ocrevus to help reduce the risk of future MS progression/exacerbation and increased disability - Continue Ocrevus 600 mg IV every 6 months - Referral to physical therapy for updated evaluation and treatment. Reordered today - Of note, the patient was previously on IVIG infusions q5 weeks while being treated by BB. These have since been stopped due to concerns for unnecessary and extra immunosuppression The patient has a history of lumbar radiculopathy. She reports chronic low back pain with intermittent radiation to the L4/L5 dermatomal distribution. Also, with chronic lower extremity weakness, left more severe than right. BLE EMG on 08/20/2019 revealed a left L5 radiculopathy. MRI of the lumbar on 08/04/2019 revealed degenerative changes at L3-4 and L4-5 resulting in central and foraminal stenosis. The patient underwent bilateral L5 epidural injections on 10/21/2024 with significant improvement in symptoms (greater than 75% reduction in pain with effects lasting almost 3 months). Epidural injections continue to improve the patient's functional ability and quality of life. She remains active at home and wishes to proceed with further injections, as her back pain has started to gradually increase. Biotin supplementation and gabapentin have also provided benefit for her neuropathic pain. PLAN: - Plan for repeat bilateral L5 epidural injections on 02/10/2025. Risks including but not limited to epidural hematoma, contrast reaction, infection, cumulative steroid dose risk, reduced bone mineral density, increased risk of fractures, allergic reaction, and weakness have been reviewed with the patient. She verbalizes understanding wishes to proceed - Referral to physical therapy for evaluation and treatment. Reordered today (the patient was referred to physical therapy at the prior neurology appointment but states she was never contacted to schedule this) - Continue gabapentin - take 400 mg by mouth daily in the morning, and take 800 mg by mouth daily in the evening. OARRS reviewed Likely due to both lumbar radiculopathy and MS. This has been stable since her last office visit. Ocrevus use. Labs on 09/29/2024 were generally unremarkable but did identify an elevated ALC. PLAN: - Recheck labs (CBC, CMP, and IgG) in approximately 2 months for medication monitoring. Will trend ALC Diagnoses and treatment plan discussed. The patient verbalizes understanding and is agreeable to the plan. All questions answered. Future Tests Future scheduled test information is unavailable Pending Tests Pending diagnostic test information is unavailable Future Visits Future appointment information is unavailable Future Procedures Procedure Name Ordered Date Scheduled Date Lipid Panel November 06, 2024 12:43pm Complete Blood Count Auto DiffNovember 2024 11:50am2 MonthsCMP with reflex to K1AOxufegjl 2024 11:50am2 MonthsMISC LABNovember 2024 11:50am Future Medications Future medication information is unavailable Patient Instructions Patient instructions are unavailable
--- OUTSIDE RECORDS SUMMARY | 2025-02-05 11:49 | XMS_ITS | Clinical Summary ---
Author Organization [facility] Address [address] [place] [address] Care Team Providers Care Professional Nurse Name Role Phone Luis Boyle DO Primary Care Provider + Allergies Active AllergyReactionsCriticalityNoted DateCommentsCephalexinHives,Itching,Rash Otftul7201/12/2016 Medications MedicationSigDispense QuantityRefillsLast FilledStart DateEnd DateStatus lisinopril (ZESTRIL, PRINIVIL) 20 mg tablet Take 20 mg by mouth once daily.Active ALPRAZolam (XANAX) 0.25 mg tablet TAKE 1 TABLET BY MOUTH ONCE A DAY NEEDED FOR LVENHEN3912/15/2015Active Biotin 10,000 mcg cap Take 1 tablet by mouth once daily.12/15/2015Active desonide (DESOWEN) 0.05 % lotion APPLY TO SKIN TWICE A DAY ROQLOA6304/25/2016Active docusate sodium (COLACE) 100 mg capsule Take by mouth q 24 HR.Active donepezil (ARICEPT) 10 mg tablet Take by mouth q 24 HR.12/16/2015Active ergocalciferol 50,000 unit capsule (VITAMIN D2, DRISDOL) Take 1 capsule by mouth one time a week.12/15/2015Active ergocalciferol 50,000 unit capsule (VITAMIN D2, DRISDOL) TAKE 1 CAPSULE BY MOUTH ONCE PER WEEK07/02/2021ctive gabapentin (NEURONTIN) 400 mg capsule Take by mouth q 12 HR.12/11/2015Active losartan (COZAAR) 25 mg tablet Take by mouth.04/17/2018Active montelukast (SINGULAIR) 10 mg tablet Take by mouth q 24 HR.08/27/2017Active oxybutynin ER (DITROPAN XL) 15 mg 24 hr Extended Rel Tab Take 15 mg by mouth once daily.08/01/2021ctive latanoprost (XALATAN) 0.005 % ophthalmic solution 1 Drop daily at bedtime.Active Immunizations ImmunizationAdministration DatesNext Dueinfluenza (IIV4) vaccine, age 6 mo - 64 yr, quadrivalent, PF (AFLURIA, FLUARIX, FLULAVAL, FLUZONE)11/07/2019,12/20/2018, 11/21/2017,12/08/2014influenza (ccIIV4) vaccine, age 6+ mo, quadrivalent, PF (FLUCELVAX)11/23/2021 Social History Tobacco UseTypesPacks/DayYears UsedDateSmoking Tobacco: Light SmokerCigars Smokeless Tobacco: NeverAlcohol UseStandard Drinks/WeekCommentsYes0 (1 standard drink = 0.6 oz pure alcohol)drinks beerPHQ-2AnswerDate RecordedPHQ-2 score0 10/17/2022rea Deprivation IndexAnswerDate RecordedNational Score (1-100), lower number is lower bjrp041410/17/2022State Score (1-10), lower number is lower risk7 10/17/2022ata from: https://www.neighborhoodatlas.[facility].edu/. Last address used for ij[address]/17/2022CommentsNoSex and Gender InformationValueDate RecordedSex Assigned at BirthNot on fileLegal Sex Djgauk1408/09/2021 1:35 PM EDTGender IdentityNot on fileSexual OrientationNot on file Last Filed Vital Signs Vital SignReadingTime TakenCommentsBlood Zvshpaal852/6308 3:03 PM EDT Ruvgg1960/15/2023 3:03 PM PQPVdspegfpmoy51.5 ??C (97.7 ??F)10/17/2022 3:03 PM EDTRespiratory Ubvt081910/17/2022 3:03 PM EDTOxygen Jkptkmhvbo65%10/17/2022 3:03 PM EDTInhaled Oxygen Concentration--Xxvufd41.5 kg (175 lb 3.2 oz)10/17/2022 3:03 PM XPBBcuzrp633 cm (5' 2.99 )10/17/2022 3:03 PM EDTBody Mass Index31.04 10/17/2022 3:03 PM EDT Plan of Treatment Health MaintenanceDue DateLast DoneCommentsAnxiety Xwrgfaezd83/11/1978Depression Jbfkkodss45/11/1978HIV Kcvqmkbds54/11/1978Hepatitis C Mfogcfvzh75/11/1978 DTaP,Tdap,Td Vaccine (1 - Tdap)1978Pneumococcal Vaccine: 50+ (1 of 2 - PCV)1978Mammogram Peyzbjhgb57/11/2000CT Vwuackxxuacj82/11/2005Colonoscopy 2004Fecal Occult Blood2004Lipid Ffsvlogif21/11/2005Sigmoidoscopy 2004Shingrix Vaccine (1 of 2)2009Cologuard (FIT-DNA)12/26/2023 12/25/2020, 12/03/2017Colorectal Cancer Indvsrrfg86/23/2024Medicare Advantage Annual Wellness Visit03/05/2024dvance Directive Cmcrshukgc68/11/2025one Density Yqwqjfrkj80/11/2025Covid-19 Vaccine ( - season)2024 Influenza Vaccine (#1)509/, 11/07/2019, 12/20/2018, Additional history existsDiabetes Vouzcqmka36/15/056060/, 2RSV Vaccine (1 - 1-dose 75+ series)2034 Procedures Procedure NamePriorityDate/TimeAssociated DiagnosisCommentsCOMPREHENSIVE METABOLIC QFSOGCxmyzvm62/15/2023 3:00 PM EDT Malignant neoplasm of both ovaries (HCC) from Last 3 Months or Most Recently Relevant to Health Maintenance Results * (ABNORMAL) COMP METABOLIC PANEL (10/17/2022 3:00 PM EDT)ComponentValueRef RangeTest MethodAnalysis TimePerformed AtPathologist SignatureProtein, Total 6.56.3 - 8.0 g/dL10/17/2022 3:35 PM [facility] Albumin4.23.9 - 4.9 g/dL10/17/2022 3:35 PM EDTJ[facility] LABCalcium, Total9.38.5 - 10.2 mg/dL10/17/2022 3:35 PM [facility] LABBilirubin, Total0.20.2 - 1.3 mg/dL10/17/2022 3:35 PM [facility] LABAlkaline Bffzyumxvyr45789 - 123 U/L 10/17/2022 3:35 PM [facility] UJHWDT7452 - 35 U/L 10/17/2022 3:35 PM [facility] CYLCSG005 - 38 U/L 10/17/2022 3:35 PM [facility] VWEMmezkdc496(H)74 - 99 mg/dL10/17/2022 3:35 PM [facility] LABComment: The [place] Diabetes Association (ADA) provides guidance for cutoff values for fasting glucose andrandom glucose. The ADA defines fasting as no [...] Standards of Medical Care in Diabetes 2016, [place] Diabetes Association. Diabetes Care. 2016.39(Suppl 1). JGX538 - 21 mg/dL10/17/2022 3:35 PM [facility] Creatinine1.08(H)0.58 - 0.96 mg/dL10/17/2022 3:35 PM [facility] SPYNtyeet888867 - 144 mmol/L10/17/2022 3:35 PM [facility] LABPotassium4.43.7 - 5.1 mmol/L10/17/2022 3:35 PM EDT [facility] QVNEhivdlil837(H)97 - 105 mmol/L10/17/2022 3:35 PM EDTJ.[facility] DLPLD74431 - 30 mmol/L10/17/2022 3:35 PM EDTJ.[facility]. [facility] LABAnion Gap7(L)9 - 18 mmol/L 10/17/2022 3:35 PM EDTJ.[facility]. [facility] LABEstimated Glomerular Filtration Rate58(L)>=60 mL/min/1.73m 10/17/2022 3:35 PM EDTJ.W. [facility] LABComment:Estimated Glomerular Filtration Rate (eGFR) is calculated using the 2020 CKD-EPI creatinine equation. This equation utilizes serum creatinine, sex, and age as parameters. The creatinine assay has traceable calibration to isotope dilution- mass spectrometry. Refer to KDIGO guidelines for clinical interpretation. In patients with unstable renal function, e.g. those with acute kidney injury, the eGFRmay not accurately reflect actual GFR.Specimen (Source)Anatomical Location / LateralityCollection Method / VolumeCollection TimeReceived TimeBloodBLOOD SPECIMEN / UnknownVenipuncture / Aqvemcy9910/17/2022 3:00 PM EDT10/17/2022 3:00 PM EDT Narrative Authorizing ProviderResult TypeResult StatusAc Warner MDLABORATORY Final ResultPerforming OrganizationAddressCity/State/ZIP CodePhone Number [facility] [address] [place] [address] from Last 3 Months or Most Recently Relevant to Health Maintenance Insurance Care Teams Team MemberRelationshipSpecialtyStart DateEnd Date Luis Boyle DO [address] [facility] [place] [address] PCP - GeneralFamily Medicine09/12/21
--- OUTSIDE RECORDS SUMMARY | 2025-02-05 11:50 | XMS_ITS | Patient Health Record ---
Author Organization [facility] [place] Address [address] [place] [place] [address] Care Team Providers Care Hydroelectric Station Operator Name Role Phone Luis Boyle DO Primary Care Provider Unavaila ble Allergies Allergen (clinical drug ingredient) Drug/Non Drug Allergy documented on EMR Reaction Allergy Type Onset Date Status KeflexrashDrug AllergyActive Reason For Referral No Information Medications Medication SIG (Take, Route, Frequency, Duration) Notes Start Date End Date Status Montelukast Sodium 10 MG 1 tablet Orally Once a day ActiveLosartan Potassium 25 MG1 tablet Orally Once a dayActiveFluticasone Propionate 50 MCG/ACT1 spray in each nostril Nasally Once a dayActiveDonepezil HCl 10 MG1 tablet at bedtime Orally Once a dayActiveColace 100 MG1 capsule as needed Orally Once a dayActiveBiotin 52594 MCG1 tablet Orally Once a dayActive oxyBUTYnin Chloride 5 MGtake 10 - 15 mg Q4 hours PRN(2-3 tabs) Orally Once a day ActiveOcrelizumab 300 MG/10MLas directed IntravenousActiveNeurontin 400 MG1 capsule Orally Once a dayActive Social History Tobacco Use: Social History Observation Description Date Details (start date - stop date) Former Smoker NA - NA Tobacco Use/Smoking Question Answer Notes Patient is a former smoker Problems Problem Type SNOMED Code ICD Code Onset Dates Problem Status W/U Status Risk Notes Problem Late effect of fract ure of lower extremities (03633997) Other fracture of left lower leg, sequela (S82.892S) ActiveconfirmedProblemAnkle instability (618983)Ankle instability, 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)Activeconfirmed Plan Of Treatment No Information Insurance Providers Payer Name Payer Address Payer Phone Subscriber Number Group Number Insured Name Patient Relationship to Insured Coverage Start Date Coverage End Date [employer] MEDICARE ADV PLAN [address] A JORGE ULLOA [phone] [id number] Denny Marcosvaldo - patient is the insuredMEDICAID [address] [facility] [address] [place] [id number]o - patient is the insured Medical (General) History Medical History History ICD Code Multiple sclerosis G35 Hay fever 477.9 Hypertension 401.9 Osteopenia 733.90 Other specified disorders of bone densit y and structure, other site M85.88 Ovarian Cancer Surgical History Surgery Date(Month/Year) Laparoscopy TonsillectomyAppendectomyFractured right ankle06/23/2014Ovarian Cancer Sx Hospitalization History Reason Date(Month/Year) MS Epidural injections
--- OUTSIDE RECORDS SUMMARY | 2025-02-05 11:50 | XMS_ITS | Clinical Summary ---
Author Organization [employer] [facility] tem Address [facility] [id number] [address] [place] [address] Care Team Providers Care Livestock Farm Workers Name Role Phone Luis Boyle DO Primary Care Provider [phone] Allergies Active AllergyReactionsCriticalityNoted DateCommentsCephalexinHives,Itching Nszvuq5001/12/2016 Medications MedicationSigDispense QuantityRefillsLast FilledStart DateEnd DateStatus gabapentin (NEURONTIN) 400 mg capsule TAKE 1 CAPSULE TWICE A DAY AND 2 AT MMXEJIU253Active biotin 10,000 mcg capsule Take 1 tablet by mouth once daily.Active ALPRAZolam (XANAX) 0.25 mg tablet TAKE 1 TABLET BY MOUTH ONCE A DAY NEEDED FOR DNGZGEK897/12/2016Active donepezil (ARICEPT) 10 mg tablet Take 10 mg by mouth once daily.Active ergocalciferol (DRISDOL) 50,000 unit capsule Take 1 capsule by mouth once a week.111Active fluticasone (FLONASE) 50 mcg/actuation nasal spray USE 2 SPRAYS ONCE A DAY NASALLY 30 DAY(S)Active HYDROcodone-acetaminophen (NORCO) 5-325 mg per tablet TAKE 1 TO 2 TABLETS BY MOUTH EVERY 4-6 HOURS JRNNFG923/12/2016Active oxybutynin XL (DITROPAN-XL) 10 mg 24 hr tablet Take 10 mg by mouth once daily.Active desonide (DESOWEN) 0.05 % lotion APPLY TO SKIN TWICE A DAY JYFCEE914Active montelukast (SINGULAIR) 10 mg tablet Take 10 mg by mouth nightly.Active losartan (COZAAR) 25 mg tablet Take 25 mg by mouth daily.Active Active Problems ProblemNoted DateDiagnosed DateMalignant neoplasm of ovary08/02/2016Visit for screening xigtabxms10/31/2017 Family History Medical HistoryRelationNameCommentsBreast cancerNeg HxCervical cancerNeg HxColon cancerNeg HxLung cancerNeg HxOvarian cancerNeg Hx Social History Tobacco UseTypesPacks/DayYears UsedDateSmoking Tobacco: Light SmokerCigarettes CigarsSmokeless Tobacco: NeverAlcohol UseStandard Drinks/WeekCommentsYes0 (1 standard drink = 0.6 oz pure alcohol)ChildcareAnswerDate RecordedChildcare Amuznfn9808/12/2018EmploymentAnswerDate AoyngbvoNozhkuimvhAnymxfe99/10/2019Purpose - LifeAnswerDate RecordedPurpose and direction in dfzlUcrnmgg51/10/2021 CommentsUnknownSex and Gender InformationValueDate RecordedSex Assigned at Not on fileLegal ZweJknjpc43/04/2015 12:01 PM EDTGender IdentityNot on file Sexual OrientationNot on file Last Filed Vital Signs Vital SignReadingTime TakenCommentsBlood Sqolrxxh182/7407 11:29 AM EDT Pulse--Vaietjdicms17.5 ??C (97.7 ??F)09/29/2020 11:24 AM EDTRespiratory Rate-- Oxygen Saturation--Inhaled Oxygen Concentration--Yjyxux36.5 kg (173 lb) 09/29/2020 11:24 AM FLLHcdrrl481 cm (5' 2.99 )09/29/2020 11:24 AM EDTBody Mass Index30.65009/29/2020 11:24 AM EDT Plan of Treatment Health MaintenanceDue DateLast DoneCommentsDepression Xifimygwo85/11/1972Tobacco Uuzfrqkfx92/11/1972Adult BMI Jxljlttpv63/11/1978DTaP,Tdap and Td Vaccines (1 - Tdap)1978Zoster (Shingles) Vaccine (1 of 2)1978Fall Risk Screening 2024Influenza Adbjujl66/01/596000/06/2019, 12/20/2018, 11/21/2017, Additional history existsRSV ( or age 60+ yrs) (1 - 1-dose 75+ series) 2034 Medical Devices Not on file Insurance * Guarantor: Gabrielle Marcos TypeRelation to PatientDate of PhoneBilling AddressPersonal/SmzztuJrur32/11/[address] [address] Care Teams Team MemberRelationshipSpecialtyStart DateEnd Date Luis Boyle DO [facility]08/02/16
--- OUTSIDE RECORDS SUMMARY | 2025-02-05 11:50 | XMS_ITS | Clinical Summary ---
Author Organization [facility] Address [address] [place] [address] Care Team Providers Care Jewelry Drill Operator Name Role Phone Luis Boyle MD Primary Care Provider Allergies Active AllergyReactionsCriticalityNoted UejnRdjefsdyBcomqabfhu40/10/2017Pollen Jhddcfc8212/30/2018 Trees, grasses, garza Guuqzxgwktw33/28/2019 Medications MedicationSigDispense QuantityRefillsLast FilledStart DateEnd DateStatus fluticasone (Flonase) 50 MCG/ACT nasal spray SPRAY 2 SPRAYS INTO EACH NOSTRIL ONCE DAILYActive losartan (Cozaar) 25 MG tablet TAKE 1 TABLET BY MOUTH EVERY DAY FOR 90 DAYSActive montelukast (Singulair) 10 MG tablet Take 10 mg by mouth in the morning.Active ondansetron ODT (Zofran-ODT) 4 MG disintegrating tablet DISSOLVE 1 TABLET UNDER TONGUE EVERY 6 HOURS NEEDED FOR NAUSEA AND VOMITING 02/09/2023ctive oxybutynin XL (Ditropan-XL) 15 MG 24 hr tablet Take 15 mg by mouth in the morning.03/12/2023ctive donepezil (Aricept) 10 MG tablet 1 (one) time each day at the same timeActive ocrelizumab (Ocrevus) 300 MG/10ML solution 05/11/2023ctive timolol (Timoptic) 0.5 % ophthalmic solution INSTILL 1 DROP INTO EACH EYE EVERY RWFDSWD7308/06/2023ctive Biotin Maximum Strength 61081 MCG tablet Indications:Lumbosacral radiculopathyTAKE 1 TABLET BY MOUTH EVERY DAY 90 tablet ctive ergocalciferol (Vitamin D2) 1.25 MG (54531 UT) capsule Indications:Vitamin D deficiencyTAKE 1 CAPSULE BY MOUTH ONCE PER WEEK 12 capsule 04/07/2024tive gabapentin (Neurontin) 400 MG capsule Indications:Lumbar radiculopathyTAKE 1 CAPSULE BY MOUTH IN THE MORNING AND 2 CAPSULES AT BEDTIME 90 capsule 5Active Active Problems ProblemNoted DateDiagnosed DateMS (multiple sclerosis)07/02/2023 Overview (07/02/2023): Patient has a history of MS and is currently on Ocrevus. She failed Aubagio. Brain MRI from Nov 2020 showed stability without any new lesions. She has continued without any new symptoms. She is veryfunctional and only requires minimal use of a cane (intermittently). Despite this MRI brain on 11/23/2021 shows 3 foci of white matter signal abnormality on restricted diffusion suggesting punctate areas of acute demyelination with no postcontrast enhancement. MRI of the cervical spine shows findings consistent with chronic MS and thoracic spine unremarkable from an MS standpoint. Brain MRI 2022 with a tiny focus of active demyelination suspected within the posteromedial right parietal lobe. Wehave discussed the importance of ongoing agressive MS treatment. STABLE. PLAN - REORDERLabs - Continue Ocrevus infusions (June 2023); we discussed the need for serial imaging, serial labs, and routine cancer screening. - Labs - MRI of the brain October 2023 - Continue PT home exercises - Of note, she was previously on IVIG infusions q5 weeks while being treated by [facility]. We have since stopped these, due to concerns for unnecessary and extra immunosuppression, and she has been okay with this plan. Numbness and tingling of both feet07/02/2023ecreased taste and smell07/02/2023 Marijuana abuse07/02/20230654Koqvmpsp66/29/2024Medication monitoring encounter 07/02/2023ack pain07/02/2023alance panuzyqq24/29/2024Lumbar radiculopathy 07/02/2023 Overview (07/02/2023): Patient has underlying degenerative changes at L3/4 and L4/5 with foraminal stenosis as seen on MRIin 2019 causing lumbar radiculopathy. EMG showed left L5 radiculopathy which was moderate. Epiduralinjections provided relief over greater than 50%, but pain has since returned and she wishes repeatinjection. - PLAN - Plan for repeat bilateral L5 epidural injections; risks including infection, bleeding, contrast reaction, cumulative steroid dosing, and weakness were discussed. Patient understands and would like to proceed. - Continue PT home exercises - Continue gabapentin 400mg AM, 800mg PM - Okay to continue biotin supplementation, she states this has been beneficial for her nerve pain in addition to the gabapentin Degenerative lumbar disc07/02/2023 Overview (07/02/2023): completed PT Weakness of left leg07/02/2023Foraminal stenosis of lumbar kwjruf8507/02/2023 Protrusion of lumbar intervertebral disc07/02/2023Foot drop, left07/02/2023 Exacerbation of multiple nhatveyil78/29/2024Left leg ypejvefj87/29/2024 Overview (07/02/2023): Likely due to both lumbar radiculopathy and MS. This has been stable since her last visit. Patient reports increased stability since PT and denies any recent falls. PLAN: - Continue home PT exercises Low back pain, unspecified back pain laterality, unspecified chronicity, unspecified whether sciatica xdsuboc5807/02/2023 Overview (07/02/2023): Previously with increased back pain after a fall. Acute back pain has resolved and she is back to her chronic baseline. Encounters DateTypeDepartmentCare UjlkNeqmqxicrgj00/18/2025 10:50 AM EDTProcedure Visit [facility] [address] [facility] [address] [place] [id number] Rahul Stewart DPM Multiple sclerosis (HCC) (Primary Dx); Pain due to onychomycosis of toenails of both feet; Venous insufficiency; Exostosis of left foot11/20/2024amboo flowsheet [facility] [address] [facility] [address] [place] [phone] Rahul Stewart DPM 11/20/2024Travelfrom Last 3 Months Family History Medical HistoryRelationNameCommentsHyperlipidemiaFatherMigrainesOtherRelation NameStatusCommentsFatherDeceasedMotherDeceasedOther Social History Tobacco UseTypesPacks/DayYears UsedDateSmoking Tobacco: Every DayCigarettes Cigars Tobacco Cessation:Ready to Q uit: Not Asked; Counseling Given: Yes Alcohol UseStandard Drinks/WeekCommentsYes0 (1 standard drink = 0.6 oz pure alcohol)AUDIT-CAnswerDate RecordedQ1: How often do you have a drink containing alcohol?2-4 times a month07/02/2023Q2: How many drinks containing alcohol do you have on a typical day when you are drinking?1 or Q3: How often do you have six or more drinks on one occasion?Never07/02/2023CommentsUnknown Sex and Gender InformationValueDate RecordedSex Assigned at BirthNot on file Legal YhrDdbpvk83/15/2023 6:42 PM EDTGender IdentityNot on fileSexual OrientationNot on file Last Filed Vital Signs Vital SignReadingTime TakenCommentsBlood Vzteltnt879/7804 11:25 AM EDT Mysqf483107/01/2024 11:25 AM EDTTemperature--Respiratory Ealg861411/20/2024 10:38 AM EDTOxygen Zyhnwhdmfs95%04/30/2024 11:44 AM ESTInhaled Oxygen Concentration-- Gdvojy49 kg (183 lb)11/20/2024 10:38 AM SONWvtlpc957.9 cm (5' 1 )11/20/2024 10:38 AM EDTBody Mass Index34.5809 10:38 AM EDT Plan of Treatment DateTypeDepartmentCare Team (Latest Contact Info)Cgjvhilsugx89/11/2025 10:50 AM ESTProcedure Visit [facility] [address] [facility] [address] [place] [phone] Rahul Stewart DPM [id number] [facility] [address] [place] [address] Insurance Care Teams Team MemberRelationshipSpecialtyStart DateEnd Luis Boyle MD [address] [facility] [place] [phone] PCP - GeneralFamily Medicine06/19/24
--- OUTSIDE RECORDS SUMMARY | 2025-02-05 11:55 | XMS_ITS | CCD ---
Author Organization [facility] Care Team Providers Care Paring Machine Operator Name Role Phone Nabeel Stanton Unavailable Unavailable Primary Care Provider UnavailNabeel Mayfield DO Primary Care Provider DO Nabeel Stanton Primary Care Provider DO Nabeel Stanton Attending Provider [phone] LIONEL Patten Attending Provider LIONEL Patten Referring Provider NABEEL STANTON Primary Care Unavailable Karina Bernstein Unavailable SINDY, YISEL Admitting Unavailable SINDY, YISEL Attending Unavailable SINDY, YISEL Consulting Unavailable SINDY, YISEL Admitting Unavailable SINDYYISEL Attending Unavailable SINDY, YISEL Consulting Unavailable [facility] NABEEL [facility] Care Unavailable ELIU, DR BRADLEY Admitting Unavailable Karina Bernstein Consulting Unavailable ELIU, DR BRADLEY Attending Unavailable NABEEL STANTON [facility] Care Unavailable MISC, DR BRADLEY Consulting Unavailable ATUL AKERS Consulting Unavailable BART HELMS Admitting Unavailable BART HELMS Attending Unavailable ROMY NABEEL [facility] Care Unavailable MISC, DR BRADLEY Attending Unavailable MISC, DR BRADLEY Admitting Unavailable [facility] NABEEL Primary Care Unavailable NELA PALMA Attending Unavailable STANTON NABEEL Primary Care Unavailable BINA Oliveira, NELA Consulting Unavailable BINA Oliveira, NELA Admitting Unavailable SCOOTER CHRISTOPHER Admitting Unavailable BART HELMS Attending Unavailable STANTON, NABEEL [facility] Care Unavailable BART HELMS Attending Unavailable MERLIN HELMSOPHMARVIN Admitting Unavailable STANTON NABEEL Primary Care Unavailable BINA Oliveira, NELA Attending Unavailable BINA Oliveira, NELA Admitting Unavailable [facility] NABEEL [facility] Care Unavailable GADSDENNABEEL [place] Primary Care UnavailAC Pretty Attending Unavailable AC WARNER Referring Unavailable AC WARNER Referring Unavailable NABEEL STANTON Primary Care Unavailjorge e Nabeel Stanton DO Primary Care Provider Nabeel Stanton MD Primary Care Provider [phone] DO Nabeel Stanton Primary Care Provider DO Nabeel Stanton Referring Provider Self, Referral Attending Provider Unavailable DO Nabeel Stanton Primary Care Provider LIONEL Patten Attending Provider LIONEL Patten Referring Provider Nabeel Stanton DO Primary Care Provider Cece Patten APRN Attending Provider Cece Patten APRN Referring Provider Nabeel Stanton MD Primary Care Provider Nabeel Stanton MD Primary Care Provider Nabeel Stanton DO Primary Care Provider Shawn FLOWERS-JESSICA-Georgina Yao Attending Provider Nabeel Stanton DO Attending Provider Bart Helms DO Attending Provider Cece Patten APRN Attending Provider Cece Patten APRN Referring Provider Kinsey Salazar Attending Provider Unavailable Nabeel Stanton MD Primary Care Provider RAHUL PATEL Attending Unavailable BART HELMS Attending Unavailable RAHUL PATEL Attending Unavailable BART HELMS Attending Unavailable RAHUL PATEL Attending Unavailable RAHUL PATEL Attending Unavailable RAHUL PATEL Attending Unavailable ATUL AKERS Attending Unavailable BART HELMS Attending Unavailable ATUL AKERS Referring Unavailable Nabeel Stanton Primary Care Unavailable Georgina Escobar Admitting Unavailable Georgina Escobar Attending Unavailable Nabeel Stanton Admitting Unavailable Nabeel Stanton Primary Care Unavailable Nabeel Stanton Attending Unavailable Nabeel Stanton Primary Care Unavailable Cece Patten Admitting Unavailab Cece Bautista Attending Unavailab Cece Bautista Referring Unavailab Nabeel Stapleton MD Primary Care Provider Nabeel Stanton MD Primary Care Provider Nabeel Stanton DO Primary Care Provider Bart Helms DO Attending Provider Shawn ELEMENTARY EDUCATION TUTOR-FAMILY RESOURCE COORDINATOR-CGeorgina Attending Provider Cece Patten APRN Attending Provider Cece Patten APRN Referring Provider Kinsey Salazar Attending Provider Unavailable Nabeel Stanton DO Attending Provider Allergies Allergy ClassificationReported Allergen(s)Allergy TypeDate of OnsetReaction(s) FacilityCephalosporins (antibiotic) (2 sources)CephalexinDrug Tuuhjah06-62-1632nhjr, Unknown ReactionMer[facility] (12 sources)Cephalexin; Translations: [Keflex][facility] (20 sources)Cephalexin; Translations: [CEPHALEXIN]Drug Hmsmdhs83-75-7056Fzkye, Itching, RashSumma Health (12 sources)Cephalosporins (Antibiotic); Translations: [Cephalosporins]Allergy to odbyresmf25-99-5713Tsqolpl ReactionMercy Health Anderson Hospital (20 sources)PollenPropensity to adverse cuecmtfhm38-07-2834[facility] (20 sources)OctacosanolPropensity to adverse xvltuntrb44-10-2371C[facility] (1 source)CephalexinDrug Almofby64-15-7613ElpllnfgjMercy Health [facility] Hospital Repository Medications Current Medications MedicationDrug Class(es)DatesSig (Normalized)Sig (Original)ascorbic acid 500 mg oral tablet (13 sources)Vitamin CStart: 66-40-1386hjva 1 tablet by mouth once dailyAscorbic Acid (Vitamin C) (Vitamin C) 500 mg Tablet Active 500 MG PO Daily November 22, 2016 11:00pm Complies with drug therapybiotin 10 mg oral tablet (20 sources)Start: 41-47-5425htcd 1 tablet by mouth once dailyBiotin Maximum Strength 88712 MCG tablet Indications: Lumbosacral radiculopathy TAKE 1 TABLET BY MOUTH EVERY DAY 90 tablet 1 02/19/2024 ActiveStart: 45-07-2925oquq 1 capsule by mouth once dailybiotin 10 MG capsule TAKE 1 CAPSULE BY MOUTH EVERY DAY 30 DAYS 02/03/2023 ActiveStart: 88-17-3811jena 1 capsule by mouth once dailyBiotin 1 mg Capsule Active 1 MG PO Daily November 19, 2016 11:00pm Complies with drug therapyStart: 02-34-1712wcft 1 tablet by mouth once dailyBiotin 10,000 mcg cap Take 1 tablet by mouth once daily. 0 12/15/2015 Activetake 1 tablet by mouth once dailyBiotin 99408 MCG 1 tablet Orally Once a day ActiveComment on above: Take 1 tablet by mouth once daily.brimonidine tartrate 2 mg/ml / timolol 5 mg/ml ophthalmic solution (8 sources)alpha-Adrenergic Agonist, beta-Adrenergic BlockerStart: 09-29-2024 Brimonidine-Timolol 0.2-0.5 % drops Active DROPS OPHTHALMIC September 28, 2024 11:00pm Complies with drug therapycalcium carbonate 1250 mg / cholecalciferol 600 unt oral tablet (13 sources)Vitamin DStart: 30-58-4512qrmq 1 tablet by mouth once dailyCalcium Carbonate-Vitamin D3 (Os-Miquel 500 + D3) 500mg (1,250mg) -600 unit Tablet Active 1 TAB PO Daily November 19, 2016 11:00pm Complies with drug therapy Compr.Stocking,Knee,Long,Large (2 sources)Start: 76-01-5231Vvdmo.Stocking,Knee,Long,Large Active 0 .Route 2 September 04, 2023 12:00am As directed - 20-30mmHgCompr.Stocking,Knee,Long,Large misc (9 sources)Start: 47-28-3238Imqgp.Stocking,Knee,Long,Large misc Active 0 .Route 2 0 September 03, 2023 11:00pm Venous insufficiencyof left lower extremity Venous insufficiency (chronic) (peripheral) As directed - 20-30mmHgStart: 09-04-2023 Compr.Stocking,Knee,Long,Large misc Active 0 .Route 2 September 04, 2023 12:00am As directed - 20-30mmHgdesonide 0.5 mg/ml topical cream (20 sources)CorticosteroidStart: 11-20-2016 End: 10-66-3017Ronlwlsz 0.05 % cream Active 1 APPLIC TOPICAL Twice daily as needed May 08, 2024 1:11pm Complieswith drug therapyStart: 58-30-5063sxxovcrk (DESOWEN) 0.05 % lotion APPLY TO SKIN TWICE A DAY NEEDED 0 04/25/2016 Active Comment on above:APPLY TO SKIN TWICE A DAY NEEDEDdiclofenac sodium 50 mg delayed release oral tablet (1 source)Nonsteroidal Anti-inflammatory DrugStart: 22-90-9267otgi 1 tablet by mouth every twelve hoursDiclofenac Sodium 50 MG 1 tablet as needed Orally Twice a day for 30 days Nov, Activedocusate sodium 100 mg oral capsule (20 sources)Start: 07-74-5815zbgt 1 capsule by mouth once dailyDocusate Sodium (Colace) 100 mg Capsule Active 100 MG PO Daily November 19, 2016 11:00pm Complies with drug therapydocusate sodium (COLACE) 100 mg capsule Take by mouth q 24 HR. 0 ActiveComment on above:Take by mouth q 24 HR.donepezil hydrochloride 10 mg oral tablet (20 sources)Start: 64-45-2321bbob 1 tablet by mouth once daily at bedtime Donepezil 10 mg tablet Active 10 MG PO Daily at bedtime October 01, 2024 8:58am Complies with drug therapyStart: 09-15-2024 End: 96-92-1781kode 1 tablet by mouth at bedtimeDonepezil 10 mg tablet Discontinued 0 .ROUTE .COMPLEX 90 September 15, 2024 7:29am October 01, 2024 8: 58am TAKE 1 TABLET BY MOUTH AT BEDTIMEStart: 11-20-2016 End: 05-87-6334chlf 1 tablet by mouth once daily at bedtimeDonepezil (Aricept) 10 mg tablet Discontinued 10 MG PO Daily at bedtime 90 April 01, 2024 11:2 2am September 15, 2024 7:30amStart: 98-73-4287tzdooomlw (ARICEPT) 10 mg tablet Take by mouth q 24 HR. 0 12/16/2015 ActiveComment on above:Take by mouth q 24 HR. ergocalciferol 1.25 mg oral capsule (20 sources)Provitamin D2 CompoundStart: 92-58-7773rmhz 1 capsule by mouth every weekErgocalciferol (Vitamin D2) 1,250 mcg (50,000 unit) capsule Active 1250 MCG PO every week 12 October 26, 2024 11:00pm Complies with drug therapyStart: 88-17-7572fwdy 1 capsule by mouth every weekergocalciferol (Vitamin D2) 1.25 MG (76910 UT) capsule Indications: Vitamin D deficiency TAKE 1 CAPSULE BY MOUTH ONCE PER WEEK 12 capsule 02/06/2024 ActiveStart: 12-15-2015 End: 87-12-0664rync 1 capsule by mouth every weekErgocalciferol (Vitamin D2) (Vitamin D2) 50,000 unit Capsule Discontinued 93452 UNIT PO every week November 22, 2016 11:00pm November 09, 2023 11:41amComment on above:Take 1 capsule by mouth one time a week.TAKE 1 CAPSULE BY MOUTH ONCE PER WEEKfluticasone propionate 0.05 mg/actuat metered dose nasal spray (20 sources)CorticosteroidStart: 08-06-2023 End: 68-09-3215elvn 2 spray(s) nasal route once dailyFluticasone Propionate 50 mcg/actuation spray,suspension Active 0 .ROUTE .COMPLEX 48 1 February 08, 2024 8:05am USE 2 SPRAYS IN EACH NOSTRIL DAILY FOR 30 DAYS Complies with drug therapy Start: 05-07-2023 End: 66-93-1041Mtlvymwnevs Propionate 50 mcg/actuation spray,suspension Discontinued 2 SPRAY INTRANASAL Daily 16 30 3 May 07, 2023 11:14am August 06, 2023 2:07pmStart: 11-20-2016 End: 63-11-1852ymnm 100 ug by inhalation twice dailyFluticasone Propionate 50 mcg/actuation Blister With Device Discontinued 100 MCG INHALATION Twice daily November 19, 2016 11:00pm May 07, 2023 11:14amtake 2 spray(s) nasal route once dailyfluticasone (Flonase) 50 MCG/ACT nasal spray SPRAY 2 SPRAYS INTO EACH NOSTRIL ONCE DAILY Activetake 2 spray(s) nasal route once dailyFluticasone Propionate 50 MCG/ACT USE 2 SPRAYS IN EACH NOSTRIL ONCE DAILY for 90 Active gabapentin 400 mg oral capsule (20 sources)Anti-epileptic AgentStart: 05-08-2024 End: 51-67-5843cblu 1 capsule by mouth three times dailyGabapentin (Neurontin) 400 mg capsule Active 400 MG PO Three times daily 90 30 3 September 24, 2024 10: 57am Complies with drug therapyStart: 11-20-2016 End: 11-70-2570jxav 1 capsule by mouth twice dailyGabapentin (Neurontin) 400 mg Capsule Discontinued 400 MG PO Twice daily November 19, 2016 11:00pm May 08, 2024 1:14pmStart: 13-52-3976quxmdxgkhw (NEURONTIN) 400 mg capsule Take by mouth q 12 HR. 0 12/11/2015 Activetake 2 capsules by mouth twice daily in the eveningNeurontin 400 MG 1 capsule am, ; 2 pm Orally BID ActiveComment on above: Take by mouth q 12 HR.ketoconazole 20 mg/ml medicated shampoo (7 sources)Azole AntifungalStart: 70-41-9924Hevyioskqjby 2 % shampoo Active 1 APPLIC TOPICAL Twice a Week 120 0 September 30, 2024 11:00pm Seborrheic dermatitis of scalp Seborrheic dermatitis, unspecified Complies with drug therapy latanoprost 0.05 mg/ml ophthalmic solution (12 sources)Prostaglandin AnalogStart: 83-23-9717xotl 1 drop(s) into the eye(s) once dailyLatanoprost 0.005 % drops Active 1 DROPS EYE-BOTH Daily May 08, 2024 12:00am Complies with drug therapyStart: 80-12-9883ooxq 1 drop(s) into the eye(s) once dailyLatanoprost 0.005 % drops Active 1 DROPS EYE-BOTH Daily May 08, 2024 1:00amtake 1 drop(s) into the eye(s) once daily at bedtimelatanoprost (XALATAN) 0.005 % ophthalmic solution 1 Drop daily at bedtime. 0 ActiveComment on above:1 Drop daily at bedtime.losartan potassium 25 mg oral tablet (20 sources)Angiotensin 2 Receptor BlockerStart: 93-96-4833oquo 1 tablet by mouth once dailyLosartan 25 mg tablet Active 25 MG PO Daily November 06, 2024 12:40pm Complies with drug therapyStart: 10-19-2024 End: 43-04-9208gsai 1 tablet by mouth once dailyLosartan 25 mg tablet Discontinued 0 .ROUTE .COMPLEX 90 3 October 19, 2024 5:34pm November 06, 2024 12:40pm TAKE 1 TABLET BY MOUTH EVERY DAY FOR 90 DAYSStart: 10-01-2024 End: 79-86-0319xium 1 tablet by mouth once dailyLosartan 25 mg tablet Discontinued 25 MG PO Daily October 01, 2024 8:58am October 19, 2024 5:34pm Start: 10-11-2023 End: 46-40-8830maas 1 tablet by mouth once dailyLosartan 25 mg tablet Discontinued 0 .ROUTE .COMPLEX 90 3 October 11, 2023 2:29pm October 01, 2024 8: 58am TAKE 1 TABLET BY MOUTH EVERY DAY FOR 90 DAYSStart: 48-18-5974zrjb 1 tablet by mouth once dailyLosartan Active 0 .ROUTE .COMPLEX 90 October 11, 2023 3:29pm TAKE 1 TABLET BY MOUTH EVERY DAY FOR 90 DAYSStart: 04-17-2018 End: 84-49-1741xomz 1 tablet by mouth once dailyLosartan 25 mg Tablet Discontinued 25 MG PO Daily April 18, 2018 12:00am October 11, 2023 2:29pm Comment on above:Take by mouth.montelukast 10 mg oral tablet (20 sources)Leukotriene Receptor AntagonistStart: 89-89-7825vvud 1 tablet by mouth once dailyMontelukast 10 mg tablet Active 10 MG PO Daily 90 January 29, 2024 12:00am Complies with drug therapyStart: 09-17-2017 End: 93-56-5586szun 1 tablet by mouth once daily in the eveningMontelukast (Singulair) 10 mg Tablet Discontinued 10 MG PO Every evening September 16, 2017 11:00pm May 11, 2023 11:59amStart: 36-19-3905tvttqugpdff (SINGULAIR) 10 mg tablet Take by mouth q 24 HR. 0 08/27/2017 ActiveComment on above:Take by mouth q 24 HR.10 ml ocrelizumab 30 mg/ml injection (20 sources)Start: 97-94-1075geonrrqkrlf (Ocrevus) 300 MG/10ML solution 05/11/2023 ActiveStart: 65-72-7866Yqnpktfqvse (Ocrevus) 30 mg/mL solution Active MG IV May 11, 2023 12:00am Medication Name: Ocriman; Note: Source Status: Not-Taking\PRN; Provider: MONTSE Complies with drug therapyondansetron 4 mg disintegrating oral tablet (20 sources)Serotonin-3 Receptor AntagonistStart: 87-46-0431lgxqidmxpmw ODT (Zofran-ODT) 4 MG disintegrating tablet DISSOLVE 1 TABLET UNDER TONGUE EVERY 6 HOURS NEEDED FOR NAUSEA AND VOMITING 02/09/2023 Qbmtop15 hr oxybutynin chloride 15 mg extended release oral tablet (20 sources)Cholinergic Muscarinic AntagonistStart: 10-01-2024 End: 35-45-9575ahho 1 tablet by mouth once dailyOxybutynin Chloride 15 mg tablet extended release 24hr Active 15 MG PO Daily 90 December 29, 2024 8:27am Complies with drug therapyStart: 09-04-2023 End: 73-78-6886dzcf 1 tablet by mouth once dailyOxybutynin Chloride 15 mg tablet extended release 24hr Discontinued 0 .ROUTE .COMPLEX 90 July 22, 2024 11:08am October 01, 2024 9:10am TAKE 1 TABLET BY MOUTH EVERY DAYStart: 09-04-2023 take 1 tablet by mouth once dailyOxybutynin Chloride Active 0 .ROUTE .COMPLEX September 04, 2023 12:58pm TAKE 1 TABLET BY MOUTH EVERYDAYStart: 09-04-2023 End: 53-15-0195cwse 1 tablet by mouth once dailyOxybutynin Chloride 15 mg tablet extended release 24hr Discontinued 15 MG PO Daily September 03, 2023 11:00pm September 04, 2023 11:59amStart: 58-69-8883fzip 1 tablet by mouth every twenty-four hours in the morningoxybutynin XL (Ditropan-XL) 15 MG 24 hr tablet Take 15 mg by mouth in the morning. 03/12/2023 ActiveStart: 79-76-1717dyrx 1 tablet by mouth once dailyoxybutynin ER (DITROPAN XL) 15 mg 24 hr Extended Rel Tab Take 15 mg by mouth once daily. 0 08/01/2021 ActiveStart: 11-20-2016 End: 13-36-6591csad 1 tablet by mouth once dailyOxybutynin Chloride (Ditropan Xl) 10 mg tablet extended release 24hr Discontinued 10 MG PO Daily September 04, 2023 11:57am November 09, 2023 11:25amComment on above:Take 15 mg by mouth once daily.Peg 485-Goaeeccmekus-Zbgcclmo (3 sources)Start: 39-75-9417Uly 280-Ivzgiwjmcdou-Kvlflnei Active DROPS OPHTHALMIC As Directed May 11, 2023 1:00am FreeTextSig: as directed Ophthalmic; Note: Source Status: Not-Taking\PRN; Provider: Romy Smith ( )Peg 677-Qhkmogtthucs-Dgvyhhza 1-0.2-0.2 % drops (1 source)Start: 80-21-4544Wtn 164-Ipuzhuayciek-Katnglqx 1-0.2-0.2 % drops Active DROPS OPHTHALMIC As Directed May 1041:00am FreeTextSig: as directed Ophthalmic; Note: Source Status: Not-TakingundefinedPRN; Provider: Romy Mac ( )12 hr timolol 5 mg/ml ophthalmic solution (20 sources)beta-Adrenergic BlockerStart: 81-78-1256vfiv 1 drop(s) into the eye(s) once daily in the morningtimolol (Timoptic) 0.5 % ophthalmic solution INSTILL 1 DROP INTO EACH EYE EVERY MORNING 08/06/2023 Activetriamcinolone acetonide 1 mg/ml topical cream (20 sources)CorticosteroidStart: 37-88-9615Fdcmofvbtzxkn Acetonide 0.1 % cream Active 0 .ROUTE .COMPLEX 80 1 March 24, 2024 8:02am APPLY TO AFFECTED AREA TWICE A DAY NEEDED FOR RASH Complies with drug therapyStart: 05-11-2023 End: 54-69-1676Ufpcvlihawgla Acetonide 0.1 % cream Discontinued 1 APPLIC TOPICAL Twice daily as needed for rash 800 October 26, 2023 11:34am March 24, 2024 8:02amStart: 05-11-2023 End: 08-20-3311Inzhhcatmwnzl Acetonide Active 1 APPLIC TOPICAL Twice daily 80 October 26, 2023 12:34pmStart: 00-81-8916Ofyrpluvxlkcs Acetonide 0.1 % 1 application Externally bid PRN Mar, Active Completed/Discontinued Medications MedicationDrug Class(es)DatesSig (Normalized)Sig (Original)acetaminophen 300 mg / HYDROcodone bitartrate 5 mg oral tablet (20 sources)Opioid AgonistStart: 11-23-2016 End: 30-32-7635qpdq 1 tablet by mouth every four to six hours as needed for pain Hydrocodone-Acetaminophen (Vicodin) 5-300 mg Tablet Discontinued 1 TAB PO EVERY 4-6 HOURS as neededfor Pain November 22, 2016 11:00pm November 28, 2017 7:56amStart: 11-20-2016 End: 05-54-9954vqzq 2 tablets by mouth every four to six hours as needed for painHydrocodone-Acetaminophen 5-325 mg Tablet Discontinued 2 TAB PO EVERY 4-6 HOURS as needed for Pain November 19, 2016 11:00pm November 28, 2017 7:56amALPRAZolam 0.25 mg oral tablet (20 sources)BenzodiazepineStart: 11-20-2016 End: 07-73-5857uazs 1 tablet by mouth twice daily as needed for anxiety Alprazolam (Xanax) 0.25 mg Tablet Discontinued 0.25 MG PO Twice daily as needed for Anxiety November 19, 2016 11:00pm November 28, 2017 7:56amStart: 12-15-2015 End: 73-56-9109adcb 1 tablet by mouth once dailyAlprazolam (Xanax) 0.25 mg Tablet Discontinued 0.25 MG PO Daily November 22, 2016 11:00pm November 28, 2017 7:56amComment on above:TAKE 1 TABLET BY MOUTH ONCE A DAY NEEDED FOR ANXIETYbupivacaine hydrochloride 2.5 mg/ml injectable solution (12 sources)Amide Local AnestheticStart: 07-01-2024 End: 75-65-8469emezvnehclm (Marcaine) 0.25 % injection 2.5 mgStart: 07-01-2024 End: 42-39-4835cgsexjarllb (Marcaine) 0.25 % injection 2.5 mgStart: 07-01-2024 End: 52.5 mg (1 mL), Injection, Once, On Sun07/01/24 at 1330, For 1 doseStart: 07-01-2024 End: 52.5 mg (1 mL), Injection, Once, On Sun07/01/24 at 1330, For 1 doseStart: 02-13-2024 End: 72-01-2117goxsyrwjbaq (Marcaine) 0.25 % injection 2.5 mgStart: 02-13-2024 End: 95-58-8018igfshxgbshl (Marcaine) 0.25 % injection 2.5 mgStart: 02-13-2024 End: 42.5 mg (1 mL), Injection, Once, On Sun02/13/24 at 1030, For 1 doseStart: 02-13-2024 End: 42.5 mg (1 mL), Injection, Once, On Sun02/13/24 at 1030, For 1 doseStart: 10-23-2023 End: 15-02-2000lkzopjwxlns (Marcaine) 0.25 % injection 2.5 mgStart: 10-23-2023 End: 83-14-2987zcoikipyzgn (Marcaine) 0.25 % injection 2.5 mgStart: 10-23-2023 End: 42.5 mg (1 mL), Injection, Once, On Sun10/23/23 at 1000, For 1 doseStart: 10-23-2023 End: 42.5 mg (1 mL), Injection, Once, On Sun10/23/23 at 1000, For 1 dosedexamethasone phosphate 10 mg/ml injectable solution (12 sources)CorticosteroidStart: 07-01-2024 End: 88-63-0335uafTUYFShcgug sod phos (Decadron) injection 10 mgStart: 07-01-2024 End: 35-53-3752yyvVRUZDzekdm sod phos (Decadron) injection 10 mgStart: 07-01-2024 End: 29-24-780013 mg (1 mL), Injection, Once, On Sun07/01/24 at 1330, For 1 dose Start: 07-01-2024 End: 38-47-275943 mg (1 mL), Injection, Once, On Sun07/01/24 at 1330, For 1 dose Start: 02-13-2024 End: 29-86-1620oavAKCZSktjbq sod phos (Decadron) injection 10 mgStart: 02-13-2024 End: 60-00-6018rzpNYEEKundas sod phos (Decadron) injection 10 mgStart: 02-13-2024 End: 62-92-323256 mg (1 mL), Injection, Once, On Sun02/13/24 at 1030, For 1 doseStart: 02-13-2024 End: 90-64-090444 mg (1 mL), Injection, Once, On Sun02/13/24 at 1030, For 1 doseStart: 10-23-2023 End: 34-51-0608jreIVTUKuzwxq sod phos (Decadron) injection 10 mgStart: 10-23-2023 End: 07-67-528144 mg (1 mL), Injection, Once, On Sun10/23/23 at 1000, For 1 dose glycerin 2 mg/ml / hypromellose 2 mg/ml / polyethylene glycol 400 10 mg/ml ophthalmic solution (19 sources)Non-Standardized Chemical AllergenStart: 05-11-2023 End: 31-49-8426Env 259-Wudsbhrznxbf-Iwyfhxxw 1-0.2-0.2 % drops Discontinued DROPS OPHTHALMIC As Directed May 11, 2023 12:00am November 06, 2024 12:33pm FreeTextSig: as directed Ophthalmic; Note: Source Status:Not-Taking\PRN; Provider: Romy Smith ( )Dry Eye Relief Drops 0.2-0.2-1 % as directed Ophthalmic Not-Takingiohexol (OMNIPaque) 180 MG/ML injection 2 mL (4 sources)Start: 10-23-2023 End: 16-25-4343cxdzmgg (OMNIPaque) 180 MG/ML injection 2 mLStart: 10-23-2023 End: mL, Injection, Once in imaging, Starting on Sun10/23/23 at 0945, For 1 doseiohexol (OMNIPaque) 300 MG/ML injection 2 mL (8 sources)Start: 07-01-2024 End: 78-61-6589ggcjpvf (OMNIPaque) 300 MG/ML injection 2 mLStart: 07-01-2024 End: mL, Injection, Once in imaging, Starting on Sun07/01/24 at 1324, For 1 doseStart: 02-13-2024 End: 23-27-1258qbuwalw (OMNIPaque) 300 MG/ML injection 2 mLStart: 02-13-2024 End: mL, Injection, Once in imaging, Starting on Sun02/13/24 at 1020, For 1 doselisinopril 20 mg oral tablet (17 sources)Angiotensin Converting Enzyme InhibitorStart: 11-20-2016 End: 87-18-9277cpls 1 tablet by mouth once dailyLisinopril 20 mg Tablet Discontinued 20 MG PO Daily November 19, 2016 11:00pm April 18, 2018 12:05pmComment on above:Take 20 mg by mouth once daily.Ocrevus (11 sources)Ocrevus Not-TakingOcrevus Activeteriflunomide 14 mg oral tablet (13 sources)Pyrimidine Synthesis InhibitorStart: 11-23-2016 End: 97-60-8560ripz 1 tablet by mouth once dailyTeriflunomide (Aubagio) 14 mg Tablet Discontinued 14 MG PO Daily November 22, 2016 11:00pm 2023 12:00pmVitamin B Complex (4 sources)Start: 11-23-2016 End: 55-73-4238jdbd 1 tablet by mouth once dailyVitamin B Complex Discontinued 1 TAB PO Daily November 23, 2016 12:00am May 11, 2023 1:00pmStart: 22-72-9226inxm 1 tablet by mouth once dailyVitamin B Complex Active 1 TAB PO Daily November 23, 2016 12:00amVitamin B Complex Tablet (9 sources)Start: 11-23-2016 End: 51-56-2521spni 1 tablet by mouth once dailyVitamin B Complex Tablet Discontinued 1 TAB PO Daily November 22, 2016 11:00pm May 11, 2023 12:00pm Start: 11-23-2016 End: 19-94-8374xiar 1 tablet by mouth once dailyVitamin B Complex Tablet Discontinued 1 TAB PO Daily November 23, 2016 12:00am May 11, 2023 1:00pm Vitamin D3 06630 UNIT (11 sources)take 1 capsule by mouth every weekVitamin D3 51096 UNIT 1 capsules Orally once a week Not-Takingtake 1 capsule by mouth every weekVitamin D3 13791 UNIT 1 capsules Orally once a week ActiveWalker - (11 sources)Start: 83-96-9860Fwudln - as directed Nov, Not-Taking Problems Active Problems Problem ClassificationProblemDateDocumented DateEpisodic/ChronicCancer of ovary (2 sources)Malignant tumor of ovary; 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)]ChronicCancer of ovary (10 sources)History of malignant neoplasm of ovary; Translations: [Personal history of malignant neoplasm of ovary]26-10-5497XuakunliIhbfckba, dementia, and amnestic and other cognitive disorders (10 sources)Dementia; Translations: [Unspecified dementia without behavioral disturbance]70-87-7683CgqdijeBtuyiibng of lipid metabolism (20 sources)Mixed hyperlipidemia; Translations: [Mixed hyperlipidemia]05-10-2023 ChronicEssential hypertension (20 sources)Benign essential hypertension; Translations: [Essential (primary) hypertension]ChronicFracture of lower limb (11 sources)Closed fracture of distal fibula ; Translations: [Other fracture of upper and lower end of left fibula, subsequent encounter for closed fracture with routine healing]EpisodicMultiple sclerosis (20 sources)Multiple sclerosis; Translations: [Multiple sclerosis]Onset: 25-95-4293YlpxmgvBtvrpav (9 sources)Tinea unguium; Translations: [Onychomycosis]EpisodicOther aftercare (20 sources)Patient encounter status; Translations: [Encounter for therapeutic drug level monitoring]Onset: 804278-79-6081CecgsdzpRzign bone disease and musculoskeletal deformities (20 sources)Osteopenia; Translations: [Other specified disorders of bone density and structure, unspecified site]81-84-1290MixiwqfcFhlfp bone disease and musculoskeletal deformities (6 sources)Exostosis of left foot; Translations: [Other specified disorders of bone, ankle and foot]87-03-5487HzomvewgNpmek circulatory disease (1 source)H/O: hypertension; Translations: [Personal history of other diseases of the circulatory system]EpisodicOther connective tissue disease (1 source)Other specified soft tissue disordersEpisodicOther connective tissue disease (1 source)Pain in left legEpisodicOther connective tissue disease (20 sources)Other symptoms and signs involving the musculoskeletal system; Translations: [Other musculoskeletalsymptoms referable to limbs]Onset: 001947-27-4958KtpuimwyMjidh diseases of bladder and urethra (10 sources)Bladder muscle dysfunction - overactive; Translations: [Overactive bladder]ChronicOther diseases of bladder and urethra (1 source)Overactive bladder; Translations: [OAB (overactive bladder)]Chronic Other diseases of bladder and urethra (18 sources)Overactive bladder; Translations: [Overactive bladder]05-10-2023 ChronicOther diseases of veins and lymphatics (11 sources)Venous insufficiency of leg; Translations: [Venous insufficiency (chronic) (peripheral)]31-43-1307IseemugtVhicc diseases of veins and lymphatics (2 sources)Venous insufficiency (chronic) (peripheral); Translations: [Venous (peripheral) insufficiency, unspecified]91-60-6163OzsrsorjQuapu diseases of veins and lymphatics (5 sources)Vascular insufficiency; Translations: [Venous insufficiency (chronic) (peripheral)]12-39-7551TktfnybcYbglf inflammatory condition of skin (1 source)Seborrheic dermatitis, unspecifiedEpisodicOther inflammatory condition of skin (6 sources)Seborrheic dermatitis of scalp; Translations: [Seborrheic dermatitis, unspecified]53-90-1655JmkpuwfuRljrz non-traumatic joint disorders (1 source)Other instability, left ankleEpisodicOther screening for suspected conditions (not mental disorders or infectious disease) (1 source)Encounter for screening mammogram for malignant neoplasm of breast; Translations: [Encounter for screening mammogram for malignant neoplasm of breast]Onset: 39-50-6271NveevxivZipnz skin disorders (6 sources)Epidermoid cyst of skin of back; Translations: [Epidermal cyst] 39-29-1717FcpclrviTezbe upper respiratory infections (2 sources)Acute upper respiratory infection; Translations: [Acute upper respiratory infection, unspecified]11-62-1491ZqscrwevCzvbdjmhvkk; intervertebral disc disorders; other back problems (20 sources)Degeneration of lumbar intervertebral disc; Translations: [Degenerative lumbar disc]Onset: 681077-52-0189HfmzzluKqjewndsxag; intervertebral disc disorders; other back problems (20 sources)Radiculopathy, lumbar region; Translations: [Backache]Onset: 52-03-6792IrzbhaddMczhjxlro-related disorders (20 sources)Cannabis abuse; Translations: [Cannabis abuse, uncomplicated]Onset: 806079-92-3833QdiwwxpZiiwftdomcbd (1 source)Exacerbation of multiple sclerosis; Translations: [Exacerbation of multiple sclerosis]Onset: 422007-22-9479DzrczdeGillakmpmpna (1 source)Malignant neoplasm of both ovaries (HCC); 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)]Onset: 50-38-8119Hjusncgoowfx (6 sources)M54.16 - Radiculopathy, lumbar region,G35 - Multiple sclerosis Past or Other Problems Problem ClassificationProblemDateDocumented DateEpisodic/ChronicAcquired foot deformities (20 sources)Flat foot [pes planus] (acquired), left foot; Translations: [Left foot drop]Onset: 23-19-4368QwdrlrekCzhftzw and fatigue (20 sources)Weakness; Translations: [Asthenia]Onset: 83-81-4667DusdxlowPqbdw aftercare (1 source)Other termite inspector (current) drug therapy; Translations: [OTH CANVASSING MANAGER CURRENT DRUG THERAPY]Onset: 20-51-9657BbmbrlkfTmgfj connective tissue disease (1 source)Repeated falls; Translations: [REPEATED FALLS]Onset: 02-15-2022 EpisodicOther connective tissue disease (1 source)Muscle weakness (generalized); Translations: [MUSCLE WEAKNESS GENERALIZED]Onset: 08-63-8950UkbiuwrxViqfl connective tissue disease (1 source)Abnormal posture; Translations: [ABNORMAL POSTURE]Onset: 02-15-2022 EpisodicOther connective tissue disease (3 sources)Pain of toes of bilateral feet; Translations: [Pain in right toe(s)] 80-62-9911WmgpbdlbUdcqj gastrointestinal disorders (5 sources)Diarrhea, unspecified; Translations: [DIARRHEA UNSPECIFIED]Onset: 82-50-8163BtvlpvckZiqng injuries and conditions due to external causes (1 source)History of falling; Translations: [HISTORY OF FALLING]Onset: 23-95-8084HfxevznhIrguf nervous system disorders (1 source)Other abnormalities of gait and mobility; Translations: [OTHER ABNORMALITIES GAIT AND MOBILITY]Onset: 31-74-7372TvyoxjzdSwtjs nervous system disorders (1 source)Unspecified abnormalities of gait and mobility; Translations: [UNS ABNORMALITIES GAIT AND MOBILITY]Onset: 44-13-5675AwmqjemxWksiz nervous system disorders (20 sources)Paresthesia of foot ; Translations: [Anesthesia of skin]Onset: 097265-34-8141FmdfekgfTmksx nervous system disorders (20 sources)Sensory disorder of smell and/or taste; Translations: [Unspecified disturbances of smell and taste]Onset: 158922-04-6423HmhlgqgpFrsyw nervous system disorders (20 sources)Impairment of balance; Translations: [Other abnormalities of gait and mobility]Onset: 417414-37-5866CqsdudipJrchh skin disorders (1 source)Disorder of the skin and subcutaneous tissue, unspecifiedOnset: 05-23-2021 Resolved: 89-77-2124Dlpithwc Results Test NameValueInterpretationReference RangeFacilityMM screening mammo BI w/CADon 66-64-0182MR screening mammo BI w/[facility]ADC[facility] [address] [place] [address] Mammography Report Signed Patient: Gabrielle Marcos MR#: [id number] : 1960 Acct:[id number] Age/Sex: 64 / F Adm Date: 11/24/24 Loc: MS Room: Type: [facility] Attending Dr: Nabeel Stanton DO Ordering Provider: Nabeel Stanton DO Date of Service: 11/24/24 Procedure(s): MM screening mammo BI w/CAD Accession Number(s): ([id number]) MM/MM screening mammo BI w/CAD: Z12.31 - Encounter for screening mammogram for malignant ... Copies to: Nabeel Stanton DO CLINICAL DATA: Screening for malignancy. BILATERAL SCREENING [...] Ken M.D. 11/24/2024 4:24 PM Dictation Location: [facility] Dictated By: Howard Ken II, MD 11/24/24 1622 Signed By: 11/24/[address] [place] [address] Physician GroupMammography reportOrdered By: Howard Ken on 27-09-4006Dqzxszipod imaging studyC[facility] [address] [place] [address] Mammography Report Signed Patient: Gabrielle Marcos MR#: [id number] : 1960 Acct:[id number] Age/Sex: 64 / F Adm Date: 5 Loc: MS Room: Type: [facility] Attending Dr: Nabeel Stanton DO Ordering Provider: Nabeel Stanton DO Date of Service: 11/24/24 Procedure(s): MM screening mammo BI w/CAD Accession Number(s): ([id number]) MM/MM screening mammo BI w/CAD: Z12.31 - Encounter for screeningmammogram for malignant ... Copies to: Nabeel Stanton DO~ CLINICAL DATA: Screening for malignancy. BILATERAL [...] Ken M.D. 11/24/2024 4:24 PM Dictation Location: [facility] Dictated By: Howard Ken II, MD 11/24/241621 Signed By: 11/24/24 1624 [facility] Work Phone: ISTAM XRay CREon 60-66-7824WQHBX GFR>60.0[facility] Physician GroupComment on above:Result Comment: PERFORMED BY: [place] [id number] PATHOLOGIST FAN MAIL EDITOR MARY GRACE HOLDER M.D.Performed By: #### ISCRE #### [address] cervical spine wo/w conon 89-00-0591PE cervical spine wo/w [facility] [place] [address] [place] [address] MRI Report Signed Patient: Gabrielle Marcos MR#: [id number] : 1960 Acct:[id number] Age/Sex: 64 / F ADM Date: 10/24/24 Loc: MR Room: Type: [facility] Attending Dr: Georgina HAMPTON Copies to: MEMO Chavez Ordering Provider: MEMO Chavez Date of Service: 10/24/24 MR/MR cervical spine wo/w con: MS disease surveillance MRI of the cervical spine performed without with contrast INDICATION: Monitoring of multiple sclerosis COMPARISON: MRI the brain from 2023 and 2022 FINDINGS: Diffusely heterogenous appearance of the dens with retro dental and predental low signal on T1 and abnormal thickening of the predental soft tissues.. There are degenerative cystic changes involving the dens. There are associated joint effusions involving the C1-C2 articulation bilaterally. There is involvement and remodeling of the posterior cortex of the dens suspected. 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 In retrospect, similar findings identified on prior MRI from 2023 and less so 2022 Otherwise mild reversal normal cervical lordosis. Anterolisthesis C3 and C4 and C4-C5 measuring 2 mm and 2 mm respectively. Moderate intervertebral space narrowing C5-C7 severe changes and possible interbody fusion at T1-T2. Multifocal areas of demyelination involving the cervical cord insert mental junction noted. Dorsal medulla 7 mm in size. Dorsal cord at C1-C2 8 mm in size. Left dorsal cord at C3. Dorsal cord T4. Focal cord thinning and dorsal T2 hyperintensity 1.1 cm in size at C6. None of these T2 hyperintensities demonstrate abnormal postcontrast enhancement. Diffuse heterogeneous appearance of the bone marrow. Endplate marrow changes notably C6-C7 and less so C3-C4. C2-3: Facet arthropathy. There is also xydw-eo-kulrcxzp right greater left foraminal narrowing. Canal is patent. C3-C4: Anterolisthesis with uncovering of the posterior disc. Broad-based disc osteophyte complex and bilateral uncovertebral and spurring. Moderate severe facet arthropathy. Moderate marked central canal narrowing. Moderate bilateral neural from narrowing. C4-C5: Disc desiccation. Bilateral uncovertebral and facet arthropathy. Moderate bilateral neural from narrowing. Mild central canal narrowing. C5-C6: Circumferential disc osteophyte complex with bilateral uncovertebral and facet arthropathy. Results in moderate severe right and moderate left neural from narrowing. Moderate central stenosis. C6-C7: Broad-based disc osteophyte complex with uncovertebral and facet arthropathy. Moderate severe left greater than right neural foraminal narrowing. Moderate central canal stenosis. C7-T1: Broad-based disc bulge with uncovertebral spurring and moderate severe facet arthropathy. There is moderate foraminal narrowing and bncw-vg-qxbjldyk central canal stenosis. MR/MR cervical spine wo/w con IMPRESSION: Multifocal areas of demyelination identified throughout this cervical cord. No findings of active demyelination identified. Mild to moderate multilevel degenerative changes greatest from C5 through C7. No high-grade canal or neural foraminal narrowing identified. Abnormal heterogeneous signal the craniocervical junction noted possibly related to advanced CPPD or rheumatoid arthritis and retroodontoid pseudotumor. This is a chronic finding. Correlate with clinical exam findings and history. . Impression dictated by: Everardo Xavier M.D. 10/24/2024 2:01 PM Dictation Location: [place] [address] Transcribed By: [facility] 10/24/24 1401 Dictated By: Everardo Xavier MD 10/24/24 1343 Signed By: 10/24/24 1401[facility] head/brain wo/w janneth [id number] head/brain wo/w [facility] [place] [address] MRI Report Signed Patient: Gabrielle Marcos MR#: [id number] : 1960 Acct:[id number] Age/Sex: 64 / F ADM Date: 10/24/24 Loc: MR Room: Type: [facility] Attending Dr: Georgina HAMPTON Copies to: MEMO Chavez Ordering Provider: MEMO Chavez Date of Service: 10/24/24 MR/MR head/brain wo/w con: MS disease surveillance MRI BRAIN WITHOUT AND WITH INTRAVENOUS CONTRAST CLINICAL DATA: Multiple sclerosis, surveillance COMPARISON: MRI 10/03/2023 FINDINGS: Current examination was performed on a 3 Roxie magnet. Prior examination was performed on a 1.5 Roxie magnet. No restricted diffusion to suggest acute territorial infarct. Similar central involutional changes. Moderate periventricular, subcortical and pericallosal T2 FLAIR hyperintensity identified consistent with known multiple sclerosis. There are few scattered smaller lesions appear more conspicuous on the current examination due to the improved technique. Stable burden of T2 FLAIR hyperintensity identified involving the right polina involving the left cerebellum. Stable T2 FLAIR hyperintensity identified involving the optic nerves.. No findings of abnormal postcontrast enhancement. Similar burden of T1 hypointense lesions. Mild scattered sinus disease. MR/MR head/brain wo/w con IMPRESSION: Moderate burden of demyelination appearing overall unchanged, accounting for differences technique. This examination may serve as a new baseline. No evidence of disease progression or active consolidation. Impression dictated by: Everardo Xavier M.D. 10/24/2024 12:32 PM Dictation Location: [place] [address] Transcribed By: [facility] 10/24/24 1232 Dictated By: Everardo Xavier MD 10/24/24 1225 Signed By: 10/24/[address] [place] [address] Physician GroupMsgnetic resonance imaging reportOrdered By: Everardo Xavier on 42-25-9557Cxkvt reportMER[facility] [place] [address] [place] [address] MRI Report Signed Patient: Gabrielle Marcos MR#: [id number] : 1960 Acct:[id number] Age/Sex: 64 / F ADM Date: 5 Loc: MR Room: Type: [facility] Attending Dr: Georgina HAMPTON Copies to: MEMO Chavez~ Ordering Provider: MEMO Chavez Date of Service: 10/24/24 MR/MR cervical spine wo/w con: MS disease surveillance MRI of the cervical spine performed without with contrast INDICATION: Monitoring of multiple sclerosis COMPARISON: MRI the brain from 2023 and 2022 FINDINGS: Diffusely heterogenous appearance of the dens with retro dental and predental low signal on T1 and abnormal thickening of the predental soft tissues.. There are degenerative cystic changes involving the dens. There are associated joint effusions involving the C1-C2 articulation bilaterally. There is involvement and remodeling of the posterior cortex of the dens suspected. 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 In retrospect, similar findings identified on prior MRI from nd less so 2022 Otherwise mild reversal normal cervical lordosis. Anterolisthesis C3 and C4 andC4-C5 measuring 2 mmand 2 mm respectively. Moderate intervertebral space narrowing C5-C7 severe changes and possible interbody fusion at T1-T2. Multifocal areas of demyelination involving the cervical cord insert mental junction noted. Dorsal medulla 7 mm in size. Dorsal cord at C1-C2 8 mm in size. Left dorsal cord at C3. Dorsal cord T4. Focal cord thinning and dorsal T2 hyperintensity 1.1 cm in size at C6. None of these T2 hyperintensities demonstrate abnormal postcontrast enhancement. Diffuse heterogeneous appearance of the bone marrow. Endplate marrow changes notably C6-C7 and lessso C3-C4. C2-3: Facet arthropathy. There is also qhdj-sz-uvlxbbyi right greater left foraminal narrowing. Canal is patent. C3-C4: Anterolisthesis with uncovering of the posterior disc. Broad-based disc osteophyte complex and bilateral uncovertebral and spurring. Moderate severe facet arthropathy. Moderate marked central canal narrowing. Moderate bilateralneural from narrowing. C4-C5: Disc desiccation. Bilateral uncovertebral and facet arthropathy. Moderate bilateral neural from narrowing. Mild central canal narrowing. C5-C6: Circumferential disc osteophyte complex with bilateral uncovertebral and facet arthropathy. Results in moderate severe right and moderate left neural from narrowing. Moderate central stenosis. C6-C7: Broad-based disc osteophyte complex with uncovertebral and facet arthropathy. Moderate severe left greater than right neural foraminal narrowing. Moderate central canal stenosis. C7-T1: Broad-based disc bulge with uncovertebral spurring and moderate severe facet arthropathy. There is moderate foraminal narrowing and hrbh-ej-bayxujjn central canal stenosis. MR/MR cervical spine wo/w con IMPRESSION: Multifocal areas of demyelination identified throughout this cervical cord. No findings of active demyelination identified. Mild to moderate multilevel degenerative changes greatest from C5 through C7. No high-grade canal or neural foraminal narrowing identified. Abnormal heterogeneous signal the craniocervical junction noted possibly relatedto advanced CPPD orrheumatoid arthritis and retroodontoid pseudotumor. This patti chronic finding. Correlate with clinical exam findings and history. . Impression dictated by: Everardo Xavier M.D. 10/24/2024 2:01 PM Dictation Location: [place] [address] Transcribed By: CHARISMA 10/24/24 1401 Dictated By: Everardo Xavier MD 10/24/24 1343 Signed By: 10/24/24 1401 [facility] Work Phone: Study reportMER[facility] [place] [address] [place] [address] MRI Report Signed Patient: Gabrielle Marcos MR#: [id number] : 1960 Acct:[id number] Age/Sex: 64 / F ADM Date: 5 Loc: Room: Type: [facility] Attending Dr: Georgina HAMPTON Copies to: MEMO Chavez~ Ordering Provider: MEMO Chavez Date of Service: 10/24/24 MR/MR head/brain wo/w con: MS disease surveillance MRI BRAIN WITHOUT AND WITH INTRAVENOUS CONTRAST CLINICAL DATA: Multiple sclerosis, surveillance COMPARISON: MRI 10/03/2023 FINDINGS: Current examination was performed on a 3 Roxie magnet. Prior examination was performed hussain 1.5 Roxie magnet. No restricted diffusion to suggest acute territorial infarct. Similar central involutional changes. Moderate periventricular, subcortical and pericallosal T2 FLAIR hyperintensity identified consistent with known multiple sclerosis. There are few scattered smaller lesions appear more conspicuous on the current examination due to the improved technique. Stable burden of T2 FLAIR hyperintensity identified involving the right polina involving the left cerebellum. Stable T2 FLAIR hyperintensity identified involving the optic nerves.. No findings of abnormal postcontrast enhancement. Similar burden of T1 hypointense lesions. Mild scattered sinus disease. MR/MR head/brain wo/w con IMPRESSION: Moderate burden of demyelination appearing overall unchanged, accounting for differences technique. This examination may serve as a new baseline. No evidence of disease progression or active consolidation. Impression dictated by: Everardo Xavier M.D. 10/24/2024 12:32 PM Dictation Location: [place] [address] Transcribed By: [facility] 10/24/24 1232 Dictated By: Everardo Xavier MD 10/24/24 1225 Signed By: 10/24/24 1232 [facility] Work Phone: no Panel InformationOrdered By: Georgina Escobar on 30-89-3839Iccmjlv Estimated GFR (eGFR)> 60.0[facility] Whole blood creatinine measurementOrdered By: Georgina Escobar on 10-24-2024 Creatinine [Mass/Vol]0.9 mg/dL0.6-1.3FPremier Health Atrium Medical CenterComment on above:ER/ESD physician is notified/shown all ISTAT results.Critical values may be confirmed by laboratorytesting ifdeemed necessary by ER attending doctor. Result Comment: ER/ESD physician is notified/shown all ISTAT results. Critical values may be confirmed by laboratory testing if deemed necessary by ER attending doctor.Performed By: #### ISCRE #### [facility] [address] [place] [address] Panel Informationon 77-97-6071Rvjkqyxgekfashlie Helms DO 07/01/2024 4:17 PM Nerve Block Date/Time: 07/01/2024 1:26 PM Performed by: Bart Helms DO Authorized by: Bart Helms DO Consent: Consent obtained: Written Consent given by: Patient [place] protocol: Procedure explained and questions answered to patient or proxy's satisfaction: yes Patient identity confirmed: Verbally with patient Location: Body area: Trunk Trunk nerve: Lumbar Procedure details: Guidance: fluoroscopy Steroid injected: Dexamethasone Post-procedure details: Procedure completion: [facility] CBC WITH AUTO DIFFon 62-07-9685Chodbgzijnt distribution width (RBC) [Ratio]13.1 %11.0 - 15.0 % [facility] HealthcareHematocrit (Bld) [Volume fraction]43.7 %36.0 - 48.0 %[facility] HealthcareHemoglobin (Bld) [Mass/Vol]14.8 g/dL12.0 - 16.0 g/dLSullivan County Memorial Hospital Interpretation and review of laboratory resultsAbnormalNOGolden Valley Memorial HospitalH (RBC) [Entitic mass]30.9 pg26.7 - 34.0 pgNOGolden Valley Memorial HospitalHC (RBC) [Mass/Vol]33.9 g/dL 29.9 - 35.2 g/dLSainte Genevieve County Memorial HospitalV (RBC) [Entitic vol]91.2 fL81.0 - 99.0 fLSullivan County Memorial HospitalPlatelet mean volume (Bld) [Entitic vol]8.9 fLLow9.5 - 13.5 fLSullivan County Memorial HospitalTB XBQ526DPNT [facility] HospitalTB RBC4.79NOEllis Fischel Cancer CenterTB WBC10.6NOSD HealthcareCLINISYNCNOMS HealthcareNo Panel Informationon 12-49-0001HRLU HealthcareMRI HEAD/BRAIN WO/W CONTRon 32-91-2019[place] [address] Magnetic Resonance Report Signed Patient: GABRIELLE MARCOS MR#: [id number] : 1960 Acct:[id number] Age/Sex: 63 / F ADM Date: 10/03/23 Loc: LAB Attending Dr: Atul Akers COVERSTITCH ELASTIC ATTACHER Ordering Physician: Atul Akers NP Date of Service: 10/03/23 Procedure(s): MR head/brain wo/w con Accession Number(s): [id number] cc: NABEEL STANTON; Atul Akers NP [address] [address] Patient Name: GABRIELLE MARCOS MRN: [id number] date: 1960 Sex: F Assigned Patient Location: LAB Current Patient Location: LAB Accession/Order Number: [id number] Exam Date: 10/03/2023 09:05 Report Date: 10/03/2023 12:26 At the request of: ATUL AKERS Procedure: MR head/brain wo/w con MR head/brain wo/w con, 10/03/2023 9:05 AM EDT INDICATION: Multiple Sclerosis G35 COMPARISON: Prior MRI dated 10/31/2022 TECHNIQUE: Multiplanar, multisequential MRI images of brain were obtained without contrast. FINDINGS: The sensitivity of the study has been decreased due to motion artifact. The cerebral sulci as well as ventricular system are appropriate for age. There is no restricted diffusion. FLAIR and T2 hyperintensities infratentorial and supratentorially in the ashley radiata and callososeptal interface most likely consistent with known MS plaques. Given the technical differences, these lesions are stable in size and number. No new lesion is noted. There is no intracranial mass, mass effect, midline shift, intra or extra-axial fluid collection. No abnormal enhancing lesion is noted. Normal flow-void in the intracranial vessels is noted. The visualized portions of orbits, mastoid air cells as well as paranasal sinuses are unremarkable. MR/MR head/brain wo/w con IMPRESSION: Stable MS plaques. No new or active lesion is noted. Electronically authenticated by: JASSI BARONE Date: 10/03/2023 12:26 Dictated By: Jassi Barone M.D. 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 [place] [address] Magnetic Resonance Report Signed Patient: GABRIELLE MARCOS MR#: [id number] : 1960 Acct:[id number] Age/Sex: 63 / F ADM Date: 10/03/23 Loc: LAB Attending Dr: Atul Akers NP Ordering Physician: Atul Akers NP Date of Service: 10/03/23 Procedure(s): MR head/brain wo/w con Accession Number(s): [id number] cc: NABEEL STANTON; Atul Akers NP The 14 [address] [address] Patient Name: GABRIELLE MARCOS MRN: [facility]:[id number] date: 1960 Sex: F Assigned Patient Location: LAB Current Patient Location: LAB Accession/Order Number: [id number] Exam Date: 10/03/2023 09:05 Report Date: 10/03/2023 12:26 At the request of: ATUL AKERS Procedure: MR head/brain wo/w con MR head/brain wo/w con, 10/03/2023 9:05 AM EDT INDICATION: Multiple Sclerosis G35 COMPARISON: Prior MRI dated 10/31/2022 TECHNIQUE: Multiplanar, multisequential MRI images of brain were obtained without contrast. FINDINGS: The sensitivity of the study has been decreased due to motion artifact. The cerebral sulci as well as ventricular system are appropriate for age. There is no restricted diffusion. FLAIR and T2 hyperintensities infratentorial and supratentorially in the ashley radiata and callososeptal interface most likely consistent with known MS plaques. Given the technical differences, these lesions are stable in size and number. No new lesion is noted. There is no intracranial mass, mass effect, midline shift, intra or extra-axial fluid collection. No abnormal enhancing lesion is noted. Normal flow-void in the intracranial vessels is noted. The visualized portions of orbits, mastoid air cells as well as paranasal sinuses are unremarkable. MR/MR head/brain wo/w con IMPRESSION: Stable MS plaques. No new or active lesion is noted. Electronically authenticated by: JASSI BARONE Date: 10/03/2023 12:26 Dictated By: Jassi Barone M.D. Signed By: 10/03/23 1229 DD/ 1226 TD/TT: Manager Employment: [employer] HealthcareRadiology Study observation (narrative)[facility] HospitalI HEAD/BRAIN WO/W CONTROrdered By: Radiologist Radiology on [phone] [place] Work Phone: cA 125 BLDon 01-99-3535Lcxrgq Ag 125 Qn4 [arb'U]/mL<39 U/mLCleveland ClinicCBC W Auto Differential panel (Bld)on 16-74-8364Jeawssolc (Bld) [#/Vol]0.08 10*3/uLNormal<0.11[facility] ClevelandComment on above: Order Comment: Specimen Type: BLOOD SPECIMEN Ordering Facility: [facility] Address: [address] [place], [place] [address]Performed By: #### 36365-2 #### [facility] CLIA [id number] [address] [place] [address] 23784Ayfpssmmi/100 WBC (Bld)1.0 %NormalRegency Hospital Company Comment on above:Order Comment: Specimen Type: BLOOD SPECIMEN Ordering Facility: [facility] Address: [address] [place], [place] [address]Performed By: #### 13405-9 #### [facility] CLIA [id number] [address] [place] [address] 07683Hnjtkxttciel cell count method Nom (Bld)AutoNormalCKettering Health – Soin Medical CenterComtrinity health [facility] on above:Order Comment: Specimen Type: BLOOD SPECIMEN Ordering Facility: [facility] Address: [address] [place], [place] [address]Performed By: #### 57185-6 #### [facility] CLIA [id number] [address] [place] [address] 19892Ypytvolzdmq (Bld) [#/Vol]0.19 10*3/uLNormal<0.46Regency Hospital CompanyComtrinity health mus[facility] hospital on above:Order Comment: Specimen Type: BLOOD SPECIMEN Ordering Facility: [facility] Address: [address] [place], [place] [address]Performed By: #### 35600-3 #### [facility] CLIA [id number] [address], [place] [address]Gkcudnaptpm/100 WBC (Bld)2.3 %NormalRegency Hospital Company Comment on above:Order Comment: Specimen Type: BLOOD SPECIMEN Ordering Facility: [facility] Address: [address] [place], [place] [address]Performed By: #### 00148-6 #### [facility] CLIA [id number] [address] [place] [address] 10016Vubdbsohqcn distribution width (RBC) [Ratio]13.7 %Normal 11.5-15.0[facility] on above:Order Comment: Specimen Type: BLOOD SPECIMEN Ordering Facility: [facility] Address: [address] [place], [place] [address]Performed By: #### 82216-4 #### [facility] CLIA [id number] [address] [place] [address] 35660Ewggofpfnv (Bld) [Volume fraction]41.0 %Oioecn04.0-46.0 [facility] on above:Order Comment: Specimen Type: BLOOD SPECIMEN Ordering Facility: [facility] Address: [address] [place], [place] [address]Performed By: #### 47426-2 #### [facility]ITALGABRIELLE [facility] CLIA [id number] [address] [place] [address] 70161Pjmguzqiau (Bld) [Mass/Vol]13.5 g/yFDmmpcj53.5-15.5CSt. [facility] Hospital on above:Order Comment: Specimen Type: BLOOD SPECIMEN Ordering Facility: [facility] Address: [address] [place], [place] [address]Performed By: #### 37887-1 #### [facility] HOSPITALGABRIELLE [facility] CLIA [id number] [address] [place] [address] 25560Zunbarmo granulocytes (Bld) [#/Vol]0.03 10*3/uLNormal<0.10 [facility] on above:Order Comment: Specimen Type: BLOOD SPECIMEN Ordering Facility: [facility] Address: [address] [place], [place] [address]Performed By: #### 47112-7 #### [facility] CLIA [id number] [address] [place] [address] 76868Vuqolwgm granulocytes/100 WBC (Bld)0.4 %NormalSt. Charles Hospital on above:Order Comment: Specimen Type: BLOOD SPECIMEN Ordering Facility: [facility] Address: [address] [address]Performed By: #### 12404-4 #### [facility] CLIA [id number] [address] [place] [address] 16749Zctxdbujxwc (Bld) [#/Vol]1.83 10*3/uLNormal1.00-4.00[facility] on above:Order Comment: Specimen Type: BLOOD SPECIMEN Ordering Facility: [facility] Address: [address] [place], [place] [address]Performed By: #### 17222-2 #### [facility] CLIA [id number] [address] [place] [address] 41835Wnqdgjgliww/100 WBC (Bld)22.6 %NormalSt. Charles Hospital on above:Order Comment: Specimen Type: BLOOD SPECIMEN Ordering Facility: [facility] Address: [address] [place], [place] [address]Performed By: #### 18092-4 #### [facility] CLIA [id number] [address] [place] [address] 30158KDU (RBC) [Entitic mass]30.5 ngHvgxim42.0-34.0[facility] on above:Order Comment: Specimen Type: BLOOD SPECIMEN Ordering Facility: [facility] Address: [address] [place], [place] [address]Performed By: #### 02635-9 #### [facility] CLIA [id number] [address] [place] [address] 42925KDWJ (RBC) [Mass/Vol]32.9 g/cHEvquad33.5-36.0[facility] on above:Order Comment: Specimen Type: BLOOD SPECIMEN Ordering Facility: [facility] Address: [address] [place], [place] [address]Performed By: #### 88148-1 #### [facility] CLIA [id number] [address] [place] [address] 01816MLA (RBC) [Entitic vol]92.8 xDKdgpjs64.0-100.0[facility] on above:Order Comment: Specimen Type: BLOOD SPECIMEN Ordering Facility: [facility] Address: [address] [place], [place] [address]Performed By: #### 42571-8 #### [facility] CLIA [id number] [address] [place] [address] 08705Hzhryoqky (Bld) [#/Vol]0.64 10*3/uLNormal<0.87[facility] on above:Order Comment: Specimen Type: BLOOD SPECIMEN Ordering Facility: [facility] Address: [address] [place], [place] [address]Performed By: #### 88522-1 #### [facility] CLIA [id number] [address] [place] [address] 09676Ykvaosoeq/100 WBC (Bld)7.9 %NormalRegency Hospital Company Comment on above:Order Comment: Specimen Type: BLOOD SPECIMEN Ordering Facility: [facility] Address: [address] [place], [place] [address]Performed By: #### 95113-6 #### [facility] CLIA [id number] [address] [place] [address] 73451Xndyzuxepty (Bld) [#/Vol]5.34 10*3/uLNormal1.45-7.50[facility] on above:Order Comment: Specimen Type: BLOOD SPECIMEN Ordering Facility: [facility] Address: [address] [place], [place] [address]Performed By: #### 30420-1 #### [facility] CLIA [id number] [address] [place] [address] 34802Dkvjuvzfxmp/100 WBC (Bld)65.8 %NormalSt. Charles Hospital on above:Order Comment: Specimen Type: BLOOD SPECIMEN Ordering Facility: [facility] Address: [address] [place], [place] [address]Performed By: #### 19566-1 #### [facility] CLIA [id number] [address], [place] [address]Ipuocgveh RBC (Bld) [#/Vol]10*3/uLNormal<0.01[facility] on above:Order Comment: Specimen Type: BLOOD SPECIMEN [facility] Facility: [facility] Address: [address] [place], [place] [address]Performed By: #### 66552-4 #### [facility] CLIA [id number] [address] [place], [place] [address]Kuqvkwejc RBC/100 WBC (Bld) [Ratio]0.0 /100 WBCNormalCSt. Charles Hospital on above:Order Comment: Specimen Type: BLOOD SPECIMEN Ordering Facility: [facility] Address: [address] [place], [place] [address]Performed By: #### 07278-8 #### [facility] CLIA [id number] [address] [place] [address] 50588Xowijpst mean volume (Bld) [Entitic vol]8.6 fLLow9.0-12.7 [facility] on above:Order Comment: Specimen Type: BLOOD SPECIMEN Ordering Facility: [facility] Address: [address] [place], [place] [address]Performed By: #### 05566-8 #### [facility] CLIA [id number] [address] [place] [address] 83533Zdehdbwmb (Bld) [#/Vol]361 10*3/tQGqgwle839-574HvfzarvgdSt. Charles Hospital on above:Order Comment: Specimen Type: BLOOD SPECIMEN Ordering Facility: [facility] Address: [address] [place], [place] [address]Performed By: #### 33285-6 #### [facility] CLIA [id number] [address] [place] [address] 39443KDH (Bld) [#/Vol]4.42 10*6/uLNormal3.90-5.20[facility] on above:Order Comment: Specimen Type: BLOOD SPECIMEN Ordering Facility: [facility] Address: [address] [address]Performed By: #### 88261-5 #### [facility] CLIA [id number] [address] [place] [address] 76829XHG (Bld) [#/Vol]8.11 10*3/uLNormal3.70-11.00[facility] on above:Order Comment: Specimen Type: BLOOD SPECIMEN Ordering Facility: [facility] Address: [address] [address]Performed By: #### 82733-7 #### [facility]ITALGABRIELLE [facility] CLIA [id number] [address] [place] [address] 05206Fvhhmhtoz (Bld) [#/Vol]0.08 10*3/uL<0.11 k/uLSumma Health Basophils/100 WBC (Bld)1.0 %Summa HealthDifferential cell count method Nom (Bld)AutoCleveland ClinicEosinophils (Bld) [#/Vol]0.19 10*3/uL<0.46 k/uL Summa HealthEosinophils/100 WBC (Bld)2.3 %Summa HealthErythrocyte distribution width (RBC) [Ratio]13.7 %11.5 - 15.0 %Summa HealthHematocrit (Bld) [Volume fraction]41.0 %36.0 - 46.0 %Summa HealthHemoglobin (Bld) [Mass/Vol]13.5 g/dL11.5 - 15.5 g/dLSumma HealthImmature granulocytes (Bld) [#/Vol]0.03 10*3/uL<0.10 k/uLSumma HealthImmature granulocytes/100 WBC (Bld) 0.4 %Summa HealthLymphocytes (Bld) [#/Vol]1.83 10*3/uL1.00 - 4.00 k/uL Summa HealthLymphocytes/100 WBC (Bld)22.6 %[facility]aritan HospitalH (RBC) [Entitic mass]30.5 pg26.0 - 34.0 pgCCleveland Clinic Medina HospitalHC (RBC) [Mass/Vol]32.9 g/dL30.5 - 36.0 g/dLGood Samaritan HospitalV (RBC) [Entitic vol]92.8 fL80.0 - 100.0 fLCleveland ClinicMonocytes (Bld) [#/Vol]0.64 10*3/uL<0.87 k/[facility] Monocytes/100 WBC (Bld)7.9 %Summa HealthNeutrophils (Bld) [#/Vol]5.34 10*3/uL1.45 - 7.50 k/[facility] GlenbeighNeutrophils/100 WBC (Bld)65.8 %Summa HealthNucleated RBC (Bld) [#/Vol]<0.01 k/[facility] GlenbeighNucleated RBC/100 WBC (Bld) [Ratio]0.0 /100 WBCSumma HealthPlatelet mean volume (Bld) [Entitic vol]8.6 fLLow9.0 - 12.7 fLCst. mary's medical center ClinicPlatelets (Bld) [#/Vol]361 10*3/uL150 - 400 k/[facility] GlenbeighRBC (Bld) [#/Vol]4.42 10*6/uL3.90 - 5.20 m/[facility] GlenbeighWBC (Bld) [#/Vol]8.11 10*3/uL3.70 - 11.00 k/[facility] GlenbeighCNOVSPon 59-91-4018XOLGZWXfuiu (SP) Office ([place]) GABRIELLE MARCOS ([id number]) 1960 F Date Time Provider Department 10/17/22 [...] and percussion. CARDIOVASCULAR: Regu (more content not included)...NormalRegency Hospital CompanyCanhancock county health system Ag125 SerPl-aCncon 44-01-5906Kdhtnq Ag 125 Qn4 [arb'U]/mLNormal <39[facility] on above:Order Comment: Specimen Type: BLOOD SPECIMEN [facility]: [facility] Address: [address] [place] [phone] Comment: CA 125 test methodology used is the Electrochemiluminescence Immunoassay by [employer]. Results obtained with different methods or kits [...] (CA 125 II) [package insert V 1.0 Slovenian]. [facility], [place], [place] (December 2014)Performed By: #### 65992-5 #### [facility] CLIA [id number] [address] [facility] [id number] [place], [place] [id number] [place] STATES OF AMERICAComprehensive metabolic 2000 panelon 43-55-0699Lmrubwl [Mass/Vol]4.2 g/dLNormal3.9-4.9CSt. [facility] Hospital on above:Order Comment: Specimen Type: BLOOD SPECIMEN [facility] Address: [address] [place] [phone] By: #### 11343-9 #### [place] [facility] CLIA [id number] [address] [place] [address] 55447VBQ [Catalytic activity/Vol]120 U/QIcthqd80-117LzqnbtfdgSt. [facility] Hospital on above:Order Comment: Specimen Type: BLOOD SPECIMEN Order[facility] Facility: [facility] Address: [address] [place], [place] [address]Performed By: #### 17353-2 #### [facility] CLIA [id number] [address] [place], [place] [address]SNI [Catalytic activity/Vol]16 U/LNormal7-38[facility] on above:Order Comment: Specimen Type: BLOOD SPECIMEN [facility] Facility: [facility] Address: [address] [place], [place] [address]Performed By: #### 78674-0 #### [facility] CLIA [id number] [address] [place] [address] 28994Werob gap [Moles/Vol]7 mmol/LLow9-18[facility] Comment on above:Order Comment: Specimen Type: BLOOD SPECIMEN [facility] Address: [address] [place], [place] [address]Performed By: #### 92921-9 #### [facility] CLIA [id number] [address] [place] [address] 17931HOE [Catalytic activity/Vol]19 U/AGdsfwb09-85DkwtuagslSt. Charles Hospital on above:Order Comment: Specimen Type: BLOOD SPECIMEN [facility] Facility: [facility] Address: [address] [place], [place] [address]Performed By: #### 75152-1 #### [facility] CLIA [id number] [address] [place] [address] 29017Qfjprdavl [Mass/Vol]0.2 mg/dLNormal0.2-1.3CSt. [facility] Hospital on above:Order Comment: Specimen Type: BLOOD SPECIMEN [facility] Facility: [facility] Address: [address] [place], [place] [address]Performed By: #### 56970-9 #### [facility] CLIA [id number] [address] [place] [address] 79861Bpfizht [Mass/Vol]9.3 mg/dLNormal8.5-10.2CSt. [facility] Hospital on above:Order Comment: Specimen Type: BLOOD SPECIMEN [facility] Facility: [facility] Address: [address] [place], [place] [address]Performed By: #### 84230-5 #### [facility] CLIA [id number] [address], [place] [address]Vegookoa [Moles/Vol]106 mmol/TCffw33-887FnpmnaszwSt. Charles Hospital on above:Order Comment: Specimen Type: BLOOD SPECIMEN [facility] Facility[facility] Address: [address] [place], [place] [address]Performed By: #### 11707-1 #### [facility] CLIA [id number] [address] [place] [address] 49610FF4 [Moles/Vol]30 mmol/DEdebuy56-69JlrslrvsuRegency Hospital Company Comment on above:Order Comment: Specimen Type: BLOOD SPECIMEN Order[facility] Facility: [facility] Address: [address] [place], [place] [address]Performed By: #### 71469-7 #### [facility] CLIA [id number] [address] [place] [address]68[address]Snqiufefer [Mass/Vol]1.08 mg/dLHigh0.58-0.96[facility] on above:Order Comment: Specimen Type: BLOOD SPECIMEN Order[facility] Facility: [facility] Address: [address] [place], [place] [address]Performed By: #### 67549-0 #### [facility] CLIA [id number] [address], [place] [address]YEJUEQUSG GLOMERULAR FILTRATION RATE58 mL/min/1.73m???Low>=60 [facility] on above:Order Comment: Specimen Type: BLOOD SPECIMEN [facility] Address: [address] [place], [place] [address]Result Comment: Estimated Glomerular Filtration Rate (eGFR) is calculated using the 2020 CKD-EPI cre atinine equation. This equation utilizes serum creatinine, sex, and age as parameters. The creatinine assay has traceable calibration to isotope dilution- mass spectrometry. Refer to KDIGO guidelines for clinical interpretation. In patients with unstable renal function, e.g. those with acute kidney injury, the eGFR may not accurately reflect actual GFR.Performed By: #### 78756-5 #### [facility] CLIA [id number] [address] [place] [address] 87823Wmmlprc [Mass/Vol]107 mg/wTWyky71-34GdkrzpyxqRegency Hospital Company Comment on above:Order Comment: Specimen Type: BLOOD SPECIMEN [facility] Address: [address] [place] [phone] Comment: The [place] Diabetes Association (ADA) provides guidance for cutoff [...] Standards of Medical Care in Diabetes 2016, [employer] Association. Diabetes Care. 2016.39(Suppl 1).Performed By: #### 64358-8 #### [facility] CLIA [id number] [address] [place] [address] 78[address]Uglphdtyd [Moles/Vol]4.4 mmol/LNormal3.7-5.1CKettering Health – Soin Medical CenterComment on above:Order Comment: Specimen Type: BLOOD SPECIMEN [facility] Address: [address] [place] [phone] By: #### 09523-8 #### [facility] CLIA [id number] [address] [place] [address] 25222Adblmnq [Mass/Vol]6.5 g/dLNormal6.3-8.0[facility] on above:Order Comment: Specimen Type: BLOOD SPECIMEN [facility] Address: [address] [address]Performed By: #### 44906-6 #### [facility] HOSPITALGABRIELLE [facility] CLIA [id number] [address] [place] [address]11[address]Rokfph [Moles/Vol]143 mmol/HJtbzwv007-307AnvvbddxzSt. [facility] Hospital on above:Order Comment: Specimen Type: BLOOD SPECIMEN [facility] Address: [address] [place], [place] [address]Performed By: #### 74735-8 #### [facility] HOSPITALGABRIELLE [facility] CLIA [id number] [address] [place] [address] 26473Ocdi nitrogen [Mass/Vol]14 mg/dLNormal7-21[facility] on above:Order Comment: Specimen Type: BLOOD SPECIMEN [facility] Address: [address] [address]Performed By: #### 04783-1 #### [facility] HOSPITALGABRIELLE [facility] CLIA [id number] [address] [place] [address]67[address]Ylkhqgr [Mass/Vol]4.2 g/dL3.9 - 4.9 g/dLDiamond ClinicALP [Catalytic activity/Vol]120 U/L34 - 123 U/LCleveland ClinicALT [Catalytic activity/Vol]16 U/L7 - 38 U/LCleveland ClinicAnion gap [Moles/Vol]7 mmol/LLow9 - 18 mmol/LCleveland ClinicAST [Catalytic activity/Vol]19 U/L13 - 35 U/LCleveland ClinicBilirubin [Mass/Vol]0.2 mg/dL0.2 - 1.3 mg/dLDiamond ClinicCalcium [Mass/Vol]9.3 mg/dL8.5 - 10.2 mg/dLDiamond ClinicChloride [Moles/Vol]106 mmol/LHigh97 - 105 mmol/LCleveland ClinicCO2 [Moles/Vol]30 mmol/L22 - 30 mmol/L Diamond ClinicCreatinine [Mass/Vol]1.08 mg/dLHigh0.58 - 0.96 mg/dLSumma HealthEstimated Glomerular Filtration Rate58 mL/min/1.73mLow>=60 mL/min/1.73m Summa HealthGlucose [Mass/Vol]107 mg/hGWkwj40 - 99 mg/dLSumma Health Potassium [Moles/Vol]4.4 mmol/L3.7 - 5.1 mmol/LCleveland ClinicProtein [Mass/Vol]6.5 g/dL6.3 - 8.0 g/dLSycamore Medical Centerodium [Moles/Vol]143 mmol/L136 - 144 mmol/LCleveland [facility] Hospital Of MinneapolisUrea nitrogen [Mass/Vol]14 mg/dL7 - 21 mg/dL [facility] Centeranine aminotransferase [Enzymatic activity/volume] in Serum or PlasmaOrdered By: Nabeel Stanton on 55-85-6047CFQ [Catalytic activity/Vol]20 U/L Normal7-52 U/[facility] HospitalAlbumin [Mass/volume] in Serum or Plasma by Bromocresol green (BCG) dye binding methoOrdered By: Nabeel Stanton on 05-35-3628Pfhtgmb BCG dye [Mass/Vol]4.6 g/dL3.5-5.7FPremier Health Atrium Medical CenterAlkaline phosphatase [Enzymatic activity/volume] in Serum or PlasmaOrdered By: Nabeel Stanton on 09-73-7484NLJ [Catalytic activity/Vol]95 U/GKwages40-009 U/[facility] City HospitalAspartate aminotransferase [Enzymatic activity/volume] in Serum or PlasmaOrdered By: Nabeel Stanton on 70-49-2243RRI [Catalytic activity/Vol]19 U/PBropof75-39 U/[facility] Bilirubin.total [Mass/volume] in Serum or PlasmaOrdered By: Nabeel Stanton on 74-43-8728Cfnxzjeyu [Mass/Vol]0.4 mg/dL0.3-1.0[facility] Calcium [Mass/volume] in Serum or PlasmaOrdered By: Nabeel Stanton on 05-23-2022 Calcium [Mass/Vol]9.6 mg/dL8.6-10.3FPremier Health Atrium Medical CenterCarbon dioxide, total [Moles/volume] in Serum or PlasmaOrdered By: Nabeel Stanton on 38-56-2217RB5 [Moles/Vol]29.3 mmol/L21.0-31.0[facility] Chloride [Moles/volume] in Serum or PlasmaOrdered By: Nabeel Stanton on 50-19-0676Qcrkzdur [Moles/Vol]108 mmol/CJpka75-016 mmol/LFPremier Health Atrium Medical CenterComprehensive Metabolic Panelon 42-69-0678Bartavd [Mass/Vol] 4.753143 g/dLNormal3.5-5.7 g/dLNoApplied [employer] Other Bilirubin [Mass/Vol]0.7497384 mg/dLNormal0.3-1.0 mg/dL [email or web address] Other Calcium [Mass/Vol]9.8884685 mg/dLNormal8.6-10.3 mg/dL [email or web address] Other CO2 [Moles/Vol]29.85255745 mmol/XAvwcqg56.0-31.0 mmol/LNVivox Other Creatinine [Mass/Vol]0.04292637 mg/dLNormal0.60-1.20 mg/[email or web address].[email or web address] Other Potassium [Moles/Vol]4.90234012 mmol/LNormal3.5-5.1 mmol/LNVivox Other Protein [Mass/Vol]7.217461 g/dLNormal6.4-8.9 g/[email or web address] Other Comprehensive Metabolic Panel2.4 g/[email or web address] Other comprehensive Metabolic PanelOrdered By: Nabeel Stanton on 99-02-8292JVZ/1.73 sq M.predicted MDRD (S/P/Bld) [Vol rate/Area] mL/min/{1.73_m2}[facility] HospitalCreatinine [Mass/volume] in Serum or PlasmaOrdered By: Nabeel Stanton on 74-38-7279Vhshcguhyx [Mass/Vol]0.82 mg/dL0.60-1.20[facility] HospitalErythrocyte distribution width Auto (RBC) [Ratio]Ordered By: Nabeel Stanton on 95-07-1262Ijkirgrbsfx distribution width (RBC) [Ratio]14.1 %11.9-15.3FPremier Health Atrium [facility] Center Erythrocytes [#/volume] in Blood by Automated countOrdered By: Nabeel Stanton on 43-51-8422RBE (Bld) [#/Vol]4.85 10*6/uLNormal3.60-5.00[facility] HospitalGlobulin Calc (S) [Mass/Vol]Ordered By: Nabeel Stanton on 05-23-2022 Globulin (S) [Mass/Vol]2.4 g/dLMercy Health Anderson HospitalGlucose [Mass/volume] in Serum or PlasmaOrdered By: Nabeel Stanton on 66-18-4921Mkltcvd [Mass/Vol]103 mg/cAWhzbok11-425 mg/dLMercy Health Anderson HospitalComment on above:ADA recommended reference rangeRandom Glucose Reference Range is dependent on time and content of last meal. Glucose of more than 200 mg/dL in a nonstressed, ambulatory subject supports the diagnosisof Diabetes Mellitus. Hematocrit Auto (Bld) [Volume fraction]Ordered By: Nabeel Stanton on 05-23-2022 Hematocrit (Bld) [Volume fraction]43.6 %34.0-46.4FPremier Health Atrium Medical CenterHemoglobin [Mass/volume] in BloodOrdered By: Nabeel Stanton on 05-23-2022 Hemoglobin (Bld) [Mass/Vol]14.6 g/dL11.8-15.4FPremier Health Atrium Medical Center Hemogram CBC Without Diffon 56-01-7676Huurhiilygm distribution width (RBC) [Ratio]14.100 %Jbqxbl15.9-15.3 %[email or web address] Other Hematocrit (Bld) [Volume fraction]43.600 %Npfbjl80.0- 46.4 %[email or web address] Other Hemoglobin (Bld) [Mass/Vol]14.771078 g/zCPvdfpu39.8- 15.4 g/dLNoApplied Visual Sciences Other [facility] (RBC) [Entitic mass]30.0000 lhQrjyqm69.7-34.3 pg [email or web address] Other MCV (RBC) [Entitic vol]89.9000 sMIjhrbe94-177 [employer] Other platelet mean volume (Bld) [Entitic vol]7.4000 fL Normal6.3-10.7 [employer] Other WBC (Bld) [#/Vol]8.339273814 10*3/uLNormal3.8-11.6 10*3/[email or web address] Other Hemogram CBC Without Diff33.4 g/eRVoyixa10.0-35.0 g/dL [email or web address] Other Leukocytes [#/volume] corrected for nucleated erythrocytes in Blood by Automated counOrdered By: Nabeel Stanton on 05-23-2022 WBC corrected for nucl RBC Auto (Bld) [#/Vol]8.2 10*3/uL3.8-11.6FCity [facility] Auto (RBC) [Entitic mass]Ordered By: Nabeel Stanton on 93-11-4218QSN (RBC) [Entitic mass]30.0 pg24.7-34.3FRegency Hospital Cleveland East Auto (RBC) [Mass/Vol]Ordered By: Nabeel Stanton on 10-52-5540XDRK (RBC) [Mass/Vol]33.4 g/dL32.0-35.0[facility] HospitalV Auto (RBC) [Entitic vol]Ordered By: Nabeel Stanton on 25-89-1808EYY (RBC) [Entitic vol]89.9 rZ84-802VtbdtpjkoMercy Health Anderson HospitalNo Panel InformationOrdered By: Nabeel Stanton on 50-34-1858Xwcegwrd Creatinine Clearance (ChemN/[facility] CenterPlatelet mean volume Auto (Bld) [Entitic vol]Ordered By: Nabeel Stanton on 12-85-9461Iepojmjn mean volume (Bld) [Entitic vol]7.4 fL 6.3-10.7FPremier Health Atrium Medical CenterPlatelets [#/volume] in Blood by Automated countOrdered By: Nabeel Stanton on 31-79-7217Iswnbddnw (Bld) [#/Vol]383 10*3/dRJnyyqt655-190 10*3/uLMercy Health Anderson HospitalPotassium [Moles/volume] in Serum or PlasmaOrdered By: Nabeel Stanton on 05-23-2022 Potassium [Moles/Vol]4.4 mmol/L3.5-5.1FPremier Health Atrium Medical CenterProtein [Mass/volume] in Serum or PlasmaOrdered By: Nabeel Stanton on 69-00-7529Rzztktv [Mass/Vol]7.0 g/dL6.4-8.9[facility] Hospitalerum or plasma albumin/globulin mass ratioOrdered By: Nabeel Stanton on 05-23-2022 Albumin/Globulin [Mass ratio]1.9 {ratio}[facility] Hospitalerum or plasma anion gap determinationOrdered By: Nabeel Stanton on 44-83-1319Tfpam gap [Moles/Vol]9.1 mmol/L6.0-15.0Ad[facility] Hospitalodium [Moles/volume] in Serum or PlasmaOrdered By: Nabeel Stanton on 50-55-6765Kvdrlx [Moles/Vol]142 mmol/FOwjtsw347-739 mmol/LFPremier Health Atrium Medical CenterUrea nitrogen [Mass/volume] in Serum or PlasmaOrdered By: Nabeel Stanton on 05-23-2022 Urea nitrogen [Mass/Vol]12 mg/dLNormal7-25 mg/dLMercy Health Anderson HospitalCBC AUTO DIFFon 99-00-1788VTMN #0.1 103/ulNormal0.0-0.1The [facility] HamiltonComment on above:Performed By: #### CBC #### [facility] [address] [place], [place] [address] Dr. Tita Michaelssophils/100 WBC (Bld)1.5 %Normal0.2-2.0The [facility] Comment on above:Performed By: #### CBC #### [facility] [address] [place] [address] [address] Tita Michel #0.2 103/ulNormal0.0-0.7The [facility] HamiltonComment on above: Performed By: #### CBC #### [facility] [address] [place] [address] Dr. Tita Gravesosinophils/100 WBC (Bld)3.1 %Normal0.9-7.0The [facility] Comment on above:Performed By: #### CBC #### [facility] [address] [place] [address] Dr. Tita Gravesrythrocyte distribution width (RBC) [Ratio]14.7 %Hhdykw55.0-15.0 The [facility] HamiltonComment on above:Performed By: #### CBC #### [facility] [address] [place] [address] Dr. Tita KumarHematocrit (Bld) [Volume fraction]43.9 %Gaaity38.0-48.0The [facility] HamiltonComment on above:Performed By: #### CBC #### [facility] [address] [place] [address] Dr. Tita KumarHemoglobin (Bld) [Mass/Vol]13.7 g/qMBbaumw66.0-16.0The [facility] Glen[facility]ighment on above:Performed By: #### CBC #### [facility] [address] [place] [address] Dr. Tita Doe #0.02 10e3/ulNormal0.00-0.03The [facility] HamiltonComment on above:Performed By: #### CBC #### [facility] [address] [place] [address] Dr. Tita Doe %0.3 %Normal0.0-0.5The [facility] HamiltonComment on above: Performed By: #### CBC #### [facility] [address] [place] [address] Dr. Tita Avila #1.8 103/ulNormal1.2-3.8The [facility] HamiltonComment on above:Performed By: #### CBC #### [facility] [address] [address] [address] Tita Rowemphocytes/100 WBC (Bld)28.5 %Ipzsnc40.5-60.0The [facility] Glenbeighment on above:Performed By: #### CBC #### [facility] [address] [place] [address] Dr. Tita Page DIFF REQNONormalThe [facility] HamiltonComment on above: Performed By: #### CBC #### [facility] [address] [address] [address] Tita Uriarte (RBC) [Entitic mass]29.8 foLjtugl84.7-34.0The [facility] HamiltonComment on above:Performed By: #### CBC #### [facility] [address] [place] [address] Dr. Tita Uriarte (RBC) [Mass/Vol]31.2 g/uXVbxwqy74.9-35.2The [facility]ighment on above:Performed By: #### CBC #### [facility] [address] [place] [address] Dr. Tita Uriarte (RBC) [Entitic vol]95.4 qFApudal81.0-99.0The [facility] Glen[facility]ighment on above:Performed By: #### CBC #### [facility] [address] [place] [address] Dr. Tita Bo #0.7 103/ulNormal0.3-0.8The [facility]ighment on above:Performed By: #### CBC #### [facility] [address] [place] [address] Dr. Tita Wilsonocytes/100 WBC (Bld)11.3 %Normal1.7-12.0The [facility] on above:Performed By: #### CBC #### [facility] [address] [place] [address] Dr. Tita Reyes #3.4 103/ulNormal1.4-6.5The [facility]fin HospitalComment on above:Performed By: #### CBC #### [facility] [address] [address] [address] Tita Oconnellutrophils/100 WBC (Bld)55.3 %Hixbdc74.0-75.0The [facility] HamiltonComment on above:Performed By: #### CBC #### [facility] [address] [place] [address] Dr. Tita KumarPlatelet mean volume (Bld) [Entitic vol]8.7 fLCritically low 9.5-13.5The [facility] HamiltonComment on above:Performed By: #### CBC #### [facility] [address] [place] [address] Dr. Tita KumarPLT346 103/wcEmpbdm721-865Jag [facility] HamiltonComment on above: Performed By: #### CBC #### [facility] [address] [place] [address] Dr. Tita KumarRBC4.60 106/ulNormal4.20-5.40The [facility] HamiltonComment on above:Performed By: #### CBC #### [facility] [address] [place] [address] Dr. Tita KumarWBC6.2 103/ulNormal4.0-11.0The [facility] HamiltonComment on above: Performed By: #### CBC #### [facility] [address] [place] [address] Dr. Tita KumarMRI TSPINE WO W CONon 31-11-5907OTP TSPINE WO W CONEXAMINATION: MRI TSPINE WO W CON, MRI CSPINE WO W [...] Modic 1 edema/inflammation Electronically authenticated by: KARINA BERNSTEIN Date: 2022-04-06 17:33[facility] CenterPROF 14(COMP METB)on 91-22-2921Jckztxi [Mass/Vol]3.7 g/dLNormal 3.4-5.0The [facility] HamiltonComment on above:Performed By: #### CMP ####[facility] [address] [place] [id number] Kumar Albumin/Globulin [Mass ratio]1.0 {ratio}NormalThe [facility] HamiltonComment on above:Performed By: #### CMP ####[facility] [address] [place] [id number].Yilan ChangALP [Catalytic activity/Vol]106 U/L Yhnwsm76-368Oan [facility] HamiltonComment on above:Performed By: #### CMP ####[facility] Oz[address] [place], [place] [address]Dr. Yilan ChangALT [Catalytic activity/Vol]31 U/TLhtamq62-05Gxe [facility] Comment on above:Performed By: #### CMP ####[facility] Z[address] [place], [place] [address]Dr.Yilan ChangAnion gap [Moles/Vol]10.7 mmol/LNormalThe [facility] HamiltonComment on above:Performed By: #### CMP ####[facility] Ib[address]wwq[address] [place], [place] [address]Dr. Yilan ChangAST [Catalytic activity/Vol]20 U/YLbdhem57-39Idp [facility] Comment on above:Performed By: #### CMP ####[facility] L[address] [place], [place] [address]Dr.Yilan ChangBilirubin [Mass/Vol]0.2 mg/dL Normal0.2-1.0The [facility] HamiltonComment on above:Performed By: #### CMP ####[facility] [address] [place], [place] [address]Dr. Yilan ChangCalcium [Mass/Vol]9.4 mg/dLNormal8.5-10.1The [facility] HamiltonComment on above:Performed By: #### CMP ####[facility] Hdnytnf[address] [place], [place] [address]Dr.Yilan ChangChloride [Moles/Vol]106 mmol/LNormal 98-107The [facility] HamiltonComment on above:Performed By: #### CMP ####[facility] Rubdmotbco[address] [place], [place] [address]Dr.Yilan ChangCO2 [Moles/Vol]29.5 mmol/YZxzaqy63.0-32.0The [facility] HamiltonComment on above: Performed By: #### CMP ####[facility] Izrxcyidpr[address] [place], [place] [address]Dr.Yilan ChangCreatinine [Mass/Vol]0.81 mg/dLNormal 0.55-1.02The [facility] HamiltonComment on above:Performed By: #### CMP ####[facility] [address]ir[address] [place], [place] [address]Dr. Yilan ChangEGFR-AF NORWEGIAN>60Normal>=60The [facility] HamiltonComment on above: Performed By: #### CMP ####[facility] Ztvbvojz[address] [place], [place] [address]Dr.Yilan ChangEGFR-NON AF NORWEGIAN>60Normal>=60The [facility] HamiltonComment on above:Performed By: #### CMP ####[facility] Milcsvfxcj[address] [place], [place] [address]Dr.Yilan ChangGlobulin (S) [Mass/Vol]3.6 g/dLNormalThe [facility] HamiltonComment on above:Performed By: #### CMP ####[facility] Zjmhpbkojp[address] [place], [place] [address]Dr.Yilan ChangGlucose [Mass/Vol]104 mg/rRMmmgiy07-928Gao [facility] Comment on above:Performed By: #### CMP ####[facility] Abngshvone[address] [place], [place] [address]Dr.Yilan ChangPotassium [Moles/Vol]4.2 mmol/LNormal3.5-5.1The [facility] HamiltonComment on above:Performed By: #### CMP ####[facility] [address] [place], [place] [address]Dr. Yilan ChangProtein [Mass/Vol]7.3 g/dLNormal6.4-8.2The [facility] HamiltonComment on above:Performed By: #### CMP ####[facility] [address] [place], [place] [address]Dr.Yilan ChangSodium [Moles/Vol]142 mmol/LNormal 136-145The [facility] HamiltonComment on above:Performed By: #### CMP ####[facility] Umhkpl[address]hz[address] [place], [place] [address]Dr.Yilan ChangUrea nitrogen [Mass/Vol]12.0 mg/dLNormal7.0-18.0[facility] HospitalComment on above:Performed By: #### CMP ####[facility] [address] [place], [place] [address]Zy.Tita KumarUrea nitrogen/Creatinine [Mass ratio] 14.8 mg/mgNoKeenan Private HospitalComment on above:Performed By: #### CMP ####[facility] [address] [place], [place] [address]Vn. Tita KumarUS venous duplex LE LTon 78-59-6392MT venous duplex LE LTOhioHealth Hardin [facility] Hospital [employer] Other [place] venous duplex LE [facility] [employer] Other [place] venous duplex LE [id number] [place] [address] [employer] Other [place] venous duplex [place], [place] [address]S[place]n [employer] Other [place] venous duplex LE LTUltPhysicians Regional Medical [facility] [employer] Other us venous duplex LE LTSiSSM Rehab [employer] Other us venous duplex LE LTPatient: HemantGabrielle J MR#: [id number] [employer] Other US venous duplex LE [id number] [employer] Other US venous duplex LE LTDOB: 1960 Acct:[id number] [facility] [employer] Other US venous duplex LE LTAge/Sex: 61 / F ADM Date: 03/02/22[place] [employer] Other us venous duplex LE LTLoc: UL Room: Type: [facility] [employer] Other us venous duplex LE LTAttending Dr: Nabeel Stanton DO [place] [employer] Other us venous duplex LE LTOrdering Provider: Nabeel Stanton [facility] [employer] Other us venous duplex LE LTDate of Service: 03/02/22[facility] [employer] Other us venous duplex LE LTAccession #: ([id number]) US/US venous duplex LE LT: Swelling of left lower extremity;Pain of leftBluefield [employer] Other us venous duplex LE LTlower extremitBluefield [employer] Other us venous duplex LE LTCopies to: Nabeel Stanton, DO [place] [employer] Other us venous duplex LE LTLEFT LOWER EXTREMITY VENOUS DUPLEXBluefield [employer] Other us venous duplex LE LTINDICATION: Painful swollen left legBluefield [employer] Other us venous duplex LE LTUnilateral left lower extremity venous duplex Doppler study was obtained utilizing B-mode, color-[place] [employer] Other us venous duplex LE LTflow and spectral Doppler.[place] [employer] Other us venous duplex LE LTFINDINGS: The left common femoral, femoral, and popliteal veins showed adequate compressibility,[place] [employer] Other us venous duplex LE LTcolor-flow and augmentation. The left posterior tibial and peroneal veins were compressible, [facility] [employer] Other us venous duplex LE LTwell as proximal greater saphenous vein. The contralateral right common femoral vein wasNopike county memorial hospital [employer] Other us venous duplex LE LTcompressible with color-flow and augmentation.[place] [employer] Other us venous duplex LE LTORDER #: [id number] US/US venous duplex LE LTNopike county memorial hospital [employer] Other us venous duplex LE LTIMPRESSION:[email or web address] Other us venous duplex LE LTNO EVIDENCE OF DEEP VENOUS THROMBOSIS IN THE LEFT LOWER EXTREMITY. NO SUPERFICIAL THROMBOPHLEBITISNorth [employer] Other us venous duplex LE LTWAS NOTED.[email or web address] Other us venous duplex LE LTImpression dictated by: Gilson Stoner M.D.03/08/2022 9:20 [facility] CENTERVivox Other us venous duplex LE LTDictation Location: [place] [address] [email or web address] Other us venous duplex LE LTTech: Kenia DaymarioFulton Medical [facility] [employer] Other us venous duplex LE LTTranscribed By: PWS 03/08/22 [facility]ultonApplied Visual Sciences Other us venous duplex LE LTDictated By: Gilson Stoner MD 03/08/22 [facility] HospitalApplied [facility] Sciences Other us venous duplex LE LTSigned By:[email or web address] Other us venous duplex LE LT03/08/22 [facility]ultonApplied Visual Sciences Other cULTURE URINEon 88-07-7251OTOCKXZ URINEIsolate 1 Escherichia coli >100,000 cfu/mL of ORGANISM [...] <=0.12 S F Nitrofurantoin <=16 S F Trimethoprim/Sulfamethoxazole <=20 S FNormalThe [facility] HamiltonComment on above:Performed By: #### URCX ####[facility] [address] [place] [address]DrTee Laura PANEL (PCR)on 11-91-7850Zztkndwavb F 40/41Not detectedNormalNOT DETECTEDThe [facility] HamiltonComment on above: Performed By: #### GIPANEL #### [facility] [address] [address] [address] Tita uKmarAstrovirusNot detectedNormalNOT DETECTEDThe [facility] Comment on above:Performed By: #### GIPANEL #### [facility] [address] [address] [address] Tita Perez. Diff toxin A/BNot detectedNormalNOT DETECTEDThe [facility] HamiltonComment on above:Performed By: #### GIPANEL #### [facility] [address] [address] [address] Tita MayopylobacterNot detectedNormalNOT DETECTEDThe [facility] Comment on above:Performed By: #### GIPANEL #### [facility] [address] [address] [address] Tita NavasyptosporidiumNot detectedNormalNOT DETECTEDThe [facility] HamiltonComment on above:Performed By: #### GIPANEL #### [facility] [address] [address] [address] Tita Moses. CayetanensisNot detectedNormalNOT DETECTEDThe [facility] HamiltonComment on above:Performed By: #### GIPANEL #### [facility] [address] [address] [address] Tita Hilario Coli M606Tht ApplicableNormalNot ApplicableThe [facility] HamiltonComment on above:Performed By: #### GIPANEL #### [facility] [address] [address] [address] Tita Hilario histolyticaNot detectedNormalNOT DETECTEDThe [facility] Comment on above:Performed By: #### GIPANEL #### [facility] [address] [address] [address] Tita GravesAECNot detectedNormalNOT DETECTEDThe [facility] HamiltonComment on above:Performed By: #### GIPANEL #### [facility] [address] [address] [address] Tita Jamison detectedNormalNOT DETECTEDThe [facility] HamiltonComtrinity health [facility] on above:Performed By: #### GIPANEL #### [facility] [address] [address] [address] Tita GravesPECMalik detectedNormalNOT DETECTEDThe [facility] HamiltonComtrinity health [facility] on above:Performed By: #### GIPANEL #### [facility] [address] [address] [address] Tita Wing detectedNormalNOT DETECTEDThe [facility] HamiltonComment on above:Performed By: #### GIPANEL #### [facility] [address] [address] [address] Tita Macias LambliaNot detectedNormalNOT DETECTEDThe [facility] Comment on above:Performed By: #### SUADANEL #### [facility] [address] [address] [address] Tita Higginbotham [facility] Children's Medical CenterComment on above:Performed By: #### SUADANEL #### [facility] [address] [address] [address] Tita Hall [facility] HEADERGI PANEL [facility] Comment on above:Performed By: #### SUADANEL #### [facility] [address] [address] [address] Tita Sanchez ECOLIGI PANEL DIARRHEAGENIC E.COLI / SHIGELLAOhioHealth Southeastern Medical CenterComment on above:Performed By: #### GIPANEL #### [facility] [address] [address] [address] Tita Sanchez INFOSEProMedica Bay Park HospitalComtrinity health [facility] on above: Result Comment: EAEC- Enteroaggregative E. Coli EPEC- Enteropathogenic E. Coli ETEC- Enterotoxigenic E. Coli lt/st STEC- Shigella-like toxin-producing E. Coli stx1/stx2 EIEC- Shigella/Enteroinvasive E. ColiPerformed By: #### SUADANEL #### [facility] [address] [address] [address] Tita Sanchez PARASITESGI PANEL PARASITESOhioHealth Southeastern Medical Center Comment on above:Performed By: #### SUADANEL #### [facility] [address] [address] [address] Tita SchaferLHD VIRUSGI PANEL VIRUSESOhioHealth Southeastern Medical CenterComment on above:Performed By: #### SUADANEL #### [facility] [address] [address] [address] Tita Tellezrovirus GI/GIINot detectedNormalNOT DETECTEDThe [facility] HamiltonComment on above:Performed By: #### SUADANEL #### [facility] [address] [address] [address] Tita Carranza. ShigelloidesNot detectedNormalNOT DETECTEDThe [facility] HamiltonComment on above:Performed By: #### SUADANEL #### [facility] [address] [address] [address] Tita KumarRotavirus ANot detectedNormalNOT DETECTEDCleveland Clinic [facility] Comment on above:Performed By: #### SUADANEL #### [facility] [address] [address] [address] Tita KumarSalmonellaNot detectedNormalNOT DETECTEDCleveland Clinic [facility] Comment on above:Performed By: #### ALIRIOL #### [facility] [address] [address] [address] Tita KumarSapovirusNot detectedNormalNOT DETECTEDCleveland Clinic [facility] Comment on above:Performed By: #### SUADANEL #### [facility] [address] [address] [address] Tita KumarSTECNot detectedNormalNOT DETECTEDThe [facility] HamiltonComment on above:Performed By: #### SUADANEL #### [facility] [address] [address] [address] Tita KumarVibrioNot detectedNormalNOT DETECTEDThe [facility] HamiltonComment on above:Performed By: #### SUADANEL #### [facility] [address] [place] [address] Dr. Tita Johnson CholeraNot detectedNormalNOT DETECTEDCleveland Clinic [facility] Comment on above:Performed By: #### SUADANEL #### [facility] [address] [place] [address] Dr. Tita Houston. EnterocoliticaNot detectedNormalNOT DETECTEDThe [facility] HamiltonComment on above:Performed By: #### SUADANEL #### [facility] [address] [place] [address] Dr. Tita Graham AUTO DIFFon 62-52-8927RDBR #0.0 103/ulNormal0.0-0.1The [facility] HamiltonComment on above:Performed By: #### CBC #### [facility] [address] [place] [address] Dr. Tita KumarBasophils/100 WBC (Bld)0.3 %Normal0.2-2.0[facility] Comment on above:Performed By: #### CBC #### [facility] [address] [place] [address] Dr. Tita Michel #0.0 103/ulNormal0.0-0.7The [facility] HamiltonComment on above: Performed By: #### CBC #### [facility] [address] [place] [address] Dr. Tita Gravesosinophils/100 WBC (Bld)0.3 %Critically low0.9-7.0The [facility] HamiltonComment on above:Performed By: #### CBC #### [facility] [address] [place] [address] Dr. Tita Gravesrythrocyte distribution width (RBC) [Ratio]13.6 %Ebeitn60.0-15.0 The [facility] HamiltonComment on above:Performed By: #### CBC #### [facility] [address] [place] [address] Dr. Tita KumarHematocrit (Bld) [Volume fraction]43.0 %Pdgzno59.0-48.0The [facility] HamiltonComment on above:Performed By: #### CBC #### [facility] [address] [place] [address] Dr. Tita KumarHemoglobin (Bld) [Mass/Vol]14.4 g/wLRbdygw27.0-16.0The [facility] Glenbeighment on above:Performed By: #### CBC #### [facility] [address] [place] [address] Dr. Tita Doe #0.02 10e3/ulNormal0.00-0.03The [facility] HamiltonComment on above:Performed By: #### CBC #### [facility] [address] [place] [address] Dr. Tita Doe %0.3 %Normal0.0-0.5The [facility] HamiltonComtrinity health [facility] on above: Performed By: #### CBC #### [facility] [address] [place] [address] Dr. Tita Avila #1.3 103/ulNormal1.2-3.8The [facility] HamiltonComment on above:Performed By: #### CBC #### [facility] [address] [place] [address] Dr. Tita Calerohocytes/100 WBC (Bld)18.8 %Critically low20.5-60.0The [facility] HamiltonComtrinity health mus[facility] hospital on above:Performed By: #### CBC #### [facility] [address] [place] [address] Dr. Tita NarvaezUAL DIFF REQNONormalThe [facility] HamiltonComment on above: Performed By: #### CBC #### [facility] [address] [place] [address] Dr. Tita Uriarte (RBC) [Entitic mass]29.9 klNrlukn19.7-34.0The [facility] HamiltonComment on above:Performed By: #### CBC #### [facility] [address] [place] [address] Dr. Tita Uriarte (RBC) [Mass/Vol]33.5 g/sNPiomeh04.9-35.2The [facility] HamiltonComment on above:Performed By: #### CBC #### [facility] [address] [address] Dr. Tita UriarteV (RBC) [Entitic vol]89.4 fIIhgrmn13.0-99.0The [facility] on above:Performed By: #### CBC #### [facility] [address] [place] [address] Dr. Tita Bo #0.8 103/ulNormal0.3-0.8The [facility] HamiltonComment on above:Performed By: #### CBC #### [facility] [address] [place] [address] Dr. Tita Wilsonocytes/100 WBC (Bld)11.5 %Normal1.7-12.0The [facility] Comment on above:Performed By: #### CBC #### [facility] [address] [place] [address] Dr. Tita Reyes #4.7 103/ulNormal1.4-6.5The [facility] HamiltonComment on above:Performed By: #### CBC #### [facility] [address] [place] [address] Dr. Tita Oconnellutrophils/100 WBC (Bld)68.8 %Bpfegv13.0-75.0The [facility] HamiltonComment on above:Performed By: #### CBC #### [facility] [address] [place] [address] Dr. Tita Gannonlet mean volume (Bld) [Entitic vol]9.5 fLNormal9.5-13.5The [facility] on above:Performed By: #### CBC #### [facility] [address] [place] [address] Dr. Tita KumarPLT289 103/gbJbrvns381-415Umo [facility] HamiltonComment on above: Performed By: #### CBC #### [facility] [address] [place] [address] Dr. Tita KumarRBC4.81 106/ulNormal4.20-5.40The [facility] on above:Performed By: #### CBC #### [facility] [address] [address] [address] Tita KumarWBC6.9 103/ulNormal4.0-11.0The [facility] HamiltonComment on above: Performed By: #### CBC #### [facility] [address] [address] [address] Tita Kennedy URINE PROFILEon 63-40-0116Tmmneygef Ql (U)NegativeNormal NEGATIVECleveland Clinic Akron General Lodi HospitalComment on above:Performed By: #### KOREY, ERUR #### [facility] [address] [place] [address] Dr. Tita KumarClarity (U)CLEARNormalCLEARCleveland Clinic Ak[facility] General Lodi HospitalComment on above: Performed By: #### KOREY, ERUR #### [facility] [address] [place] [address] Dr. Tita Shea (U)LT. YELLOWNormalYELLOWCleveland Clinic Akron General Lodi HospitalComment on above:Performed By: #### KOREY ERUR #### [facility] [address] [place] [address] Dr. Tita ClementVANI micrscopic examination will be performed if indicated. NormalCleveland Clinic Akron General Lodi HospitalComment on above:Performed By: #### KOREY, ERUR #### [facility] [address] [place] [address] Dr. Tita KumarGlucose Ql (U)NegativeNormalNEGATIVECleveland Clinic [facility] General Lodi HospitalComment on above:Performed By: #### KOREY, ERUR #### [facility] [address] [place] [address] Dr. Tita KumarHemoglobin Ql (U)SMALLAbnormalNEGATIVEPremier Health on above:Performed By: #### KOREY, ERUR #### [facility] [address] [place] [address] Dr. Tita KumarKetones Ql (U)NegativeNormalNEGATIVECleveland Clinic [facility] General Lodi HospitalComment on above:Performed By: #### KOREY, ERUR #### [facility] [address] [address] [address] Tita KumarLEUKOCYTESSMALLAbnormalNEGATIVEThe [facility] HamiltonComment on above:Performed By: #### KOREY ERUR #### [facility] [address] [address] [address] Tita KumarNitrite Ql (U)NegativeNormalNEGATIVEThe [facility] HamiltonComment on above:Performed By: #### KOREY, ERUR #### [facility] [address] [place] [address] Dr. Tita KumarpH (U)6.0 [pH]Normal5-9The [facility] HamiltonComment on above: Performed By: #### KOREY ERUR #### [facility] [address] [place] [address] Dr. Tita KumarProtein (U) [Mass/Vol]30 mg/dLAbnormalNEGATIVE/ TRACEThe [facility] HamiltonComment on above:Performed By: #### KOREY, ERUR #### [facility] [address] [place] [address] Dr. Tita KumarSPEC GRAVITY1.164Byccbf0.005-<=1.025The [facility] HamiltonComment on above:Performed By: #### KOREY ERUR #### [facility] [address] [place] [address] Dr. Tita Tariq MICRO INDINDICATEDNormalThe [facility] HamiltonComment on above: Performed By: #### KOREY ERUR #### [facility] [address] [place] [address] Dr. Tita Alexanderbilinogen Qn (U)0.2 {Joy'U}/dLNormal0.2 - 1.0The [facility] HamiltonComment on above:Performed By: #### KOREY, ERUR #### [facility] [address] [place] [address] Dr. Tita KumarPROF 14(COMP METB)on [id number] [Mass/Vol]3.2 g/dL Critically low3.4-5.0The [facility] HamiltonComment on above:Performed By: #### CMP #### [facility] [address] [address] [address] Tita KumarAlbumin/Globulin [Mass ratio]0.7 {ratio}NormalThe [facility] HamiltonComment on above:Performed By: #### CMP #### [facility] [address] [address] [address] Tita SquiresP [Catalytic activity/Vol]85 U/ERwquiv97-030Arm [facility] HamiltonComment on above:Performed By: #### CMP #### [facility] [address] [place] [address] Dr. Tita Barbosa [Catalytic activity/Vol]54 U/AHotffi09-51Nal [facility] HamiltonComment on above:Performed By: #### CMP #### [facility] [address] [place] [address] Dr. Tita Strattonon gap [Moles/Vol]13.3 mmol/LNormalThe [facility] Comment on above:Performed By: #### CMP #### [facility] [address] [place] [address] Dr. Tita KumarAST [Catalytic activity/Vol]33 U/RKenmol07-84Pel [facility] HamiltonComment on above:Performed By: #### CMP #### [facility] [address] [place] [address] Dr. Tita KumarBilirubin [Mass/Vol]0.3 mg/dLNormal0.2-1.0The [facility] Comment on above:Performed By: #### CMP #### [facility] [address] [place] [address] Dr. Tita KumarCalcium [Mass/Vol]9.0 mg/dLNormal8.5-10.1The [facility] Comment on above:Performed By: #### CMP #### [facility] [address] [place] [address] Dr. Tita KumarChloride [Moles/Vol]103 mmol/MRoeara82-683Nmg [facility] Comment on above:Performed By: #### CMP #### [facility] [address] [address] [address] Tita KumarCO2 [Moles/Vol]25.3 mmol/VPkdacu98.0-32.0The [facility] Comment on above:Performed By: #### CMP #### [facility] [address] [address] [address] Tita KumarCreatinine [Mass/Vol]0.84 mg/dLNormal0.55-1.02The [facility] HamiltonComment on above:Performed By: #### CMP #### [facility] [address] [address] [address] Tita GravesGFR-AF NORWEGIAN>60Normal>=60The [facility] HamiltonComment on above:Performed By: #### CMP #### [facility] [address] [place] [address] Dr. Tita GravesGFR-NON AF NORWEGIAN>60Normal>=60The [facility] HamiltonComment on above:Performed By: #### CMP #### [facility] [address] [address] [address] iTta KumarGlobulin (S) [Mass/Vol]4.3 g/dLNormalThe [facility] HamiltonComment on above:Performed By: #### CMP #### [facility] [address] [address] [address] Tita KumarGlucose [Mass/Vol]116 mg/dLCritically hvyw70-383Mxp [facility] HamiltonComment on above:Performed By: #### CMP #### [facility] [address] [place] [address] Dr. Tita KumarPotassium [Moles/Vol]3.6 mmol/LNormal3.5-5.1The [facility] Comment on above:Performed By: #### CMP #### [facility] [address] [address] [address] Tita KumarProtein [Mass/Vol]7.5 g/dLNormal6.4-8.2The [facility] Comment on above:Performed By: #### CMP #### [facility] [address] [address] [address] Tita Moffettdium [Moles/Vol]138 mmol/WOqjxyp301-392Eec [facility] Comment on above:Performed By: #### CMP #### [facility] [address] [address] [address] Tita Matt nitrogen [Mass/Vol]16.0 mg/dLNormal7.0-18.0The [facility] HamiltonComment on above:Performed By: #### CMP #### [facility] [address] [address] [address] Tita Matt nitrogen/Creatinine [Mass ratio]19.0 mg/mgNoKeenan Private HospitalComment on above:Performed By: #### CMP #### [facility] [address] [place] [address] Dr. Tita Smith MICROSCOPIC ONLYon [id number] SEENNormalNONE SEENThe [facility] HamiltonComment on above:Performed By: #### KOREY ERUR #### [facility] [address] [place] [address] Dr. Tita Moody identified Cx Nom (U)INDICATEDOhioHealth Southeastern Medical CenterComment on above:Performed By: #### KOREY ERUR #### [facility] [address] [place] [address] Dr. Tita Pinto SEENNormalNONE SEENThe [facility] HamiltonComment on above:Performed By: #### KOREY ERUR #### [facility] [address] [place] [address] Dr. Tita Navasystals LM Nom (Urine sed)NONE SEENNormalNONE SEENCleveland Clinic Akron General Lodi HospitalComment on above:Performed By: #### KOREY ERUR #### [facility] [address] [place] [address] Dr. Rivers ChangEpithelial cells LM Ql (Urine sed)FEWAbnormalNONE SEEN /RAREThe [facility] HamiltonComment on above:Performed By: #### UMICRO, ERUR #### [facility] [address] [address] [address] Tita ShannonUSMAX SEENNormalNONE SEENCleveland Clinic Akron General Lodi HospitalComment on above:Performed By: #### KOREY ERUR #### [facility] [address] [address] [address] Tita KumarCrrtuCLV1-39Tbczjwth6-6Lco [facility] HamiltonComment on above:Performed By: #### AIMEE NAIRR #### [facility] [address] [address] [address] Tita KumarWBC5-10AbnormalNONE SEENCleveland Clinic Akron General Lodi HospitalComment on above: Performed By: #### AIMEE NAIRR #### [facility] [address] [address] [address] Tita Gonsalez [id number] nitrogen [Mass/Vol]15.0 mg/dLNormal7.0-18.0 The [facility] HamiltonComment on above:Performed By: #### BUN, CREA ####[facility] [address] [address]Dr. Tita Kumar CREATININEon 95-92-7324Ziaqtygedr [Mass/Vol]0.80 mg/dLNormal0.55-1.02The [facility] HamiltonComment on above:Performed By: #### BUN, CREA ####[facility] [address] [address]Dr. Annelan ChangEGFR- AF NORWEGIAN>60Normal>=60The [facility] HamiltonComment on above:Performed By: #### BUN, CREA ####[facility] [address] [address]Dr. Annelan ChangEGFR-NON AF NORWEGIAN>60Normal>=60The [facility] on above:Performed By: #### BUN, CREA ####[facility] [address] [address]Dr. Tita KumarI BRAIN WO W CONon 29-09-6571DWZ BRAIN WO W CONEXAMINATION: MRI BRAIN WO W CON HISTORY: Multiple sclerosis COMPARISON: [...] known multiple sclerosis Electronically authenticated by: KARINA BERNSTEIN Date: 2021-11-23 20:52NormalThe [facility] AUTO DIFFon [id number] #0.1 103/ulNormal0.0-0.1The [facility] HamiltonComment on above:Performed By: #### CBC ####[facility] [address] [id number].Yilan ChangBasophils/100 WBC (Bld)0.9 %Normal0.2-2.0The [facility] HamiltonComment on above:Performed By: #### CBC ####[facility] [address] [address]Dr.Yilan ChangEO #0.2 103/ulNormal0.0-0.7The [facility] HamiltonComment on above:Performed By: #### CBC ####[facility] [address] [address]Dr.Yilan ChangEosinophils/100 WBC (Bld)2.2 %Normal 0.9-7.0The [facility] HamiltonComment on above:Performed By: #### CBC ####[facility] [address] [place], [place] [address]Dr.Tita José Erythrocyte distribution width (RBC) [Ratio]13.7 %Grfrra28.0-15.0The [facility] HamiltonComment on above:Performed By: #### CBC ####[facility] [address] [place], [place] [address]Dr.Anneanel JoséHematocrit (Bld) [Volume fraction]44.1 %Izbryi69.0-48.0The [facility] HospitalComment on above:Performed By: #### CBC ####[facility] [address]pmbnk[address] [place], [place] [address]Dr.Tita KumarHemoglobin (Bld) [Mass/Vol]14.3 g/dL Ofqbet95.0-16.0The [facility] HospitalComment on above:Performed By: #### CBC ####[facility] I[address] [place], [place] [address]Dr. Tita KumarIG #0.03 10e3/ulNormal0.00-0.03The [facility] HospitalComment on above: Performed By: #### CBC ####[facility] X[address]qu[address] [place], [place] [address]Dr.Tita KumarIG %0.3 %Normal0.0-0.5The [facility] HamiltonComment on above:Performed By: #### CBC ####[facility] [address] [place], [place] [address]Dr.Tita KumarLYMPH #1.4 103/ulNormal1.2-3.8The [facility] HamiltonComment on above:Performed By: #### CBC ####[facility] [address] [place], [place] [address]Dr. Tita KumarLymphocytes/100 WBC (Bld)15.2 %Critically low20.5-60.0The [facility] HamiltonComment on above:Performed By: #### CBC ####[facility] [address] [place], [place] [address]Dr.Tita KumarMANUAL DIFF REQ NONormalThe [facility] HamiltonComment on above:Performed By: #### CBC ####[facility] [address] [address]Dr. Tita KumarH (RBC) [Entitic mass]30.0 yxQgvutt72.7-34.0The [facility] Comment on above:Performed By: #### CBC ####[facility] [address] [place], [place] [address]Dr.Tita KumarHC (RBC) [Mass/Vol]32.4 g/dL Omnfqc92.9-35.2The [facility] HamiltonComment on above:Performed By: #### CBC ####[facility] [address] [place], [place] [address]Dr. Tita KumarV (RBC) [Entitic vol]92.5 dMOpstbh35.0-99.0The [facility] Comment on above:Performed By: #### CBC ####[facility] [address] [place], [place] [address]Dr.Tita KumarMONO #0.7 103/ulNormal0.3-0.8 The [facility] HamiltonComment on above:Performed By: #### CBC ####[facility] [address] [place], [place] [address]Dr.Tita Kumar Monocytes/100 WBC (Bld)7.7 %Normal1.7-12.0The [facility] HamiltonComment on above: Performed By: #### CBC ####[facility] [address] [place], [place] [address]Dr.Tita KumarNEUT #6.8 103/ulCritically high1.4-6.5 The [facility] HamiltonComment on above:Performed By: #### CBC ####[facility] [address] [place], [place] [address]DrTeeTita Kumar Neutrophils/100 WBC (Bld)73.7 %Quhack78.0-75.0The [facility] HamiltonComment on above:Performed By: #### CBC ####[facility] [address] [place], [place] [address]Dr.Tita KumarPlatelet mean volume (Bld) [Entitic vol] 8.7 fLCritically low9.5-13.5The [facility] HamiltonComment on above:Performed By: #### CBC ####[facility] [address] [address]Dr.Tita UyydkFJO083 103/xdZbmito015-892Jlr [facility] HamiltonComment on above:Performed By: #### CBC ####[facility] [address] [address]Dr.Tita ChangRBC4.77 106/ulNormal4.20-5.40The [facility] on above:Performed By: #### CBC ####[facility] [address] [address]Dr.Tita KumarWBC9.3 103/ul Normal4.0-11.0The [facility] on above:Performed By: #### CBC ####[facility] [address] [address]Dr. Tita KumarPROF 14(COMP METB)on 11-43-5148Vokppxd [Mass/Vol]3.7 g/dLNormal 3.4-5.0The [facility] on above:Performed By: #### TSH, CMP #### [facility] [address] [address] [address] Tita KumarAlbumin/Globulin [Mass ratio]1.0 {ratio}NormalThe [facility] on above:Performed By: #### TSH, CMP #### [facility] [address] [address] [address] Tita Reeder [Catalytic activity/Vol]105 U/THnxgsv50-480Esb [facility] HamiltonComtr[facility] on above:Performed By: #### TSH, CMP #### [facility] [address] [address] [address] Tita SquiresT [Catalytic activity/Vol]35 U/FGsyslw86-67Okg [facility] HamiltonComtr[facility] on above:Performed By: #### TSH, CMP #### [facility] [address] [address] [address] Tita KumarAnion gap [Moles/Vol]10.8 mmol/LNormalC[facility] Clinic [facility] Comment on above:Performed By: #### TSH, CMP #### [facility] [address] [address] [address] Tita KumarAST [Catalytic activity/Vol]20 U/NEqbrwy40-73Eqf [facility] HamiltonComment on above:Performed By: #### TSH, CMP #### [facility] [address] [address] [address] Tita KumarBilirubin [Mass/Vol]0.3 mg/dLNormal0.2-1.0[facility] Comment on above:Performed By: #### TSH, CMP #### [facility] [address] [place] [address] Dr. Tita KumarCalcium [Mass/Vol]9.3 mg/dLNormal8.5-10.1[facility] Comment on above:Performed By: #### TSH, CMP #### [facility] [address] [address] [address] Tita KumarChloride [Moles/Vol]106 mmol/TOcyffd48-974SrgCleveland Clinic [facility] Comment on above:Performed By: #### TSH, CMP #### [facility] [address] [place] [address] Dr. Tita KumarCO2 [Moles/Vol]29.9 mmol/XPfrcxs08.0-32.0The [facility] Comment on above:Performed By: #### TSH, CMP #### [facility] [address] [address] [address] Tita KumarCreatinine [Mass/Vol]0.80 mg/dLNormal0.55-1.02The [facility] HamiltonComment on above:Performed By: #### TSH, CMP #### [facility] [address] [address] [address] Tita GravesGFR-AF NORWEGIAN>60Normal>=60The [facility] HamiltonComment on above:Performed By: #### TSH, CMP #### [facility] [address] [address] [address] Tita GravesGFR-NON AF NORWEGIAN>60Normal>=60The [facility] HamiltonComment on above:Performed By: #### TSH, CMP #### [facility] [address] [address] [address] Tita KumarGlobulin (S) [Mass/Vol]3.6 g/dLNormalThe [facility] HamiltonComment on above:Performed By: #### TSH, CMP #### [facility] [address] [address] [address] Tita KumarGlucose [Mass/Vol]105 mg/oOKhvlmp50-608Rpi [facility] Comment on above:Performed By: #### TSH, CMP #### [facility] [address] [place] [address] Dr. Tita KumarPotassium [Moles/Vol]4.7 mmol/LNormal3.5-5.1The [facility] Comment on above:Performed By: #### TSH, CMP #### [facility] [address] [address] [address] Tita KumarProtein [Mass/Vol]7.3 g/dLNormal6.4-8.2[facility] Comment on above:Performed By: #### TSH, CMP #### [facility] [address] [address] [address] Tita KumarSodium [Moles/Vol]142 mmol/JHtbtjl615-264Ssj [facility] Comment on above:Performed By: #### TSH, CMP #### [facility] [address] [address] [address] Tita KumarUrea nitrogen [Mass/Vol]11.0 mg/dLNormal7.0-18.0The [facility] HamiltonComment on above:Performed By: #### TSH, CMP #### [facility] [address] [address] [address] Tita KumarUrea nitrogen/Creatinine [Mass ratio]13.8 mg/mgNormalThe [facility] HamiltonComment on above:Performed By: #### TSH, CMP #### [facility] [address] [address] [address] Tita Priest 86-67-0959YKX9.059 uIU/mLNormal0.358-3.740The [facility] on above:Performed By: #### TSH, CMP #### [facility] [address] [address] [address] Tita KumarVITAMIN D 25 OHon 88-30-2550DOR D 25-OH43.8 ng/mLNormalThe [facility] HamiltonComment on above:Performed By: #### VITAD ####[facility] [address] [address]Dr. Tita TrujilloT D RANGES SEE BELOWNoalThProMedica Bay Park HospitalComtrinity health [facility] on above:Result Comment: <20 ng/mL Vit D deficient 20 - <30 ng/mL Vit D insufficient 30 - 100 ng/mL Vit D sufficient >100 ng/mL Potential ToxicityPerformed By: #### VITAD ####[facility] [address] [address]Dr. Tita Graham W Auto Differential panel (Bld)on 53-66-1917Nkh Immature Gran0.03 k/uL<0.10 k/uL [facility] HealthBasophils (Bld) [#/Vol]0.06 10*3/uL<0.11 k/uLSumma Health Basophils/100 WBC (Bld)0.7 %[facility] HealthDifferential cell count method Nom (Bld)AutoCleveland ClinicEosinophils (Bld) [#/Vol]0.19 10*3/uL<0.46 k/uL [facility] HealthEosinophils/100 WBC (Bld)2.3 %[facility] HealthErythrocyte distribution width (RBC) [Ratio]13.4 %11.5 - 15.0 %[facility] HealthHematocrit (Bld) [Volume fraction]44.5 %36.0 - 46.0 %[facility] HealthHemoglobin (Bld) [Mass/Vol]14.8 g/dL11.5 - 15.5 g/dLSumma HealthImmature Gran %0.4 %[facility] HealthLymphocytes (Bld) [#/Vol]1.80 10*3/uL1.00 - 4.00 k/uLSumma Health Lymphocytes/100 WBC (Bld)22.0 %[facility] HospitalH (RBC) [Entitic mass]30.1 pg 26.0 - 34.0 pgClevelSt. Gabriel HospitalHC (RBC) [Mass/Vol]33.3 g/dL30.5 - 36.0 g/dL [facility] HospitalV (RBC) [Entitic vol]90.6 fL80.0 - 100.0 fLCFairfield Medical Center Monocytes (Bld) [#/Vol]0.70 10*3/uL<0.87 k/uLSumma HealthMonocytes/100 WBC (Bld)8.5 %[facility] HealthNeutrophils (Bld) [#/Vol]5.41 10*3/uL1.45 - 7.50 k/uL [facility] HealthNeutrophils/100 WBC (Bld)66.1 %[facility] HealthNucleated RBC (Bld) [#/Vol]10*3/uL<0.01 k/uLSumma HealthNucleated RBC/100 WBC (Bld) [Ratio]0.0 /100 WBCSumma HealthPlatelet mean volume (Bld) [Entitic vol]8.7 fLLow9.0 - 12.7 fLClevelOhioHealth Berger HospitalPlatelets (Bld) [#/Vol]366 10*3/uL150 - 400 k/[facility]ighRBC (Bld) [#/Vol]4.91 10*6/uL3.90 - 5.20 m/uLSumma HealthWBC (Bld) [#/Vol]8.19 10*3/uL3.70 - 11.00 k/uLSumma Health Comprehensive metabolic 2000 panelon 52-96-9090Hykpcnu [Mass/Vol]4.4 g/dL3.9 - 4.9 g/dLDiamond ClinicALP [Catalytic activity/Vol]100 U/L34 - 123 U/LCleveland ClinicALT [Catalytic activity/Vol]19 U/L7 - 38 U/LCleveland ClinicAnion gap [Moles/Vol]11 mmol/L9 - 18 mmol/LCleveland ClinicAST [Catalytic activity/Vol]19 U/L13 - 35 U/LCleveland [facility] Of MinneapolisBilirubin [Mass/Vol]0.3 mg/dL0.2 - 1.3 mg/dL [facility] HealthCalcium [Mass/Vol]9.4 mg/dL8.5 - 10.2 mg/dLSumma Health Chloride [Moles/Vol]103 mmol/L97 - 105 mmol/LCleveland ClinicCO2 [Moles/Vol]24 mmol/L22 - 30 mmol/LCleveland [facility] MinneapolisCreatinine [Mass/Vol]0.71 mg/dL0.58 - 0.96 mg/dLSumma HealthEstimated Glomerular Filtration Rate96 mL/min/1.73m>=60 mL/min/1.73mCleveland [facility] Hospital Of MinneapolisGlucose [Mass/Vol]113 mg/rPHrqv85 - 99 mg/dL [facility] HealthPotassium [Moles/Vol]4.1 mmol/L3.7 - 5.1 mmol/LCleveland [facility] Protein [Mass/Vol]7.0 g/dL6.3 - 8.0 g/dLSycamore Medical Centerodium [Moles/Vol]138 mmol/L136 - 144 mmol/LCleveland [facility] Of MinneapolisUrea nitrogen [Mass/Vol]14 mg/dL7 - 21 mg/dLFisher-Titus Medical Centerbumin [Mass/volume] in Serum or Plasmaon 08-23-2020 Albumin [Mass/Vol]3.9 g/dL3.2-5.5FPremier Health Atrium Medical CenterAlbumin [Mass/Vol]Albumin [Mass/volume] in Serum or Plasma3.2-5.5FPremier Health Atrium Medical CenterAlkaline phosphatase [Enzymatic activity/volume] in Serum or Plasmaon 66-24-0940TVL [Catalytic activity/Vol]85 U/L96-79FbeolhvroMercy Health Anderson HospitalALP [Catalytic activity/Vol]Alkaline phosphatase [Enzymatic activity/volume] in Serum or Vabucv76-79UkobowpydMercy [facility] Aspartate aminotransferase [Enzymatic activity/volume] in Serum or Plasmaon 03-30-3154BBW [Catalytic activity/Vol]22 U/O24-26DtmyygswaMercy Health Anderson HospitalAST [Catalytic activity/Vol]Aspartate aminotransferase [Enzymatic activity/volume] in Serum or Afyzur28-82HmonfhitjMercy Health [facility] Hospital Automated erythrocytes count in urine sediment (number/area)on 22-23-1889FOM Auto (Urine sed) [#/Area]1-2 [HPF]0-4FPremier Health Atrium Medical CenterAutomated leukocytes count in urine sediment (number/area)on 92-92-0022OYG Auto (Urine sed) [#/Area]10-19 [HPF]High0-4FPremier Health Atrium Medical CenterBacteria [Presence] in Urine by Automatedon 59-65-1141Dtmtrhhz Auto Ql (U)Bacteria [Presence] in Urine by AutomatedHighNone SeenMercy Health [facility] Hospital Basophils Auto (Bld) [#/Vol]on 89-86-3432Stxlirbjb (Bld) [#/Vol]0.1 10*3/uL 0.0-0.2FPremier Health Atrium Medical CenterBasophils (Bld) [#/Vol]Automated basophil count0.0-0.2FPremier Health Atrium Medical CenterBasophils/100 WBC Auto (Bld)on 73-73-5444Rsmkgxekk/100 WBC (Bld)0.9 %.[facility] Basophils/100 WBC (Bld)Automated basophil %.[facility] Bilirubin Test strip Ql (U)on 12-94-2313Jkuvumfip Ql (U)Bilirubin.total [Presence] in Urine by Test stripNegativeMercy Health [facility] Hospital Bilirubin Ql (U)NegativeNegProtestant Deaconess HospitalBilirubin.total [Mass/volume] in Serum or Plasmaon 71-32-0394Yxnjsagpv [Mass/Vol]0.6 mg/dL 0.3-1.2FPremier Health Atrium Medical CenterBilirubin [Mass/Vol]Bilirubin.total [Mass/volume] in Serum or Plasma0.3-1.2FPremier Health Atrium Medical CenterCalcium [Mass/volume] in Serum or Plasmaon 66-66-0869Wcxnfur [Mass/Vol]9.3 mg/dL8.2-10.2 [facility] HospitalCalcium [Mass/Vol]Calcium [Mass/volume] in Serum or Plasma8.2-10.2FPremier Health Atrium Medical CenterCarbon dioxide, total [Moles/volume] in Serum or Plasmaon 17-68-9722GC6 [Moles/Vol]26.0 mmol/L 22.0-30.0[facility] HospitalCO2 [Moles/Vol]Carbon dioxide, total [Moles/volume] in Serum or Ipnjmh20.0-30.0[facility] Chloride [Moles/volume] in Serum or Plasmaon 52-35-5515Kovnywcw [Moles/Vol]106 mmol/P34-743ClfsicofdMercy Health Anderson HospitalChloride [Moles/Vol]Chloride [Moles/volume] in Serum or Xcgmdh34-662MdmfvuhskMercy Health Anderson HospitalColor Auto (U)on 66-89-2202Kmytg (U)YellowYelMercy Health Defiance HospitalColor (U)Color of Urine by AutoYelMercy Health Defiance HospitalCreatinine and Glomerular filtration rate.predicted panel (S/P/Bld)on 34-53-2409Awmsbxeoet [Mass/Vol]0.75 mg/dL0.44-1.03[facility] Hospitalerum or plasma creatinine measurement with calculation of estimated glomerular filtrSerum or plasma creatinine measurement with calculation of estimated glomerular filtr 0.44-1.03[facility] HospitalEosinophils Auto (Bld) [#/Vol]on 48-69-2010Kyyyjpcmczw (Bld) [#/Vol]0.1 10*3/uL0.0-0.45[facility] HospitalEosinophils (Bld) [#/Vol]Automated eosinophil count0.0-0.45[facility] HospitalEosinophils/100 WBC Auto (Bld)on 08-23-2020 Eosinophils/100 WBC (Bld)2.4 %.[facility] HospitalEosinophils/100 WBC (Bld)Automated eosinophil %.[facility] HospitalErythrocyte distribution width Auto (RBC) [Ratio]on 57-76-0808Jfjisiubdxj distribution width (RBC) [Ratio]14.2 %11.9-15.3FPremier Health Atrium Medical CenterErythrocyte distribution width (RBC) [Ratio]Erythrocyte distribution width [Ratio] by Automated count11.9-15.3FPremier Health Atrium Medical CenterErythrocyte sedimentation rate by Photometric methodon 41-93-2729KLD Photometric method (Bld) [Velocity]37 mm/hrHigh0-29[facility] HospitalESR Photometric method (Bld) [Velocity]Erythrocyte sedimentation rate by Photometric methodHigh 0-29[facility] HospitalErythrocytes [#/area] in Urine sediment by Automated counton 35-43-0382CCC Auto (Urine sed) [#/Area]Erythrocytes [#/area] in Urine sediment by Automated count0-4FPremier Health Atrium Medical Center Estimated glomerular filtration rate (GFR) non- Americanon 08-23-2020 GFR/1.73 sq M.predicted among non-blacks MDRD (S/P/Bld) [Vol rate/Area]> 60 mL/MinMercy Health Anderson HospitalGFR/1.73 sq M.predicted among non-blacks MDRD (S/P/Bld) [Vol rate/Area]Estimated glomerular filtration rate (GFR) non- AmericanMercy Health Anderson HospitalGlobulin Calc (S) [Mass/Vol]on 89-69-0055Vwjgpjhk (S) [Mass/Vol]3.9 g/dLMercy Health [facility] Hospital Globulin (S) [Mass/Vol]Serum globulin measurement by calculation (mass/volume) [facility] HospitalGlucose [Mass/volume] in Serum or Plasmaon 04-49-3430Zimmbct [Mass/Vol]104 mg/cDBbmb24-478PajfcdrkfMercy Health [facility] Hospital Comment on above:ADA recommended reference rangeRandom Glucose Reference Range is dependent on time and content of last meal. Glucose of more than 200 mg/dL in a nonstressed, ambulatory subject supports the diagnosisof Diabetes Mellitus. Glucose [Mass/Vol]Glucose [Mass/volume] in Serum or UfeqbkJrog87-525RgjbsletxMercy Health Anderson HospitalComment on above:ADA recommended reference rangeRandom Glucose Reference Range is dependent on time and content of last meal. Glucose of more than 200 mg/dL in a nonstressed, ambulatory subject supports the diagnosisof Diabetes Mellitus.Hematocrit Auto (Bld) [Volume fraction]on 73-48-1294Ontxgocbdc (Bld) [Volume fraction]47.0 %High34.0-46.4FPremier Health Atrium Medical CenterHematocrit (Bld) [Volume fraction]Hematocrit [Volume Fraction] of Blood by Automated bsqknFywv89.0-46.4FPremier Health Atrium Medical CenterHemoglobin [Mass/volume] in Bloodon 11-31-4118Ruvirfetvh (Bld) [Mass/Vol] 15.9 g/nKRjre93.8-15.4FPremier Health Atrium Medical CenterHemoglobin (Bld) [Mass/Vol]Hemoglobin [Mass/volume] in BfegtYttv40.8-15.4FPremier Health Atrium Medical CenterKetones Auto test strip (U) [Mass/Vol]on 66-89-1629Yepdips (U) [Mass/Vol]NegativeNegativeMercy Health Anderson HospitalKetones (U) [Mass/Vol]Urine ketones measurement by automated test strip (mass/volume) NegativeMercy Health Anderson HospitalLaboratory - Hematology and Cell counts on 23-23-6698Rlslprooc RBC/100 WBC (Bld) [Ratio]0.1 %0-0.5FGood Samaritan Hospitaltory - Microbiology and Antimicrobial susceptibilityon 53-48-4889Pfovksps identified Cx Nom (U)Escherichia coliAbnormalMercy Health Anderson HospitalLaboratory - Urinalysison 50-07-1508Pebnbbb casts LM Ql (Urine sed)0-8 [LPF]0-8[facility] HospitalLeukocytes [#/area] in Urine sediment by Automated counton 62-90-2153RYM Auto (Urine sed) [#/Area] Leukocytes [#/area] in Urine sediment by Automated countHigh0-4FPremier Health Atrium Medical CenterLeukocytes [#/volume] in Blood by Automated counton 52-43-0526TVV (Bld) [#/Vol]5.9 10*3/uL4.5-11.0[facility] Lymphocytes Auto (Bld) [#/Vol]on 92-26-9598Nfwxrbyqvce (Bld) [#/Vol]1.0 10*3/uL 1.00-4.8[facility] HospitalLymphocytes (Bld) [#/Vol]Lymphocytes [#/volume] in Blood by Automated count1.00-4.8[facility] Lymphocytes/100 WBC Auto (Bld)on 82-72-7266Ilvqhfmzjmh/100 WBC (Bld)16.9 %. [facility] HospitalLymphocytes/100 WBC (Bld)Lymphocytes/100 leukocytes in Blood by Automated count.[facility] HospitalMCH Auto (RBC) [Entitic mass]on 44-84-8437JKQ (RBC) [Entitic mass]31.0 pg24.7-34.3 [facility] HospitalMCH (RBC) [Entitic mass]MCH [Entitic mass] by Automated count24.7-34.3FMarymount HospitalHC Auto (RBC) [Mass/Vol]on 87-21-1191IHII (RBC) [Mass/Vol]33.9 g/dL32.0-35.0[facility] HospitalHC (RBC) [Mass/Vol]MCHC [Mass/volume] by Automated count 32.0-35.0[facility] HospitalMCV Auto (RBC) [Entitic vol]on 73-87-6467JQJ (RBC) [Entitic vol]91.5 mX79-345FdgfsqxpyMercy Health [facility] Hospital MCV (RBC) [Entitic vol]MCV [Entitic volume] by Automated fiuim71-254HxbwecchoMercy Health Anderson HospitalMonocytes Auto (Bld) [#/Vol]on 63-58-6213Tfcblydvl (Bld) [#/Vol]0.5 10*3/uL0.0-0.8[facility] HospitalMonocytes (Bld) [#/Vol]Automated blood monocyte count0.0-0.8[facility] Monocytes/100 WBC Auto (Bld)on 43-92-4341Nmknfaqxh/100 WBC (Bld)8.5 %.[facility] HospitalMonocytes/100 WBC (Bld)Automated monocyte %.[facility] HospitalNeutrophils Auto (Bld) [#/Vol]on 87-55-8973Hdwhvhgnvxc (Bld) [#/Vol]4.2 10*3/uL1.8-7.7FPremier Health Atrium Medical CenterNeutrophils (Bld) [#/Vol]Neutrophils [#/volume] in Blood by Automated count1.8-7.7FPremier Health Atrium Medical CenterNeutrophils/100 WBC Auto (Bld)on 08-23-2020 Neutrophils/100 WBC (Bld)71.3 %.[facility] HospitalNeutrophils/100 WBC (Bld)Automated neutrophil %.[facility] HospitalNitrite Test strip Ql (U)on 29-96-6824Wadyiwl Ql (U)Nitrite [Presence] in Urine by Test strip NegativeMercy Health Anderson HospitalNitrite Ql (U)NegativeNegativeMercy Health Anderson HospitalNo Panel Informationon 79-24-7506Zyjwwtata GFR ()> 60 mL/MinMercy Health Anderson HospitalComment on above:GFR estimated reference range: According to KDOQI guidelines, <60 ml/min/1.73m2 is sufficient todiagnose a patient with chronic kidney disease.Pharmacy Creatinine Clearance (Chem77.68[facility] HospitalPlatelet mean volume Auto (Bld) [Entitic vol]on 10-90-7451Wxtrrwgx mean volume (Bld) [Entitic vol]7.3 fL 6.3-10.7FPremier Health Atrium Medical CenterPlatelet mean volume (Bld) [Entitic vol]Platelet mean volume [Entitic volume] in Blood by Automated count6.3-10.7 [facility] HospitalPlatelets Auto (Bld) [#/Vol]on 08-23-2020 Platelets (Bld) [#/Vol]376 10*3/vN256-939DbpbimlclMercy Health [facility] Hospital Platelets (Bld) [#/Vol]Platelets [#/volume] in Blood by Automated dnxut206-613 [facility] HospitalPotassium [Moles/volume] in Serum or Plasmaon 08-80-7329Zmgtyrqex [Moles/Vol]3.8 mmol/L3.5-5.1FPremier Health Atrium Medical CenterPotassium [Moles/Vol]Potassium [Moles/volume] in Serum or Plasma3.5-5.1 [facility] HospitalProtein Auto test strip (U) [Mass/Vol]on 18-72-8535Jxcglam (U) [Mass/Vol]NegativeNegativeMercy Health Anderson HospitalProtein (U) [Mass/Vol]Urine protein measurement by automated test strip (mass/volume)NegativeMercy Health Anderson HospitalProtein [Mass/volume] in Serum or Plasmaon 13-73-3831Geljzzy [Mass/Vol]7.8 g/dL6.1-7.9[facility] HospitalProtein [Mass/Vol]Protein [Mass/volume] in Serum or Plasma6.1-7.9 [facility] HospitalRBC Auto (Bld) [#/Vol]on 23-48-5077GUQ (Bld) [#/Vol]5.14 10*6/uLHigh3.60-5.00[facility] HospitalRBC (Bld) [#/Vol]Erythrocytes [#/volume] in Blood by Automated countHigh3.60-5.00[facility] Hospitalerum or plasma alanine aminotransferase measurement without P-5'-P (enzymatic activion 88-86-3694AIT No additional P-5'-P [Catalytic activity/Vol]20 U/T65-90SslydhgczMercy Health Anderson HospitalALT No additional P-5'-P [Catalytic activity/Vol]Serum or plasma alanine aminotransferase measurement without P-5'-P (enzymatic hbxnod44-39UmharsdqdAdams County Hospitalerum or plasma albumin/globulin mass ratioon 82-22-0970Bwhjgfx/Globulin [Mass ratio]1.0 {ratio}[facility] HospitalAlbumin/Globulin [Mass ratio]Serum or plasma albumin/globulin mass ratioAdams County Hospitalodium [Moles/volume] in Serum or Plasmaon 54-05-5480Ufppms [Moles/Vol]140 mmol/P923-494DtlybavimAdams County Hospitalodium [Moles/Vol]Sodium [Moles/volume] in Serum or Qivpne567-574CjuxxvthvMercy Health [facility] Hospital Specific gravity Auto test strip (U) [Rel density]on 85-99-9010Kixrzmvd gravity (U) [Rel density]1.0111.001-1.030[facility] Hospitalpecific gravity (U) [Rel density]Specific gravity of Urine by Automated test strip 1.001-1.030[facility] Hospitalquamous epithelial cells detection in urine sediment by light microscopyon 23-45-7742Eusncyqmls cells.squamous LM Ql (Urine sed)1-2 [HPF]0-2FPremier Health Atrium Medical CenterEpithelial cells.squamous LM Ql (Urine sed)Squamous epithelial cells detection in urine sediment by light microscopy0-2FPremier Health Atrium Medical CenterUrea nitrogen [Mass/volume] in Serum or Plasmaon 65-63-3318Bekt nitrogen [Mass/Vol]10 mg/dL 9-23[facility] HospitalUrea nitrogen [Mass/Vol]Urea nitrogen [Mass/volume] in Serum or Plasma11-25[facility] HospitalUrine bacteria detection by automated methodon 22-68-4288Cnbyciva Auto Ql (U)1+High None SeenMercy Health Anderson HospitalUrine clarity by refractometry automatedon 58-91-8931Eafxphb Refractometry automated (U)ClearBarney Children's Medical CenterClarity Refractometry automated (U)Urine clarity by refractometry automatedBarney Children's Medical CenterUrine culture routineon 70-23-5971Qteqybsh identified Cx Nom (U)Escherichia coliAbCleveland Clinic Avon HospitalUrine glucose measurement by automated test strip (mass/volume)on 49-56-4144Olzzpkg Auto test strip (U) [Mass/Vol]Normal mg/dLNoLima City HospitalGlucose Auto test strip (U) [Mass/Vol]Urine glucose measurement by automated test strip (mass/volume)[facility] HospitalUrine hemoglobin detection by automated test stripon 55-69-1071Qqlduptvrr Auto test strip Ql (U)NegativeNegProtestant Deaconess HospitalHemoglobin Auto test strip Ql (U)Urine hemoglobin detection by automated test stripNegProtestant Deaconess HospitalUrine leukocyte esterase detection by automated test stripon 92-26-4868Rgodeslev esterase Auto test strip Ql (U)2+HighNegProtestant Deaconess Hospital Leukocyte esterase Auto test strip Ql (U)Urine leukocyte esterase detection by automated test stripHighNegProtestant Deaconess HospitalUrobilinogen Auto test strip (U) [Mass/Vol]on 19-62-6905Bmwndocrcabb (U) [Mass/Vol]Normal mg/dLNoLima City HospitalUrobilinogen (U) [Mass/Vol]Urine urobilinogen measurement by automated test strip (mass/volume)[facility] CenterWBC Auto (Bld) [#/Vol]on 47-42-3809FMC (Bld) [#/Vol] Leukocytes [#/volume] in Blood by Automated count3.8-11.6FPremier Health Atrium Medical CenterpH Auto test strip (U)on 28-48-1335jY (U)6.0 [pH]5.0-9.0[facility] HospitalpH (U)Urine pH measurement by automated test strip5.0-9.0 [facility] HospitalCholesterol [Mass/volume] in Serum or Plasmaon 74-42-7836Feaxylftxwr [Mass/Vol]221 mg/vZWkdo127-428KsiptuxeqMercy Health Anderson HospitalComment on above:Chol less than 200 mg/dl low riskChol 201-239 mg/dl borderline riskChol 240 mg/dl and greater high riskCholesterol [Mass/Vol] Cholesterol [Mass/volume] in Serum or ZvddieOyah735-584FouxaeqesMercy Health Anderson HospitalComment on above:Chol less than 200 mg/dl low riskChol 201-239 mg/dl borderline riskChol 240 mg/dl and greater high riskCholesterol in LDL Calc [Mass/Vol]on 34-97-2884Opmacjizeue in LDL [Mass/Vol]149 mg/dLHigh0-100[facility] HospitalComment on above:LDL ATP III CLASSIFICATIONLDL less than 100 mg/dL OptimalLDL 100-129 mg/dL Near or above lgbdqbmUDC547-867 mg/dL Borderline highLDL 160-189 mg/dL HighLDL greater than 189 mg/dL Very high Cholesterol in LDL [Mass/Vol]Cholesterol in LDL [Mass/volume] in Serum or Plasma by calculationHigh0-100[facility] HospitalComment on above:LDL ATP III CLASSIFICATIONLDL less than 100 mg/dL OptimalLDL 100-129 mg/dL Near or above ubvbokcOEG926-845 mg/dL Borderline highLDL 160-189 mg/dL HighLDL greater than 189 mg/dL Very highCholesterol in VLDL Calc [Mass/Vol]on 05-13-2020 Cholesterol in VLDL [Mass/Vol]25 mg/dLMercy Health [facility] Hospital Cholesterol in VLDL [Mass/Vol]Cholesterol in VLDL [Mass/volume] in Serum or Plasma by calculationAdams County Hospitalerum or plasma high density lipoprotein (HDL) cholesterol measurementon 61-17-6839Hewayrxrmqr in HDL [Mass/Vol]47 mg/kN89-39Lnyyjadxl94 Cortez StreetComment on above:HDL CHOL ATP-III CLASSIFICATION Cardiovascular RiskHDL > or equal to 60 mg/dL LOWHDL < 40 mg/dL HIGHCholesterol in HDL [Mass/Vol]Serum or plasma high density lipoprotein (HDL) cholesterol iqkeifomwfx18-22Atjlak[address] Comment on above:HDL CHOL ATP-III CLASSIFICATION Cardiovascular RiskHDL > or equal to 60 mg/dL LOWHDL < 40 mg/dL HIGHSerum or plasma total cholesterol/high density lipoprotein (HDL) cholesterol mass shante 05-13-2020 Cholesterol.total/Cholesterol in HDL [Mass ratio]4.7 {ratio}<5.0[facility] HospitalCholesterol.total/Cholesterol in HDL [Mass ratio]Serum or plasma total cholesterol/high density lipoprotein (HDL) cholesterol mass rat<5.0 [facility] HospitalTriglyceride [Mass/volume] in Serum or Plasmaon 11-84-0224Plxjgsscaqfh [Mass/Vol]127 mg/vW60-323VnivrgqheMercy Health Anderson HospitalComment on above:TRIG ATP III CLASSIFICATIONTRIG less than 150 mg/dL NormalTRIG 150-199 mg/dL Borderline highTRIG 200-500 mg/dL High TRIG greater than 500 mg/dL Very highStandard traceable to the Center for Disease Conrtrol and Prevention (CDC) test method.Triglyceride [Mass/Vol]Triglyceride [Mass/volume] in Serum or Uuzkwe38-825CmdnmnybxMercy Health Anderson HospitalComment on above:TRIG ATP III CLASSIFICATIONTRIG less than 150 mg/dL NormalTRIG 150-199 mg/dL Borderline highTRIG 200-500 mg/dL High TRIG greater than 500 mg/dL Very highStandard traceable to the Center for Disease Conrtrol and Prevention (CDC) test method.Laboratory - Hematology and Cell countson 21-09-2794RIP (Bld) [#/Vol]5.5 10*3/uL4.5-11.0[facility] HospitalC reactive protein [Mass/volume] in Serum or Plasmaon 60-06-9118JQC [Mass/Vol]1.0 mg/dL0.0-1.0 [facility] HospitalCRP [Mass/Vol]C reactive protein [Mass/volume] in Serum or Plasma0.0-1.0[facility] HospitalHepatitis B virus surface Ag [Presence] in Serum or Plasma by Immunoassayon 67-76-9791UQI surface Ag IA QlNegativeNegativeMercy Health Anderson HospitalComment on above: Performed at: [address] [id number] Director: Luis Teresa PhD, Phone: [phone] surface Ag IA QlHepatitis B virus surface Ag [Presence] in Serum or Plasma by ImmunoassayNegProtestant Deaconess HospitalComment on above:Performed at: [facility] [id number] [place], [place] [id number] Director: Luis Teresa PhD, Phone: [phone] Panel Informationon 92-83-5312Stnvtuskd B Core Total Antibody NegativeNegProtestant Deaconess HospitalComment on above:Performed at: [facility] [id number] [place], [place] [id number] Director: Luis Teresa PhD, Phone: [phone] or plasma free cefuroxime measurement (mass/volume)on 11-14-9121Ldmtclrxtx free [Mass/Vol]NegativeNegProtestant Deaconess HospitalComment on above:Performed at: [facility] [address] [id number] Director: Luis Teresa PhD, Phone: [phone] free [Mass/Vol]Serum or plasma free cefuroxime measurement (mass/volume)[facility] HospitalComment on above:Performed at: [facility] [id number] [place] [id number] Director: Luis Teresa PhD, Phone: [phone].direct [Mass/volume] in Serum or Plasmaon 77-06-3093Dbhudmifq.direct [Mass/Vol]mg/dL0.0-0.4FPremier Health Atrium Medical CenterBilirubin.direct [Mass/Vol]Bilirubin.direct [Mass/volume] in Serum or Plasma0.0-0.4FOhioHealth Berger Hospitalerum or plasma non- glucuronidated bilirubin measurement (mass/volume)on 07-29-2019 Bilirubin.indirect [Mass/Vol]TNPMercy Health Anderson HospitalComment on above:Test not performedBilirubin.indirect [Mass/Vol]Serum or plasma non- glucuronidated bilirubin measurement (mass/volume)[facility] HospitalComment on above:Test not performedSerum or plasma calcidiol measurement (mass/volume)on 50-88-292048589548-cpwxqlgivljkgx D3 [Mass/Vol]59.0 ng/pQ27-723 [facility] HospitalComment on above:VITAMIN D STATUS 25(OH)VITAMIN D RANGE (ng/mL) Deficient <20 Insufficient 20 to <68Wmedbyfibi39 to 100Reference: Mikaela Staton, Paula VELASQUEZ, et al. Evaluation,treatment, and prevention of vitamin D deficiency; an Endocrine Society clinical practice guideline. JC. 2010; 96(7):1911-30.25- hydroxyvitamin D3 [Mass/Vol]Serum or plasma calcidiol measurement (mass/volume) 30-100[facility] HospitalComment on above:VITAMIN D STATUS 25(OH)VITAMIN D RANGE (ng/mL) Deficient <20 Insufficient 20 to <74Spcohufcrb77 to 100Reference: Mikaela Staton, Paula VELASQUEZ, et al. Evaluation,treatment, and prevention of vitamin D deficiency; an Endocrine Society clinical practice guideline. JCEM. 2010; 96(7):1911-30. Vital Signs Date TimeVital SignValuePerforming QqvacoyoyYvbfsoxy47-21-4214 11:02-0500Body .48 kgThomas Stanton DO Work Phone: [facility]11-10-2025 11:02-0500 Diastolic blood tntpkuht62 mm[Hg]Nabeel Stanton DO Work Phone: [facility]11-10-2025 11:02-0500 Heart rate65 /minThomas Stanton DO Work Phone: [facility]11-10-2025 11:02-0500 SaO2% (BldA) [Mass fraction]98 %Nabeel Stanton DO Work Phone: [facility]11-10-2025 11:02-0500 Systolic blood zaxsqmap053 mm[Hg]Nabeel Stanton DO Work Phone: [facility]10-14-2025 10:47-0400 Body cylmkf224.48 cmThomarmin Stanton DO Work Phone: [phone] [place], [place] 88[address]10-14-2025 10:47-0400 Body mass index (BMI) [Ratio]34.5 kg/q6Kyciav Stanton DO Work Phone: [phone] [place], [place] 4785510-14-2025 10:47-0400 Body jgwuqsqurwv10.7 [degF]Nabeel Stanton DO Work Phone: [phone] [place], [place] 4785510-14-2025 10:47-0400 Body zfujdp16.72 kgThomas Stanton DO Work Phone: [phone] [place], [place] 4785510-14-2025 10:47-0400 Diastolic blood bupsleuc94 mm[Hg]Nabeel Stanton DO Work Phone: [phone] [place], [place] 4785510-14-2025 10:47-0400 Heart rate68 /minThbert Stanton DO Work Phone: [phone] [place], [place] 4785510-14-2025 10:47-0400 SaO2% (BldA) [Mass fraction]98 %Nabeel Stanton DO Work Phone: [phone] [place], [place] 4785510-14-2025 10:47-0400 Systolic blood dcjjaolz722 mm[Hg]Nabeel Stanton DO Work Phone: [phone] [place], [place] 4785509-18-2025 10:38-0400 Body rwcenp839.9 cmRahul Brown DPM Work Phone: [facility] HospitalQtggpuvjxu37-48-9934 10:38-0400Body mass index (BMI) [Ratio]34.58 kg/n2Ybrgxgfl Brown DPM Work Phone: [facility] HospitalPtchowtyqe02-47-0200 10:38-0400Body .01 kgRahul Brown DPM Work Phone: [facility] HospitalBzzfqhumax77-51-2391 10:38-0400Respiratory rate16 /minRahul Patel DPM Work Phone: [facility] HospitalCluxncrzfb36-41-6053 13:27-0400Body dpevhm896.48 Sudarshan Stanton DO Work Phone: [phone] [place], [place] 4785509-04-2025 13:27-0400 Body mass index (BMI) [Ratio]33.5 kg/p7Rtfebr Stanton DO Work Phone: [phone] [place], [place] 4785509-04-2025 13:27-0400 Body lukidj41 kgThbert Stanton DO Work Phone: [phone] [place], [place] 4785509-04-2025 13:27-0400 Diastolic blood lihcemwp44 mm[Hg]Nabeel Stanton DO Work Phone: [phone] [place], [place] 4785509-04-2025 13:27-0400 Heart rate67 /minThomas Stanton DO Work Phone: [phone] [place], [place] 4785509-04-2025 13:27-0400 SaO2% (BldA) [Mass fraction]97 %Nabeel Stanton DO Work Phone: [phone] [place], [place] 4785509-04-2025 13:27-0400 Systolic blood kjlupqft786 mm[Hg]Nabeel Stanton DO Work Phone: [phone] [place], [place] 4785508-25-2025 08:45-0400 Diastolic blood secxdvyd37 mm[Hg]Nabeel Stanton DO Work Phone: [phone] [place], [place] 4785508-25-2025 08:45-0400 Heart rate62 /minThbert Stanton DO Work Phone: [phone] [place], [place] 4785508-25-2025 08:45-0400 Systolic blood qbkfhukk869 mm[Hg]Nabeel Stanton DO Work Phone: [phone] [place], [place] 4785508-22-2025 09:55-0400 Body refvsc709.48 Sudarshan Stanton DO Work Phone: [phone] [place], [place] 4785508-22-2025 09:55-0400 Body ursczs15.01 kgThbert Stanton DO Work Phone: [phone] [place], [place] 4785508-19-2025 13:29-0400 Diastolic blood iufaxbip20 mm[Hg]Nabeel Stanton DO Work Phone: [phone] [place], [place] 4785508-19-2025 13:29-0400 Heart rate58 /minThomas Stanton DO Work Phone: [phone] [place], [place] 4785508-19-2025 13:29-0400 SaO2% (BldA) [Mass fraction]95 %Nabeel Stanton DO Work Phone: [phone] [place], [place] 4785508-19-2025 13:29-0400 Systolic blood qgdmalhl441 mm[Hg]Nabeel Stanton DO Work Phone: 1(857)[address] [place], [place] 4785507-30-2025 09:41-0400 Body iumkqn231.48 cmThomas Stanton DO Work Phone: 1(749)[address] [place], [place] 4785507-30-2025 09:41-0400 Body mass index (BMI) [Ratio]33 kg/n4Psarek Stanton DO Work Phone: 1(267)[address] [place], [place] 4785507-30-2025 09:41-0400 Body nootva77.1 kgThbert Stanton DO Work Phone: 1(376)[address] [place], [place] 4785507-30-2025 09:41-0400 Diastolic blood pyrbrzbh76 mm[Hg]Nabeel Stanton DO Work Phone: 1(956)[address] [place], [place] 4785507-30-2025 09:41-0400 Heart rate63 /minThomas Stanton DO Work Phone: 1(768)[address] [place], [place] 4785507-30-2025 09:41-0400 SaO2% (BldA) [Mass fraction]97 %Nabeel Stanton DO Work Phone: 1(854)[address] [place], [place] 4785507-30-2025 09:41-0400 Systolic blood ykkzuvyf961 mm[Hg]Nabeel Stanton DO Work Phone: 1(129)[address] [place], [place] 4785507-28-2025 09:43-0400 Body xcjrxy852.48 cmThomas Stanton DO Work Phone: 1(576)[address] [place], [place] 4785507-28-2025 09:43-0400 Body mass index (BMI) [Ratio]32.1 kg/x0Nncnsf Stanton DO Work Phone: 1(595)[address] [place], [place] 4785507-28-2025 09:43-0400 Body adubhz22.83 kgThbert Stanton DO Work Phone: 1(084)[address] [place], [place] 4785507-28-2025 09:43-0400 Diastolic blood ultrwhvy00 mm[Hg]Nabeel Stanton DO Work Phone: 1(094)[address] [place], [place] 4785507-28-2025 09:43-0400 Heart rate58 /minThomas Stanton DO Work Phone: 1(386)[address] [place], [place] 4785507-28-2025 09:43-0400 Respiratory rate16 /minThomas Stanton DO Work Phone: 1(137)[address] [place], [place] 4785507-28-2025 09:43-0400 SaO2% (BldA) [Mass fraction]98 %Nabeel Stanton DO Work Phone: 1(605)[address] [place], [place] 4785507-28-2025 09:43-0400 Systolic blood hocoehgm224 mm[Hg]Nabeel Stanton DO Work Phone: 1(991)[address] [place], [place] 4785506-26-2025 10:55-0400 Body eqgjdi991.9 cmRahul Patel DPM Work Phone: [facility] HospitalXybczipwai68-25-5158 10:55-0400Body mass index (BMI) [Ratio]34.58 kg/s4FzzmhgqhRahul Patel DPM Work Phone: [facility] HospitalJrnjywrmwd01-50-8051 10:55-0400Body fhdaxy23.01 kgRahul Patel DPM Work Phone: [facility] HospitalNhbvgbhtpw10-74-3698 10:55-0400Respiratory rate18 /minRahul Patel DPM Work Phone: [facility] HospitalMcvxpkvuft14-[facility]-1947 11:25-0400Diastolic blood uufdzghf32 mm[Hg]Bart Scooter DO Work Phone: [facility] HospitalFdhspkcphq67-40-0287 11:25-0400Heart rate70 /min Christophmarvin Scooter DO Work Phone: [facility] HospitalAfhjbltfvc44-14-7779 11:25-0400Systolic blood eibglstn499 mm[Hg]Bart Scooter DO Work Phone: [facility] HospitalJtxgnegcku44-06-7997 11:22-0400Body usrjdv493.9 cmNicjaye Patel DPM Work Phone: [facility] HospitalRlhuspbfxc15-23-8219 11:22-0400Body mass index (BMI) [Ratio]34.58 kg/i1Dkdjdathjaye Patel DPM Work Phone: [facility] HospitalIqtuzemrxr92-34-6729 11:22-040Body zuhcqh50.01 kgNicjaye Patel DPM Work Phone: [facility] HospitalFpzabhowvb58-74-7066 11:22-0400Respiratory rate16 /minNicjaye Patel DPM Work Phone: [facility] HospitalFsilyaxrjx27-04-6493 13:09-0500Body hiyscw484.48 cmThomas Stanton DO Work Phone: [facility]03-06-2025 13:09-0500 Body mass index (BMI) [Ratio]33 kg/a8Gsnwtc Stanton DO Work Phone: [facility]03-06-2025 13:09-0500 Body jfecho01.1 kgThomas Stanton DO Work Phone: [facility]03-06-2025 13:09-0500 Diastolic blood kunkzccj60 mm[Hg]Nabeel Stanton DO Work Phone: [facility]03-06-2025 13:09-0500 Heart rate55 /minThomas Stanton DO Work Phone: [facility]03-06-2025 13:09-0500 SaO2% (BldA) [Mass fraction]97 %Nabeel Stanton DO Work Phone: 1(782)[facility]03-06-2025 13:09-0500 Systolic blood bhglkyeq563 mm[Hg]Nabeel Stanton DO Work Phone: 1(588)3-[address] [place], [place] 8833902-26-2025 11:44-0500 Body mass index (BMI) [Ratio]34.58 kg/n2Rytmtvbxuld Scooter DO Work Phone: [facility] HospitalKwqujataax63-41-9657 11:44-0500Body kcqawe58.01 kgChristopher Helms DO Work Phone: 1(450)395-[facility] HospitalXbfzfiefye60-40-1419 11:44-0500Diastolic blood ujownebu15 mm[Hg]Bart Helms DO Work Phone: 1(799)976-[facility] HospitalBxdvzwdnde95-40-3760 11:44-0500Heart rate63 /min Christvalente Hemls DO Work Phone: 0(366)758-[facility] HospitalAwxieccbgz12-03-5665 11:44-1386CoT5% (BldA) [Mass fraction]97 %Christvalente Larsonett DO Work Phone: [facility] HospitalVwinkgkmvx56-93-4381 11:44-0500Systolic blood wozsvvkh970 mm[Hg]Bart Helms DO Work Phone: [facility] HospitalWwhbapknjs41-59-6942 09:00-0500Diastolic blood zuwrukdu03 mm[Hg]Nabeel Stanton DO Work Phone: [facility]02-24-2025 09:00-0500 Heart rate52 /minNabeel Stanton DO Work Phone: 1(383)5-[facility]02-24-2025 09:00-0500 Systolic blood mm[Hg]Nabeel Stanton DO Work Phone: 1([phone]02-06-2025 11:07-0500 Body gvmuwg402.9 cmAminaarmin Patel DPM Work Phone: [facility] HospitalUenctzjdpq11-82-4660 11:07-0500Body mass index (BMI) [Ratio]32.5 kg/n8Qkcmnyes Brown DPM Work Phone: [facility] HospitalLbnmdluuta87-84-6283 11:07-0500Body .02 kgAminaarmin Patel DPM Work Phone: [facility] HospitalDgfkfhchcv98-04-0717 11:07-0500Diastolic blood mm[Hg]Rahul Patel DPM Work Phone: [facility] HospitalUikeubqsju01-66-4020 11:07-0500Heart rate68 /min Rahul Terry DPM Work Phone: [facility] HospitalRpkxlzcozt21-95-6705 11:07-0500Systolic blood mm[Hg]Rahul Patel DPM Work Phone: [facility] HospitalXvwvzxjipi56-76-3725 09:31-0500Body mass index (BMI) [Ratio]32.5 kg/b6Cmcayberilj Scooter DO Work Phone: [facility] HospitalVebdgzfvcj11-07-7290 09:31-0500Body awyzfe28.02 kgChristopher Scooter DO Work Phone: [facility] HospitalTjuoprozfj42-00-7785 09:31-0500Diastolic blood vxlhaxlu26 mm[Hg]Christopher Scooter DO Work Phone: [facility] HospitalIdrgsoifuu87-86-5272 09:31-0500Heart rate67 /min Christopher Scooter DO Work Phone: [facility] HospitalPkhjoiuvwp95-72-8353 09:31-0500Systolic blood ugvudkbn353 mm[Hg]Christopher Scooter DO Work Phone: [facility] HospitalNxiuggedgv87-55-1543 10:54-0500Body mass index (BMI) [Ratio]33.07 kg/z0PzsrvxAtul Akers NP Work Phone: [facility] HospitalQxzzdsyobe90-72-7470 10:54-0500Body pynnbb36.38 kgAtul Akers COVERSTITCH [employer] ATTACHER Work Phone: [facility] HospitalDwhxjdxfox70-48-3421 10:54-0500Diastolic blood epptvhge99 mm[Hg]Atul Akers [employer]OVER[employer]ITCH E[employer] ATTACHER Work Phone: [facility] HospitalUddxcweggn15-31-0117 10:54-0500Heart rate79 /min Atul Akers COVERSTITCH ELASTIC ATTACHER Work Phone: [facility] HospitalJglgdhousf75-85-3886 10:54-0500Systolic blood marpyhjr868 mm[Hg]Atul Akers COVERSTITCH ELASTIC ATTACHER Work Phone: [facility] HospitalXfufaenlrn14-39-4117 10:14-0500Body gdxzfy678.9 cmAminaarmin Patel DPM Work Phone: [facility] HospitalTbyepxtvne53-02-5426 10:14-0500Body mass index (BMI) [Ratio]34.96 kg/u1Tqbzjuxc Terry DPM Work Phone: [facility] HospitalHyrsbvfdat26-00-2177 10:14-0500Body .92 kgAminaarmin Patel DPM Work Phone: [facility] HospitalEzosddfezi66-20-0654 10:14-0500Respiratory rate18 /minAminaarmin Patel DPM Work Phone: [facility] HospitalNqnzvjeffa84-31-9364 12:07-0400Body gandee827.48 cmDO Nabeel Stanton Work Phone: [facility]09-06-2024 12:07-0400 Body mass index (BMI) [Ratio]31.8 kg/m2DO Nabeel Stanton Work Phone: [facility]09-06-2024 12:07-0400 Body mgydmd52.92 kgDO Nabeel Stanton Work Phone: [facility]09-06-2024 12:07-0400 Diastolic blood lefqmrhd21 mm[Hg]DO Nabeel Stanton Work Phone: [facility]09-06-2024 12:07-0400 Heart rate66 /minDO Nabeel Stanton Work Phone: [facility]09-06-2024 12:07-0400 Respiratory rate18 /Hong Stanton Work Phone: [facility]09-06-2024 12:07-0400 SaO2% (BldA) [Mass fraction]96 %DO Nabeel Stanton Work Phone: [facility]09-06-2024 12:07-0400 Systolic blood atwgcpgs847 mm[Hg]DO Nabeel Stanton Work Phone: [facility]08-29-2024 11:49-0400 Body .9 cmRahul Patel DPM Work Phone: [facility] HospitalGhjqmuvltb08-46-8936 11:49-0400Body mass index (BMI) [Ratio]34.96 kg/t6KktqzpcuRahul Patel DPM Work Phone: [facility] HospitalDdifysygsb72-12-9507 11:49-0400Body .92 kgRahul Patel DPM Work Phone: [facility] HospitalLrdotgzfdc77-14-9485 11:49-0400Diastolic blood fcrifvxt61 mm[Hg]Rahul Patel DPM Work Phone: [facility] HospitalMdzvglcclf09-32-9418 11:49-0400Heart rate82 /min Rahul Patel DPM Work Phone: [facility] HospitalYgqntinymu92-91-0241 11:49-0400Systolic blood zaufoepl194 mm[Hg]Rahul Patel DPM Work Phone: [place] [address]Pjftlunefj13-62-7159 09:29-0400Diastolic blood xjsrvovn88 mm[Hg]Bart Helms DO Work Phone: [place] [address]Eierpgnwqj01-78-7677 09:29-0400Heart rate66 /min Merlinopher Scooter DO Work Phone: [place] [address]Xxbivofahr56-91-1242 09:29-0400Systolic blood lpolsesb106 mm[Hg]Bart Helms DO Work Phone: [facility] HospitalRpmhxujicc70-78-8809 09:00-0400Diastolic blood xhsegbkk92 mm[Hg]DO Nabeel Stanton Work Phone: 1(408)[address] [place], [place] 4785508-19-2024 09:00-0400 Heart rate57 /minDO Nabeel Stanton Work Phone: 1(363)[address] [place], [place] 4785508-19-2024 09:00-0400 Systolic blood gxbgyyla464 mm[Hg]DO Nabeel Stanton Work Phone: 1(111)[address] [place], [place] 4785507-02-2024 10:33-0400 Body ldvevy999.48 cmDO Nabeel Stanton Work Phone: 1(354)[address] [place], [place] 4785507-02-2024 10:33-0400 Body mass index (BMI) [Ratio]34 kg/m2DO Nabeel Stanton Work Phone: 1(487)[address] [place], [place] 4785507-02-2024 10:33-0400 Body blfqki49.36 kgDO Nabeel Stanton Work Phone: 1(697)[address] [place], [place] 4785507-02-2024 10:33-0400 Heart rate66 /Hong Stanton Work Phone: 1(027)[address] [place], [place] 4785507-02-2024 10:33-0400 Respiratory rate18 /KeronO Nabeel Stanton Work Phone: 1(144)[address] [place], [place] 4785503-08-2024 11:56-0500 Body .48 cmDO Nabeel Stanton Work Phone: 1(362)[address] [place], [place] 4785503-08-2024 11:56-0500 Body mass index (BMI) [Ratio]31.8 kg/m2DO Nabeel Stanton Work Phone: 1(734)[address] [place], [place] 4785503-08-2024 11:56-0500 Body cwijli04.92 kgDO Nabeel Stanton Work Phone: 1(129)[address] [place], [place] 4785503-08-2024 11:56-0500 Diastolic blood gunkekmh62 mm[Hg]DO Nabeel Stanton Work Phone: [facility]03-08-2024 11:56-0500 Heart rate62 /Hong Stanton Work Phone: [facility]03-08-2024 11:56-0500 Respiratory rate18 /Hong Stanton Work Phone: 1(459)108-[address] [place], [place] 4802303-08-2024 11:56-0500 SaO2% (BldA) [Mass fraction]97 %DO Nabeel Stanton Work Phone: [facility]03-08-2024 11:56-0500 Systolic blood vpyvzxhd305 mm[Hg]DO Nabeel Stanton Work Phone: [facility]02-01-2024 13:24-0500 Body pvtdov753.5 cmRahul Patel DPM Work Phone: [facility] HospitalEfpevfkmxa76-65-7632 13:24-0500Body mass index (BMI) [Ratio]31.64 kg/j9XqmsxjqqRahul Patel DPM Work Phone: [facility] HospitalAbdyuybjou72-60-5182 13:24-0500Body .47 kgRahul Patel DPM Work Phone: [facility] HospitalIvuebdvrgi29-59-2742 13:24-0500Diastolic blood mm[Hg]Rahul Patel DPM Work Phone: [facility] HospitalXncexrflrg41-59-9658 13:24-0500Heart rate82 /min Rahul Patel DPM Work Phone: [facility] HospitalQvzasuazar12-83-9464 13:24-0500Systolic blood mm[Hg]Rahul Patel DPM Work Phone: [facility] HospitalNhauxazeti71-40-8211 12:00-0400Body vuxnwp095.48 cmTangel Stanton Other [employer] Other 09-08-2023 12:00-0400Body mass index (BMI) [Ratio] 31.36 kg/s8WaqrkvNabeel Stanton Other [employer] Other 09-08-2023 12:00-0400Body chypen31.79 kgThbert Stanton Other [facility] [employer] Other 09-08-2023 12:00-0400Diastolic blood xoyvdfgv49 mm[Hg] Nabeel Stanton Other [facility] [employer] Other 09-08-2023 12:00-0400Respiratory rate18 /minThbert Stanton Other [facility] [employer] [facility] [employer] Other 09-08-2023 12:00-7250WkE7% (BldA) [Mass fraction]98 % Nabeel Stanton Other [employer] Other 09-08-2023 12:00-0400Systolic blood reejqqfr298 mm[Hg] Nabeel Stanton Other [employer] Other 08-21-2023 10:23-0400Body ipavec249.94 cmDO Nabeel Stanton Work Phone: [facility]08-21-2023 10:23-0400 Body pubhac46.27 kgDO Nabeel Stanton Work Phone: [facility]08-15-2023 15:03-0400 Body bcvesf122 cmAc Warner MD Work Phone: [facility]08-15-2023 15:03-0400Body temperature 97.7 [degF]Ac Warner MD Work Phone: [facility]08-15-2023 15:03-0400Body lxkkap71.47 kgAc Warner MD Work Phone: [facility]08-15-2023 15:03-0400Diastolic blood jnssvaeu45 mm[Hg]Ac Warner MD Work Phone: [facility]08-15-2023 15:03-0400Heart rate60 /min Ac Warner MD Work Phone: [facility]08-15-2023 15:03-0400Respiratory rate 18 /minAc Warner MD Work Phone: [facility]08-15-2023 15:03-1556ZpJ6% (BldA) [Mass fraction]95 %Ac Warner MD Work Phone: [facility]08-15-2023 15:03-0400Systolic blood rbsiybje619 mm[Hg]Ac Warner MD Work Phone: [facility]03-21-2023 11:30-0400Body .48 cmThomas Stanton Other [email or web address] Other 03-21-2023 11:30-0400Body mass index (BMI) [Ratio] 33.83 kg/t2Gduswg Stanton Other [email or web address] Other 03-21-2023 11:30-0400Body vznisz54.92 kgThbert Vegaley Other [email or web address] Other 03-21-2023 11:30-0400Diastolic blood rihboaqs97 mm[Hg] Nabeel Stanton Other [email or web address] Other 03-21-2023 11:30-0400Respiratory rate18 /minDiannbert Vegaley Other [email or web address] Other 03-21-2023 11:30-5493ZgS9% (BldA) [Mass fraction]98 % Nabeel Stanton Other [facility] [employer] Other 03-21-2023 11:30-0400Systolic blood tremvajx645 mm[Hg] Nabeel Stanton Other [facility] [employer] Other 02-20-2023 13:21-0500Diastolic blood mm[Hg] DO Nabeel Stanton Work Phone: 1(160)[address]02-20-2023 13:21-0500 Heart rate69 /Hong Stanton Work Phone: 1(872)[address] [place], [place] 4785502-20-2023 13:21-0500 Respiratory rate18 /Hong Stanton Work Phone: 1(359)[address] [place], [place] 4785502-20-2023 13:21-0500 Systolic blood mzggfydp121 mm[Hg]DO Nabeel Stanton Work Phone: 1(473)[address]02-20-2023 09:02-0500 Body tdhhew425.94 cmDO Nabeel Stanton Work Phone: 1(271)[address] [place], [place] 4785502-20-2023 09:02-0500 Body kteeovbgiao94.5 [degF]DO Nabeel Stanton Work Phone: 1(958)[address] [place], [place] 4785502-20-2023 09:02-0500 Body .3 kgDO Nabeel Stanton Work Phone: 1(300)[address]02-20-2023 09:02-0500 SaO2% (BldA) [Mass fraction]96 %DO Nabeel Stanton Work Phone: 1(306)[address]12-29-2022 15:00-0500 Body aetzed308.48 cmTangel Stanton Other [employer] Other 12-29-2022 15:00-0500Diastolic blood mm[Hg] Nabeel Stanton Other [email or web address] Other 12-29-2022 15:00-0500Respiratory rate18 /minThbert Stanton Other [email or web address] Other 12-29-2022 15:00-2437ScG2% (BldA) [Mass fraction]98 % Nabeel Stanton Other [email or web address] Other 12-29-2022 15:00-0500Systolic blood abfqxkqi095 mm[Hg] Nabeel Stanton Other [email or web address] Other 09-22-2022 10:30-0400Body xxnytf417.48 cmThomas Romy Other [email or web address] Other 09-22-2022 10:30-0400Body mass index (BMI) [Ratio] 34.38 kg/j6Vvioeo Romy Other [email or web address] Other 09-22-2022 10:30-0400Body ikzdym54.28 kgThomas Romy Other [email or web address] Other 09-22-2022 10:30-0400Diastolic blood mbaclxix54 mm[Hg] Nabeel Stanton Other [email or web address] Other 09-22-2022 10:30-0400Respiratory rate18 /minThbert Stanton Other [email or web address] Other 09-22-2022 10:30-9550HqX5% (BldA) [Mass fraction]96 % Nabeel Stanton Other [email or web address] Other 09-22-2022 10:30-0400Systolic blood mm[Hg] Nabeel Vegaley Other [facility] [employer] Other 07-11-2022 10:49-0400Body zxgyuo088 cmAc Warner MD Work Phone: [facility]07-11-2022 10:49-0400Body temperature 97.59 [degF]Ac Warner MD Work Phone: [facility]07-11-2022 10:49-0400Body okqqaw93.38 kgcA Warner MD Work Phone: [facility]07-11-2022 10:49-0400Diastolic blood flqmwnoa82 mm[Hg]Ac Warner MD Work Phone: [facility]07-11-2022 10:49-0400Heart rate56 /min Ac Warner MD Work Phone: [facility]07-11-2022 10:49-0400Respiratory rate 18 /minAc Warner MD Work Phone: [facility]07-11-2022 10:49-1005TsB9% (BldA) [Mass fraction]96 %Ac Warner MD Work Phone: [facility]07-11-2022 10:49-0400Systolic blood tlisgabf161 mm[Hg]Ac Warner MD Work Phone: [facility]03-21-2022 11:15-0400Body irnagi153.48 cmTangel Stanton Other [facility] [employer] Other 03-21-2022 11:15-0400Body mass index (BMI) [Ratio] 32.92 kg/s9Rvmjam Stanton Other [facility] [employer] Other 03-21-2022 11:15-0400Body coqgsq92.65 kgThbert Vegaley Other [employer] Other 03-21-2022 11:15-0400Diastolic blood mm[Hg] Nabeel Stanton Other [facility] [employer] Other 03-21-2022 11:15-0400Respiratory rate16 /minNabeel Stanton Other [facility] [employer] Other 03-21-2022 11:15-7464CzA8% (BldA) [Mass fraction]98 % Nabeel Stanton Other [facility] [employer] Other 03-21-2022 11:15-0400Systolic blood wwuiqexv472 mm[Hg] Nabeel Stanton Other [facility] [employer] Other 08-23-2021 08:49-0400Body mass index (BMI) [Ratio]30.6 kg/m2DO Nabeel Stanton Work Phone: [facility] Encounters Encounter DateEncounter TypeCare ProviderFacilityStart: 01-12-2025 End: 76-01-5510eospkwypgwPjxtsg Meredith Stanton DO Work Phone: -[facility] [place]Start: 01-12-2025 End: 06-74-3884Ktjogkv encounter procedureSilya Escobar VARQ-ILD-R-[facility] [place] Work Phone: Start: 12-16-2024 End: 37-37-8119znidxagjpzYscaqw R Stanton DO Work Phone: [facility] Work Phone: Start: 12-16-2024 End: 64-92-4662Khjlrmg encounter procedureThbert Stanton DO-[facility] Work Phone: Start: 11-24-2024 End: 45-92-7539Yljydsg encounter procedureNabeel Stanton DO-[facility] Work Phone: Start: 11-24-2024 End: 84-04-5011bjzrwdmiszIzzpcf R Conley DO Work Phone: [facility] Work Phone: Start: 11-20-2024 End: 90-28-3715Mjayur flowsSaurav Patel DPM Work Phone: [facility] PODIATRYStart: 11-20-2024 End: 72-83-0907Dxbqzb flowsheetRahul Patel DPM Work Phone: no[facility] CI PODIATRYStart: 11-20-2024 End: 09-33-3428Jsweyyx encounter procedureRahul Patel DPM Work Phone: [facility] CI PODIATRYComment on above:Multiple sclerosis (HCC) (Primary Dx); Pain due to onychomycosis of toenails of both feet; Venous insufficiency; Exostosis of left footStart: 11-20-2024 End: 44-72-1109aetjolotnmNGJZJHRP A BROWNNot AvailableStart: 11-06-2024 End: 18-11-3018qgpygzpujlXvpmre R Conley DO Work Phone: [facility] Work Phone: Start: 11-06-2024 End: 54-42-4291Uvvlfep encounter procedureNabeel Stanton DO-[facility] [place] Work Phone: Start: 45-24-4011Bme-patient / Non-visitTifoasis behavioral [facility] hospitaly [facility] Work Phone: Start: 83-77-0618Uqvexhkgfl Cory Natarajan APRN [employer]-Infusion Therapy - O/P Work Phone: Start: 52-03-4203zqhjzsuhoaXrchbl R Conley [facility] 10-24-2024 End: 66-62-6219Sajfyah encounter procedureSilya Escobar XRIH-IFA-R-[facility] [place] Work Phone: Start: 10-24-2024 End: 35-49-1795ibrhdvgccdSvjbjf R Stanton DO Work Phone: [facility] Work Phone: Start: 10-21-2024 End: 80-65-6127pczoxexwnuSwqjdb R Stanton DO Work Phone: [facility] Work Phone: Start: 10-21-2024 End: 48-08-8475Gawjtmv encounter procedureChristopher Scooter Natarajan DO-[facility] [place] Work Phone: Start: 10-01-2024 End: 90-31-4609zaxthpvuqzIlvjyl R Stanton DO Work Phone: [facility] Work Phone: Start: 10-01-2024 End: 37-80-1569Ekfkxha encounter procedureThomas Meredith Stanton DO-[facility] [place] Work Phone: Start: 09-29-2024 End: 68-09-9426zkpqvqiwkfBdhbjt R Stanton DO Work Phone: [facility] Work Phone: Start: 09-29-2024 End: 00-00-5636Gupxsse encounter procedureSilya Escobar EQYL-UPH-I-[facility] Work Phone: Start: 08-28-2024 End: 73-50-2995Wbxyik Mark Patel DPM Work Phone: [facility] CI PODIATRYStart: 08-28-2024 End: 89-53-5967Oaeshm flowsheetNicjaye Patel DPM Work Phone: [facility] CI PODIATRYStart: 08-28-2024 End: 68-20-0561Umalepc encounter procedureRahul Patel DPM Work Phone: no[facility] CI PODIATRYComment on above:Pain due to onychomycosis of toenails of both feet (Primary Dx); Multiple sclerosis (HCC)Start: 08-28-2024 End: 71-79-1081ocuuhxaufdNIYHEQUW A BROWNNot AvailableStart: 07-01-2024 End: 62-81-9494Zyyqce flowsheetChristopher Scooter DO Work Phone: [facility] [place]Start: 07-01-2024 End: 16-33-9240Xebmnu flowsheetChristopher Scooter DO Work Phone: [facility] [place]Start: 07-01-2024 End: 50-90-4645Iztwsty encounter procedureChristopher Scooter DO Work Phone: ana BELLEVUEComment on above:Lumbar radiculopathy (Primary Dx); Lumbosacral radiculopathyStart: 07-01-2024 End: 31-87-6710wctrcdqxbcTFJVHDSSCYM SCOOTERNot AvailableStart: 06-19-2024 End: 14-96-8186Ylnvyy flowsSaurav Patel DPM Work Phone: no[facility] CI PODIATRYStart: 06-19-2024 End: 40-74-8220Sewkla Mark Patel DPM Work Phone: no[facility] CI PODIATRYStart: 06-19-2024 End: 53-44-7412Trkkspx encounter procedureRahul Patel DPM Work Phone: [facility] CI PODIATRYComment on above:Pain due to onychomycosis of toenails of both feet (Primary Dx); Multiple sclerosis (CMS/HCC); Venous insufficiency; Exostosis of left footStart: 06-19-2024 End: 84-57-2542uidufrslibDYUGNDKF A BROWNNot AvailableStart: 05-08-2024 End: 02-01-7953rftylmcuvbKnrwkp R Stanton DO Work Phone: [facility] Work Phone: Start: 05-08-2024 End: 68-68-7526Skblqtp encounter procedureNabeel Stanton DO Work Phone: [facility] [place] Work Phone: Start: 04-30-2024 End: 04-23-6496Babdlf flowsheetChristopher Scooter DO Work Phone: ana [place]Start: 04-30-2024 End: 16-54-8100Clnces flowsheetChristopher Scooter DO Work Phone: ana [place]Start: 04-30-2024 End: 10-28-8983Nyscuc outpatient visit 25 minutesChristopher Scooter DO Work Phone: ana BELLEVUEComment on above:Multiple sclerosis (CMS/HCC) (Primary Dx); Lumbosacral radiculopathyStart: 04-30-2024 End: 48-60-0085amagzukwknVVFQJQPJPEK HASSETTNot AvailableStart: 04-28-2024 Registered RecurringNabeel Stanton DO Work Phone: [facility] Work Phone: Start: 04-10-2024 End: 16-04-0861Hcvnom flowsheetRahul Patel DPM Work Phone: [facility] PODIATRYStart: 04-10-2024 End: 21-10-3351Fucwtt flowsheetRahul Patel DPM Work Phone: [facility] PODIATRYStart: 04-10-2024 End: 63-69-6141Qnlxiab encounter procedureRahul Patel DPM Work Phone: noMS CI PODIATRYComment on above:Pain due to onychomycosis of toenails of both feet (Primary Dx); Multiple sclerosis (CMS/HCC); Venous insufficiency; Exostosis of left footStart: 04-10-2024 End: 43-94-0483fgrtazbmziFQPDXEEW Michelle Moises AvailableStart: 02-13-2024 End: 78-63-5464Fzifzj flowsheetChristopher Scooter DO Work Phone: [facility] STATE ROUTEStart: 02-13-2024 End: 04-85-3625Dfjyil flowsheetChristopher Scooter DO Work Phone: [facility] R[facility]TEStart: 02-13-2024 End: 29-49-4137Xdghwhw encounter procedureChristopher Scooter DO Work Phone: [facility] [place] STATE ROUTEComment on above:Lumbar radiculopathy (Primary Dx); Lumbosacral radiculopathyStart: 02-13-2024 End: 77-96-1833ivzprppcjxOMMVKQXWZRV MATEUSETTNot AvailableStart: 02-04-2024 End: 41-79-0292Ucdhfg Mi Akers COVERSTITCH ELASTIC ATTACHER Work Phone: [facility] [place] STATE ROUTEStart: 02-04-2024 End: 62-62-8409Oohzfx Mi Akers COVERSTITCH ELASTIC ATTACHER Work Phone: [facility] [place] STATE ROUTEStart: 02-04-2024 End: 25-28-0706Hyrtgeetl Result EncounterAtul Akers COVERSTITCH ELASTIC ATTACHER Work Phone: [facility] External Department UnsolicitedStart: 02-04-2024 End: 86-85-4043Wwrgjd outpatient visit 25 minutesAtul Akers COVERSTITCH ELASTIC ATTACHER Work Phone: [facility] [place] STATE ROUTEComment on above:Multiple sclerosis (CMS/HCC) (Primary Dx); Lumbar radiculopathy; Left leg weaknessStart: 02-04-2024 End: 84-90-9084lvmjyzrzdkGZQKFN MORRISNot AvailableStart: 01-25-2024 End: 21-86-8445VfmsjoPnqiamexesv Scooter DO Work Phone: [facility] [place] STATE ROUTEStart: 01-25-2024 End: 72-54-6035Pakruya encounter procedureRahul Patel DPM Work Phone: noms [place] PODComment on above:Multiple sclerosis (CMS/HCC) (Primary Dx); Pain due to onychomycosis of toenails of both feet; Venous insufficiency; Exostosis of left footStart: 01-25-2024 End: 69-81-8182fdwqzubpoqVHNNFRZX A BROWNNot AvailableStart: 11-09-2023 End: 92-16-9938hbeageutaoUS Thomas R Conley Work Phone: [facility] Work Phone: Start: 11-09-2023 End: 68-99-2372Nqyqkos encounter Hernan Stanton Work Phone: [facility] Work Phone: Start: 11-01-2023 End: 02-95-2239Mwagmov encounter Wesley Patel DPM Work Phone: noms CI PODIATRYComment on above:Multiple sclerosis (CMS/HCC) (Primary Dx); Onychomycosis; Toe pain, bilateral; Venous insufficiencyStart: 10-23-2023 End: 11-72-9508Zrfyyd flowsheetChristopher Scooter DO Work Phone: [facility] [place] STATE ROUTEStart: 10-23-2023 End: 60-48-1795Zbolzo flowsheetChristopher Scooter DO Work Phone: noMS [place] STATE ROUTEStart: 10-23-2023 End: 33-32-1208Arqdniv encounter procedureChristopher Scooter DO Work Phone: noms [place] STATE ROUTEComment on above:Lumbar radiculopathy (Primary Dx)Start: 89-32-4047Zxwtjruhpz RecurringDO Nabeel Stanton Work Phone: [facility]-Infusion Therapy - O/P Work Phone: Start: 10-03-2023 End: 65-01-0826Yupmyelkp Result EncounterAtul Akers COVERSTITCH ELASTIC ATTACHER Work Phone: noms External Department UnsolicitedStart: 10-03-2023 End: 30-31-6468Rcvjmutbl Result EncounterAtul Akers COVERSTITCH ELASTIC ATTACHER Work Phone: noms External Department UnsolicitedStart: 09-04-2023 Non-patient / Non-visitDO Nabeel Stanton Work Phone: [facility] [place] Work Phone: Start: 09-04-2023 End: 21-51-6911ruamnnkzzzUR Nabeel Stanton Work Phone: [facility] Work Phone: Start: 09-04-2023 End: 32-47-4841Zwbvnyo encounter procedureDO Nabeel Stanton Work Phone: [facility] Jose Work Phone: Start: 08-08-2023 End: 34-51-5007uaxcttyuvzAE Nabeel Stanton Work Phone: [facility] Work Phone: Start: 08-08-2023 End: 17-63-5199Lytuznl encounter procedureDO Nabeel Stnaton Work Phone: [facility]-Center for Breast Care Work Phone: Start: 05-11-2023 End: 38-33-1779Iugxjlu encounter procedureDO Nabeel Stanton Work Phone: 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)Start: 10-17-2022 End: 17-90-7987Wsahsro encounter Eva Warner MD Work Phone: SANDUSKYStart: 09-14-2022 End: 26-40-1418ztdfujderbBqodxl Conley Other [facility] [employer] Other Start: 98-08-8245Gwpgyuwxp encounterNabeel StantonMorton Hospital KaelarentonyStart: 65-63-0795Ewsjch outpatient visit 15 minutes Nabeel StantonHoag Memorial Hospital PresbyterianyStart: 90-11-0131Qldrnwbel encounter Nabeel StantonHoag Memorial Hospital PresbyterianyStart: 05-23-2022 End: 76-98-2836chdkxljfgbEL Nabeel Stanton Work Phone: [facility] Work Phone: Start: 05-23-2022 End: 48-44-4463Mdzzrro encounter Hernan Stanton Work Phone: [facility]-Lab [facility] Centertart: 58-40-7138Pmdxqzqayq RecurringDO Nabeel Stanton Work Phone: [facility]-Infusion Therapy - [facility]/P Work Phone: Start: 04-06-2022 End: 23-09-4512jlclgkszwcZU DOCTOR MISCFacility:T2Pmjdx: 03-08-2022 End: 51-47-1698rbtbauvlbzTuojyy Romy Other no[employer] Other Start: 50-09-0837Hybluhwxl encounterDiannbert StantonOrestes Family [facility] SandrolandoyStart: 03-05-2022 End: 67-70-8401dpwbydvnuzJGDWFPJHVVU HASSETTFacility:H2Uxmdk: 03-02-2022 End: 03-67-7792Qzzlmod encounter procedureDO Nabeel Stanton Work Phone: [facility]-Ultrasound Main [place] Work Phone: Start: 03-02-2022 End: 82-05-9320prxyzopmxfDcqeyc Conley Other [email or web address] Other Start: 67-98-7758Zpctpo outpatient visit 15 minutes Nabeel StantonMorton Hospital SandrolandoyStart: 32-00-2303Teppvrqsp encounter Nabeel GarykasieTUCSON HEART HOSPITAL Family [facility] JeanyStart: 02-22-2022 End: 79-04-0860mwhxkymxarGAWPKZOGSVP HASSETTFacility:K0Rzark: 02-13-2022 End: 18-85-3859vbrzromewwGP DOCTOR MISCFacility:L5Yratk: 01-08-2022 End: 43-18-0035mmdpwveclmIDTOLG RODRIGUEZ .Facility:G4Qoajv: 01-07-2022 End: 69-40-1637zvtowokvwmMOVPXI RODRIGUEZ .Facility:L8Eaydz: 11-24-2021 End: 11-40-5321muqmvpqdkdHarrga Conley Other [facility] [employer] Other Start: 69-20-1622Kzlovu outpatient visit 15 minutes Nabeel RomyMorton Hospital JeanyStart: 11-23-2021 End: 65-37-7395gqlxoqqkwkPUZXJU CONLEYFacility:Q6Uisbz: 09-19-2021 End: 95-26-9419qlmhapkwsvJEXFO CALLISONFacility:L5Pymbo: 45-39-6829Ugdmcikug encounterOchsner LSU Health ShreveportHematology/OncologyComment on above:ResultsStart: 09-12-2021 End: 23-52-0371lfqczzdbemBrwzj R Murphy MD Work Phone: Hematology/OncologyComment on above: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); History of multiple sclerosis (HCC); History of hypertensionStart: 09-12-2021 End: 26-12-1186Vddqczz encounter procedureAc Warner MD Work Phone: SANDUSKYStart: 12-86-1443Aqfxd abstractingAc Warner MD Work Phone: Hematology/OncologyStart: 08-23-2021 End: 80-40-4072zjkexersoaIskywc Stanton Other [email or web address] Other Start: 35-93-5803Ckbjcrmua encounterThomas ConleyFPG Family Medicine SanduskyStart: 05-23-2021 End: 51-91-6172xrhtzxgkrlLinnqg Stanton Other [email or web address] Other Start: 88-41-6827Fryulyq encounter procedureThomas ConleyFPG Family Medicine [place] Procedures DateProcedureProcedure DetailPerforming ClinicianStart: 68-97-7667Isofjlgrh mammography of bilateral breastsThomas Stanton DO Work Phone: Start: 32-73-8923BYH of cervical spine with contrast Nabeel Stanton DO Work Phone: Start: 81-92-1863OCK of headThomas Stanton DO Work Phone: Start: 02-53-4836QQOOK BLOCKChristopher Scooter DO Work Phone: Start: 50-80-0455ZIM CBC WITH AUTO Renetta Akers COVERSTITCH ELASTIC ATTACHER Work Phone: Start: 37-95-4633VKBSA Barbara Akers COVERSTITCH ELASTIC ATTACHER Work Phone: start: 80-20-0827WRC HEAD/BRAIN WO/W Zac Akers NP Work Phone: Start: 09-11-0310Dsbfhvdhl mammography of bilateral breastsDO Nabeel Romy Work Phone: Start: 43-53-0410Dnbvtf scan of lower limb veinsDO Nabeel Romy Work Phone: Start: 16-35-8232Hfdihuwa identified in Urine by CultureThomas Stanton DO Work Phone: Start: 36-03-0436Fqdgj cultureDO Nabeel Stanton Work Phone: Plan of Treatment DateCare ActivityDetailAuthorStart: 87-04-0599FQETHVWZ SCREENDIABETES SCREEN [facility]ertart: 02-12-2025 End: 33-17-9255Rpjhghw encounter wsnbupbug60/11/2025 10:50 AM EST Procedure Visit [facility] [address] [phone] Rahul Patel DPM [address] [address] [facility] CI PODIATRYStart: 11-20-2024 End: 06-09-3127Tpxbknr encounter qyrskfvbw99/18/2025 10:50 AM EDT Procedure Visit [facility] [address] [phone] Rahul Patel DPM [address] [address] Multiple sclerosis (HCC) (Primary Dx); Pain due to onychomycosis of toenails of both feet; Venous insufficiency; Exostosis of left footNOMS CI PODIATRYComment on above:Multiple sclerosis (HCC) (Primary Dx); Pain due to onychomycosis of toenails of both feet; Venous insufficiency; Exostosis of left footStart: 10-21-2024 End: 70-56-9147Wcdyqbz encounter eugwxyyxf36/19/2025 1:30 PM EDT Office Visit BEVERLEY TOURE [address] [place] [address] Bart Helms DO [address] [facility] [place], [place] [id number] BEVERLEY GARCÍAtart: 13-95-1940Rotohjx referralNorwalk Memorial Hospital Work Phone: Start: 09-29-2024 End: 93-34-3885Tmhpclo encounter ixsddgnqf55/28/2025 9:40 AM EDT Office Visit BEVERLEY GARCIA [address] [address] [place] [phone] Georgina Escobar NP [address] [place] [phone] BEVERLEY SOTOYStart: 94-03-1405XIGJVLEP SCREENDIABETES SCREENDiamond ClinicStart: 08-28-2024 End: 79-82-5133Sokaqyd encounter procedureNOMS CI PODIATRYComment on above:Pain due to onychomycosis of toenails of both feet (Primary Dx); Multiple sclerosis (HCC)Start: 07-01-2024 End: 97-74-2796Lcllrbj encounter procedureANA KANAUEComment on above:Arrived Start: 06-19-2024 End: 42-15-2520Pqgbxtz encounter procedureNOMS CI PODIATRYComment on above:Pain due to onychomycosis of toenails of both feet (Primary Dx); Multiple sclerosis (CMS/HCC); Venous insufficiency; Exostosis of left footStart: 06-04-2024 End: 72-24-7795Rzxejju encounter procedureNOMS [place] [facility] R[facility]TEStart: 05-26-2024 End: 31-63-3773Ptijdaj encounter procedureNOMS [place] [facility] R[facility]TEStart: 04-30-2024 End: 78-68-2953Zikypcr encounter wnnyjrpjo01/26/2025 11:45 AM EST Office Visit [place] [address] [address] Bart Helms DO [address] [place] [address] ArrivedTUCSON MEDICAL CENTER M[place]FINComment on above:ArrivedStart: 04-10-2024 End: 96-17-1487Nkslrpu encounter procedureNOMS CI PODIATRYComment on above:Pain due to onychomycosis of toenails of both feet (Primary Dx); Multiple sclerosis (CMS/HCC); Venous insufficiency; Exostosis of left footStart: 02-13-2024 End: 50-50-8004Jgbllns encounter procedureNOMS [place] [facility] R[facility]TEComment on above:ArrivedStart: 02-04-2024 End: 90-83-3443Cjrix BlockNerve Block Procedures Routine Lumbar radiculopathy Expected: 02/04/2024 (Approximate), Expires: 02/03/2025[facility] Work Phone: comment on above:Expected: 02/04/2024 (Approximate), Expires: 02/03/2025Start: 02-04-2024 End: 54-56-5370Uvmfisz encounter procedureNOMS [place] [facility] ROUTEComment on above:ArrivedStart: 01-10-2024 End: 35-75-4134Dqkcygp encounter veebepmrd79/07/2024 11:50 AM EST Procedure Visit [facility] [address] [facility] [address] [place] [phone] Rahul Patel, RACHEL [address] [facility] 5 [place] [address] N[facility] CI PODIATRYStart: 11-21-2023 End: 10-10-8879Ksbsrkx encounter hzkojabzp66/18/2024 9:40 AM EDT Office Visit [facility] [place] [facility] [address] [place] [phone] Atul Akers NP [address] [place] [address] [facility] [place] [facility] ROUTEStart: 11-01-2023 End: 39-89-8487Apphyei encounter fevtjzyie67/29/2024 11:50 AM EDT Procedure Visit [facility] [address] [place] [address] Rahul Patel, ECTORM [address] [address] [facility] CI PODIATRYStart: 10-23-2023 End: 76-12-9411Qzcyqko encounter yxmtnwibg06/20/2024 9:30 AM EDT Office Visit [facility] [address] [place] [address] Bart Helms [address] [place] [address] ArrivedNOMEMORIAL HOSPITAL ROUTEComment on above:ArrivedStart: 06-14-2023 End: 83-91-3399Eaiiqnn encounter zydncvqom02/11/2024 1:20 PM EDT Procedure Visit [facility] [address] [place] [address] Rahul Patel DPM [address] [address] [facility] CI PODIATRYStart: 04-12-2023 End: 90-17-2305Pzxeyln encounter ifmqyinof25/08/2024 9:00 AM EST Office Visit [facility] [address] [place] [address] Rahul Patel DPM [address] [address] N[facility] CI PODIATRYStart: 45-81-6152Arletfsfx vaccination INFLUENZA (#1)[facility]: 14-22-7570FJFZRRHDZD ASSESSMENTDEPRESSION ASSESSMENTSycamore Medical Centertart: 54-91-1603Bivluhkqc vaccinationINFLUENZA (#1) [facility]art: 09-12-2021 End: 07-67-8716Jvigll Ag 125 [Units/volume] in Serum or PlasmaUniversity Hospitals Cleveland Medical Center Work Phone: Comment on above:Expected: 09/12/2021, Expires: 11/12/2021tart: 09-12-2021 End: 90-50-4430Iasna epididymis protein 4 [Moles/volume] in Serum or Plasma [facility] Work Phone: Comment on above:Expected: 09/12/2021, Expires: 11/12/2021tart: 27-86-8020QPSGPECJ VACCINE (1 of 2)SHINGRIX VACCINE (1 of 2) [facility]: 27-76-7890JYADCLUOG (FIT-DNA)COLOGUARD (FIT-DNA)[facility] Centertart: 82-85-9778ZhkkwqoyjzbEQEBEJMRFSESjbgkiuom ClinicStart: 2004 COLORECTAL CANCER SCREENINGCOLORECTAL CANCER SCREENINGSycamore Medical Centertart: 00-85-6610JG COLONOGRAPHYCT COLONOGRAPHYSycamore Medical Centertart: 2004 DIABETES SCREENDIABETES SCREENSycamore Medical Centertart: 70-86-1603FDGTZ OCCULT BLOODFECAL OCCULT BLOODSycamore Medical Centertart: 55-96-3265VQBCV SCREENLIPID SCREEN [facility]ertart: 80-20-8056LZNTRZKVEMPDZQQNKQPFEMFPYEFahzbhtze Clinic Start: 20-36-1816KkgbzntylmnPVLQKWTACKpdtrbaev ClinicStart: 49-96-0020HHN TESTINGHPV TESTINGSycamore Medical Centertart: 46-59-4067DUV TESTINGPAP TESTING [facility]ertart: 35-24-3080Fdihl microalbumin profileDTAP,TDAP,TD (1 - Tdap)[facility] Cent[facility]art: 62-79-6697HVBHLKIME C SCREENINGHEPATITIS C SCREENING [facility]ertart: 25-83-8097VBC SCREENINGHIV SCREENINGSumma Health Start: 86-78-2915Yvctu depression screening assessmentDEPRESSION SCREENING [facility]art: 69-11-4732GAMSTTVCWRDI (1 - PCV)PNEUMOCOCCAL (1 - PCV) [facility] Centertart: 24-70-4640WCVND-19 VACCINE (#1)COVID-19 VACCINE (#1) [facility] HealthComprehensive metabolic 2000 panel - Serum or PlasmaMercy Health Anderson HospitalMG Breast - bilateral ScreeningMercy Health Anderson HospitalMR Cervical spine WO and W contrast [facility] HospitalMR Unspecified body [facility] HospitalPatient referral [facility] Work Phone: [facility] Immunizations Immunization DateImmunizationNotesCare HnbmmcqtJuremaor56-63-4008Seeyvqiam, injectable, Madin Cira Canine Kidney, preservative free, quadrivalentAc Warner MD Work Phone: [facility]ma HealthFpysss67-05-8541yabhyqgmg, injectable, quadrivalent, preservative freeThomas Stanton Other cFairfield Medical CenterKfsmis95-58-5018suztqphku, seasonal, injectableThomas Stanton Other [facility]10-18-2019influenza, injectable, quadrivalent, preservative Vasu Warner MD Work Phone: [facility] HealthMjepvr78-32-2491qvoxvxvom, injectable, quadrivalent, preservative Vasu Warner MD Work Phone: [facility]ma HealthSpvsaf81-91-9384hgqtfdmhn, seasonal, injectableThomas Stanton Other [facility]10-06-2015influenza, injectable, quadrivalent, preservative Vasu Warner MD Work Phone: [facility] HealthNcfvcf08-43-5787fjgrlfuiq, injectable, quadrivalent, contains preservativeThomas Stanton Other [place] [employer] Other Payers DatePayer CategoryPayerPolicy [id number] [id number] 2024Medicare (Managed Care)[employer]VANTAGE [id number] 2022MedicaidMEDICAID [facility] MEDICAID [id number] 2021-Present [phone] [place], [place] [id number] [id number]1-1441DpkpjjfUARVTL BLUE CROSS AND BLUE SHIELD ANTHEM MEDIBLUE HMO [id number] 2021- [phone] [address] [place] [address] [id number] BLUE CROSS AND BLUE SHIELD ANTHEM MEDIBLUE HMO [id number] 2021-Present [phone] [address] [place] [id number] [id number] [id number] 2.16.840.1.541815.3.57[id number] 2.16.840.1.005971.3.579.[id number] 2.16.840.1.245018.3.579.2.66367-30-8093Qwwfmaz7157119 2.16.840.1.366955.3.579.2.05420-53-8309Rhijqny3223321 2.16.840.1.895489.3.57[id number] 2.16.840.1.302255.3.579.2.84428-70-7084Ypvmpoi2447486 2.16.840.1.435495.3.579.2.68045-41-1754Pycdpzv2348281 2.16.840.1.506680.3.579.2.98453-41-8256Dafsgyw8945291 2.16.840.1.131513.3.579.2.01516-59-6716Agcfdim72258706 2.16.840.1.877814.3.579.2.656829-77-5689Cskaxgd23801950 2.16.840.1.091385.3.579.2.068445-48-6944Vsulior5262793 2.16.840.1.489425.3.579.2.991861-40-3563Zazytic1672429 2.16.840.1.013240.3.579.2.810933-42-3563Eapkkjq0842816 2.16.840.1.176258.3.579.2.267178-10-8134Stvpcxc8127171 2.16.840.1.468160.3.579.2.585047-21-1893Erxeoov5116445 2.16.840.1.897269.3.579.2.339371-16-6070Ufwwlfe9173660 2..840.1.639132.3.579.2.505950-67-2055Ucudelq3781144 2.16.840.1.513087.3.579.2.1259 [id number] 2.840.5.854004.915719 [id number] 2.16.840.1.353625.19Medicare [id number] 2.16.840.1.724644.3.579.2.695Xfksihb40511938 2.840.1.742305.3.579.2.531 [id number] 2.0.1.440444.3.579.2.531 Social History DateTypeDetailFacilityStart: 10-17-2022 End: 77-21-7909Dnq Assigned At BirthSycamore Medical Centertart: 30-64-1805Ahnqpof smoking status NHISLight tobacco smokerSumma HealthHistory of tobacco use Cigar SmokerSycamore Medical Centertart: 06-24-4300Zekvmic use and exposureSmokeless tobacco non-userSycamore Medical Centertart: 09-07-2021 End: 68-48-4094Ijyazti intakeCurrent drinker of alcohol (finding)[facility] Centertart: 90-07-3083Ycg Assigned At BirthNot on fileDiamond ClinicStart: 45-92-7003Vqfbkrx SDOH Alcohol Commentdrinks beerSycamore Medical Centertart: 09-02-2021 End: 91-51-7828Blalvpyb to SARS-CoV-2 (event)Not sureSycamore Medical Centertart: 09-96-0198Zbj Assigned At BirthDelaware County Hospitaltart: 10-17-2022 End: 14-40-6902Qzbtfjm of Social functionSycamore Medical Centertart: 96-22-5636Mjmec Depression Screening Mttfjwlwen9Ykiawhjpd ClinicStart: 00-65-0407Nppkhjt smoking status NHISTobacco smoking consumption unknownNOMS HealthcareStart: 04-05-2023 Alcohol intakeDeferNOMS HealthcareStart: 17-63-1669Ogmvacm smoking status NHIS Never smoked tobacco (finding)[facility] Hospitaltart: 07-02-2023 Tobacco smoking status NHISSmokes tobacco dailyNOMS HealthcareHistory of tobacco useCigarette SmokerNOMS HealthcareHow often to you have a drink containing alcohol?2-4 times a monthNOMS HealthcareHow many standard drinks containing alcohol do you have on a typical day?1 or 2NOMS HealthcareHow often do you have 6 or more drinks on 1 occasion?NeverNOMS HealthcareStart: 05-08-2024 End: 45-15-1504Cctdpcx smoking status NHISCurrent some day smokerAdams County Hospitaltart: 91-09-4158OerPmipti (finding)[facility] Clinical Notes 05-23-2021 to 11-20-2024 Note Date & HfpePsoiBrlsrjxe45-00-2899 History of Present illness Narrative* Rahul Ptael, DPM - 11/20/2024 10:50 AM EDT Patient: Gabrielle Marcos : 1960 PCP: Nabeel Stanton MD SUBJECTIVE This is a 64 y.o. female that presents today with a CC of elongated, thick nails. Pt states nails have been elongated and thick for many years and cause pain with ambulation in shoegear. Pt has tried previous treatment with minimal relief. Pt presents today for nail care and treatment. Pt also has history of venous stasis to b/l lower extremities. Positive history of MS Patient has history as well as left 1st metatarsal cuneiform joint bony exostosis Allergies: Allergies Allergen Reactions Keflex [Cephalexin] Pollen Extract Trees, grasses, garza Seasonal Ic [Octacosanol] Past Medical History: Past Medical History: Diagnosis Date Anxiety disorder Attention deficit disorder without hyperactivity Back pain Balance disorder Classical migraine Decreased taste and smell Degenerative disc disease, lumbar Degenerative lumbar disc completed PT Diplopia Disturbance of skin sensation Dizziness Dysuria Gait abnormality Headache Impaired fasting glucose Iron deficiency anemia Lack of coordination Lumbar radiculopathy Malaise and fatigue Marijuana abuse MS (multiple sclerosis) (HCC) Multiple sclerosis (HCC) Numbness Numbness and tingling of both feet Other constipation Pain in limb Radiculopathy, lumbosacral region Vitamin D deficiency Weakness of left leg Medications: Current Outpatient Medications: Biotin Maximum Strength 19256 MCG tablet, TAKE 1 TABLET BY MOUTH EVERY DAY, Disp: 90 tablet, Rfl: 1 donepezil (Aricept) 10 MG tablet, 1 (one) time each day at the same time, Disp: , Rfl: ergocalciferol (Vitamin D2) 1.25 MG (23019 UT) capsule, TAKE 1 CAPSULE BY MOUTH [...] feet ORTHO: Positive pain on palpation to toenails of the left 1,2,3,4,5 toes and right 1,2,3,4,5 toes Minimal pain on palpation left foot bony prominence Negative pain on palpation to bilateral calf regions ASSESSMENT 1. Multiple sclerosis (HCC) 2. Pain due to onychomycosis of toenails of both feet 3. Venous insufficiency 4. Exostosis of left foot PLAN Discussed proper foot care with patient today. Debride nails in length and thickness digits 1 through 10 . Rahul Patel DPM documented in this [facility]08-19-2025 Evaluation note* Diagnosis Onset Date Resolution Status Admit Date Lumbosacral radiculopathy acuteAugust 2024 1:23pmEssential (primary) hypertensionacuteSeptember 2024 1:22pmScreening mammogram for breast cancernoneactiveSeptember 2024 1:22pmAcute URInoneactiveOctober 2024 10:43amEncounter for medication monitoringacuteNovember 2024 10:57amLumbar radiculopathychronicNovember 2024 10:57amMultiple sclerosischronicNovember 2024 10:57amWeakness of left lower extremitychronicNovember 2024 10:57am [facility] Work Phone: 1(581) 168-685707-28-2025 Evaluation note* Diagnosis Onset Date Resolution Status Admit Date Encounter for medication monitoring acuteJuly 2024 9:38amLumbar radiculopathychronicJuly 2024 9:38am Multiple sclerosischronicJuly 2024 9:38amWeakness of left lower extremity chronicJuly 2024 9:38amOAB (overactive bladder)acuteJuly 2024 9:33am Epidermoid cyst of skin of backnoneactiveJuly 2024 9:33amSeborrheic dermatitis of scalpnoneactiveJuly 2024 9:33am [facility] Work Phone: 1(127) 507-242507-28-2025 Evaluation note* Diagnosis Onset Date Resolution Status Admit Date Encounter for medication monitoring acuteJuly 2024 9:38amLumbar radiculopathychronicJuly 2024 9:38am Multiple sclerosischronicJuly 2024 9:38amWeakness of left lower extremity chronicJuly 2024 9:38amOAB (overactive bladder)acuteJuly 2024 9:33am Epidermoid cyst of skin of backnoneactiveJuly 2024 9:33amSeborrheic dermatitis of scalpnoneactiveJuly 2024 9:33amLumbosacral radiculopathy acuteAugust 2024 1:23pm [facility] Work Phone: 1(458) 446-802107-28-2025 Evaluation note* Diagnosis Onset Date Resolution Status Admit Date Encounter for medication monitoring acuteJuly 2024 9:38amLumbar radiculopathychronicJuly 2024 9:38am Multiple sclerosischronicJuly 2024 9:38amWeakness of left lower extremity chronicJuly 2024 9:38amOAB (overactive bladder)acuteJuly 2024 9:33am Epidermoid cyst of skin of backnoneactiveJuly 2024 9:33amSeborrheic dermatitis of scalpnoneactiveJuly 2024 9:33amLumbosacral radiculopathy acuteAugust 2024 1:23pmEssential (primary) hypertensionacuteSeptember 2024 1:22pmScreening mammogram for breast cancernoneactiveSeptember 2024 1:22pm [facility] Work Phone: 1(975) 398-720107-28-2025 Evaluation note* Diagnosis Onset Date Resolution Status Admit Date Encounter for medication monitoring acuteJuly 2024 9:38amLumbar radiculopathychronicJuly 2024 9:38am Multiple sclerosischronicJuly 2024 9:38amWeakness of left lower extremity chronicJuly 2024 9:38amOAB (overactive bladder)acuteJuly 2024 9:33am Epidermoid cyst of skin of backnoneactiveJuly 2024 9:33amSeborrheic dermatitis of scalpnoneactiveJuly 2024 9:33amLumbosacral radiculopathy acuteAugust 2024 1:23pmEssential (primary) hypertensionacuteSeptember 2024 1:22pmScreening mammogram for breast cancernoneactiveSeptember 2024 1:22pmAcute URInoneactiveOctober 2024 10:43am [facility] Work Phone: 1(764) 212-703706-26-2025 History of Present illness Narrative* Rahul Patel, RACHEL - 08/28/2024 11:00 AM EDT Patient: Gabrielle Marcos : 1960 PCP: Nabeel Stanton MD SUBJECTIVE This is a 64 y.o. female that presents today with a CC of elongated, thick nails. Pt states nails have been elongated and thick for many years and cause pain with ambulation in shoegear. Pt has tried previous treatment with minimal relief. Pt presents today for nail care and treatment. Pt also has history of venous stasis to b/l lower extremities. Positive history of MS Patient has history as well as left 1st metatarsal cuneiform joint bony exostosis Allergies: Allergies Allergen Reactions Keflex [Cephalexin] Pollen Extract Trees, grasses, garza Seasonal Ic [Octacosanol] Past Medical History: Past Medical History: Diagnosis Date Anxiety disorder Attention deficit disorder without hyperactivity Back pain Balance disorder Classical migraine Decreased taste and smell Degenerative disc disease, lumbar Degenerative lumbar disc completed PT Diplopia Disturbance of skin sensation Dizziness Dysuria Gait abnormality Headache Impaired fasting glucose Iron deficiency anemia Lack of coordination Lumbar radiculopathy Malaise and fatigue Marijuana abuse MS (multiple sclerosis) (HCC) Multiple sclerosis (HCC) Numbness Numbness and tingling of both feet Other constipation Pain in limb Radiculopathy, lumbosacral region Vitamin D deficiency Weakness of left leg Medications: Current Outpatient Medications: Biotin Maximum Strength 16038 MCG tablet, TAKE 1 TABLET BY MOUTH EVERY DAY, Disp: 90 tablet, Rfl: 1 donepezil (Aricept) 10 MG tablet, 1 (one) time each day at the same time, Disp: , Rfl: ergocalciferol (Vitamin D2) 1.25 MG (22940 UT) capsule, TAKE 1 CAPSULE BY MOUTH [...] feet ORTHO: Positive pain on palpation to toenails of the left 1,2,3,4,5 toes and right 1,2,3,4,5 toes Minimal pain on palpation left foot bony prominence Negative pain on palpation to bilateral calf regions ASSESSMENT 1. Pain due to onychomycosis of toenails of both feet 2. Multiple sclerosis (HCC) PLAN Discussed proper foot care with patient today. Debride nails in length and thickness digits 1 through 10 . Rahul Patel DPM documented in this encounterSullivan County Memorial [id number] History of Present illness Narrative* Bart Helms DO - 07/01/2024 11:30 AM EDTAssociated Order(s): Nerve Block Pre-Procedure Diagnose(s): Lumbar radiculopathy; Lumbosacral radiculopathy Post-Procedure Diagnose(s): Lumbar radiculopathy; Lumbosacral radiculopathy Images from the original note were not included. Reason for Appointment: Epidural Patient ID: Gabrielle Marcos is a 64 y.o. female who presents for lumbar radiculopathy. Current Medications: has a current medication list which includes the following prescription(s): biotin maximum strength, donepezil, ergocalciferol, fluticasone, gabapentin, losartan, montelukast, ocrelizumab, ondansetron odt, oxybutynin xl, and timolol. Vitals: Visit Vitals BP 119/78 (BP Location: Right arm, Patient Position: Sitting, BP Cuff Size: Adult) Pulse 70 Smoking Status Every Day Allergies: Allergies Allergen Reactions Keflex [Cephalexin] Pollen Extract Trees, grasses, garza Seasonal Ic [Octacosanol] EPIDURAL NOTE: Bilateral L5 Epidural Injection Fluoroscopic needle guidance REASON FOR PROCEDURE: Lumbar radiculopathy and radicular pain ALLERGIES: See allergy list above. Patient specifically denies contrast and shellfish allergy. MEDICATIONS INJECTED: 1ml of 0.25% Bupivacaine mixed with Dexamethasone (10mg/ml) 10mg total. LOCAL ANESTHETIC INJECTED: None CONTRAST: Omnipaque 300mgI/mL, 1 mL per each procedure site SEDATION MEDICATIONS: None TOPICAL ANESTHETIC: Ethyl Chloride spray ESTIMATED BLOOD LOSS: None COMPLICATIONS: None TECHNIQUE: If applicable, blood thinning medications were held according to SIS and LINDSAY guidelines. Time-out was taken to identify the correct patient, procedure, and side prior to starting the procedure. Lying in a prone position, the patient was prepped in the usual aseptic fashion. The appropriate site was identified under fluoroscopy. A 22 gauge needle was then introduced and the Right L5 foramen was negotiated under direct intermittent fluoroscopy. Lateral view was obtained to confirm needle placement and depth. Negative aspiration confirmed no blood and no CSF return. In the AP view 1 ml of Omnipaque 300mgI/mL contrast was injected and showed a good spread of the dye along the corresp onding nerve root and through the foramen into the axillary recess of the epidural space without any vascular uptake. Then the 0.5ml of 0.25% Bupivacaine mixed with 0.5ml of Dexamethasone 10mg/ml wasinjected without adverse effect. The next appropriate site was identified under fluoroscopy. A 22 gauge needle was then introduced and the Left L5 foramen was negotiated under direct intermittent fluoroscopy. Lateral view was obtained to confirm needle placement and depth. Negative aspiration confirmed no blood and no CSF return. In the AP view 1 ml of Omnipaque 300mgI/mL contrast was injected and showed a good spread of the dyealong the corresponding nerve root and through the foramen into the axillary recess of the epiduralspace without any vascular uptake. Then the 0.5ml of 0.25% Bupivacaine mixed with 0.5ml of Dexamethasone 10mg/ml was injected without adverse effect. The procedure was completed without complications and was tolerated well. The patient was monitoredafter the procedure. The patient (or responsible constitution party) was given post-procedure and discharge instructions to follow at home. The patient was discharged in stable condition. A follow-up appointment was made. The patient was instructed to avoid activities that would normally worsen the pain. Pre-procedure pain score: 6-7 /10 Coating Technician: RT Beto(R) kVp: 103 Time (sec): 20 mA: 3.0 Patient ID: Gabrielle Marcos is a 64 y.o. female. Nerve Block Date/Time: 07/01/2024 1:26 PM Performed by: Bart Helms DO Authorized by: Bart Helms DO Consent: Consent obtained: Written Consent given by: Patient [place] protocol: Procedure explained and questions answered to patient or proxy's satisfaction: yes Patient identity confirmed: Verbally with patient Location: Body area: Trunk Trunk nerve: Lumbar Procedure details: Guidance: fluoroscopy Steroid injected: Dexamethasone Post-procedure details: Procedure completion: Tolerated documented in this encounterSullivan County Memorial [id number] History of Present illness Narrative* Rahul Patel DPM - 06/19/2024 11:20 AM EDT Patient: Gabrielle Marcos : 1960 PCP: Nabeel Stanton MD SUBJECTIVE This is a 64 y.o. female that presents today with a CC of elongated, thick nails. Pt states nails have been elongated and thick for many years and cause pain with ambulation in shoegear. Pt has tried previous treatment with minimal relief. Pt presents today for nail care and treatment. Pt also has history of venous stasis to b/l lower extremities. Positive history of MS Patient has history as well as left 1st metatarsal cuneiform joint bony exostosis Allergies: Allergies Allergen Reactions Keflex [Cephalexin] Pollen [...] of left leg Medications: Current Outpatient Medications: Biotin Maximum Strength 41127 MCG tablet, TAKE 1 TABLET BY MOUTH EVERY DAY, Disp: 90 tablet, Rfl: 1 donepezil (Aricept) 10 MG tablet, 1 (one) time each day at the same time, Disp: , Rfl: ergocalciferol (Vitamin D2) 1.25 MG (80356 UT) capsule, TAKE 1 CAPSULE BY MOUTH [...] feet ORTHO: Positive pain on palpation to toenails of the left 1,2,3,4,5 toes and right 1,2,3,4,5 toes Minimal pain on palpation left foot bony prominence Negative pain on palpation to bilateral calf regions ASSESSMENT 1. Pain due to onychomycosis of toenails of both feet 2. Multiple sclerosis (CMS/HCC) 3. Venous insufficiency 4. Exostosis of left foot PLAN Discussed proper foot care with patient today. Debride nails in length and thickness digits 1 through 10 . Rahul Patel DPM documented in this encounterSullivan County Memorial [id number] History of Present illness Narrative* Bart Helms, DO - 04/30/2024 11:45 AM EST Images from the original note were not included. Chief Complaint: MS and back pain Subjective Gabrielle Marcos, 64 y.o., female Patient is here for follow up following her epidural on 02/13/24. Patient states her last epidural was very helpful. Her pain went down to a 3/10. She said it was still there but she was able to move. Her back pain gets worse with the bad weather. She admits some changes with her MS. She states sheis having difficulty finding motivation to do things. She also states she has instances where she is having zaps throughout her body. These are happening in the evening. She had her last Ocrevus infusion this last Sunday. Those are still very helpful for her. Review of Systems Constitutional: Positive for fatigue. Negative for appetite change and fever. Respiratory: Negative for cough, shortness of breath and wheezing. Cardiovascular: Negative for chest pain, palpitations and leg swelling. Gastrointestinal: Negative for abdominal pain, constipation, diarrhea and nausea. Musculoskeletal: Positive for back pain and gait problem. Negative for arthralgias and myalgias. Neurological: Positive for weakness and numbness. Negative for dizziness, tremors and headaches. Past Medical History: Diagnosis Date Anxiety disorder [...] Vitamin D deficiency Weakness of left leg Past Surgical History: Procedure Laterality Date HYSTERECTOMY OTHER SURGICAL HISTORY mammogram TONSILLECTOMY TUBAL LIGATION Family History Problem Relation Name Age of Onset Hyperlipidemia Father Migraines Other Social History Tobacco Use Smoking status: Every Day Types: Cigarettes, Cigars Smokeless tobacco: Not on file Substance Use Topics Alcohol use: Yes Allergies: Keflex [cephalexin], Pollen extract, and Seasonal ic [octacosanol] Vitals: 04/30/24 1144 BP: (!) 162/94 Pulse: 63 SpO2: 97% Body mass index is 34.58 kg/m . weight: 183 lb Neurologic exam: Mental status: Well nourished, well developed and in no acute distress. Grossly oriented to person, place and time. Recent and remote memory are intact. Language is fluent without aphasia. Attention and concentration are normal. Fund of knowledge is appropriate for level of education. Cranial nerves: CN II: Visual acuity is normal. Visual bustos full to confrontation. CN III, IV, : pupils equal round and reactive to light. Extraocular movements intact. No ptosis present. CN V: Facial sensation is normal. CN VII: Full and symmetric facial movement. CN VIII: Hearing is intact. CN IX and X: Palate elevates symmetrically. CN XI: Shoulder shrug is normal bilaterally. CN XII: Tongue is midline without atrophy or fasciculation. Motor: RUE Strength deltoid, , biceps , triceps , wrist extensors , wrist flexor 5/5, occup therapist strength 4+/5 cannot extend right thumb. LUE Strength deltoid , biceps , triceps , wrist extensors , wrist flexor , occup therapist strength 5/5. RLE Strength illopsoas, quadriceps, tibialis anterior, and gastrocnemius strength 5/5. LLE Strength illopsoas and gastrocnemius strength 4+/5, knee extension and DF 4+/5 (not wearing AFObrace today). Tone increased LLE. Bulk is normal. Sensory: Sensation is intact to light touch throughout distal extremities. Vibratory sensation diminished in the left distal extremity. Reflexes: RUE biceps reflex 3+ brachioradialis reflex 3+ . LUE biceps reflex 3+ brachioradialis reflex 3+ . RLE knee reflex 1+. LLE knee reflex 1+. Shaw's sign negative Coordination: Yerafj-gz-[id number] testing is normal Rapid alternating movements are normal Gait: Cane Review and summary of old records: CBC, liver profile, basic metabolic panel and IgG levels are largely unremarkable. Mildly elevated alk-phos. Patient asked to discuss this with primary care. MRI of the brain with and without contrast at [facility] on 10/03/23: Stable MS plaques. No new or active lesion is noted. Labs on 05/10/23: CBC BMP and LFT overall unremarkable. Absolute lymph 3.5. IgG 723 (wnl) MRI of the brain with and without contrast at [facility] on 10/31/2022: tiny focus of active demyelination suspected within the posterior medial right parietal lobe. Stable appearance of the remainder of thedemyelinating lesions. Labs on 10/12/22: CBC CMP and IGG uremarkable. Abs Lymph 1.6 MRI of the cervical and thoracic spine on 04/06/22: signal abnormality in the cervical spine cord with no postcontrast enhancement. Consider chronic demyelination. no postcontrast enhancement of the cervical or thoracic cord to suggest acute demyelination. Extensive cervical degenerative changes. Signal abnormality T2 and T3 likely representing Modic 1 edema/inflammation. MRI brain w + w/o contrast from [facility] on 11/23/2021: 3 foci of white matter signal abnormality on restricted diffusion suggesting punctate areas of acute demyelination. No postcontrast enhancement. Moderate signal abnormality with a periventricular predominance consitent with known MS. MRI brain w/wo contrast from [facility] on 11/16/20: Moderate nonspecific FLAIR signal abnormalities of thesupratentorial and infratentorial white matter are not statistically changed, compatible with reported multiple sclerosis. No abnormal enhancement or restricted diffusion to suggest active demyelination. No significant atrophy or periventricular black holes. MRI brain with without contrast at [facility] on 11/18/19: Findings consistent with MS. Slight interval increase in size and intensity of the posterior right frontal lobe and mid left frontal lobe lesion. Slight restricted diffusion, but no enhancement of 2 small areas near the posterior horns of the rightand left lateral ventricle; possibly very mild active demyelination. EMG of BLE at [facility] on 08/20/19: Left L5 radiculopathy, moderate. MRI lumbar spine with and without contrast at [facility] on 08/04/19: Degenerative changes at L3-4 and L4-5 resulting in central and foraminal stenosis. No signal abnormality within the visualized spinal cordto suggest acute imagination. MRI brain with and without contrast at [facility] on 08/07/18: Findings consistent with mild progression of MS since the prior study. No findings to suggest active demyelination. Assessment/Plan Diagnoses and all orders for this visit: Lumbar radiculopathy Patient has underlying degenerative changes at L3/4 and L4/5 with foraminal stenosis as seen on MRIin 2019 causing lumbar radiculopathy. EMG showed left L5 radiculopathy which was moderate. Epiduralinjections provide relief of greater than 50%, but pain has since returned and she wishes repeat injection. PLAN: - Plan for repeat bilateral L5 epidural injections; risks including infection, bleeding, contrast reaction, cumulative steroid dosing, and weakness were discussed. Patient understands and would like to proceed. - Continue PT home exercises - Continue gabapentin 400 mg by mouth in the AM, and 800 mg by mouth in the PM. OARRs reviewed. - Okay to continue biotin supplementation, she states this has been beneficial for her nerve pain in addition to the gabapentin Multiple sclerosis (CMS/HCC) The patient has a history of MS and is currently on Ocrevus. She previously failed Aubagio. Brain MRI from Nov 2020 showed stability without any new lesions. She has continued without any new symptoms. She is very functional but does use a cane. Despite this MRI brain on 11/23/2021 showed 3 foci of white matter signal abnormality on restricted diffusion suggesting punctate areas of acute demyelination with no postcontrast enhancement. MRI of the cervical spine shows findings consistent with chronic MS though no acute findings. Thoracic spine unremarkable from an MS standpoint. Brain MRI 2022with a tiny focus of active demyelination suspected within the posteromedial right parietal lobe. We have discussed the importance of ongoing agressive MS treatment. MRI of the brain on 10/03/23 demonstrated stability and the patient denies any clinical symptoms to suggest relapse. PLAN: - MRI results were reviewed with the patient today - Continue Ocrevus infusions. Special brownies reframed on during worse next special brownish roundon during work; we discussed the need for serial imaging, serial labs, and routine cancer screening. - Labs for ongoing monitoring every 4-6 months - MRI of the brain September 2024 for serial monitoring or sooner should symptoms suggest. - Continue PT home exercises - Of note, she was previously on IVIG infusions q5 weeks while being treated by BB. We have since stopped these, due to concerns for unnecessary and extra immunosuppression, and she has been okay with this plan. Left leg weakness Likely due to both lumbar radiculopathy and MS. This has been stable since her last visit. Patient reports increased stability since PT and denies any recent falls. PLAN: - Continue home PT exercises I did also tell the patient to closely follow blood pressure and more closely treat this over time with primary care. Follow up after epidural injection or sooner if symptoms worsen, fail to improve, or should a new neurological concern arise. Pt has been fully educated on their diagnosis, lab results, treatment options, follow up plan, and return instructions documented in this encounterSullivan County Memorial [id number] History of Present illness Narrative* Rahul Patel, RACHEL - 04/10/2024 10:40 AM EST Patient: Gabrielle Marcos : 1960 PCP: Nabeel Stanton MD SUBJECTIVE This is a 64 y.o. female that presents today with a [...] of left leg Medications: Current Outpatient Medications: Biotin Maximum Strength 23115 MCG tablet, TAKE 1 TABLET BY MOUTH EVERY DAY, Disp: 90 tablet, Rfl: 1 donepezil (Aricept) 10 MG tablet, 1 (one) time each day at the same time, Disp: , Rfl: ergocalciferol (Vitamin D2) 1.25 MG (86084 UT) capsule, TAKE 1 CAPSULE BY MOUTH [...] feet ORTHO: Positive pain on palpation to toenails of the left 1,2,3,4,5 toes and right 1,2,3,4,5 toes Positive palpation left foot bony prominence Negative pain on palpation to bilateral calf regions ASSESSMENT 1. Pain due to onychomycosis of toenails of both feet 2. Multiple sclerosis (CMS/HCC) 3. Venous insufficiency 4. Exostosis of left foot PLAN Discussed proper foot care with patient today. Debride nails in length and thickness digits 1 through 10 . Rahul Patel DPM documented in this encounterSullivan County Memorial [id number] History of Present illness Narrative* Arsalan Diaz, ARRT - 02/13/2024 9:30 AM EST Images from the original note were not included. Reason for Appointment: Epidural Patient ID: Gabrielle Marcos is a 63 y.o. female who presents for lumbar radiculopathy. Current Medications: has a current medication list which includes the following prescription(s): biotin, donepezil, ergocalciferol, fluticasone, gabapentin, losartan, montelukast, ocrelizumab, ondansetron odt, oxybutynin xl, and timolol. Vitals: Visit Vitals BP 140/78 Pulse 67 Wt 172 lb BMI 32.50 kg/m Smoking Status Every Day BSA 1.83 m Allergies: Allergies Allergen Reactions Keflex [Cephalexin] Pollen Extract Trees, grasses, garza Seasonal Ic [Octacosanol] EPIDURAL NOTE: Bilateral L5 Epidural Injection Fluoroscopic needle guidance REASON FOR PROCEDURE: Lumbar radiculopathy and radicular pain ALLERGIES: See allergy list above. Patient specifically denies contrast and shellfish allergy. MEDICATIONS INJECTED: 1ml of 0.25% Bupivacaine mixed with Dexamethasone (10mg/ml) 10mg total. LOCAL ANESTHETIC INJECTED: None CONTRAST: Omnipaque 300mgI/mL, 1 mL per each procedure site SEDATION MEDICATIONS: None TOPICAL ANESTHETIC: Ethyl Chloride spray ESTIMATED BLOOD LOSS: None COMPLICATIONS: None TECHNIQUE: If applicable, blood thinning medications were held according to SIS and LINDSAY guidelines. Time-out was taken to identify the correct patient, procedure, and side prior to starting the procedure. Lying in a prone position, the patient was prepped in the usual aseptic fashion. The appropriate site was identified under fluoroscopy. A 22 gauge needle was then introduced and the Right L5 foramen was negotiated under direct intermittent fluoroscopy. Lateral view was obtained to confirm needle placement and depth. Negative aspiration confirmed no blood and no CSF return. In the AP view 1 ml of Omnipaque 300mgI/mL contrast was injected and showed a good spread of the dye along the corresp onding nerve root and through the foramen into the axillary recess of the epidural space without any vascular uptake. Then the 0.5ml of 0.25% Bupivacaine mixed with 0.5ml of Dexamethasone 10mg/ml wasinjected without adverse effect. The next appropriate site was identified under fluoroscopy. A 22 gauge needle was then introduced and the Left L5 foramen was negotiated under direct intermittent fluoroscopy. Lateral view was obtained to confirm needle placement and depth. Negative aspiration confirmed no blood and no CSF return. In the AP view 1 ml of Omnipaque 300mgI/mL contrast was injected and showed a good spread of the dyealong the corresponding nerve root and through the foramen into the axillary recess of the epiduralspace without any vascular uptake. Then the 0.5ml of 0.25% Bupivacaine mixed with 0.5ml of Dexamethasone 10mg/ml was injected without adverse effect. The procedure was completed without complications and was tolerated well. The patient was monitoredafter the procedure. The patient (or responsible constitution party) was given post-procedure and discharge instructions to follow at home. The patient was discharged in stable condition. A follow-up appointment was made. The patient was instructed to avoid activities that would normally worsen the pain. Pre-procedure pain score: 5-6 /10 Coating Technician: RT Beto(R) kVp: 103 Time (sec): 21 mA: 3.0 documented in this encounterSullivan County Memorial [id number] Telephone encounter Note* Telephone Encounter - Rahul Harrell MA - 01/28/2024 3:55 PM EST It seems we have been sending this medication since as far back as 02/12/2017. I'm not sure how or why but I did tell the pt this will need to be managed by her PCP. [facility] [id number] Miscellaneous Notes* Telephone Encounter - Rahul Harrell MA - 01/28/2024 3:55 PM EST It seems we have been sending this medication since as far back as 02/12/2017. I'm not sure how or why but I did tell the pt this will need to be managed by her PCP. * Telephone Encounter - Atul Akers NP - 01/28/2024 1:46 PM EST We do not prescribe singulair. This is a medication used to treat respiratory conditions. Please have the patient reach out to PCP. * Telephone Encounter - Rahul Harrell MA - 01/28/2024 11:34 AM EST Requesting refill of montelukast sent to [facility]. Nothing in notes about this medication. Okayto send? documented in this encounterSullivan County Memorial [id number] Telephone encounter Note* Telephone Encounter - Atul Akers NP - 01/28/2024 1:46 PM EST We do not prescribe singulair. This is a medication used to treat respiratory conditions. Please have the patient reach out to PCP. [facility] [id number] Telephone encounter Note* Telephone Encounter - Rahul Harrell MA - 01/28/2024 11:34 AM EST Requesting refill of montelukast sent to [facility]. Nothing in notes about this medication. Okayto send? [facility] [id number] History of Present illness Narrative* Rahul Patel, ECTORM - 01/25/2024 10:20 AM EST Patient: Gabrielle Marcos : 1960 PCP: Nabeel [...] , Rfl: ergocalciferol (Vitamin D2) 1.25 MG (18253 UT) capsule, TAKE 1 CAPSULE BY MOUTH [...] and thickness digits 1 through 10 Rahul Patel DPM documented in this encounterSullivan County Memorial [id number] History of Present illness Narrative* Rahul Patel DPM - 11/01/2023 11:50 AM EDT Patient: Gabrielle Marcos : 1960 PCP: Nabeel Stnaton MD SUBJECTIVE This is a 63 y.o. [...] , Rfl: ergocalciferol (Vitamin D2) 1.25 MG (19138 UT) capsule, TAKE 1 CAPSULE BY MOUTH [...] regions ASSESSMENT 1. Multiple sclerosis (CMS/HCC) 2. Onychomycosis 3. Toe pain, bilateral 4. Venous insufficiency PLAN Discussed proper foot care with patient today. Debride nails in length and thickness digits 1 through 10 Rahul Patel DPM documented in this encounterSullivan County Memorial [id number] History of Present illness Narrative* Arsalan Diaz, ALLANT - 10/23/2023 9:30 AM EDT Images from the original note were not included. Reason for Appointment: Epidural Patient ID: Gabrielle Marcos is a 63 y.o. female who presents for lumbar radiculopathy. Current Medications: has a current medication list which includes the following prescription(s): biotin, donepezil, ergocalciferol, fluticasone, gabapentin, losartan, montelukast, ocrelizumab, ondansetron odt, oxybutynin xl, and timolol. Vitals: Visit Vitals BP 124/83 (BP Location: Right arm, Patient Position: Sitting) Pulse 66 Smoking Status Every Day Allergies: Allergies Allergen Reactions Keflex [Cephalexin] Pollen Extract Trees, grasses, garza Seasonal Ic [Octacosanol] EPIDURAL NOTE: Bilateral L5 Epidural Injection Fluoroscopic needle guidance REASON FOR PROCEDURE: Lumbar radiculopathy and radicular pain ALLERGIES: See allergy list above. Patient specifically denies contrast and shellfish allergy. MEDICATIONS INJECTED: 1ml of 0.25% Bupivacaine mixed with Dexamethasone (10mg/ml) 10mg total. LOCAL ANESTHETIC INJECTED: None CONTRAST: Omnipaque 180mgI/mL, 1 mL per each procedure site SEDATION MEDICATIONS: None TOPICAL ANESTHETIC: Ethyl Chloride spray ESTIMATED BLOOD LOSS: None COMPLICATIONS: None TECHNIQUE: If applicable, blood thinning medications were held according to SIS and LINDSAY guidelines. Time-out was taken to identify the correct patient, procedure, and side prior to starting the procedure. Lying in a prone position, the patient was prepped in the usual aseptic fashion. The appropriate site was identified under fluoroscopy. A 22 gauge needle was then introduced and the Right L5 foramen was negotiated under direct intermittent fluoroscopy. Lateral view was obtained to confirm needle placement and depth. Negative aspiration confirmed no blood and no CSF return. In the AP view 1 ml of Omnipaque 180mgI/mL contrast was injected and showed a good spread of the dye along the corresp onding nerve root and through the foramen into the axillary recess of the epidural space without any vascular uptake. Then the 0.5ml of 0.25% Bupivacaine mixed with 0.5ml of Dexamethasone 10mg/ml wasinjected without adverse effect. The next appropriate site was identified under fluoroscopy. A 22 gauge needle was then introduced and the Left L5 foramen was negotiated under direct intermittent fluoroscopy. Lateral view was obtained to confirm needle placement and depth. Negative aspiration confirmed no blood and no CSF return. In the AP view 1 ml of Omnipaque 180mgI/mL contrast was injected and showed a good spread of the dyealong the corresponding nerve root and through the foramen into the axillary recess of the epiduralspace without any vascular uptake. Then the 0.5ml of 0.25% Bupivacaine mixed with 0.5ml of Dexamethasone 10mg/ml was injected without adverse effect. The procedure was completed without complications and was tolerated well. The patient was monitoredafter the procedure. The patient (or responsible constitution party) was given post-procedure and discharge instructions to follow at home. The patient was discharged in stable condition. A follow-up appointment was made. The patient was instructed to avoid activities that would normally worsen the pain. Pre-procedure pain score: 5 /10 Coating Technician: RT Beto(R) kVp: 103 Time (sec): 25 mA: 3.0 documented in this encounterSullivan County Memorial [id number] History of Present illness Narrative* Rahul Patel DPM - 04/05/2023 1:10 PM EST Patient: Gabrielle Marcos : 1960 PCP: Nabeel [...] left foot states it has a bony prominenceat sometimes rubs on shoes and causes irritation numbness and burning and tingling would like to discuss possible treatment option has tried different shoes with some improvement Allergies: No Known Allergies Past Medical History: Past Medical History: Diagnosis Date MS (multiple sclerosis) ([facility] Medications: Current Outpatient Medications: biotin 10 MG [...] Patient may continue with conservative treatments including [id number]-[id number] anti- inflammatories and other treatments suggested today. Patient may want to be s cheduled for surgical intervention in the near future. 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 I advised her that imaging will be done at the podiatry office. In the meantime, she can take diclofenac for pain, always take with food and plenty of fluids. I made her very aware that she cannot take ewpl-jxp-rsiehuz NSAIDs. I also advised her to wear supportive footwear at all times, at least leading up to her podiatry appointment Nov,es planus of left foot (ICD-10 - M21.42) [email or web address] Other 08-15-2023 NoteHNO ID: [id number] Author: Ac Warner MD Service: ? Author [...] insight. NEUROLOGICAL: Alert, oriente (more content not included)...[facility]08-15-2023 History of Present illness Narrative* Ac Warner [...] PATHOLOGY: 07/07/2014 Radical hysterectomy, BSO, tumor debulking ([facility]) Right ovarian resection: Serous borderline tumor, 21 [...] MD CC: BEVERLEY Herrera documented in this encounterSumma Health07-13-2023 Evaluation note* Encounter Date Diagnosis Assessment Notes Treatment Notes Treatment Clinical Notes Sep, Essential (primary) hypertension (ICD-10 - I10) [email or web address] Other 03-21-2023 Evaluation note* Encounter Date Diagnosis Assessment Notes Treatment Notes Treatment Clinical Notes May, Essential (primary) hypertension (ICD-10 - I10) Continue current medication. She is not fasting today but does not want to return here when she is fasting. She prefers to complete nonfasting lab work today, we can call with the results May,Onychomycosis (ICD-10 - B35.1)Discussed treatment and she prefers to not start Lamisil at this time. She does have an appointmentwith podiatry tomorrow [email or web address] Other 12-29-2022 Evaluation note* Encounter Date Diagnosis Assessment Notes Treatment Notes Treatment Clinical Notes Feb, Swelling of left lower extremity (ICD-10 - M79.89) At this point we must rule out DVT, order sent stat to the hospital, we will call with results Feb,ain of left lower extremity (ICD-10 - M79.605) [email or web address] Other 09-22-2022 Evaluation note* Encounter Date Diagnosis Assessment Notes Treatment Notes Treatment Clinical Notes Nov, Essential (primary) hypertension (ICD-10 - I10) No changes, she will complete the lipid panel in 6 months or so along with blood work from her neurologist Nov,eborrheic dermatitis of scalp (ICD-10 - L21.9)I advised her to use head and shoulders shampoo 2 or 3 times per week. She is to apply the shampoo a nd leave it on for 1 to 2 minutes before rinsing off. Call if not seeing benefit after 2 or 3 weeks [email or web address] Other 07-12-2022 Miscellaneous Notes* Telephone Encounter - [...] planned. Thanks, BRRosa Isela documented in this encounterSumma Health07-11-2022 History of Present illness Narrative* Ac Warner [...] (Temporal) Resp 18 Ht 160 cm (5' 3 ) Wt 79.4 kg (175 lb) SpO2 [...] PATHOLOGY: 07/07/2014 Radical hysterectomy, BSO, tumor debulking ([facility]) Right ovarian resection: Serous borderline tumor, 21 [...] MD CC: BEVERLEY Herrera documented in this encounterSumma Health03-21-2022 Evaluation note* Encounter Date Diagnosis Assessment Notes [...] reviewed and amended by provider signed below. May,Facial skin lesion (ICD-10 - L98.9) She wants this removed, referral sent [place] [employer] Other Evaluation noteNo InformationNortSelect Specialty Hospital - [facility]ees[facility] [employer] Other Evaluation note* Diagnosis Malignant neoplasm of both ovaries (HCC)- Primary Malignant neoplasm of ovary History of multiple sclerosis (HCC) Personal history of other disorders of nervous system and sense organs History of hypertension Personal history of other diseases of circulatory system documented in this encounter [facility] HealthEvalubeebe healthcare noteNo assessment information availableUniversity Hospitals Geaug[facility] Work Phone: Evaluation note* Diagnosis Malignant neoplasm of both ovaries (HCC)- Primary Malignant neoplasm of ovary documented in this encounter [facility]al[facility] note* Diagnosis Exostosis of left foot- Primary Onychomycosis Dermatophytosis of nail Toe pain, bilateral documented in this encounter [facility] HospitalEvaluation note* Diagnosis Onset Date Resolution Status Essential (primary) hypertension [facility] Work Phone: Evaluation note* Diagnosis Onset Date Resolution Status Venous insufficiency of left lower extre [facility] Work Phone: Evaluation note* Diagnosis Onset Date Resolution Status Venous insufficiency of left lower extre [facility] (primary[facility] hypertensionacute [facility] Work Phone: Evaluation note* Diagnosis Multiple sclerosis (CMS/HCC)- Primary Multiple sclerosis Pain due to onychomycosis of toenails of both feet Venous insufficiency Unspecified venous (peripheral) insufficiency Exostosis of left foot documented [facility] encounter [facility]* Diagnosis Multiple sclerosis (CMS/HCC)- Primary Multiple sclerosis Lumbar radiculopathy Thoracic or lumbosacral neuritis or radiculitis, unspecified Left leg weakness Muscle weakness (generalized) documented in this encounter [facility] HealthcareEvaluation note* Diagnosis Lumbar radiculopathy- Primary Thoracic or lumbosacral neuritis or radiculitis, unspecified Lumbosacral radiculopathy Thoracic or lumbosacral neuritis or radiculitis, unspecified documented in this encounter [facility]* Diagnosis Lumbar radiculopathy- Primary Thoracic or lumbosacral neuritis or radiculitis, unspecified documented in this encounter [facility]* Diagnosis Multiple sclerosis (CMS/HCC)- Primary Multiple sclerosis Onychomycosis Dermatophytosis of nail Toe pain, bilateral Venous insufficiency Unspecified venous (peripheral) insufficiency documented [facility] this encounter [facility]* Diagnosis Pain due to onychomycosis of toenails of both feet- Primary Multiple sclerosis (CMS/HCC) Multiple sclerosis Venous insufficiency Unspecified venous (peripheral) insufficiency Exostosis of left foot documented in this encounter [facility]* Diagnosis Multiple sclerosis (CMS/HCC)- Primary Multiple sclerosis Lumbosacral radiculopathy Thoracic or lumbosacral neuritis or radiculitis, unspecified documented in this encounter [facility]Evaluation note* Diagnosis Onset Date Resolution Status Admit Date Essential (primary) hypertension acuteMarch 2024 12:58pmHx of ovarian canceracuteMarch 2024 12:58pm Mixed hyperlipidemiaacuteMarch 2024 12:58pmMultiple sclerosisacuteMarch 2024 12:58pmUnspecified dementia, unspecified severity, without behavioral disturbance,acuteMarch 2024 12:58pmEncounter for subsequent annual wellness visit in Medicare patientnoneactiveMarch 2024 12:58pm [facility] Work Phone: Evaluation note* Diagnosis Pain due to onychomycosis of toenails of both feet- Primary Multiple sclerosis (CMS/HCC) Multiple sclerosis Venous insufficiency Unspecified venous (peripheral) insufficiency Exostosis of left foot documented in this encounter [facility] HealthcareEvaluation note* Diagnosis Lumbar radiculopathy- Primary Thoracic or lumbosacral neuritis or radiculitis, unspecified Lumbosacral radiculopathy Thoracic or lumbosacral neuritis or radiculitis, unspecified documented in this encounter [facility] HealthcareEvaluation note* Diagnosis Pain due to onychomycosis of toenails of both feet- Primary Multiple sclerosis (HCC) Multiple sclerosis documented in this encounter [facility] HealthcareEvaluation note* Diagnosis Onset Date Resolution Status Admit Date Encounter for medication monitoring acuteJuly 2024 9:38amLumbar radiculopathychronicJuly 2024 9:38am Multiple sclerosischronicJuly 2024 9:38amWeakness of left lower extremity chronicJuly 2024 9:38am [facility] Work Phone: Evaluation note* Diagnosis Multiple sclerosis (HCC)- Primary Multiple sclerosis Pain due to onychomycosis of toenails of both feet Venous insufficiency Unspecified venous (peripheral) insufficiency Exostosis of left foot documented in this encounter [facility] HealthcareHistory general Narrative - Reported* Type Description Date Medical History Multiple Sclerosis - Dr. Helms Medical Historyhay feverMedical HistoryHypertensionMedical Historyosteopenia - spineSurgical HistorylaparoscopySurgical HistoryTonsillectomySurgical History appendectomySurgical Historyepidural injectionsSurgical Historyfx'd right ankle - Dr. Chowdary - 6 screws/metal plate06/23/2014Surgical HistoryOvarian cancer - Dr. Culver - per surgeon no further treatment [id number]/07/2014Surgical History Infusions - Immuno GlogulinHospitalization Historyfor MSHospitalization History see surgical hx [email or web address] Other Reason for referral (narrative)No reason for referral information availableNorwalk Memorial Hospital Work Phone: Reason for visit Narrative* Injection (Routine) - ClosedSpecialtyDiagnoses / ProceduresReferred By ContactReferred To Contact Neurology Diagnoses Lumbar radiculopathy Procedures Nerve Block Atul Akers, ABY [address] [place] [id number] Phone: tel: fax: Referral IDStatusReasonStart DateExpiration DateVisits RequestedVisits [id number]/ [facility] HealthcareReason for visit Narrative* Injection (Routine) - ClosedSpecialty Diagnoses / ProceduresReferred By ContactReferred To ContactNeurology Diagnoses Lumbar radiculopathy Lumbosacral radiculopathy Procedures Nerve Block Bart Helms DO [address] [place] [address] Phone: tel: fax: Referral IDStatusReasonStart DateExpiration DateVisits RequestedVisits [id number]/21/20255/ [facility] Reason for Referral Reason left ankle instabili ty, pes planus, has MS Diagnosis 1 Left ankle instabili ty (M25.372) Referral Organization [facility] Holly Garcia Referring Provider First Name Nabeel Referring Provider Last Name Romy Referring Provider Specialty Family Prac tj Referred Provider Librado Rosen Referred Provider Specialty Podiatry - S urgical Chiropody Referral Priority Routine Reason * FU 05/30 facial skin lesion Diagnosis 1 Facial skin lesion ( L98.9) Referral Organization [facility] Holly Garcia Referring Provider First Name Nabeel Referring Provider Last Name Romy Referring Provider Specialty Family Prac tj Referred Organization [facility] Referred Provider Ernestina Hwang Referred Address ,[place], [place],[address] Referred Provider Specialty Dermatology Referral Priority Routine General Notes Concepcinó Hunter 12:33:18 PM > referral received and faxed Chief Complaint and Reason for Visit Chief Complaint M79.89 M79.605 MS.. I10 Chief Complaint 6 MONTHFOLLOW UP ScreeningReason for VisitEssential (primary) hypertension Chief Complaint Screening lower l leg swellingReason for VisitVenous insufficiency of left lower extremity Chief Complaint lower l leg swelling Amb Documentation MS.. 6 month follow upReason for VisitVenous insufficiency of left lower extremity Essential (primary) hypertension Chief Complaint Admit Date MSTee. April 28, 2024 8:45am 6 month follow up May 08, 2024 12:5 8pm Reason for Visit Admit Date Essential (primary) hypertension May 082024 12:58pm Hx of ovarian cancer May 08, 2024 12: 58pm Mixed hyperlipidemia May 08, 2024 12: 58pm Multiple sclerosis May 08, 2024 12:5 8pm Unspecified dementia, unspec ified severity, without behavioral disturbance, May 08, 2024 12:58pm Encounter for subsequent [facility] wellness visit in Medicare patient May 08, 2024 12:58pm Chief Complaint Admit Date 90 DAY EPI F/U September 29, 2024 9:38 am Reason for Visit Admit Date Encounter for medication monitoring September 29, 2024 9:38am Lumbar radiculopathy September 29, 2024 9:3 8am Multiple sclerosis September 29, 2024 9:38 am Weakness of left lower extremity September 292024 9:38am Chief Complaint Admit Date 90 DAY EPI F/U September 29, 2024 9:38 am psoriasis flare up/bump on neck September 9:33am Reason for Visit Admit Date Encounter for medication monitoring September 29, 2024 9:38am Lumbar radiculopathy September 29, 2024 9:3 8am Multiple sclerosis September 29, 2024 9:38 am Weakness of left lower extremity September 292024 9:38am OAB (overactive bladder) October 01, 2024 9:33am Epidermoid cyst of skin of back September 9:33am Seborrheic dermatitis of scalp September 9:33am Chief Complaint Admit Date 90 DAY EPI F/U September 29, 2024 9:38 am psoriasis flare up/bump on neck September 9:33am EPI- BILAT L5-- APPROVED #[id number] Oct 2024 1:23pm Chief Complaint Admit Date 90 DAY EPI F/U September 29, 2024 9:38 am psoriasis flare up/bump on neck September 9:33am EPI- BILAT L5-- APPROVED #[id number] [facility] 2024 1:23pm G3October 24, 2024 9: 46am Reason for Visit Admit Date Encounter for medication monitoring September 29, 2024 9:38am Lumbar radiculopathy September 29, 2024 9:3 8am Multiple sclerosis September 29, 2024 9:38 am Weakness of left lower extremity September 292024 9:38am OAB (overactive bladder) October 01, 2024 9:33am Epidermoid cyst of skin of back September 9:33am Seborrheic dermatitis of scalp September 9:33am Lumbosacral radiculopathy October 21, 025 1:23pm Chief Complaint Admit Date 90 DAY EPI F/U September 29, 2024 9:38 am psoriasis flare up/bump on neck September 9:33am EPI- BILAT L5-- APPROVED #[id number] [facility] 2024 1:23pm G3October 24, 2024 9: 46am MS.. October 27, 2024 8: 42am Amb Documentation October 27, 2024 11 :46am 6 month follow up November 06, 2024 1:22pm Reason for Visit Admit Date Encounter for medication monitoring September 29, 2024 9:38am Lumbar radiculopathy September 29, 2024 9:3 8am Multiple sclerosis September 29, 2024 9:38 am Weakness of left lower extremity September 292024 9:38am OAB (overactive bladder) October 01, 2024 9:33am Epidermoid cyst of skin of back September 9:33am Seborrheic dermatitis of scalp September 9:33am Lumbosacral radiculopathy October 21, 2 025 1:23pm Essential (primary) hypertension Septemb er 2024 1:22pm Screening mammogram for breast cancer Se ptember 2024 1:22pm Chief Complaint Admit Date 90 DAY EPI F/U September 29, 2024 9:38 am psoriasis flare up/bump on neck September 9:33am EPI- BILAT L5-- APPROVED #[id number] [facility] 2024 1:23pm G3October 24, 2024 9: 46am MS.. October 27, 2024 8: 42am Amb Documentation October 27, 2024 11 :46am 6 month follow up November 06, 2024 1:22pm Z12.31 November 24, 2024 11:41am Chief Complaint Admit Date 90 DAY EPI F/U September 29, 2024 9:38 am psoriasis flare up/bump on neck September 9:33am EPI- BILAT L5-- APPROVED #[id number] [facility] 2024 1:23pm October 24, 2024 9: 46am MS.. October 27, 2024 8: 42am Amb Documentation October 27, 2024 11 :46am 6 month follow up November 06, 2024 1:22pm Z12.November 24, 2024 11:41am cough/sinus congestion December 16 10:43am Reason for Visit Admit Date Encounter for medication monitoring September 29, 2024 9:38am Lumbar radiculopathy September 29, 2024 9:3 8am Multiple sclerosis September 29, 2024 9:38 am Weakness of left lower extremity September 292024 9:38am OAB (overactive bladder) October 01, 2024 9:33am Epidermoid cyst of skin of back September 9:33am Seborrheic dermatitis of scalp September 9:33am Lumbosacral radiculopathy October 21, 2 025 1:23pm Essential (primary) hypertension Septemb er 2024 1:22pm Screening mammogram for breast cancer Se ptember 2024 1:22pm Acute URI December 16, 2024 1 0:43am Chief Complaint Admit Date EPI- BILAT L5-- APPROVED #[id number] [facility] 2024 1:23pm G35 October 24, 2024 9: 46am MS.. October 27, 2024 8: 42am Amb Documentation October 27, 2024 11 :46am 6 month follow up November 06, 2024 1:22pm Z12.31 November 24, 2024 11:41am cough/sinus congestion December 16 10:43am Reason for Visit Admit Date Lumbosacral radiculopathy October 21, 2 025 1:23pm Essential (primary) hypertension Septemb er 2024 1:22pm Screening mammogram for breast cancer Se ptember 2024 1:22pm Acute URI December 16, 2024 1 0:43am Encounter for medication monitoring Osiris leonard 2024 10:57am Lumbar radiculopathy January 12, 2025 10:57am Multiple sclerosis January 12, 2025 10:57am Weakness of left lower extremity Novembe r 2024 10:57am Advance Directives Advance Directive Response Recorded Date/ Time Advance Directives No October 29, 2016 8:45am Advance Directive Response Recorded Date/ Time Advance Directives No October 29, 2016 7:45am Summary Purpose Family History Relationship Condition Age at Onset Recorded Date/T jessica Not Specified Heart disease Unknown DeceasedUnknown Relationship Condition Age at Onset Recorded Date/T jessica mother Heart disease Unknown DeceasedUnknown Relationship Condition Age at Onset Recorded Date/T jessica mother Heart disease Unknown DeceasedUnknownfatherHigh blood cholesterolUnknown Additional Source Comments REASON FOR VISIT (unrecogniz ed section and content) ReasonCommentsOvarian Cancernew patient consultationReasonCommentsResultsReason CommentsOvarian CancerFollow upReasonCommentsToenail CareNon DM nailsReason CommentsToenail CareNon dm nail careReasonCommentsMed RefillReasonComments Weakness, GenLLEBack PainMultiple SclerosisSpecialtyDiagnoses / Procedures Referred By ContactReferred To ContactNeurology Diagnoses Lumbar radiculopathy Procedures Nerve Block Atul Akers, ABY [address] [place] [address] Referral IDStatusReasonStart DateExpiration DateVisits RequestedVisits [id number] CareNon Dm Nails ReasonCommentsToenail CareNon DM nail careReasonCommentsToenail Care Source Comments (unrecognize d section and content) In the event this informatio n is protected by the Federal Confidentiality of Alcohol and Drug Abuse Patient Records regulations: The Federal rules restrict any use of the information to criminally investigate or prosecute any alcohol or drug abuse patient.[facility] HealthIn the event this information is protected by the Federal Confidentiality of Alcohol and Drug Abuse Patient Records regulations: The Federal rules restrict any use of the information to criminally investigate or prosecute any alcohol or drug abuse patient.[facility] HealthIn the event this information is protected by the Federal Confidentiality of Alcohol and Drug Abuse Patient Records regulations: The Federal rules restrict any use of the information to criminally investigate or prosecute any alcohol or drug abuse patient.[facility] HealthIn the event this information is protected by the Federal Confidentiality of Alcohol and Drug Abuse Patient Records regulations: The Federal rules restrict any use of the information to criminally investigate or prosecute any alcohol or drug abuse patient.[facility] Teams (unrecognized sec tion and content) Team Status: Active Member Role Status Dates Nabeel Stanton DO Primary Care Provider Active Team Status: Inactive Member Role Status Dates Nabeel Stanton DO Primary Care Provider Active Start: September 29, 2024 End: September 29, 2024Georgina Escobar APRN-FNP-CAttending ProviderActiveStart: September 29, 2024 End: September 29, 2024 Team Status: Active Member Role Status Dates Nabeel Stanton DO Primary Care Provider Active Start: April 28, 2024 Cece Patten APRN COVERSTITCH ELASTIC ATTACHER-CAttending Provider, Referring ProviderActive Start: April 28, 2024 Team Status: Inactive Member Role Status Dates Nabeel Stanton DO Primary Care Provid er, Attending Provider Active Start: May 08, 2024 End: May 08, 2024Team MemberRelationshipSpecialtyStart DateEnd Date Nabeel Stanton, DO [address] [place] [address] PCP - [facility] Practice09/12/21Team MemberRelationshipSpecialtyStart DateEnd Date Nabeel Stanton, DO [address] [place] [address] PCP - [facility] Practice09/12/21 Team Status: Inactive Member Role Status Dates Nabeel Stanton DO Primary Care Provider, Attending Provider Active Team Status: Active Member Role Status Dates Nabeel Stanton DO Primary Care Provider Active Cece Patten APRN COVERSTITCH ELASTIC ATTACHER-CAttending Provider, Referring ProviderActive Team MemberRelationshipSpecialtyStart DateEnd Date Nabeel Stanton DO [address] [place] [address] PCP - [facility] Medicine09/12/21Team MemberRelationshipSpecialtyStart DateEnd Date Nabeel Stanton [facility] [place] [phone] PCP - [facility] Medicine04/05/23 Team Status: Inactive Member Role Status Dates Nabeel Stanton DO Primary Care Provid er, Attending Provider Active Start: May 11, 2023 End: May 11, 2023 Team Status: Inactive Member Role Status Dates Nabeel Stanton DO Primary Care Provid er, Referring Provider Active Start: August 08, 2023 End: August 07eferral SelfAttending ProviderActiveStart: August 08, 2023 End: August 08, 2023 Team Status: Inactive Member Role Status Dates Nabeel Stanton DO Primary Care Provid er, Attending Provider Active Start: September 04, 2023 End: September 04, 2023 Team Status: Active Member Role Status Dates Nabeel Stanton DO Primary Care Provider Active Start: September 04, 2023 Madelaine Bates , CMAAttending ProviderActiveStart: September 04, 2023 Team Status: Active Member Role Status Dates Nabeel Stanton DO Primary Care Provider Active Start: October 22, 2023 Cece Patten APRN COVERSTITCH ELASTIC ATTACHER-CAttending Provider, Referring ProviderActive Start: October 22, 2023 Team Status: Inactive Member Role Status Dates Nabeel Stanton DO Primary Care Provid er, Attending Provider Active Start: November 09, 2023 End: November 09, 2023Team MemberRelationshipSpecialtyStart DateEnd Date Nabeel Stanton MD 0 [facility] [place] [phone] PCP - [facility]04/05/23Team MemberRelationshipSpecialtyStart DateEnd Date Nabeel Stanton MD 0 [facility] [address] PCP - [facility]04/05/23Team MemberRelationshipSpecialtyStart DateEnd Date Nabeel Stanton MD [address] [place] [address] PCP - GeneralFamily Medicine04/05/23Team MemberRelationshipSpecialtyStart DateEnd Date Nabeel Stanton MD [address] [place] [address] PCP - GeneralFamily Medicine04/05/23Team MemberRelationshipSpecialtyStart DateEnd Date Nabeel Stanton MD [address] [place] [address] PCP - Generalmily Medicine04/05/23Team MemberRelationshipSpecialtyStart DateEnd Date Nabeel Stanton MD [address] [place] [address] PCP - Generalmily Medicine04/05/23Team MemberRelationshipSpecialtyStart DateEnd Date Nabeel Stanton MD [address] [place] [place] [address] PCP - GeneralFamily Medicine04/05/23Team MemberRelationshipSpecialtyStart DateEnd Date Nabeel Stanton MD [address] [place] [address] PCP - GeneralFamily Medicine04/05/23Team MemberRelationshipSpecialtyStart DateEnd Date Nabeel Stanton MD [address] [place] [place] [address] PCP - GeneralFamily Medicine04/05/23Team MemberRelationshipSpecialtyStart DateEnd Date Nabeel Stanton MD [address] [place] [phone] PCP - GeneralFamily Medicine04/05/23Team MemberRelationshipSpecialtyStart DateEnd Date Nabeel Stanton MD [address] [place] [address] PCP - GeneralFamily Medicine06/19/24Team MemberRelationshipSpecialtyStart DateEnd Date Nabeel Stanton MD [address] [place] [address] PCP - Generalmily Medicine06/19/24Team MemberRelationshipSpecialtyStart DateEnd Date Nabeel Stanton MD [address] [place] [address] PCP - GeneralFamily Medicine06/19/24Team MemberRelationshipSpecialtyStart DateEnd Date Nabeel Stanton MD [address] [place] [address] PCP - GeneralFamily Medicine06/19/24Team MemberRelationshipSpecialtyStart DateEnd Date Nabeel Stanton MD [address] [place] [address] PCP - GeneralFamily Medicine06/19/24Team MemberRelationshipSpecialtyStart DateEnd Date Nabeel Stanton MD 0 [facility] [place] [address] PCP - [facility]06/19/24 Team Status: Inactive Member Role Status Dates Nabeel Stanton DO Primary Care Provider Active Start: October 01, 2024 End: October 01, 2024Thbert Stanton DOAttending ProviderActiveStart: October 01, 2024 End: October 01, 2024 Team Status: Inactive Member Role Status Dates Nabeel Stanton DO Primary Care Provider Active Start: October 21, 2024 End: October 21ashlie Helms DOAttending ProviderActiveStart: October 21, 2024 End: October 21, 2024 Team Status: Inactive Member Role Status Dates Nabeel Stanton DO Primary Care Provider Active Start: October 24, 2024 End: October 24, 2024Georgina Escobar APRN-FNP-CAttending ProviderActiveStart: October 24, 2024 End: October 24, 2024 Team Status: Active Member Role Status Dates Nabeel Stanton DO Primary Care Provider Active Start: October 27, 2024 Cece Patten APRN COVERSTITCH ELASTIC ATTACHER-CAttending ProviderActiveStart: October 27, 2024 Cece Patten APRN COVERSTITCH ELASTIC ATTACHER-CReferring ProviderActiveStart: October 27, 2024 Team Status: Active Member Role Status Dates Nabeel Stanton DO Primary Care Provider Active Start: October 27, 2024 Kinsey SalazarAttending ProviderActiveStart: October 27, 2024 Team Status: Inactive Member Role Status Dates Nabeel Stanton DO Primary Care Provider Active Start: November 06, 2024 End: November 06bert Stanton DOAttbre ProviderActiveStart: November 06, 2024 End: November 06, 2024Team MemberRelationshipSpecialtyStart DateEnd Date Nabeel Stanton MD 0 [facility] [place] [address] PCP - [facility]06/19/24Team MemberRelationshipSpecialtyStart DateEnd Date Nabeel Stanton MD [address] [place] [address] PCP - [facility]06/19/24 Team Status: Inactive Member Role Status Dates Nabeel Stanton DO Primary Care Provider Active Start: November 24, 2024 End: November 24bert Stanton DOAttending ProviderActiveStart: November 24, 2024 End: November 24, 2024 Team Status: Inactive Member Role Status Dates Nabeel Stanton DO Primary Care Provider Active Start: December 16, 2024 End: December 16bert Stanton DOAttending ProviderActiveStart: December 16, 2024 End: December 16, 2024Team MemberRelationshipSpecialtyStart DateEnd Date Nbaeel Stanton MD PCP - [facility] Nabeel Stanton MD [address] [place] [address] PCP - [facility]06/19/24 Team Status: Active Member Role/Relationship Status Dates Nabeel Stanton DO Primary Care Provider Active Team Status: Inactive Member Role/Relationship Status Dates Nabeel Stanton DO Primary Care Provider Active Start: October 21, 2024 End: October 21ashlie Helms DOAttending ProviderActiveStart: October 21, 2024 End: October 21, 2024 Team Status: Inactive Member Role/Relationship Status Dates Nabeel Stanton DO Primary Care Provider Active Start: October 24, 2024 End: October 24, 2024Georgina Escobar APRN-FNP-CAttending ProviderActiveStart: October 24, 2024 End: October 24, 2024 Team Status: Active Member Role/Relationship Status Dates Nabeel Stanton DO Primary Care Provider Active Start: October 27, 2024 Cece Patten APRN COVERSTITCH ELASTIC ATTACHER-CAttending ProviderActiveStart: October 27, 2024 Cece Patten APRN COVERSTITCH ELASTIC ATTACHER-CReferring ProviderActiveStart: October 27, 2024 Team Status: Active Member Role/Relationship Status Dates Nabeel Stanton DO Primary Care Provider Active Start: October 27, 2024 Kinsey SalazarAttending ProviderActiveStart: October 27, 2024 Team Status: Inactive Member Role/Relationship Status Dates Nabeel Stanton DO Primary Care Provider Active Start: November 06, 2024 End: November 06bert Stanton DOAttbre ProviderActiveStart: November 06, 2024 End: November 06, 2024 Team Status: Inactive Member Role/Relationship Status Dates Nabeel Stanton DO Primary Care Provider Active Start: November 24, 2024 End: November 24bert Stanton DOAttending ProviderActiveStart: November 24, 2024 End: November 24, 2024 Team Status: Inactive Member Role/Relationship Status Dates Nabeel Stanton DO Primary Care Provider Active Start: December 16, 2024 End: December 16bert Stanton DOAttending ProviderActiveStart: December 16, 2024 End: December 16, 2024 Team Status: Inactive Member Role/Relationship Status Dates Nabeel Stanton DO Primary Care Provider Active Start: January 12, 2025 End: January 12, 2025Georgina Escobar APRN-FNP-CAttending ProviderActive Start: January 12, 2025 End: January 12, 2025 Goals (unrecognized section and content) Goals may be documented in a n alternate section INFORMATION SOURCE (unrecogn ized section and content) DATE CREATED AUTHOR 05/24/2022 [facility] DATE CREATED AUTHOR AUTHOR'S ORGANIZ ATION 10/18/2022 [facility] DATE CREATED AUTHOR AUTHOR'S ORGANIZ ATION 11/21/2024 [facility] DATE CREATED AUTHOR AUTHOR'S ORGANIZ ATION 11/25/2024 [facility] FOR RECORDS PERTAINING TO PATIENTS WHO [...] BE BASED ON THE PRIMARY CLINICAL RECORDS. [facility]. provides no warranty or guarantee of the accuracy or completeness of information in this document.
[2025-02-05 12:24] LABS: Hematocrit 43.4 % (36.0-48.0); Hemoglobin 14.4 g/dL (12.0-16.0); Mean Corpuscular HGB Conc 33.2 g/dL (29.9-35.2); Mean Corpuscular Hemoglobin 30.0 pg (26.7-34.0); Mean Corpuscular Volume 90.4 fL (81.0-99.0); Platelet Count 332 10^3/uL (150-450); Red Blood Count 4.80 10^6/uL (4.20-5.40); White Blood Count 10.5 10^3/uL (4.0-11.0)
[2025-02-05 12:51] LABS: Alanine Aminotransferase 33 U/L (14-59); Albumin Globulin Ratio 1.1; Albumin Level 3.7 g/dL (3.4-5.0); Alkaline Phosphatase 124 U/L (46-116); Anion Gap 9.9; Aspartate Amino Transferase 23 U/L (15-37); Blood Urea Nitrogen 10.0 mg/dL (7.0-18.0); Calcium 9.1 mg/dL (8.5-10.1); Carbon Dioxide 31.6 mmol/L (21.0-32.0); Chloride 106 mmol/L (98-107); Estimated GFR (African America >60 (>=60 mL/min/1.73m^2); Estimated GFR (Non-African Ame >60 (>=60 mL/min/1.73m^2); Globulin 3.4 g/dL; Glucose 105 mg/dL (74-106); Potassium 4.5 mmol/L (3.5-5.1); Sodium 143 mmol/L (136-145); Total Protein 7.1 g/dL (6.4-8.2)
[2025-02-05 12:52] LABS: Basophils Abs Manual 0.00 10^3/uL (0.00-0.10); Basophils Percent Manual 0.0 % (0.2-2.0); Eosinophils Absolute Manual 0.10 10^3/uL (0.00-0.70); Eosinophils Percent Manual 1.0 % (0.9-7.0); Lymphocytes Absolute Manual 5.56 10^3/uL (1.20-3.80); Lymphocytes Percent Manual 53.0 % (20.5-60.0); Monocytes Absolute Manual 0.52 10^3/uL (0.30-0.80); Monocytes Percent Manual 5.0 % (1.7-12.0); Segmented Neut Absolute Manual 4.30 10^3/uL (1.4-6.5); Segmented Neutrophils % Manual 41.0 (43.0-75.0)
[2025-02-06 08:11] LABS: Immunoglobulin G, Qn 724 mg/dL (586-1602)
== END 2025-02-05 11:34 | disposition home or self-care (01) ==
LOC: LAB 11:48
PROVIDERS: PCP Family Medicine; Visit Provider Nurse Practitioner Family
DX: Z51.81 Encounter for therapeutic drug level monitoring (principal)
CPT/HCPCS: 36415; 80053; 82784; 83036; 85007; 85027